=== PATIENT | female | born 1955 | race Caucasian/White ===

== ENCOUNTER 2017-02-27 13:53 | Inpatient (IN) | payer OTHER ==
[~2017-02-27] VITALS: Ht 160 cm; Wt 62.2 kg
[2017-02-27 13:56] VITALS: BP 176/97; PULSE 132; RESP 22; TEMP 98.5; O2SAT 97
[2017-02-27 14:53] VITALS: BP 160/77; PULSE 106; RESP 14; O2SAT 97
[2017-02-27 14:59] LABS: BASOPHIL % 0.2 % (0.0-2.0); EOSINOPHIL % 0.6 % (0.0-4.0); HEMATOCRIT 46.5 % (35.0-46.0); HEMO FLAGS DIFF FINAL; LYMPHOCYTE # 1.5 TH/MM3 (1.0-4.8); MEAN CELL VOLUME 91.2 FL (80.0-100.0); MEAN CORPUSCULAR HEMOGLOBIN 30.4 PG (27.0-34.0); MEAN CORPUSCULAR HGB CONC 33.3 % (32.0-36.0); MONO % 6.3 % (0.0-8.0); NEUT % 71.9 % (16.0-70.0); PLATELET COUNT 213 TH/MM3 (150-450); RED CELL DISTRIBUTION WIDTH 13.8 % (11.6-17.2); WHITE BLOOD COUNT 6.9 TH/MM3 (4.0-11.0)
[2017-02-27 15:07] LABS: APTT (PATIENT) 23.8 SEC (24.3-30.1); INTERNATIONAL NORMALIZED RATIO 0.9 RATIO; PROTHROMBIN TIME - PATIENT 9.5 SEC (9.8-11.6)
--- NOTE | 2017-02-27 15:16 | RADRPT ---
EXAM DATE/TIME: 02/27/2017 14:35 [place] COMPARISON: No previous studies available for comparison. INDICATIONS : Chest pain, short of breath. MEDICAL HISTORY : Chronic obstructive pulmonary disease. bronchitis SURGICAL HISTORY : Coronary artery stent. ENCOUNTER: Initial ACUITY: 1 day PAIN SCORE: 3/10 LOCATION: Bilateral chest FINDINGS: PA and lateral views of the chest demonstrate the lungs to be symmetrically aerated without evidence of mass, infiltrate or effusion. The cardiomediastinal contours are unremarkable. Osseous structure s are intact. CONCLUSION: Normal examination. Marc Davis MD on February 27, 2017 at 15:14 Board Certified Radiologist. This report was verified electronically.
--- NOTE | 2017-02-27 15:19 | PD ---
HPI Chief Complaint: Chest Pain Time Seen by Provider: 14:36 Travel History International Travel<30 days: No Contact w/Intl Traveler<30days: No Traveled to known affect area: No History of Present Illness HPI 61-year-old female complains of chest pain. Patient states that the pain started 3 days ago. Patient states the pain is substernal chest pain pressure pain, with radiation to the jaw. Patient states that she has intermittent sweating, palpitation shortness of breath with the chest pain. Patient states the chest pain is not so she with exertion. Patient states that she has intermittent chest pain for the past 4 weeks. Patient states that the pain is worse for the past 2 days. Patient has history of UT status post stent placement in the past. Last stent placement was in 2008. Patient was on aspirin and Plavix at that time. Patient states that she only take aspirin 81 mg daily now. Patient states that she could not afford Plavix and has not been taking it for long time. Patient has history hypertension, diabetes, dyslipidemia. Patient is a smoker. Patient states that she has not been taking any medication for at least 4 years. Patient has family history heart disease. On a scale of 1-10 the pain is a [address] 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 PFSH Past Medical History Arthritis: Yes (HANDS) Autoimmune Disease: No Blood Disorders: No Cancer: No Cardiac Catheterization: Yes Cardiovascular Problems: Yes Cerebrovascular Accident: Yes (TIA's) Diabetes: Yes Patient Takes Glucophage: No Diminished Hearing: No Endocrine: No Genitourinary: Yes Hypertension: Yes Immune Disorder: No Musculoskeletal: Yes Neurologic: Yes Psychiatric: No Reproductive: No Respiratory: No Myocardial Infarction: Yes Thyroid Disease: No Tetanus Vaccination: Unknown ?: Not : 8 Para: 7 Miscarriage: 1 Past Surgical History Cardiac Surgery: Yes (CARDIAC CATH WITH STENT X ) Coronary Stent: Yes Oral Surgery: Yes (T&A) Tonsillectomy: Yes Other Surgery: No (tonsillectomy 1966) Family History Family Myocardial Infarction: Yes Social History Alcohol Use: Yes (rarely ) Tobacco Use: Yes Substance Use: No Allergies-Medications (Allergen,Severity, Reaction): Coded Allergies: Honey Bee (Verified Allergy, Severe, UNKNOWN, 02/27/17) Adhesives (Verified Allergy, Mild, REDNESS, 02/27/17) Reported Meds & Prescriptions Reported Meds & Active Scripts Active No Active Prescriptions or Reported Medications Review of Systems General / Constitutional: No: Fever Eyes: No: Visual changes HENT: No: Headaches Cardiovascular: Positive: Chest Pain or Discomfort Respiratory: No: Shortness of Breath Gastrointestinal: No: Abdominal Pain Genitourinary: No: Dysuria Musculoskeletal: No: Pain Skin: No Rash Neurologic: No: Weakness Psychiatric: No: Depression Endocrine: No: Polydipsia Hematologic/Lymphatic: No: Easy Bruising Physical Exam Narrative GENERAL: Well-nourished, well-developed patient. SKIN: Focused skin assessment warm/dry. HEAD: Normocephalic. EYES: No scleral icterus. No injection or drainage. NECK: Supple, trachea midline. No JVD or lymphadenopathy. CARDIOVASCULAR: Regular rate and rhythm without murmurs, gallops, or rubs. RESPIRATORY: Breath sounds equal bilaterally. No accessory muscle use. GASTROINTESTINAL: Abdomen soft, non-tender, nondistended. MUSCULOSKELETAL: No cyanosis, or edema. BACK: Nontender without obvious deformity. No CVA tenderness. Neurologic exam normal. Data Data Last Documented VS Vital Signs Date Time Temp Pulse Resp B/P Pulse Ox O2 Delivery O2 Flow Rate FiO2 02/27/17 14:53 97 Nasal Cannula 2 02/27/17 14:53 106 14 160/77 02/27/17 13:56 98.5 Orders Electrocardiogram (02/27/17 14:15) Complete Blood Count With Diff (02/27/17 14:15) Ckmb (Isoenzyme) Profile (02/27/17 14:15) Troponin I (02/27/17 14:15) Iv Access Insert/Monitor (02/27/17 14:15) Ecg Monitoring (02/27/17 14:15) Oxygen Administration (02/27/17 14:15) Oximetry (02/27/17 14:15) Prothrombin Time / Inr (Pt) (02/27/17 14:47) Act Partial Throm Time (Ptt) (02/27/17 14:47) Chest, Pa & Lat (02/27/17 14:15) Comprehensive Metabolic Panel (02/27/17 14:26) CKMB (02/27/17 14:26) CKMB% (02/27/17 14:26) Labs Laboratory Tests Test 02/27/17 02/27/17 14:26 14:28 White Blood Count 6.9 TH/MM3 Red Blood Count 5.10 MIL/MM3 Hemoglobin 15.5 GM/DL Hematocrit 46.5 % Mean Corpuscular Volume 91.2 FL Mean Corpuscular Hemoglobin 30.4 PG Mean Corpuscular Hemoglobin 33.3 % Concent Red Cell Distribution Width 13.8 % Platelet Count 213 TH/MM3 Mean Platelet Volume 9.9 FL Neutrophils (%) (Auto) 71.9 % Lymphocytes (%) (Auto) 21.0 % Monocytes (%) (Auto) 6.3 % Eosinophils (%) (Auto) 0.6 % Basophils (%) (Auto) 0.2 % Neutrophils # (Auto) 5.0 TH/MM3 Lymphocytes # (Auto) 1.5 TH/MM3 Monocytes # (Auto) 0.4 TH/MM3 Eosinophils # (Auto) 0.0 TH/MM3 Basophils # (Auto) 0.0 TH/MM3 CBC Comment DIFF FINAL Differential Comment Sodium Level 131 MEQ/L Potassium Level 4.6 MEQ/L Chloride Level 94 MEQ/L Carbon Dioxide Level 25.6 MEQ/L Anion Gap 11 MEQ/L Blood Urea Nitrogen 15 MG/DL Creatinine 1.04 MG/DL Estimat Glomerular Filtration 54 ML/MIN Rate Random Glucose 740 MG/DL Calcium Level 9.0 MG/DL Total Bilirubin 0.4 MG/DL Aspartate Amino Transf 30 U/L (AST/SGOT) Alanine Aminotransferase 26 U/L (ALT/SGPT) Alkaline Phosphatase 128 U/L Total Creatine Kinase 157 U/L Creatine Kinase MB 5.3 NG/ML Troponin I 3.13 NG/ML Total Protein 7.4 GM/DL Albumin 3.8 GM/DL Prothrombin Time 9.5 SEC Prothromb Time International 0.9 RATIO Ratio Activated Partial 23.8 SEC Thromboplast Time [facility] Medical Decision Making Medical Screen Exam Complete: Yes Emergency Medical Condition: Yes Medical Record Reviewed: Yes Interpretation(s) EKG show sinus tachycardia versus atrial flutter with rate 117. Right bundle change block. Inverted T waves in anterior leads and mild ST depression in the lateral leads. EKG was shown to earth boring machine operator Dr. Pike. Differential Diagnosis Differential diagnosis including angina, UT, PE, pneumothorax. Narrative Course 61-year-old female with chest pain. Patient has abnormal EKG and elevated troponin. I spoke with Dr. 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 Patient actually saw Dr. Pike in the past. Dr. Pike advised heparin bolus and drip, admission to medical service, controlling blood sugar and possible cardiac catheter in the a.m. Diagnosis Primary Impression: NSTEMI (non-ST elevated myocardial infarction) Additional Impression: Hyperglycemia Scripts No Active Prescriptions or Reported Meds Connor Batres MD Feb 27, 2017 15:19
[2017-02-27 15:40] LABS: ALKALINE PHOSPHATASE 128 U/L (45-117); ALT (GPT) 26 U/L (10-53); ANION GAP 11 MEQ/L (5-15); AST (GOT) 30 U/L (15-37); BICARBONATE 25.6 MEQ/L (21.0-32.0); BLOOD UREA NITROGEN 15 MG/DL (7-18); CHLORIDE 94 MEQ/L (98-107); CREATINE KINASE 157 U/L (26-192); GLOMERULAR FILTRATION RATE 54 ML/MIN (>89); POTASSIUM 4.6 MEQ/L (3.5-5.1); SODIUM (NA) 131 MEQ/L (136-145); TOTAL BILIRUBIN ADULT 0.4 MG/DL (0.2-1.0)
[2017-02-27 16:01] LABS: CKMB 5.3 NG/ML (0.5-3.6)
[2017-02-27] MEDS ORDERED: MISC INFORMATION XX ONE (16:15)
[2017-02-27] MEDS ORDERED: SODIUM CHLOR 0.9% 1000 ML INJ 1,000 ML IV ONE (16:15)
[2017-02-27] MEDS ORDERED: DEXTROSE 50% IN WATER 50 ML VIAL(D50) IV PUSH PRN ×2 (16:15→19:45)
[2017-02-27] MEDS ORDERED: SODIUM CHLOR 0.9% 1000 ML INJ 1,000 ML IV SCH (16:15)
[2017-02-27] MEDS: ASPIRIN 81 MG CHEW TAB PO SCH (16:15)
[2017-02-27] MEDS ORDERED: HEPARIN-D5W INJ 250 ML IV SCH (16:15)
[2017-02-27] MEDS ORDERED: ASPIRIN EC 81 MG TABEC PO SCH (16:15)
[2017-02-27] MEDS ORDERED: INSULIN HUMAN REGULAR 1,000 UNITS/10 ML VIAL IV PUSH ONE (16:15)
[2017-02-27] MEDS ORDERED: METOPROLOL TARTRATE 25 MG TAB PO SCH (16:15)
[2017-02-27] MEDS ORDERED: HEPARIN SODIUM - IV 10,000 UNITS/10 ML VIAL IV ONE (16:15)
[2017-02-27] MEDS: ATORVASTATIN 80 MG TAB PO SCH (16:15)
[2017-02-27] MEDS ORDERED: MORPHINE SULFATE 4 MG/ML INJ IV PUSH ONE (16:30)
[2017-02-27] MEDS ORDERED: ONDANSETRON HCL 4 MG/2 ML VIAL IV PUSH ONE (16:30)
--- NOTE | 2017-02-27 16:36 | HHI.HP ---
[facility] Service [facility] Primary Care Physician No Primary Care Physician Admission Diagnosis NSTEMI. Hyperglycemia. Diagnoses: (1) NSTEMI (non-ST elevated myocardial infarction) Diagnosis: Principal (2) Uncontrolled diabetes mellitus Diagnosis: Principal Chief Complaint: chest pain Travel History International Travel<30 Days: No Contact w/Intl Traveler <30 Da: No Traveled to Known Affected Are: No History of Present Illness patient is a 61 y/o female with history of CAD- s/p stent, hypertension, diabetes mellitus, dyslipidemia, chronic smoker, non-compliant with the medical treatment, who presented to ER with chest pain. she says that the pain started last monday. pain is midsternal and intermittent. the pain was moderate in intensity and associated with sob and diaphoresis. the pain has radiation to both jaws. she says that she hasn't taken any of her medications since five years ago since she doesn't have any insurance. she was pain free at the time of my evaluation. Review of Systems Constitutional: COMPLAINS OF: Diaphoretic episodes, DENIES: Fever, Weight loss , Chills, Night Sweats Eyes: DENIES: Blurred vision, Diplopia, Vision loss, Double Vision Ears, nose, mouth, throat: DENIES: Tinnitus, Vertigo, Throat pain, Epistaxis Respiratory: COMPLAINS OF: Shortness of breath, DENIES: Apneas, Cough, Snoring , Wheezing, Hemoptysis, Sputum production Cardiovascular: COMPLAINS OF: Chest pain, DENIES: Palpitations, Syncope, Dyspnea on Exertion, PND, Lower Extremity Edema, Orthopnea, Claudication Gastrointestinal: DENIES: Abdominal pain, Black stools, Bloody stools, Constipation, Diarrhea, Nausea, Vomiting, Difficulty Swallowing, Anorexia Genitourinary: DENIES: Urinary frequency, Urgency, Hematuria, Dysuria Musculoskeletal: DENIES: Joint pain, Muscle aches, Stiffness, Joint Swelling Integumentary: DENIES: Rash Neurologic: DENIES: Abnormal gait, Headache, Localized weakness, Paresthesias, Seizures, Speech Problems, Tremor, Poor Balance Psychiatric: DENIES: Anxiety, Confusion, Mood changes, Depression, Hallucinations, Agitation, Suicidal Ideation, Homicidal Ideation, Delusions Past Family Social History Past Medical History CAD hypertension dyslipidemia TIA diabetes mellitus Past Surgical History stent placement Reported Medications none Allergies: Coded Allergies: Honey Bee (Verified Allergy, Severe, UNKNOWN, 02/27/17) Adhesives (Verified Allergy, Mild, REDNESS, 02/27/17) Active Ordered Medications Current Medications Insulin Human Regular (NovoLIN R INJ) 7 units ONCE ONCE IV PUSH ; Start at 16:15; Stop 02/27/17 at 16:16 Heparin Sodium (Porcine) 4000 units 4,000 units ONCE ONCE IV ; Start 02/27/17 at 16:15; Stop 02/27/17 at 16:16 Heparin Sodium/ Dextrose 250 ml @ 0 mls/hr TITRATE IV ; Start 02/27/17 at 16:15 Sodium Chloride (NS 1000 ml Inj) 1,000 ml @ 999 mls/hr BOLUS ONCE IV ; Start 02/27/17 at 16:15; Stop 02/27/17 at 17:15 Family History diabetes and hypertension. Social History smokes half a pack a day- drinks rarely. Physical Exam Vital Signs Vital Signs Date Time Temp Pulse Resp B/P Pulse Ox O2 Delivery O2 Flow Rate FiO2 02/27/17 14:53 97 Nasal Cannula 2 02/27/17 14:53 106 14 160/77 97 Nasal Cannula 2 02/27/17 14:44 118 14 98 Nasal Cannula 2 02/27/17 13:56 98.5 132 22 176/97 97 Physical Exam GENERAL: This is a well-nourished, well-developed patient, in no apparent distress. HEAD: Atraumatic. Normocephalic. No temporal or scalp tenderness. EYES: Pupils equal round and reactive. Extraocular motions intact. No scleral icterus. No injection or drainage. ENT: Nose without bleeding, purulent drainage or septal hematoma. Throat without erythema, tonsillar hypertrophy or exudate. Uvula midline. Airway patent. NECK: Trachea midline. No JVD or lymphadenopathy. Supple, nontender, no meningeal signs. CARDIOVASCULAR: Regular rate and rhythm without murmurs, gallops, or rubs. RESPIRATORY: Clear to auscultation. Breath sounds equal bilaterally. No wheezes , rales, or rhonchi. GASTROINTESTINAL: Abdomen soft, non-tender, nondistended. No hepato-splenomegaly , or palpable masses. No guarding. MUSCULOSKELETAL: Extremities without clubbing, cyanosis, or edema. No joint tenderness, effusion, or edema noted. No calf tenderness. Negative Homans sign bilaterally. NEUROLOGICAL: Awake and alert. Cranial nerves II through XII intact. Motor and sensory grossly within normal limits. Five out of 5 muscle strength in all muscle groups. Normal speech. Laboratory Laboratory Tests Test 02/27/17 02/27/17 14:26 14:28 White Blood Count 6.9 Red Blood Count 5.10 Hemoglobin 15.5 Hematocrit 46.5 Mean Corpuscular Volume 91.2 Mean Corpuscular Hemoglobin 30.4 Mean Corpuscular Hemoglobin 33.3 Concent Red Cell Distribution Width 13.8 Platelet Count 213 Mean Platelet Volume 9.9 Neutrophils (%) (Auto) 71.9 Lymphocytes (%) (Auto) 21.0 Monocytes (%) (Auto) 6.3 Eosinophils (%) (Auto) 0.6 Basophils (%) (Auto) 0.2 Neutrophils # (Auto) 5.0 Lymphocytes # (Auto) 1.5 Monocytes # (Auto) 0.4 Eosinophils # (Auto) 0.0 Basophils # (Auto) 0.0 CBC Comment DIFF FINAL Differential Comment Sodium Level 131 Potassium Level 4.6 Chloride Level 94 Carbon Dioxide Level 25.6 Anion Gap 11 Blood Urea Nitrogen 15 Creatinine 1.04 Estimat Glomerular Filtration 54 Rate Random Glucose 740 Calcium Level 9.0 Total Bilirubin 0.4 Aspartate Amino Transf 30 (AST/SGOT) Alanine Aminotransferase 26 (ALT/SGPT) Alkaline Phosphatase 128 Total Creatine Kinase 157 Creatine Kinase MB 5.3 Troponin I 3.13 Total Protein 7.4 Albumin 3.8 Prothrombin Time 9.5 Prothromb Time International 0.9 Ratio Activated Partial 23.8 Thromboplast Time Result Diagram: 02/27/17 1426 02/27/17 1426 Imaging Last Impressions Chest X-Ray 02/27/17 1415 Signed Impressions: Service Date/Time: Monday, February 27, 2017 14:35 - CONCLUSION: Normal examination. Marc Davis MD EKG; atrial flutter with RBBB Assessment and Plan Assessment and Plan A/P - NSTEMI with history of CAD- s/p stent placement start on aspirin and BB- continue heparin drip- trend the cardiac enzymes- cardiology consulted and plan for possible cardiac cath in am. lipid profile in am -diabetes mellitus- uncontrolled due to noncompliance start on insulin drip in light of OK-start IV fluid check A1c -hyponatremia due to hyperglycemia- will continue IV fluid- BMP in am. -DVT prophylaxis ; on Heparin drip Discussed Condition With ER physician and the patient. Physician Certification 2 Midnight Certification Type: Admission for Inpatient Services Order for Inpatient Services The services are ordered in accordance with Medicare regulations or non- Medicare payer requirements, as applicable. In the case of services not specified as inpatient-only, they are appropriately provided as inpatient services in accordance with the 2-midnight benchmark. Estimated LOS (days): 2 days is the estimated time the patient will need to remain in the hospital, assuming treatment plan goals are met and no additional complications. Post-Hospital Plan: Home Problem Qualifiers (1) Uncontrolled diabetes mellitus: Rut Javed MD Feb 27, 2017 16:36
--- NOTE | 2017-02-27 17:53 | MB ---
cc: JUAN LUIS PIKE MD DATE OF CONSULTATION 02/27/2017 HISTORY This is a 61-year-old woman who is in the hospital for chest discomfort. She stated the chest discomfort on and off over the last 4-5 days and it has become progressively worse so she has come to the emergency department. In the emergency department she has a new right bundle-branch block with nonspecific ST-segment depression noted fairly diffusely. She feels well now. She notes that she has a history of PTCA and stenting in 2008, as well as significant diabetes, hypertension, hyperlipidemia but stopped taking her medicines four or five years ago due to lack of funds and lost insurance. She has continued to smoke half pack of cigarettes per day. On admission now she is as noted above feels somewhat anxious but otherwise no chest pain. Laboratory examination has demonstrated normal renal function but blood sugar is significantly dangerously elevated at 720. And troponins were also elevated at 3.3. She has subsequently been admitted and we have been asked to see her. ALLERGIES ARE TO BEE STINGS AND ADHESIVES. SOCIAL HISTORY She has a smoking history as above. PHYSICAL EXAMINATION VITAL SIGNS: Blood pressure is 130/70, pulse is 100 and regular. NECK: There is no neck vein distension. LUNGS: Clear. CARDIOVASCULAR: Reveals regular rate and rhythm. There is no murmur or gallop noted. ABDOMEN: Soft. There is no tenderness. EXTREMITIES: Reveal no edema. ASSESSMENT 1. Non-ST elevation myocardial infarction. 2. Severe hyperglycemia. 3. Medical noncompliance. 4. Tobacco abuse. PLAN The plan we will reinstitute metoprolol, atorvastatin, aspirin and heparin protocol as well as rehydration with saline. We will consult the medical service to help us manage her hyperglycemia. We will plan a cardiac catheterization for tomorrow for further evaluation unless she redevelops chest discomfort. Also started on nitro paste at one inch q.6h. Juan Luis Pike MD DLW/KK /4:23 PM /5:34 PM
[2017-02-27 18:10] VITALS: BP 134/78
[2017-02-27 19:00] VITALS: BP 127/83; PULSE 114; PULSE 86; RESP 18; TEMP 98.2; O2SAT 99
[2017-02-27] MEDS ORDERED: SODIUM CHLORIDE FLUSH PRN IV FLUSH (19:45)
[2017-02-27] MEDS ORDERED: GLUCAGON 1 MG/ML VIAL OTHER PRN (19:45)
[2017-02-27] MEDS ORDERED: INSULIN ASPART 1,000 UNITS/10 ML VIAL SQ ONE (21:15)
[2017-02-27] MEDS: METOPROLOL TARTRATE 50 MG TAB PO SCH (21:17)
[2017-02-27] MEDS: NITROGLYCERIN 2% OINT 1 GM PACKET TOPICAL SCH (21:18)
[2017-02-27] MEDS: SODIUM CHLOR 0.9% 1000 ML INJ 1,000 ML IV SCH (21:18)
[2017-02-27 23:00] VITALS: BP 102/52; PULSE 73; RESP 20; TEMP 98.3; O2SAT 96
[2017-02-28] VITALS (10 sets, daily range): BP systolic 89–113; BP diastolic 50–67; PULSE 70–109; RESP 16–20; TEMP 97.9–99.8; O2SAT 94–97
[2017-02-28 00:51] LABS: APTT (PATIENT) 27.8 SEC (24.3-30.1)
[2017-02-28] MEDS: NITROGLYCERIN 2% OINT 1 GM PACKET TOPICAL SCH ×4 (00:58→18:49)
[2017-02-28] MEDS ORDERED: INSULIN ASPART 1,000 UNITS/10 ML VIAL SQ ONE (01:00)
[2017-02-28 04:46] LABS: BICARBONATE 26.5 MEQ/L (21.0-32.0); POTASSIUM 3.6 MEQ/L (3.5-5.1)
[2017-02-28 04:50] LABS: HDL CHOLESTEROL 27.1 MG/DL (40.0-60.0)
[2017-02-28] MEDS: SODIUM CHLOR 0.9% 1000 ML INJ 1,000 ML IV SCH ×3 (06:21→22:24)
[2017-02-28] MEDS ORDERED: MORPHINE SULFATE 4 MG/ML INJ IV PUSH ONE (06:45)
[2017-02-28] MEDS ORDERED: NITROGLYCERIN 0.4 MG SL 25 TABS/BTL SL ONE (06:45)
--- NOTE | 2017-02-28 07:05 | PD.CARD.PN ---
Subjective Subjective Remarks Complains of headache, low grade chest discomfort unchanged. BS 107. Troponin up to 11 Objective Vital Signs / I&O Vital Signs Date Time Temp Pulse Resp B/P Pulse Ox O2 Delivery O2 Flow Rate FiO2 02/28/17 03:00 97.9 78 20 90/50 96 02/28/17 03:00 78 02/27/17 23:00 73 02/27/17 23:00 98.3 73 20 102/52 96 02/27/17 19:00 114 02/27/17 19:00 98.2 86 18 127/83 99 02/27/17 18:10 102 14 134/78 97 02/27/17 14:53 97 Nasal Cannula 2 02/27/17 14:53 106 14 160/77 97 Nasal Cannula 2 02/27/17 14:44 118 14 98 Nasal Cannula 2 02/27/17 13:56 98.5 132 22 176/97 97 I/O 02/27/17 02/27/17 02/27/17 02/28/17 02/28/17 02/28/17 07:00 15:00 23:00 07:00 15:00 23:00 Intake Total 1373 ml Output Total 600 ml Balance 773 ml Intake Oral 410 ml IV Total 963 ml Output Urine Total 600 ml # Bowel Movements 0 Physical Exam Lungs clear RRR Laboratory Laboratory Tests Test 02/27/17 02/27/17 02/27/17 02/28/17 14:26 14:28 20:34 00:32 White Blood Count 6.9 TH/MM3 Red Blood Count 5.10 MIL/MM3 Hemoglobin 15.5 GM/DL Hematocrit 46.5 % Mean Corpuscular Volume 91.2 FL Mean Corpuscular Hemoglobin 30.4 PG Mean Corpuscular Hemoglobin 33.3 % Concent Red Cell Distribution Width 13.8 % Platelet Count 213 TH/MM3 Mean Platelet Volume 9.9 FL Neutrophils (%) (Auto) 71.9 % Lymphocytes (%) (Auto) 21.0 % Monocytes (%) (Auto) 6.3 % Eosinophils (%) (Auto) 0.6 % Basophils (%) (Auto) 0.2 % Neutrophils # (Auto) 5.0 TH/MM3 Lymphocytes # (Auto) 1.5 TH/MM3 Monocytes # (Auto) 0.4 TH/MM3 Eosinophils # (Auto) 0.0 TH/MM3 Basophils # (Auto) 0.0 TH/MM3 CBC Comment DIFF FINAL Differential Comment Sodium Level 131 MEQ/L Potassium Level 4.6 MEQ/L Chloride Level 94 MEQ/L Carbon Dioxide Level 25.6 MEQ/L Anion Gap 11 MEQ/L Blood Urea Nitrogen 15 MG/DL Creatinine 1.04 MG/DL Estimat Glomerular Filtration 54 ML/MIN Rate Random Glucose 740 MG/DL Calcium Level 9.0 MG/DL Total Bilirubin 0.4 MG/DL Aspartate Amino Transf 30 U/L (AST/SGOT) Alanine Aminotransferase 26 U/L (ALT/SGPT) Alkaline Phosphatase 128 U/L Total Creatine Kinase 157 U/L Creatine Kinase MB 5.3 NG/ML Troponin I 3.13 NG/ML 9.10 NG/ML Total Protein 7.4 GM/DL Albumin 3.8 GM/DL Prothrombin Time 9.5 SEC Prothromb Time International 0.9 RATIO Ratio Activated Partial 23.8 SEC 27.8 SEC Thromboplast Time Test 02/28/17 04:05 Sodium Level 142 MEQ/L Potassium Level 3.6 MEQ/L Chloride Level 106 MEQ/L Carbon Dioxide Level 26.5 MEQ/L Anion Gap 10 MEQ/L Blood Urea Nitrogen 16 MG/DL Creatinine 0.64 MG/DL Estimat Glomerular Filtration 95 ML/MIN Rate Random Glucose 106 MG/DL Calcium Level 8.2 MG/DL Troponin I 11.50 NG/ML Triglycerides Level 162 MG/DL Cholesterol Level 198 MG/DL LDL Cholesterol 139 MG/DL HDL Cholesterol 27.1 MG/DL Cholesterol/HDL Ratio 7.30 RATIO Assessment and Plan Assessment and Plan For cath today Juan Luis Pike MD Feb 28, 2017 07:05
[2017-02-28 08:03] LABS: APTT (PATIENT) 28.5 SEC (24.3-30.1)
[2017-02-28] MEDS ORDERED: DEXTROSE 50% IN WATER 50 ML VIAL(D50) IV PUSH PRN (08:15)
[2017-02-28] MEDS ORDERED: GLUCAGON 1 MG/ML VIAL OTHER PRN (08:15)
--- NOTE | 2017-02-28 08:16 | HHI.PR ---
Subjective Remarks resting comfortably with no distress. had mild chest pain earlier which has resolved. blood sugar much improved. d/w the RN and no acute issues over night. Objective Vitals Vital Signs Date Time Temp Pulse Resp B/P Pulse Ox O2 Delivery O2 Flow Rate FiO2 02/28/17 07:00 98.6 81 18 107/66 97 02/28/17 07:00 81 02/28/17 03:00 97.9 78 20 90/50 96 02/28/17 03:00 78 02/27/17 23:00 73 02/27/17 23:00 98.3 73 20 102/52 96 02/27/17 19:00 114 02/27/17 19:00 98.2 86 18 127/83 99 02/27/17 18:10 102 14 134/78 97 02/27/17 14:53 97 Nasal Cannula 2 02/27/17 14:53 106 14 160/77 97 Nasal Cannula 2 02/27/17 14:44 118 14 98 Nasal Cannula 2 02/27/17 13:56 98.5 132 22 176/97 97 I/O 02/27/17 02/27/17 02/27/17 02/28/17 02/28/17 02/28/17 07:00 15:00 23:00 07:00 15:00 23:00 Intake Total 1373 ml Output Total 600 ml Balance 773 ml Intake Oral 410 ml IV Total 963 ml Output Urine Total 600 ml # Bowel Movements 0 Result Diagram: 02/27/17 1426 02/28/17 0405 Imaging Last Impressions Chest X-Ray 02/27/17 1415 Signed Impressions: Service Date/Time: Monday, February 27, 2017 14:35 - CONCLUSION: Normal examination. Marc Davis MD Objective Remarks GENERAL: This is a well-nourished, well-developed patient, in no apparent distress. CARDIOVASCULAR: Regular rate and regular rhythm without murmurs, gallops, or rubs. RESPIRATORY: Clear to auscultation. Breath sounds equal bilaterally. No wheezes , rales, or rhonchi. GASTROINTESTINAL: Abdomen soft, non-tender, nondistended. Normal, active bowel sounds MUSCULOSKELETAL: Extremities without clubbing, cyanosis, or edema. NEURO: Alert & Oriented x4 to person, place, time, situation. Moves all ext x4 Procedures none Medications and IVs Current Medications Insulin Human Regular (NovoLIN R INJ) 7 units ONCE ONCE IV PUSH Last administered on 02/27/17 16:15; Start 02/27/17 at 16:15; Stop 02/27/17 at 16:16 ; Status DC Heparin Sodium (Porcine) 4000 units 4,000 units ONCE ONCE IV Last administered on 02/27/17 16:15; Start 02/27/17 at 16:15; Stop 02/27/17 at 16:16 ; Status DC Heparin Sodium/ Dextrose 250 ml @ 0 mls/hr TITRATE IV Last administered on 02/27 17:16; Start 02/27/17 at 16:15 Sodium Chloride (NS 1000 ml Inj) 1,000 ml @ 999 mls/hr BOLUS ONCE IV Last administered on 02/27/17 16:15; Start 02/27/17 at 16:15; Stop 02/27/17 at 17:15 ; Status DC Morphine Sulfate (Morphine Inj) 2 mg ONCE ONCE IV PUSH Last administered on 16:30; Start 02/27/17 at 16:30; Stop 02/27/17 at 16:31; Status DC Ondansetron HCl (Zofran Inj) 4 mg ONCE ONCE IV PUSH Last administered on 16:30; Start 02/27/17 at 16:30; Stop 02/27/17 at 16:31; Status DC Metoprolol Tartrate (Lopressor) 50 mg Q12HR PO Last administered on 02/27/17 21:17; Start 02/27/17 at 21:00 Nitroglycerin (Nitroglycerin 2% Oint) 1 inch Q6HR TOPICAL Last administered on 02/28/17 06:00; Start 02/27/17 at 18:00 Aspirin 81 mg 81 mg DAILY PO ; Start 02/27/17 at 16:15 Sodium Chloride (NS 1000 ml Inj) 1,000 ml @ 100 mls/hr Q10H IV ; Start at 16:15; Stop 02/27/17 at 19:35; Status DC Atorvastatin Calcium (Lipitor) 80 mg DAILY PO Last administered on 02/27/17 16 :15; Start 02/27/17 at 16:15 Dextrose (D50w (Vial) Inj) 25 ml UNSCH PRN IV PUSH SEE LABEL COMMENTS; Start at 16:15; Stop 02/27/17 at 19:34; Status DC Miscellaneous Information 1 ONCE ONCE XX ; Start 02/27/17 at 16:15; Stop at 16:34; Status DC Aspirin (Ecotrin Ec) 162 mg DAILY PO ; Start 02/27/17 at 16:15; Stop 02/27/17 at 16:32; Status DC Metoprolol Tartrate 25 mg 25 mg Q12HR PO ; Start 02/27/17 at 16:15; Stop at 16:34; Status DC Sodium Chloride (NS 1000 ml Inj) 1,000 ml @ 100 mls/hr Q10H IV Last administered on 02/28/17 06:21; Start 02/27/17 at 17:00 Dextrose (D50w (Vial) Inj) 25 ml UNSCH PRN IV PUSH HYPOGLYCEMIA-SEE COMMENTS; Start 02/27/17 at 19:45 Glucagon (Glucagon Inj) 1 mg UNSCH PRN OTHER HYPOGLYCEMIA-SEE COMMENTS; Start 02/27/17 at 19:45 Sodium Chloride (NS Flush) 2 ml UNSCH PRN IV FLUSH FLUSH AFTER USING IV ACCESS ; Start 02/27/17 at 19:45 Insulin Aspart (NovoLOG INJ) 10 units ONCE ONCE SQ Last administered on 21:19; Start 02/27/17 at 21:15; Stop 02/27/17 at 21:16; Status DC Insulin Aspart (NovoLOG INJ) 7 units ONCE ONCE SQ Last administered on 00:58; Start 02/28/17 at 01:00; Stop 02/28/17 at 01:01; Status DC Nitroglycerin (Nitrostat Sl) 0.4 mg ONCE ONCE SL Last administered on 06:45; Start 02/28/17 at 06:45; Stop 02/28/17 at 06:46; Status DC Morphine Sulfate (Morphine Inj) 2 mg ONCE ONCE IV PUSH ; Start 02/28/17 at 06: 45; Stop 02/28/17 at 06:46; Status DC A/P Assessment and Plan A/P - NSTEMI with history of CAD- s/p stent placement started on aspirin, BB, statin and heparin drip- - cardiology consulted and plan for possible cardiac cath today. -diabetes mellitus- uncontrolled due to noncompliance and stress blood sugar has much improved- will start SSI A1c pending. -hyponatremia due to hyperglycemia- resolved -DVT prophylaxis ; on Heparin drip transfer to [facility]. d/w the RN. Discharge Planning awaiting cardiac cath and cardiology recommendations. Rut Javed MD Feb 28, 2017 08:16
[2017-02-28] MEDS: ASPIRIN 81 MG CHEW TAB PO SCH (08:42)
[2017-02-28] MEDS: ATORVASTATIN 80 MG TAB PO SCH (08:42)
[2017-02-28] MEDS: INSULIN ASPART SUPPLEMENTAL SCALE SQ SCH ×4 (08:42→20:17)
[2017-02-28] MEDS: METOPROLOL TARTRATE 50 MG TAB PO SCH ×2 (08:42→20:17)
[2017-02-28] MEDS ORDERED: MORPHINE SULFATE 4 MG/ML INJ IV ONE (09:30)
--- NOTE | 2017-02-28 11:48 | EKG ---
Date Performed: 02/27/2017 Time Performed: 14:00:44 PTAGE: 61 years EKG: sinus TACHYCARDIa RIGHT BUNDLE BRANCH BLOCK LEFT ANTERIOR FASCICULAR BLOCK ST DEPRESSION, C ONSIDER SUBENDOCARDIAL INJURY ABNORMAL ECG NO PREVIOUS TRACING DOCTOR: Tramaine Clark Interpretating Date/Time 02/28/2017 11:42:23
[2017-02-28] MEDS ORDERED: MIDAZOLAM HCL 2 MG/2 ML VIAL ONE (13:18)
[2017-02-28] MEDS ORDERED: HEPARIN SODIUM - IV 10,000 UNITS/10 ML VIAL ONE (13:18)
[2017-02-28] MEDS ORDERED: HEPARIN-NS/PF INJ 500 ML ONE (13:19)
[2017-02-28] MEDS ORDERED: HEPARIN-D5W INJ 250 ML ONE (14:09)
[2017-02-28] MEDS ORDERED: BACITRACIN OINT 0.9 GM PKT TOP ONE (14:15)
[2017-02-28] MEDS ORDERED: SODIUM CHLORIDE 0.9% FLUSH 10 ML FLUSH IV FLUSH PRN ×2 (14:15)
[2017-02-28] MEDS ORDERED: METOCLOPRAMIDE HCL 10 MG/2 ML VIAL IV PRN (14:15)
[2017-02-28] MEDS ORDERED: SODIUM CHLOR 0.9% 250 ML INJ 250 ML IV PRN (14:15)
[2017-02-28] MEDS ORDERED: ATROPINE SULFATE 1 MG/ML VIAL IV PRN (14:15)
[2017-02-28] MEDS ORDERED: ONDANSETRON HCL 4 MG/2 ML VIAL IV PRN (14:15)
[2017-02-28] MEDS ORDERED: LORazepam 2 MG/ML VIAL IV PRN (14:15)
[2017-02-28] MEDS ORDERED: LIDOCAINE HCL 1% 50 ML VIAL INFIL PRN (14:15)
[2017-02-28] MEDS ORDERED: MISC INFORMATION XX ONE (14:15)
[2017-02-28] MEDS ORDERED: IOHEXOL 350 MG/ML 100 ML BTL (for Cath Lab) OTHER ONE (14:42)
--- NOTE | 2017-02-28 16:24 | MA ---
cc: SHANNON GONZALEZ MD DATE: 02/28/2017 TYPE OF PROCEDURE: Heart catheterization. PROCEDURE: The patient was prepped and draped usual fashion. A six sheath was inserted percutaneously in the right femoral artery. Coronary angiography was done with Ramón preformed catheters. Left ventriculography was done with a pigtail catheter. RESULTS Aortic pressure was 90/70. Left ventricular end-diastolic pressure was 12. There is no gradient across the aortic valve CORONARY ARTERIOGRAPHY: The left main coronary was normal. left anterior descending artery. The straight a high-grade stenosis of approximately 95% proximal portion. The LAD then gave off a first diagonal branch and diffuse and rather disease was present throughout the artery, A second 90% stenosis was present in this portion of the artery distal portion artery was diffusely and severely diseased. The first diagonal branch also demonstrated a high-grade stenosis in its proximal portion and also was rather diffusely severely diseased throughout its course. Left circumflex artery arose from the left main and a high-grade stenosis was present at the takeoff of the first obtuse marginal branch compromising the lumen by approximately 70% with a second stenosis at the second obtuse marginal of approximately 90% artery then proceeded into the distal portion of the heart with a third 90% stenosis noted in the mid to distal portion of the artery. The distal part of the artery loss was rather diffusely and severely diseased. The right coronary was anatomically dominant intracoronary stent was present its proximal portion which was widely patent. The distal portion of the artery demonstrated no discrete high-grade stenoses. The left ventriculography anterior wall left ventricle was severely hypokinetic with good motion of the coronary base, overall ejection fraction is estimated at 25% to 30%. CONCLUSIONS: The patient demonstrates severe coronary artery disease as described above. The patient will be discussed with cardiovascular surgery, regarding possible bypass grafting although tolerance is rather poor throughout. MD JENI Palmer/gama /2:10 PM /4:07 PM
[2017-02-28 16:26] LABS: APTT (PATIENT) 25.6 SEC (24.3-30.1)
[2017-02-28] MEDS: HEPARIN 25,000 UNITS-D5W 250 ML - PREMIX IV SCH (18:34)
[2017-02-28 22:08] LABS: HEMOGLOBIN A1a 1.1 %; HEMOGLOBIN A1b 1.2 %; HEMOGLOBIN Ao 71.2 %; HEMOGLOBIN F 2.3 %; HEMOGLOBIN LA1C 3.5 %; HEMOGLOBIN P3 6.4 %
[2017-03-01] VITALS (18 sets, daily range): BP systolic 93–123; BP diastolic 55–82; PULSE 64–85; RESP 16–18; TEMP 97.1–99.2; O2SAT 95–98
[2017-03-01 01:14] LABS: APTT (PATIENT) 29.4 SEC (24.3-30.1)
[2017-03-01] MEDS: NITROGLYCERIN 2% OINT 1 GM PACKET TOPICAL SCH ×5 (06:23→23:36)
[2017-03-01] MEDS: INSULIN ASPART SUPPLEMENTAL SCALE SQ SCH ×4 (06:23→21:00)
[2017-03-01 06:49] LABS: APTT (PATIENT) 33.1 SEC (24.3-30.1)
[2017-03-01 06:55] LABS: AUTOMATED NEUTROPHIL # 4.4 TH/MM3 (1.8-7.7); BASOPHIL % 0.2 % (0.0-2.0); EOSINOPHIL % 0.6 % (0.0-4.0); HEMATOCRIT 35.8 % (35.0-46.0); HEMO FLAGS DIFF FINAL; LYMPH % 30.2 % (9.0-44.0); LYMPHOCYTE # 2.1 TH/MM3 (1.0-4.8); MEAN CELL VOLUME 88.7 FL (80.0-100.0); MEAN CORPUSCULAR HEMOGLOBIN 29.4 PG (27.0-34.0); MEAN CORPUSCULAR HGB CONC 33.2 % (32.0-36.0); MONO % 6.2 % (0.0-8.0); NEUT % 62.8 % (16.0-70.0); PLATELET COUNT 154 TH/MM3 (150-450); RED BLOOD COUNT 4.04 MIL/MM3 (4.00-5.30); RED CELL DISTRIBUTION WIDTH 13.4 % (11.6-17.2)
[2017-03-01 07:24] LABS: BICARBONATE 22.7 MEQ/L (21.0-32.0); POTASSIUM 3.8 MEQ/L (3.5-5.1)
--- NOTE | 2017-03-01 07:46 | PD.CARD.PN ---
Subjective Subjective Remarks denies chest pain Objective Vital Signs / I&O Vital Signs Date Time Temp Pulse Resp B/P Pulse Ox O2 Delivery O2 Flow Rate FiO2 03/01/17 04:36 98.1 77 114/72 97 03/01/17 03:00 72 03/01/17 00:07 99.2 76 106/60 97 02/28/17 23:00 79 02/28/17 20:00 82 02/28/17 19:00 109 02/28/17 19:00 99.8 86 113/65 94 02/28/17 16:00 74 02/28/17 15:00 98.2 85 17 107/59 97 02/28/17 15:00 75 02/28/17 15:00 98.2 85 16 107/59 97 02/28/17 11:00 70 02/28/17 11:00 98.4 70 16 89/67 97 I/O 02/28/17 02/28/17 02/28/17 03/01/17 03/01/17 03/01/17 07:00 15:00 23:00 07:00 15:00 23:00 Intake Total 1373 ml 240 ml Output Total 600 ml Balance 773 ml 240 ml Intake Oral 410 ml 240 ml IV Total 963 ml Output Urine Total 600 ml # Voids 1 3 # Bowel Movements 0 Physical Exam GENERAL: Well-nourished, well-developed patient in no apparent distress. NECK: No JVD. No carotid bruit. CARDIOVASCULAR: Regular rate and rhythm. S1/S2 no murmur, rub, or gallop. RESPIRATORY: No accessory muscle use. Clear to auscultation. Breath sounds equal bilaterally. GASTROINTESTINAL: Abdomen soft, non-tender, nondistended. MUSCULOSKELETAL: Extremities without clubbing, cyanosis, or edema. Laboratory Laboratory Tests Test 02/28/17 03/01/17 03/01/17 15:06 00:15 06:06 Activated Partial 25.6 SEC 29.4 SEC 33.1 SEC Thromboplast Time White Blood Count 7.0 TH/MM3 Red Blood Count 4.04 MIL/MM3 Hemoglobin 11.9 GM/DL Hematocrit 35.8 % Mean Corpuscular Volume 88.7 FL Mean Corpuscular Hemoglobin 29.4 PG Mean Corpuscular Hemoglobin 33.2 % Concent Red Cell Distribution Width 13.4 % Platelet Count 154 TH/MM3 Mean Platelet Volume 9.8 FL Neutrophils (%) (Auto) 62.8 % Lymphocytes (%) (Auto) 30.2 % Monocytes (%) (Auto) 6.2 % Eosinophils (%) (Auto) 0.6 % Basophils (%) (Auto) 0.2 % Neutrophils # (Auto) 4.4 TH/MM3 Lymphocytes # (Auto) 2.1 TH/MM3 Monocytes # (Auto) 0.4 TH/MM3 Eosinophils # (Auto) 0.0 TH/MM3 Basophils # (Auto) 0.0 TH/MM3 CBC Comment DIFF FINAL Differential Comment Sodium Level 138 MEQ/L Potassium Level 3.8 MEQ/L Chloride Level 105 MEQ/L Carbon Dioxide Level 22.7 MEQ/L Anion Gap 10 MEQ/L Blood Urea Nitrogen 14 MG/DL Creatinine 0.60 MG/DL Estimat Glomerular Filtration 102 ML/MIN Rate Random Glucose 221 MG/DL Calcium Level 8.1 MG/DL Assessment and Plan Problem List: (1) NSTEMI (non-ST elevated myocardial infarction) Assessment and Plan She is not a surgical candidate and we will wait it see if her posterior wall moves if so we will plan mechanical intervention, if not medical management will be entertained Albert Ovlales Mar 01, 2017 07:46
[2017-03-01] MEDS: METOPROLOL TARTRATE 50 MG TAB PO SCH ×2 (08:30→23:36)
[2017-03-01] MEDS: ATORVASTATIN 80 MG TAB PO SCH (08:30)
[2017-03-01] MEDS: ASPIRIN 81 MG CHEW TAB PO SCH (08:30)
[2017-03-01] MEDS: SODIUM CHLOR 0.9% 1000 ML INJ 1,000 ML IV SCH ×2 (08:31→19:00)
--- NOTE | 2017-03-01 09:05 | HHI.PR ---
Subjective Remarks resting comfortably with no chest pain or sob. no new complaints. Objective Vitals Vital Signs Date Time Temp Pulse Resp B/P Pulse Ox O2 Delivery O2 Flow Rate FiO2 03/01/17 06:00 68 03/01/17 05:00 74 03/01/17 04:36 98.1 77 114/72 97 03/01/17 04:00 74 03/01/17 03:00 72 03/01/17 02:00 76 03/01/17 01:00 80 03/01/17 00:07 99.2 76 106/60 97 03/01/17 00:00 76 02/28/17 23:00 79 02/28/17 22:00 86 02/28/17 21:00 84 02/28/17 20:00 82 02/28/17 19:00 109 02/28/17 19:00 99.8 86 113/65 94 02/28/17 16:00 74 02/28/17 15:00 98.2 85 17 107/59 97 02/28/17 15:00 75 02/28/17 15:00 98.2 85 16 107/59 97 02/28/17 11:00 70 02/28/17 11:00 98.4 70 16 89/67 97 I/O 02/28/17 02/28/17 02/28/17 03/01/17 03/01/17 03/01/17 07:00 15:00 23:00 07:00 15:00 23:00 Intake Total 1373 ml 240 ml Output Total 600 ml Balance 773 ml 240 ml Intake Oral 410 ml 240 ml IV Total 963 ml Output Urine Total 600 ml # Voids 1 3 # Bowel Movements 0 Result Diagram: 03/01/17 0606 03/01/17 0606 Imaging Last Impressions Chest X-Ray 02/27/17 1415 Signed Impressions: Service Date/Time: Monday, February 27, 2017 14:35 - CONCLUSION: Normal examination. Marc Davis MD Objective Remarks GENERAL: This is a well-nourished, well-developed patient, in no apparent distress. CARDIOVASCULAR: Regular rate and regular rhythm without murmurs, gallops, or rubs. RESPIRATORY: Clear to auscultation. Breath sounds equal bilaterally. No wheezes , rales, or rhonchi. GASTROINTESTINAL: Abdomen soft, non-tender, nondistended. Normal, active bowel sounds MUSCULOSKELETAL: Extremities without clubbing, cyanosis, or edema. NEURO: Alert & Oriented x4 to person, place, time, situation. Moves all ext x4 Procedures cardiac cath. Medications and IVs Current Medications Insulin Human Regular (NovoLIN R INJ) 7 units ONCE ONCE IV PUSH Last administered on 02/27/17 16:15; Start 02/27/17 at 16:15; Stop 02/27/17 at 16:16 ; Status DC Heparin Sodium (Porcine) 4000 units 4,000 units ONCE ONCE IV Last administered on 02/27/17 16:15; Start 02/27/17 at 16:15; Stop 02/27/17 at 16:16 ; Status DC Heparin Sodium/ Dextrose 250 ml @ 0 mls/hr TITRATE IV Last administered on 02/27 17:16; Start 02/27/17 at 16:15; Stop 02/28/17 at 14:12; Status DC Sodium Chloride (NS 1000 ml Inj) 1,000 ml @ 999 mls/hr BOLUS ONCE IV Last administered on 02/27/17 16:15; Start 02/27/17 at 16:15; Stop 02/27/17 at 17:15 ; Status DC Morphine Sulfate (Morphine Inj) 2 mg ONCE ONCE IV PUSH Last administered on 16:30; Start 02/27/17 at 16:30; Stop 02/27/17 at 16:31; Status DC Ondansetron HCl (Zofran Inj) 4 mg ONCE ONCE IV PUSH Last administered on 16:30; Start 02/27/17 at 16:30; Stop 02/27/17 at 16:31; Status DC Metoprolol Tartrate (Lopressor) 50 mg Q12HR PO Last administered on 03/01/17 08:30; Start 02/27/17 at 21:00 Nitroglycerin (Nitroglycerin 2% Oint) 1 inch Q6HR TOPICAL Last administered on 03/01/17 06:23; Start 02/27/17 at 18:00 Aspirin 81 mg 81 mg DAILY PO Last administered on 03/01/17 08:30; Start at 16:15 Sodium Chloride (NS 1000 ml Inj) 1,000 ml @ 100 mls/hr Q10H IV ; Start at 16:15; Stop 02/27/17 at 19:35; Status DC Atorvastatin Calcium (Lipitor) 80 mg DAILY PO Last administered on 03/01/17 08 :30; Start 02/27/17 at 16:15 Dextrose (D50w (Vial) Inj) 25 ml UNSCH PRN IV PUSH SEE LABEL COMMENTS; Start at 16:15; Stop 02/27/17 at 19:34; Status DC Miscellaneous Information 1 ONCE ONCE XX ; Start 02/27/17 at 16:15; Stop at 16:34; Status DC Aspirin (Ecotrin Ec) 162 mg DAILY PO ; Start 02/27/17 at 16:15; Stop 02/27/17 at 16:32; Status DC Metoprolol Tartrate 25 mg 25 mg Q12HR PO ; Start 02/27/17 at 16:15; Stop at 16:34; Status DC Sodium Chloride (NS 1000 ml Inj) 1,000 ml @ 100 mls/hr Q10H IV Last administered on 03/01/17 08:31; Start 02/27/17 at 17:00 Dextrose (D50w (Vial) Inj) 25 ml UNSCH PRN IV PUSH HYPOGLYCEMIA-SEE COMMENTS; Start 02/27/17 at 19:45; Stop 02/28/17 at 08:21; Status DC Glucagon (Glucagon Inj) 1 mg UNSCH PRN OTHER HYPOGLYCEMIA-SEE COMMENTS; Start 02/27/17 at 19:45; Stop 02/28/17 at 08:21; Status DC Sodium Chloride (NS Flush) 2 ml UNSCH PRN IV FLUSH FLUSH AFTER USING IV ACCESS ; Start 02/27/17 at 19:45; Stop 02/28/17 at 14:09; Status DC Insulin Aspart (NovoLOG INJ) 10 units ONCE ONCE SQ Last administered on 21:19; Start 02/27/17 at 21:15; Stop 02/27/17 at 21:16; Status DC Insulin Aspart (NovoLOG INJ) 7 units ONCE ONCE SQ Last administered on 00:58; Start 02/28/17 at 01:00; Stop 02/28/17 at 01:01; Status DC Nitroglycerin (Nitrostat Sl) 0.4 mg ONCE ONCE SL Last administered on 06:45; Start 02/28/17 at 06:45; Stop 02/28/17 at 06:46; Status DC Morphine Sulfate (Morphine Inj) 2 mg ONCE ONCE IV PUSH ; Start 02/28/17 at 06: 45; Stop 02/28/17 at 06:46; Status DC Dextrose (D50w (Vial) Inj) 25 ml UNSCH PRN IV PUSH HYPOGLYCEMIA-SEE COMMENTS; Start 02/28/17 at 08:15 Glucagon (Glucagon Inj) 1 mg UNSCH PRN OTHER HYPOGLYCEMIA-SEE COMMENTS; Start 02/28/17 at 08:15 Insulin Aspart (NovoLOG SUPPLEMENTAL SCALE) 1 ACHS SLIDING SCALE SQ Last administered on 03/01/17 06:23; Start 02/28/17 at 08:00 Morphine Sulfate (Morphine Inj) 2 mg NOW ONCE IV Last administered on 09:26; Start 02/28/17 at 09:30; Stop 02/28/17 at 09:31; Status DC Midazolam HCl (Versed Inj) 2 mg STK-MED ONCE .ROUTE Last administered on 13:18; Start 02/28/17 at 13:18; Stop 02/28/17 at 13:19; Status DC Fentanyl Citrate (fentaNYL INJ) 100 mcg STK-MED ONCE .ROUTE ; Start 02/28/17 at 13:18; Stop 02/28/17 at 13:19; Status DC Heparin Sodium (Porcine) 76930 units 10,000 units STK-MED ONCE .ROUTE Last administered on 02/28/17 13:18; Start 02/28/17 at 13:18; Stop 02/28/17 at 13:19 ; Status DC Heparin Sodium/ Sodium Chloride (Heparin-NS/Pf Inj) 500 ml @ As Directed STK- MED ONCE .ROUTE Last administered on 02/28/17 13:19; Start 02/28/17 at 13:19; Stop 02/28/17 at 13:20; Status DC Sodium Chloride (NS Flush) 2 ml UNSCH PRN IV FLUSH FLUSH AFTER USING IV ACCESS ; Start 02/28/17 at 14:15 Sodium Chloride (NS Flush) 2 ml UNSCH PRN IV FLUSH FLUSH AFTER USING IV ACCESS ; Start 02/28/17 at 14:15 Miscellaneous Information 1 ONCE ONCE XX ; Start 02/28/17 at 14:15; Stop at 14:16; Status DC Lorazepam (Ativan Inj) 0.5 mg UNSCH PRN IV ANXIETY; Start 02/28/17 at 14:15; Stop 03/01/17 at 14:14 Atropine Sulfate 0.5 mg 0.5 mg UNSCH PRN IV VAGAL REPONSE; Start 02/28/17 at 14 :15 Sodium Chloride (NS 250 ml Inj) 250 ml @ 500 mls/hr ONCE PRN IV VAGAL REPONSE ; Start 02/28/17 at 14:15; Stop 03/01/17 at 14:14 Metoclopramide HCl (Reglan Inj) 10 mg Q4H PRN IV NAUSEA; Start 02/28/17 at 14: 15 Ondansetron HCl (Zofran Inj) 4 mg Q4H PRN IV NAUSEA; Start 02/28/17 at 14:15 Lidocaine HCl (Xylocaine 1% Inj (50 ml)) 10 ml UNSCH PRN INFIL SHEATH REMOVAL; Start 02/28/17 at 14:15; Stop 03/01/17 at 14:14 Bacitracin 0.9 gm 0.9 gm ONCE ONCE TOP ; Start 02/28/17 at 14:15; Stop at 14:16; Status DC Heparin Sodium/ Dextrose (Heparin-D5W Inj) 250 ml @ As Directed STK-MED ONCE .ROUTE ; Start 02/28/17 at 14:09; Stop 02/28/17 at 14:10; Status DC Iohexol 100 ml 100 ml STK-MED ONCE OTHER ; Start 02/28/17 at 14:42; Stop at 14:43; Status DC Heparin Sodium/ Dextrose (Heparin-D5W Inj) 250 ml @ 0 mls/hr TITRATE IV Last administered on 02/28/17t 18:34; Start 02/28/17 at 17:30 A/P Assessment and Plan A/P - NSTEMI with history of CAD- s/p stent placement s/p cardiac cath with severe CAD- not a candidate for CABG- continue aspirin, BB and statin-cardiology following. -diabetes mellitus- uncontrolled due to noncompliance and stress blood sugar has much improved- continue accu-check with SSI- A1c 14.3. -hyponatremia due to hyperglycemia- resolved Discharge Planning when cleared by cardiology. Rut Javed MD Mar 01, 2017 09:05
--- NOTE | 2017-03-01 10:25 | EKG ---
Date Performed: 03/01/2017 Time Performed: 05:34:44 PTAGE: 61 years EKG: Sinus rhythm Left axis deviation Right bundle branch block Inferior/lateral ST-T changes are nonspecific Low QRS voltages in precordial leads Abnormal ECG PREVIOUS TRACING : 02/27/2017 14.00 DOCTOR: Sincere Cahvez Interpretating Date/Time 03/01/2017 10:24:19
--- NOTE | 2017-03-01 11:53 | EC ---
Study Study Date:02/28/2017 STUDY CONCLUSIONS SUMMARY - Left ventricle: The cavity size was normal. Wall thickness was normal. Systolic function was moderately reduced. The estimated ejection fraction was 40%, in the range of 35% to 40%. Akinesis of the entire apical myocardium. - Aortic valve: Valve area: 2.47cm^2 (Vmax). - Mitral valve: Mild regurgitation. - Pulmonary arteries: PA peak pressure: 44mm Hg (S). If LV function is below 40, please consider prescribing an ACEI or ARB or document rationale for non-use. PROCEDURE DATA STUDY STATUS: Elective. Procedure: Transthoracic echocardiography. Image quality was good. Scanning was performed from the parasternal, apical, and subcostal acoustic windows. Study completion: The patient tolerated the procedure well. Transthoracic echocardiography. M-mode, complete 2D, complete spectral Doppler, and color Doppler. Height: Height: 63in. Weight: Weight: 153.7lb. Body mass index: BMI: 27.3kg/m^2. Body surface area: BSA: 1.73m^2. Patient status: Inpatient. CARDIAC ANATOMY LEFT VENTRICLE: The cavity size was normal. Wall thickness was normal. Systolic function was moderately reduced. The estimated ejection fraction was 40%, in the range of 35% to 40%. Regional wall motion abnormalities: Akinesis of the entire apical myocardium. AORTIC VALVE: Trileaflet; mildly thickened leaflets. Doppler: Transvalvular velocity was within the normal range. There was no stenosis. No regurgitation. Valve area: 2.47cm^2 (Vmax). Indexed valve area: 1.43cm^2/m^2 (Vmax). AORTA: Aortic root: The aortic root was normal in size. MITRAL VALVE: Structurally normal valve. Doppler: Transvalvular velocity was within the normal range. There was no evidence for stenosis. Mild regurgitation. Valve area by pressure half-time: 3.49cm^2. Indexed valve area by pressure half-time: 2.02cm^2/m^2. Peak gradient: 4mm Hg (D). LEFT ATRIUM: The atrium was normal in size. RIGHT VENTRICLE: The cavity size was normal. Wall thickness was normal. PULMONIC VALVE: Doppler: Transvalvular velocity was within the normal range. There was no evidence for stenosis. No regurgitation. TRICUSPID VALVE: Structurally normal valve. Doppler: Transvalvular velocity was within the normal range. Trace to mild regurgitation. Peak gradient: 25mm Hg (D). PULMONARY ARTERY: The main pulmonary artery was normal-sized. Systolic pressure was within the normal range. RIGHT ATRIUM: The atrium was normal in size. PERICARDIUM: There was no pericardial effusion. SYSTEMIC VEINS: Inferior vena cava: The vessel was normal in size. Patient weight: 153.7lb _Ejection fraction:_ 65-75% _Fractional shortening:_ 32% up to 5Kg 5-11.5Kg 11.6-22.9Kg 23-45Kg 45-57Kg Aortic Root 7-13 <17 13-22 17-27 17-27 LA diam 6-13 <23 24-38 33-47 37-40 RVID 10-17 7-15 7-15 7-18 8-17 LVIDd 12-22 <32 24-38 33-47 37-40 LVPW 2-4 3-6 5-7 6-8 7-8 IVS 2-4 3-6 5-7 6-8 7-8 BASIC MEASUREMENTS ADULT NORMAL Left ventricle LV internal dimension, ED, chordal *40.8 mm 43-52 level, PLAX LV internal dimension, ES, chordal 29.2 mm 23-38 level, PLAX Fractional shortening, chordal level, *28 % >29 PLAX LV posterior wall thickness, ED 10.2 mm IVS/LVPW ratio, ED 0.97 <1.3 Volume, ED, MOD, 1-plane 99 ml Volume, ES, MOD, 1-plane 47 ml Ejection fraction, MOD, 1-plane 53 % Stroke volume, MOD, 1-plane 52 ml Volume index, ED, MOD, 1-plane 57 ml/m^2 Volume index, ES, MOD, 1-plane 27 ml/m^2 Stroke index, MOD, 1-plane 30.1 ml/m^2 Ventricular septum Septal thickness, ED 9.9 mm Aortic valve Leaflet separation 16 mm 15-26 Left atrium Anterior-posterior dimension 38 mm Anterior-posterior dimension index *2.2 cm/m^2 <2.2 Right ventricle RV internal dimension, ED, PLAX 25.9 mm 19-38 BASIC MEASUREMENTS ADULT NORMAL Aortic valve Leaflet separation 16 mm 15-26 Aorta Root diameter, ED 33 mm 20-37 DOPPLER MEASUREMENTS ADULT NORMAL Main pulmonary artery Pressure, S *44 mm Hg =30 Aortic valve Peak velocity, S 121 cm/s Valve area, Vmax 2.47 cm^2 Valve area index, Vmax 1.43 cm^2/m^2 Mitral valve Peak E-wave velocity 98.7 cm/s Peak A-wave velocity 81.9 cm/s Pressure half-time 63 ms Peak gradient, D 4 mm Hg Peak E/A ratio 1.2 Valve area, pressure half-time 3.49 cm^2 Valve area index, pressure half-time 2.02 cm^2/m^2 Tricuspid valve Peak gradient, D 25 mm Hg Maximal inflow velocity 250 cm/s Regurgitant peak velocity 309 cm/s Peak RV-RA gradient, S 38 mm Hg Maximal regurgitant velocity 309 cm/s Systemic veins Estimated CVP 10 mm Hg Right ventricle RV pressure, S *48 mm Hg <30 Pulmonic valve Peak velocity, S 102 cm/s LEGEND: Mean values are shown as u=mean value. Asterisk (*) escalante values outside specified normal range. Prepared and signed by Shahid Marin [id number]
[2017-03-01] MEDS: HEPARIN 25,000 UNITS-D5W 250 ML - PREMIX IV SCH (13:01)
[2017-03-01] MEDS: ACETAMINOPHEN 325 MG TAB PO PRN (14:34)
[2017-03-01 16:10] LABS: APTT (PATIENT) 33.3 SEC (24.3-30.1)
[2017-03-01 20:51] LABS: APTT (PATIENT) 35.3 SEC (24.3-30.1)
[2017-03-01 23:43] LABS: APTT (PATIENT) 36.6 SEC (24.3-30.1)
[2017-03-02] VITALS (21 sets, daily range): BP systolic 114–140; BP diastolic 67–96; PULSE 55–89; RESP 16–20; TEMP 96–98.3; O2SAT 96–99
[2017-03-02] MEDS: SODIUM CHLOR 0.9% 1000 ML INJ 1,000 ML IV SCH ×2 (05:00→15:00)
[2017-03-02 05:34] LABS: APTT (PATIENT) 43.9 SEC (24.3-30.1)
[2017-03-02] MEDS: NITROGLYCERIN 2% OINT 1 GM PACKET TOPICAL SCH (05:52)
[2017-03-02] MEDS: INSULIN ASPART SUPPLEMENTAL SCALE SQ SCH ×4 (06:52→21:00)
[2017-03-02] MEDS ORDERED: CLOPIDOGREL 300 MG TAB PO ONE (07:15)
--- NOTE | 2017-03-02 07:17 | PD.CARD.PN ---
Subjective Subjective Remarks Mild tightness on occasion. No dyspnea Objective Vital Signs / I&O Vital Signs Date Time Temp Pulse Resp B/P Pulse Ox O2 Delivery O2 Flow Rate FiO2 03/02/17 04:45 98.3 73 16 114/96 96 03/02/17 01:06 98.3 89 16 140/95 97 03/02/17 01:00 62 03/02/17 00:00 80 03/01/17 23:00 64 03/01/17 22:00 72 03/01/17 21:17 97.1 85 16 123/79 98 03/01/17 21:00 72 03/01/17 20:00 74 03/01/17 19:00 72 03/01/17 15:54 16 03/01/17 15:51 98.6 79 18 123/82 96 03/01/17 15:51 80 03/01/17 11:18 84 03/01/17 11:18 98.2 72 18 93/55 95 03/01/17 07:58 98.1 83 108/64 95 03/01/17 07:58 82 I/O 03/01/17 03/01/17 03/01/17 03/02/17 03/02/17 03/02/17 07:00 15:00 23:00 07:00 15:00 23:00 Intake Total 240 ml 600 ml 680 ml Balance 240 ml 600 ml 680 ml Intake Oral 240 ml 600 ml 680 ml # Voids 3 3 3 # Bowel Movements 1 0 Physical Exam Lungs clear RRR Laboratory Laboratory Tests Test 03/01/17 03/01/17 03/01/17 03/02/17 15:38 20:04 22:19 05:11 Activated Partial 33.3 SEC 35.3 SEC 36.6 SEC 43.9 SEC Thromboplast Time Assessment and Plan Problem List: (1) NSTEMI (non-ST elevated myocardial infarction) Assessment and Plan Widespread and diffuse CAD present. Discussed with CV surgery and not a candidate for surgery or percutaneous intervention due to diffuse nature of disease. Will stop heparin and begin plavix. Switch nitro paste to isosorbide. Increase activity. Will start p.o. metformin. Possibly home tomorrow Juan Luis Pike MD Mar 02, 2017 07:17
[2017-03-02] MEDS: ATORVASTATIN 80 MG TAB PO SCH (10:14)
[2017-03-02] MEDS: metFORMIN HCL 500 MG TAB PO SCH ×2 (10:14→18:08)
[2017-03-02] MEDS: METOPROLOL TARTRATE 50 MG TAB PO SCH ×2 (10:14→21:00)
[2017-03-02] MEDS: ASPIRIN 81 MG CHEW TAB PO SCH (10:15)
[2017-03-02] MEDS: ACETAMINOPHEN 325 MG TAB PO PRN (10:22)
--- NOTE | 2017-03-02 10:52 | HHI.PR ---
Subjective Remarks in no acute distress. says that had a panic attach earlier this morning. now with no chest pain or sob. Objective Vitals Vital Signs Date Time Temp Pulse Resp B/P Pulse Ox O2 Delivery O2 Flow Rate FiO2 03/02/17 08:22 98.2 73 16 116/68 96 03/02/17 08:22 73 03/02/17 04:45 98.3 73 16 114/96 96 03/02/17 01:06 98.3 89 16 140/95 97 03/02/17 01:00 62 03/02/17 00:00 80 03/01/17 23:00 64 03/01/17 22:00 72 03/01/17 21:17 97.1 85 16 123/79 98 03/01/17 21:00 72 03/01/17 20:00 74 03/01/17 19:00 72 03/01/17 15:54 16 03/01/17 15:51 98.6 79 18 123/82 96 03/01/17 15:51 80 03/01/17 11:18 84 03/01/17 11:18 98.2 72 18 93/55 95 I/O 03/01/17 03/01/17 03/01/17 03/02/17 03/02/17 03/02/17 07:00 15:00 23:00 07:00 15:00 23:00 Intake Total 240 ml 600 ml 680 ml Balance 240 ml 600 ml 680 ml Intake Oral 240 ml 600 ml 680 ml # Voids 3 3 3 # Bowel Movements 1 0 Result Diagram: 03/01/17 0606 03/01/17 0606 Imaging Last Impressions Chest X-Ray 02/27/17 1415 Signed Impressions: Service Date/Time: Monday, February 27, 2017 14:35 - CONCLUSION: Normal examination. Marc Davis MD Objective Remarks GENERAL: This is a well-nourished, well-developed patient, in no apparent distress. CARDIOVASCULAR: Regular rate and regular rhythm without murmurs, gallops, or rubs. RESPIRATORY: Clear to auscultation. Breath sounds equal bilaterally. No wheezes , rales, or rhonchi. GASTROINTESTINAL: Abdomen soft, non-tender, nondistended. Normal, active bowel sounds MUSCULOSKELETAL: Extremities without clubbing, cyanosis, or edema. NEURO: Alert & Oriented x4 to person, place, time, situation. Moves all ext x4 Procedures cardiac cath. Medications and IVs Current Medications Insulin Human Regular (NovoLIN R INJ) 7 units ONCE ONCE IV PUSH Last administered on 02/27/17 16:15; Start 02/27/17 at 16:15; Stop 02/27/17 at 16:16 ; Status DC Heparin Sodium (Porcine) 4000 units 4,000 units ONCE ONCE IV Last administered on 02/27/17 16:15; Start 02/27/17 at 16:15; Stop 02/27/17 at 16:16 ; Status DC Heparin Sodium/ Dextrose 250 ml @ 0 mls/hr TITRATE IV Last administered on 02/27 17:16; Start 02/27/17 at 16:15; Stop 02/28/17 at 14:12; Status DC Sodium Chloride (NS 1000 ml Inj) 1,000 ml @ 999 mls/hr BOLUS ONCE IV Last administered on 02/27/17 16:15; Start 02/27/17 at 16:15; Stop 02/27/17 at 17:15 ; Status DC Morphine Sulfate (Morphine Inj) 2 mg ONCE ONCE IV PUSH Last administered on 16:30; Start 02/27/17 at 16:30; Stop 02/27/17 at 16:31; Status DC Ondansetron HCl (Zofran Inj) 4 mg ONCE ONCE IV PUSH Last administered on 16:30; Start 02/27/17 at 16:30; Stop 02/27/17 at 16:31; Status DC Metoprolol Tartrate (Lopressor) 50 mg Q12HR PO Last administered on 03/02/17 10:14; Start 02/27/17 at 21:00 Nitroglycerin (Nitroglycerin 2% Oint) 1 inch Q6HR TOPICAL Last administered on 03/02/17 05:52; Start 02/27/17 at 18:00; Stop 03/02/17 at 07:09; Status DC Aspirin 81 mg 81 mg DAILY PO Last administered on 03/02/17 10:15; Start at 16:15 Sodium Chloride (NS 1000 ml Inj) 1,000 ml @ 100 mls/hr Q10H IV ; Start at 16:15; Stop 02/27/17 at 19:35; Status DC Atorvastatin Calcium (Lipitor) 80 mg DAILY PO Last administered on 03/02/17 10 :14; Start 02/27/17 at 16:15 Dextrose (D50w (Vial) Inj) 25 ml UNSCH PRN IV PUSH SEE LABEL COMMENTS; Start at 16:15; Stop 02/27/17 at 19:34; Status DC Miscellaneous Information 1 ONCE ONCE XX ; Start 02/27/17 at 16:15; Stop at 16:34; Status DC Aspirin (Ecotrin Ec) 162 mg DAILY PO ; Start 02/27/17 at 16:15; Stop 02/27/17 at 16:32; Status DC Metoprolol Tartrate 25 mg 25 mg Q12HR PO ; Start 02/27/17 at 16:15; Stop at 16:34; Status DC Sodium Chloride (NS 1000 ml Inj) 1,000 ml @ 100 mls/hr Q10H IV Last administered on 03/01/17 08:31; Start 02/27/17 at 17:00 Dextrose (D50w (Vial) Inj) 25 ml UNSCH PRN IV PUSH HYPOGLYCEMIA-SEE COMMENTS; Start 02/27/17 at 19:45; Stop 02/28/17 at 08:21; Status DC Glucagon (Glucagon Inj) 1 mg UNSCH PRN OTHER HYPOGLYCEMIA-SEE COMMENTS; Start 02/27/17 at 19:45; Stop 02/28/17 at 08:21; Status DC Sodium Chloride (NS Flush) 2 ml UNSCH PRN IV FLUSH FLUSH AFTER USING IV ACCESS ; Start 02/27/17 at 19:45; Stop 02/28/17 at 14:09; Status DC Insulin Aspart (NovoLOG INJ) 10 units ONCE ONCE SQ Last administered on 21:19; Start 02/27/17 at 21:15; Stop 02/27/17 at 21:16; Status DC Insulin Aspart (NovoLOG INJ) 7 units ONCE ONCE SQ Last administered on 00:58; Start 02/28/17 at 01:00; Stop 02/28/17 at 01:01; Status DC Nitroglycerin (Nitrostat Sl) 0.4 mg ONCE ONCE SL Last administered on 06:45; Start 02/28/17 at 06:45; Stop 02/28/17 at 06:46; Status DC Morphine Sulfate (Morphine Inj) 2 mg ONCE ONCE IV PUSH ; Start 02/28/17 at 06: 45; Stop 02/28/17 at 06:46; Status DC Dextrose (D50w (Vial) Inj) 25 ml UNSCH PRN IV PUSH HYPOGLYCEMIA-SEE COMMENTS; Start 02/28/17 at 08:15 Glucagon (Glucagon Inj) 1 mg UNSCH PRN OTHER HYPOGLYCEMIA-SEE COMMENTS; Start 02/28/17 at 08:15 Insulin Aspart (NovoLOG SUPPLEMENTAL SCALE) 1 ACHS SLIDING SCALE SQ Last administered on 03/02/17 06:52; Start 02/28/17 at 08:00 Morphine Sulfate (Morphine Inj) 2 mg NOW ONCE IV Last administered on 09:26; Start 02/28/17 at 09:30; Stop 02/28/17 at 09:31; Status DC Midazolam HCl (Versed Inj) 2 mg STK-MED ONCE .ROUTE Last administered on 13:18; Start 02/28/17 at 13:18; Stop 02/28/17 at 13:19; Status DC Fentanyl Citrate (fentaNYL INJ) 100 mcg STK-MED ONCE .ROUTE ; Start 02/28/17 at 13:18; Stop 02/28/17 at 13:19; Status DC Heparin Sodium (Porcine) 72658 units 10,000 units STK-MED ONCE .ROUTE Last administered on 02/28/17 13:18; Start 02/28/17 at 13:18; Stop 02/28/17 at 13:19 ; Status DC Heparin Sodium/ Sodium Chloride (Heparin-NS/Pf Inj) 500 ml @ As Directed STK- MED ONCE .ROUTE Last administered on 02/28/17 13:19; Start 02/28/17 at 13:19; Stop 02/28/17 at 13:20; Status DC Sodium Chloride (NS Flush) 2 ml UNSCH PRN IV FLUSH FLUSH AFTER USING IV ACCESS ; Start 02/28/17 at 14:15 Sodium Chloride (NS Flush) 2 ml UNSCH PRN IV FLUSH FLUSH AFTER USING IV ACCESS ; Start 02/28/17 at 14:15 Miscellaneous Information 1 ONCE ONCE XX ; Start 02/28/17 at 14:15; Stop at 14:16; Status DC Lorazepam (Ativan Inj) 0.5 mg UNSCH PRN IV ANXIETY; Start 02/28/17 at 14:15; Stop 03/01/17 at 14:14; Status DC Atropine Sulfate 0.5 mg 0.5 mg UNSCH PRN IV VAGAL REPONSE; Start 02/28/17 at 14 :15 Sodium Chloride (NS 250 ml Inj) 250 ml @ 500 mls/hr ONCE PRN IV VAGAL REPONSE ; Start 02/28/17 at 14:15; Stop 03/01/17 at 14:14; Status DC Metoclopramide HCl (Reglan Inj) 10 mg Q4H PRN IV NAUSEA; Start 02/28/17 at 14: 15 Ondansetron HCl (Zofran Inj) 4 mg Q4H PRN IV NAUSEA; Start 02/28/17 at 14:15 Lidocaine HCl (Xylocaine 1% Inj (50 ml)) 10 ml UNSCH PRN INFIL SHEATH REMOVAL; Start 02/28/17 at 14:15; Stop 03/01/17 at 14:14; Status DC Bacitracin 0.9 gm 0.9 gm ONCE ONCE TOP ; Start 02/28/17 at 14:15; Stop at 14:16; Status DC Heparin Sodium/ Dextrose (Heparin-D5W Inj) 250 ml @ As Directed STK-MED ONCE .ROUTE ; Start 02/28/17 at 14:09; Stop 02/28/17 at 14:10; Status DC Iohexol 100 ml 100 ml STK-MED ONCE OTHER ; Start 02/28/17 at 14:42; Stop at 14:43; Status DC Heparin Sodium/ Dextrose (Heparin-D5W Inj) 250 ml @ 0 mls/hr TITRATE IV Last administered on 03/01/17 13:01; Start 02/28/17 at 17:30; Stop 03/02/17 at 07:09 ; Status DC Acetaminophen (Tylenol) 650 mg Q6H PRN PO PAIN SCALE 1 TO 10 Last administered on 03/02/17t 10:22; Start 03/01/17 at 13:45 Isosorbide Mononitrate (Imdur) 30 mg DAILY@07 PO ; Start 03/03/17 at 07:00 Metformin HCl (Glucophage) 500 mg BIDPC PO Last administered on 03/02/17 10:14 ; Start 03/02/17 at 09:00 Clopidogrel Bisulfate (Plavix) 600 mg ONCE ONCE PO Last administered on 10:14; Start 03/02/17 at 07:15; Stop 03/02/17 at 08:53; Status DC Clopidogrel Bisulfate (Plavix) 75 mg DAILY PO ; Start 03/03/17 at 09:00 A/P Assessment and Plan A/P - NSTEMI with history of CAD- s/p stent placement s/p cardiac cath with severe CAD- not a candidate for CABG- continue aspirin, plavix, BB, imdur and statin-cardiology following. -diabetes mellitus- uncontrolled due to noncompliance and stress blood sugar has much improved- continue accu-check with SSI- A1c 14.3. started back on metformin. -hyponatremia due to hyperglycemia- resolved Discharge Planning possibly tomorrow when cleared by cardiology. Rut Javed MD Mar 02, 2017 10:52
[2017-03-03] VITALS (15 sets, daily range): BP systolic 118–129; BP diastolic 68–74; PULSE 63–78; RESP 16–20; TEMP 96.2–98.8; O2SAT 95–99
[2017-03-03] MEDS: SODIUM CHLOR 0.9% 1000 ML INJ 1,000 ML IV SCH ×2 (01:00→11:00)
[2017-03-03] MEDS ORDERED: ISOSORBIDE MONONITRATE 30 MG TAB PO SCH (07:00)
[2017-03-03] MEDS: INSULIN ASPART SUPPLEMENTAL SCALE SQ SCH ×2 (07:14→11:00)
--- NOTE | 2017-03-03 07:56 | PD.CARD.PN ---
Subjective Subjective Remarks Walking without angina. No dyspnea. BP stable Objective Vital Signs / I&O Vital Signs Date Time Temp Pulse Resp B/P Pulse Ox O2 Delivery O2 Flow Rate FiO2 03/03/17 06:00 67 03/03/17 05:00 67 03/03/17 04:30 96.2 65 16 118/68 95 03/03/17 04:00 68 03/03/17 03:00 73 03/03/17 02:00 66 03/03/17 01:00 64 03/03/17 00:17 96.2 63 16 128/74 96 03/03/17 00:00 64 03/02/17 23:00 67 03/02/17 22:00 70 03/02/17 21:00 72 03/02/17 20:00 82 03/02/17 19:49 96.0 71 16 127/80 96 03/02/17 19:00 66 03/02/17 18:00 66 03/02/17 17:00 64 03/02/17 16:00 68 03/02/17 16:00 98.2 74 20 115/76 99 03/02/17 15:00 58 03/02/17 14:00 78 03/02/17 13:00 74 03/02/17 12:04 18 03/02/17 12:00 64 03/02/17 12:00 98.3 65 20 116/67 98 03/02/17 11:00 55 03/02/17 10:00 88 03/02/17 09:00 78 03/02/17 08:22 98.2 73 16 116/68 96 03/02/17 08:22 73 I/O 03/02/17 03/02/17 03/02/17 03/03/17 03/03/17 03/03/17 07:00 15:00 23:00 07:00 15:00 23:00 Intake Total 680 ml 1020 ml 620 ml Output Total 0 ml Balance 680 ml 1020 ml 620 ml Intake Oral 680 ml 1020 ml 620 ml Stool Total 0 ml # Voids 3 5 5 # Bowel Movements 0 0 Physical Exam Lungs clear RRR Assessment and Plan Problem List: (1) NSTEMI (non-ST elevated myocardial infarction) Assessment and Plan Widespread and diffuse CAD present. Discussed with CV surgery and not a candidate for surgery or percutaneous intervention due to diffuse nature of disease. Will add lisinopril for renal protection and improve LV function. OK to D/c today. Will F/U as out-patient. Juan Luis Pike MD Mar 03, 2017 07:56
[2017-03-03] MEDS: metFORMIN HCL 500 MG TAB PO SCH (08:41)
[2017-03-03] MEDS: ATORVASTATIN 80 MG TAB PO SCH (08:41)
[2017-03-03] MEDS: ASPIRIN 81 MG CHEW TAB PO SCH (08:41)
[2017-03-03] MEDS: METOPROLOL TARTRATE 50 MG TAB PO SCH (08:41)
[2017-03-03] MEDS ORDERED: CLOPIDOGREL 75 MG TAB PO SCH (09:00)
[2017-03-03] MEDS ORDERED: LISINOPRIL 5 MG TAB PO SCH (09:00)
--- NOTE | 2017-03-03 09:03 | HHI.PR ---
Subjective Remarks resting comfortably with no distress. denies chest pain or sob. no new complaints. Objective Vitals Vital Signs Date Time Temp Pulse Resp B/P Pulse Ox O2 Delivery O2 Flow Rate FiO2 03/03/17 08:00 98.3 75 20 119/69 97 03/03/17 07:00 71 03/03/17 06:00 67 03/03/17 05:00 67 03/03/17 04:30 96.2 65 16 118/68 95 03/03/17 04:00 68 03/03/17 03:00 73 03/03/17 02:00 66 03/03/17 01:00 64 03/03/17 00:17 96.2 63 16 128/74 96 03/03/17 00:00 64 03/02/17 23:00 67 03/02/17 22:00 70 03/02/17 21:00 72 03/02/17 20:00 82 03/02/17 19:49 96.0 71 16 127/80 96 03/02/17 19:00 66 03/02/17 18:00 66 03/02/17 17:00 64 03/02/17 16:00 68 03/02/17 16:00 98.2 74 20 115/76 99 03/02/17 15:00 58 03/02/17 14:00 78 03/02/17 13:00 74 03/02/17 12:04 18 03/02/17 12:00 64 03/02/17 12:00 98.3 65 20 116/67 98 03/02/17 11:00 55 03/02/17 10:00 88 I/O 03/02/17 03/02/17 03/02/17 03/03/17 03/03/17 03/03/17 07:00 15:00 23:00 07:00 15:00 23:00 Intake Total 680 ml 1020 ml 620 ml Output Total 0 ml Balance 680 ml 1020 ml 620 ml Intake Oral 680 ml 1020 ml 620 ml Stool Total 0 ml # Voids 3 5 5 # Bowel Movements 0 0 Result Diagram: 03/01/1760503/01/17 0606 Imaging Last Impressions Chest X-Ray 02/27/17 4470 Signed Impressions: Service Date/Time: Monday, February 27, 2017 14:35 - CONCLUSION: Normal examination. Marc Davis MD Objective Remarks GENERAL: This is a well-nourished, well-developed patient, in no apparent distress. CARDIOVASCULAR: Regular rate and regular rhythm without murmurs, gallops, or rubs. RESPIRATORY: Clear to auscultation. Breath sounds equal bilaterally. No wheezes , rales, or rhonchi. GASTROINTESTINAL: Abdomen soft, non-tender, nondistended. Normal, active bowel sounds MUSCULOSKELETAL: Extremities without clubbing, cyanosis, or edema. NEURO: Alert & Oriented x4 to person, place, time, situation. Moves all ext x4 Procedures cardiac cath. Medications and IVs Current Medications Insulin Human Regular (NovoLIN R INJ) 7 units ONCE ONCE IV PUSH Last administered on 02/27/17 16:15; Start 02/27/17 at 16:15; Stop 02/27/17 at 16:16 ; Status DC Heparin Sodium (Porcine) 4000 units 4,000 units ONCE ONCE IV Last administered on 02/27/17 16:15; Start 02/27/17 at 16:15; Stop 02/27/17 at 16:16 ; Status DC Heparin Sodium/ Dextrose 250 ml @ 0 mls/hr TITRATE IV Last administered on 02/27 17:16; Start 02/27/17 at 16:15; Stop 02/28/17 at 14:12; Status DC Sodium Chloride (NS 1000 ml Inj) 1,000 ml @ 999 mls/hr BOLUS ONCE IV Last administered on 02/27/17 16:15; Start 02/27/17 at 16:15; Stop 02/27/17 at 17:15 ; Status DC Morphine Sulfate (Morphine Inj) 2 mg ONCE ONCE IV PUSH Last administered on 16:30; Start 02/27/17 at 16:30; Stop 02/27/17 at 16:31; Status DC Ondansetron HCl (Zofran Inj) 4 mg ONCE ONCE IV PUSH Last administered on 16:30; Start 02/27/17 at 16:30; Stop 02/27/17 at 16:31; Status DC Metoprolol Tartrate (Lopressor) 50 mg Q12HR PO Last administered on 03/03/17 08:41; Start 02/27/17 at 21:00 Nitroglycerin (Nitroglycerin 2% Oint) 1 inch Q6HR TOPICAL Last administered on 03/02/17 05:52; Start 02/27/17 at 18:00; Stop 03/02/17 at 07:09; Status DC Aspirin 81 mg 81 mg DAILY PO Last administered on 03/03/17 08:41; Start at 16:15 Sodium Chloride (NS 1000 ml Inj) 1,000 ml @ 100 mls/hr Q10H IV ; Start at 16:15; Stop 02/27/17 at 19:35; Status DC Atorvastatin Calcium (Lipitor) 80 mg DAILY PO Last administered on 03/03/17 08 :41; Start 02/27/17 at 16:15 Dextrose (D50w (Vial) Inj) 25 ml UNSCH PRN IV PUSH SEE LABEL COMMENTS; Start at 16:15; Stop 02/27/17 at 19:34; Status DC Miscellaneous Information 1 ONCE ONCE XX ; Start 02/27/17 at 16:15; Stop at 16:34; Status DC Aspirin (Ecotrin Ec) 162 mg DAILY PO ; Start 02/27/17 at 16:15; Stop 02/27/17 at 16:32; Status DC Metoprolol Tartrate 25 mg 25 mg Q12HR PO ; Start 02/27/17 at 16:15; Stop at 16:34; Status DC Sodium Chloride (NS 1000 ml Inj) 1,000 ml @ 100 mls/hr Q10H IV Last administered on 03/01/17 08:31; Start 02/27/17 at 17:00 Dextrose (D50w (Vial) Inj) 25 ml UNSCH PRN IV PUSH HYPOGLYCEMIA-SEE COMMENTS; Start 02/27/17 at 19:45; Stop 02/28/17 at 08:21; Status DC Glucagon (Glucagon Inj) 1 mg UNSCH PRN OTHER HYPOGLYCEMIA-SEE COMMENTS; Start 02/27/17 at 19:45; Stop 02/28/17 at 08:21; Status DC Sodium Chloride (NS Flush) 2 ml UNSCH PRN IV FLUSH FLUSH AFTER USING IV ACCESS ; Start 02/27/17 at 19:45; Stop 02/28/17 at 14:09; Status DC Insulin Aspart (NovoLOG INJ) 10 units ONCE ONCE SQ Last administered on 21:19; Start 02/27/17 at 21:15; Stop 02/27/17 at 21:16; Status DC Insulin Aspart (NovoLOG INJ) 7 units ONCE ONCE SQ Last administered on 00:58; Start 02/28/17 at 01:00; Stop 02/28/17 at 01:01; Status DC Nitroglycerin (Nitrostat Sl) 0.4 mg ONCE ONCE SL Last administered on 06:45; Start 02/28/17 at 06:45; Stop 02/28/17 at 06:46; Status DC Morphine Sulfate (Morphine Inj) 2 mg ONCE ONCE IV PUSH ; Start 02/28/17 at 06: 45; Stop 02/28/17 at 06:46; Status DC Dextrose (D50w (Vial) Inj) 25 ml UNSCH PRN IV PUSH HYPOGLYCEMIA-SEE COMMENTS; Start 02/28/17 at 08:15 Glucagon (Glucagon Inj) 1 mg UNSCH PRN OTHER HYPOGLYCEMIA-SEE COMMENTS; Start 02/28/17 at 08:15 Insulin Aspart (NovoLOG SUPPLEMENTAL SCALE) 1 ACHS SLIDING SCALE SQ Last administered on 03/03/17 07:14; Start 02/28/17 at 08:00 Morphine Sulfate (Morphine Inj) 2 mg NOW ONCE IV Last administered on 09:26; Start 02/28/17 at 09:30; Stop 02/28/17 at 09:31; Status DC Midazolam HCl (Versed Inj) 2 mg STK-MED ONCE .ROUTE Last administered on 13:18; Start 02/28/17 at 13:18; Stop 02/28/17 at 13:19; Status DC Fentanyl Citrate (fentaNYL INJ) 100 mcg STK-MED ONCE .ROUTE ; Start 02/28/17 at 13:18; Stop 02/28/17 at 13:19; Status DC Heparin Sodium (Porcine) 89015 units 10,000 units STK-MED ONCE .ROUTE Last administered on 02/28/17 13:18; Start 02/28/17 at 13:18; Stop 02/28/17 at 13:19 ; Status DC Heparin Sodium/ Sodium Chloride (Heparin-NS/Pf Inj) 500 ml @ As Directed STK- MED ONCE .ROUTE Last administered on 02/28/17t 13:19; Start 02/28/17 at 13:19; Stop 02/28/17 at 13:20; Status DC Sodium Chloride (NS Flush) 2 ml UNSCH PRN IV FLUSH FLUSH AFTER USING IV ACCESS Last administered on 03/03/17t 08:41; Start 02/28/17 at 14:15 Sodium Chloride (NS Flush) 2 ml UNSCH PRN IV FLUSH FLUSH AFTER USING IV ACCESS ; Start 02/28/17 at 14:15 Miscellaneous Information 1 ONCE ONCE XX ; Start 02/28/17 at 14:15; Stop at 14:16; Status DC Lorazepam (Ativan Inj) 0.5 mg UNSCH PRN IV ANXIETY; Start 02/28/17 at 14:15; Stop 03/01/17 at 14:14; Status DC Atropine Sulfate 0.5 mg 0.5 mg UNSCH PRN IV VAGAL REPONSE; Start 02/28/17 at 14 :15 Sodium Chloride (NS 250 ml Inj) 250 ml @ 500 mls/hr ONCE PRN IV VAGAL REPONSE ; Start 02/28/17 at 14:15; Stop 03/01/17 at 14:14; Status DC Metoclopramide HCl (Reglan Inj) 10 mg Q4H PRN IV NAUSEA; Start 02/28/17 at 14: 15 Ondansetron HCl (Zofran Inj) 4 mg Q4H PRN IV NAUSEA; Start 02/28/17 at 14:15 Lidocaine HCl (Xylocaine 1% Inj (50 ml)) 10 ml UNSCH PRN INFIL SHEATH REMOVAL; Start 02/28/17 at 14:15; Stop 03/01/17 at 14:14; Status DC Bacitracin 0.9 gm 0.9 gm ONCE ONCE TOP ; Start 02/28/17 at 14:15; Stop at 14:16; Status DC Heparin Sodium/ Dextrose (Heparin-D5W Inj) 250 ml @ As Directed STK-MED ONCE .ROUTE ; Start 02/28/17 at 14:09; Stop 02/28/17 at 14:10; Status DC Iohexol 100 ml 100 ml STK-MED ONCE OTHER ; Start 02/28/17 at 14:42; Stop at 14:43; Status DC Heparin Sodium/ Dextrose (Heparin-D5W Inj) 250 ml @ 0 mls/hr TITRATE IV Last administered on 03/01/17 13:01; Start 02/28/17 at 17:30; Stop 03/02/17 at 07:09 ; Status DC Acetaminophen (Tylenol) 650 mg Q6H PRN PO PAIN SCALE 1 TO 10 Last administered on 03/02/17 10:22; Start 03/01/17 at 13:45 Isosorbide Mononitrate (Imdur) 30 mg DAILY@07 PO Last administered on 07:00; Start 03/03/17 at 07:00 Metformin HCl (Glucophage) 500 mg BIDPC PO Last administered on 03/03/17 08:41 ; Start 03/02/17 at 09:00 Clopidogrel Bisulfate (Plavix) 600 mg ONCE ONCE PO Last administered on 10:14; Start 03/02/17 at 07:15; Stop 03/02/17 at 08:53; Status DC Clopidogrel Bisulfate (Plavix) 75 mg DAILY PO Last administered on 03/03/17 08 :41; Start 03/03/17 at 09:00 Lisinopril (Prinivil) 5 mg DAILY PO Last administered on 03/03/17 08:41; Start 03/03/17 at 09:00 A/P Assessment and Plan A/P - NSTEMI with history of CAD- s/p stent placement s/p cardiac cath with severe CAD- not a candidate for CABG- continue aspirin, plavix, BB,lisinopril, imdur and statin-cardiology follow-up appreciated and cleared for discharge. echo with EF 35-40%. -diabetes mellitus- uncontrolled due to noncompliance and stress blood sugar has much improved- continue accu-check with SSI- A1c 14.3. started back on metformin. -hyponatremia due to hyperglycemia- resolved Discharge Planning dc home today with f/u with pcp and cardiology. see med list. d/w the patient. time spent 35 min. Rut Javed MD Mar 03, 2017 09:03
[2017-03-03] MEDS ORDERED: ISOS30TA3 PO (09:08)
[2017-03-03] MEDS ORDERED: Aspirin Chew PO (09:08)
[2017-03-03] MEDS ORDERED: ATOR1TAB18 PO (09:08)
[2017-03-03] MEDS ORDERED: METO-309 PO (09:08)
[2017-03-03] MEDS ORDERED: PLAV75TA29 PO (09:08)
[2017-03-03] MEDS ORDERED: LISI-519 PO (09:08)
[2017-03-03] MEDS ORDERED: METF500 PO (09:08)
--- NOTE | 2017-03-03 09:09 | HHI.DCPOC ---
Discharge Care Plan Diagnosis: (1) NSTEMI (non-ST elevated myocardial infarction) Goals to Promote Your Health * To prevent worsening of your condition and complications * To maintain your health at the optimal level Directions to Meet Your Goals Take your medications as prescribed Follow your dietary instruction Follow activity as directed Keep your appointments as scheduled Take your immunizations and boosters as scheduled If your symptoms worsen call your PCP, if no PCP go to Urgent Care Center or Emergency Room Smoking is Dangerous to Your Health. Avoid second hand smoke Call the 24-hour hour crisis hotline for domestic abuse at Rut Javed MD Mar 03, 2017 09:09
--- NOTE | 2017-03-03 09:10 | HHI.DS ---
Discharge Summary Admission Date Feb 27, 2017 at 16:19 Discharge Date: Mar 03, 2017 Admitting Diagnosis NSTEMI. Hyperglycemia. (1) NSTEMI (non-ST elevated myocardial infarction) ICD Code: I21.4 Diagnosis: Principal (2) Uncontrolled diabetes mellitus ICD Code: E11.65 Diagnosis: Principal Procedures cardiac cath. Brief History - From Admission patient is a 61 y/o female with history of CAD- s/p stent, hypertension, diabetes mellitus, dyslipidemia, chronic smoker, non-compliant with the medical treatment, who presented to ER with chest pain. she says that the pain started last monday. pain is midsternal and intermittent. the pain was moderate in intensity and associated with sob and diaphoresis. the pain has radiation to both jaws. she says that she hasn't taken any of her medications since five years ago since she doesn't have any insurance. she was pain free at the time of my evaluation. CBC/BMP: 03/01/17 0606 03/01/17 0606 Significant Findings Laboratory Tests Test 03/01/17 03/01/17 03/01/17 03/01/17 06:06 15:38 20:04 22:19 Activated Partial 33.1 SEC 33.3 SEC 35.3 SEC 36.6 SEC Thromboplast Time (24.3-30.1) (24.3-30.1) (24.3-30.1) (24.3-30.1) Random Glucose 221 MG/DL (74-106) Calcium Level 8.1 MG/DL (8.5-10.1) Test 03/02/17 05:11 Activated Partial 43.9 SEC Thromboplast Time (24.3-30.1) Imaging Last Impressions Chest X-Ray 02/27/17 1415 Signed Impressions: Service Date/Time: Monday, February 27, 2017 14:35 - CONCLUSION: Normal examination. Marc Davis MD PE at Discharge GENERAL: This is a well-nourished, well-developed patient, in no apparent distress. CARDIOVASCULAR: Regular rate and regular rhythm without murmurs, gallops, or rubs. RESPIRATORY: Clear to auscultation. Breath sounds equal bilaterally. No wheezes , rales, or rhonchi. GASTROINTESTINAL: Abdomen soft, non-tender, nondistended. Normal, active bowel sounds MUSCULOSKELETAL: Extremities without clubbing, cyanosis, or edema. NEURO: Alert & Oriented x4 to person, place, time, situation. Moves all ext x4 Hospital Course - NSTEMI with history of CAD- s/p stent placement s/p cardiac cath with severe CAD- not a candidate for CABG- continue aspirin, plavix, BB,lisinopril, imdur and statin-cardiology follow-up appreciated and cleared for discharge. echo with EF 35-40%. -diabetes mellitus- uncontrolled due to noncompliance and stress blood sugar has much improved- continue accu-check with SSI- A1c 14.3. started back on metformin. -hyponatremia due to hyperglycemia- resolved Pt Condition on Discharge: Good Discharge Disposition: Discharge Home Discharge Time: > 30 minutes Discharge Instructions DIET: Follow Instructions for: Heart Healthy Diet, Diabetic Diet Activities you can perform: Regular-No Restrictions Follow up Referrals: Cardiology PCP Follow-up New Medications: Atorvastatin (Atorvastatin) 80 Mg Tab 80 MG PO DAILY cad Days 30 Ref 0 TAB Clopidogrel (Plavix) 75 Mg Tab 75 MG PO DAILY cad Days 30 Ref 0 TAB Isosorbide Mononitrate ER (Isosorbide Mononitrate ER) 30 Mg Damion 30 MG PO DAILY@07 cad Days 30 Ref 0 TAB Lisinopril (Lisinopril) 5 Mg Tab 5 MG PO DAILY cad Days 30 Ref 0 TAB Metformin (Glucophage) 500 Mg Tab 500 MG PO BIDPC diabetes Days 30 Ref 0 TAB Metoprolol Tartrate (Lopressor) 50 Mg Tab 50 MG PO Q12HR cad Days 30 Ref 0 TAB ([Aspirin Chew]) 81 MG CHEW 81 MG PO DAILY cad #30 Ref 0 TAB.CHEW Rut Javed MD Mar 03, 2017 09:10
[2017-03-10] MEDS ORDERED: ISOS30TA3 PO (15:09)
[2017-03-10] MEDS ORDERED: GLIP5TAB8 PO (15:09)
[2017-03-10] MEDS ORDERED: ATOR1TAB18 PO (15:09)
[2017-03-10] MEDS ORDERED: METO-309 PO (15:09)
[2017-03-10] MEDS ORDERED: LISI-519 PO (15:09)
[2017-03-10] MEDS ORDERED: PLAV75TA29 PO (15:09)
[2017-03-10] MEDS ORDERED: METF500 PO (15:09)
[2017-03-10] MEDS ORDERED: NOVORP2 SQ (15:39)
== END 2017-03-03 13:17 | disposition home or self-care (01) | DRG 281 ==
LOC: NEPC 13:53 → NEDA 16:19 → HCVR 18:30 → HCIS 02-28 14:24 → HCIN 02-28 14:28
PROVIDERS: ADMIT Internal Medicine; ATTEND Internal Medicine
PROC: B2151ZZ Fluoroscopy of Left Heart using Low Osmolar Contrast (ICD-10-PCS; 2017-02-28)
PROC: 4A023N7 Measurement of Cardiac Sampling and Pressure, Left Heart, Percutaneous Approach (ICD-10-PCS; 2017-02-28)
PROC: B2111ZZ Fluoroscopy of Multiple Coronary Arteries using Low Osmolar Contrast (ICD-10-PCS; principal; 2017-02-28 13:45)
DX: I21.4 Non-ST elevation (NSTEMI) myocardial infarction (principal); E87.1 Hypo-osmolality and hyponatremia; E11.65 Type 2 diabetes mellitus with hyperglycemia; I25.10 Atherosclerotic heart disease of native coronary artery without angina pectoris; E78.5 Hyperlipidemia, unspecified; F17.210 Nicotine dependence, cigarettes, uncomplicated; I10 Essential (primary) hypertension; I25.2 Old myocardial infarction; I45.10 Unspecified right bundle-branch block; Z79.84 Long term (current) use of oral hypoglycemic drugs; Z79.82 Long term (current) use of aspirin; Z95.5 Presence of coronary angioplasty implant and graft; Z91.19 Patient's noncompliance with other medical treatment and regimen; Z86.73 Personal history of transient ischemic attack (TIA), and cerebral infarction without residual deficits; M19.90 Unspecified osteoarthritis, unspecified site
CPT/HCPCS: 71020; 80048; 80053; 80061; 82550; 82552; 82948; 83036; 84484; 85025; 85610; 85730; 93005; 93306; 93458; 96374; 96375; C1769; C1893; J1644; J1815; J2250; J2270; J2405; J3010; J7030; Q9967

== ENCOUNTER 2017-04-15 09:14 | Inpatient (IN) | payer OTHER ==
[2017-04-15] VITALS (15 sets, daily range): BP systolic 104–165; BP diastolic 61–99; PULSE 70–118; RESP 13–22; TEMP 97.8–98.6; O2SAT 91–99
[~2017-04-15] VITALS: Ht 162.6 cm; Wt 68.0 kg
[~2017-04-15 09:14] MED LIST: ATOR1TAB18 PO; Aspirin Chew PO; GLIP5TAB8 PO; ISOS30TA3 PO; LISI-519 PO; METF500 PO; METO-309 PO; PLAV75TA29 PO
--- NOTE | 2017-04-15 09:41 | PD ---
HPI Chief Complaint: Chest Pain Time Seen by Provider: 09:22 Travel History International Travel<30 days: No Contact w/Intl Traveler<30days: No Traveled to known affect area: No History of Present Illness HPI The patient was seen and examined in the presence of the nurse. This patient complains of chest pain. Started at 3 AM this morning. Duration is 6.5 hours. Severity is moderate. Location is left low chest. Feels like an aching pressure. Patient had catheterization 6 weeks ago revealing diffuse severe disease and she was not a candidate for percutaneous intervention or bypass grafting. Has not seen any physicians since he left the hospital citing lack of insurance. No alleviating factors. PFSH Past Medical History Arthritis: Yes (HANDS) Autoimmune Disease: No Blood Disorders: No Cancer: No Cardiac Catheterization: Yes Cardiovascular Problems: Yes High Cholesterol: Yes Chest Pain: Yes Cerebrovascular Accident: Yes (TIA's) Diabetes: Yes Patient Takes Glucophage: No Diminished Hearing: No Endocrine: Yes Gastrointestinal Disorders: Yes Genitourinary: Yes Hypertension: Yes Immune Disorder: No Implanted Vascular Access Dvce: No Musculoskeletal: Yes Neurologic: Yes Psychiatric: No Reproductive: No Respiratory: Yes Myocardial Infarction: Yes Thyroid Disease: No : 8 Para: 7 Miscarriage: 1 Past Surgical History Cardiac Surgery: Yes (CARDIAC CATH WITH STENT X 03/06, STENT TEN YRS AGO) Coronary Stent: Yes Oral Surgery: Yes (T&A) Tonsillectomy: Yes Other Surgery: Yes (tonsillectomy 1966) Social History Alcohol Use: Yes (rarely ) Tobacco Use: Yes Substance Use: No Allergies-Medications (Allergen,Severity, Reaction): Coded Allergies: Honey Bee (Verified Allergy, Severe, UNKNOWN, 04/15/17) Adhesives (Verified Allergy, Mild, REDNESS, 04/15/17) Reported Meds & Prescriptions Reported Meds & Active Scripts Active Glipizide 5 Mg Tab 5 Mg PO BIDAC Take 30 minutes before a meal Lopressor (Metoprolol Tartrate) 50 Mg Tab 50 Mg PO Q12HR Glucophage (Metformin HCl) 500 Mg Tab 500 Mg PO BIDPC Lisinopril 5 Mg Tab 5 Mg PO DAILY Isosorbide Mononitrate ER (Isosorbide Mononitrate) 30 Mg Damion 30 Mg PO DAILY@07 Plavix (Clopidogrel Bisulfate) 75 Mg Tab 75 Mg PO DAILY Atorvastatin (Atorvastatin Calcium) 80 Mg Tab 80 Mg PO DAILY [Aspirin Chew] 81 MG Chew 81 Mg PO DAILY Review of Systems General / Constitutional: No: Fever Eyes: No: Visual changes HENT: No: Headaches Cardiovascular: Positive: Chest Pain or Discomfort Respiratory: No: Shortness of Breath Gastrointestinal: No: Abdominal Pain Genitourinary: No: Dysuria Musculoskeletal: No: Pain Skin: No Rash Neurologic: No: Weakness Psychiatric: Positive: Anxiety, No: Depression Endocrine: No: Polydipsia Hematologic/Lymphatic: No: Easy Bruising Physical Exam Narrative GENERAL: Well-nourished, well-developed patient with chest pain . SKIN: Focused skin assessment reveals no rash and nodules. Skin is Warm and dry. HEAD: Atraumatic. Normocephalic. EYES: Pupils equal and round. No scleral icterus. No injection or drainage. ENT: No nasal bleeding or discharge. Mucous membranes pink and moist. NECK: Trachea midline. No JVD. CARDIOVASCULAR: Regular rate and rhythm. No murmur appreciated. RESPIRATORY: No accessory muscle use. Sparse basilar crackles . Breath sounds equal bilaterally. GASTROINTESTINAL: Abdomen soft, epigastrium is tender without rebound or guarding, nondistended. Hepatic and splenic margins not palpable. MUSCULOSKELETAL: No obvious deformities. No clubbing. No cyanosis. No edema. Has chest wall tenderness but different than her complaint according to the patient NEUROLOGICAL: Awake and alert. No obvious cranial nerve deficits. Motor grossly within normal limits. Normal speech. PSYCHIATRIC: Anxious mood and affect; insight and judgment poor. Data Data Last Documented VS Vital Signs Date Time Temp Pulse Resp B/P Pulse Ox O2 Delivery O2 Flow Rate FiO2 04/15/17 10:40 92 19 146/79 98 Nasal Cannula 4 04/15/17 09:22 97.8 Orders Electrocardiogram (04/15/17 09:32) Ckmb (Isoenzyme) Profile (04/15/17 09:32) Complete Blood Count With Diff (04/15/17 09:32) Prothrombin Time / Inr (Pt) (04/15/17 09:32) Act Partial Throm Time (Ptt) (04/15/17 09:32) Troponin I (04/15/17 09:32) Chest, Single Ap (04/15/17 09:32) Ecg Monitoring (04/15/17 09:32) Iv Access Insert/Monitor (04/15/17 09:32) Oximetry (04/15/17 09:32) Oxygen Administration (04/15/17 09:32) Aspirin (Aspirin) (04/15/17 09:45) Sodium Chloride 0.9% Flush (Ns Flush) (04/15/17 09:45) Nitroglycerin Sl (Nitrostat Sl) (04/15/17 09:45) Comprehensive Metabolic Panel (04/15/17 09:41) Lipase (04/15/17 09:41) CKMB (04/15/17 09:30) CKMB% (04/15/17 09:30) Furosemide Inj (Lasix Inj) (04/15/17 10:30) Ceftriaxone Inj (Rocephin Inj) (04/15/17 10:30) Nitroglycerin Sl (Nitrostat Sl) (04/15/17 10:30) Nitroglycerin 2% Oint (Nitroglycerin 2% (04/15/17 11:00) Admit To Inpatient (04/15/17 ) Code Status (04/15/17 12:00) Vital Signs (Adult) Q4H (04/15/17 12:00) Activity Bed Rest With Brp (04/15/17 ) Bioinformaticist / Telemetry CARLITOS.Q8H (04/15/17 12:00) Sodium Chloride 0.9% Flush (Ns Flush) (04/15/17 21:00) Sodium Chloride 0.9% Flush (Ns Flush) (04/15/17 12:00) Nitroglycerin 2% Oint (Nitroglycerin 2% (04/15/17 12:00) Acetaminophen (Tylenol) (04/15/17 12:00) Acetamin-Hydrocod 325-7.5 Mg ([place] 7.5 (04/15/17 12:00) Morphine Inj (Morphine Inj) (04/15/17 12:00) Pantoprazole (Protonix) (04/16/17 09:00) Temazepam (Restoril) (04/15/17 21:00) Creatine Kinase (Cpk) (04/15/17 16:00) Creatine Kinase (Cpk) (04/15/17 22:00) Troponin I (04/15/17 16:00) Troponin I (04/15/17 22:00) Magnesium (Mg) (04/15/17 12:00) B-Type Natriuretic Peptide (04/15/17 12:00) Basic Metabolic Panel (Bmp) (04/16/17 06:00) Complete Blood Count With Diff (04/16/17 06:00) Lipid Profile (04/16/17 06:00) Electrocardiogram (04/15/17 16:00) Electrocardiogram (04/15/17 22:00) Inpatient Certification (04/15/17 ) Atorvastatin (Lipitor) (04/16/17 09:00) Clopidogrel (Plavix) (04/16/17 09:00) Isosorbide Mononitrate (Imdur) (04/16/17 07:00) Lisinopril (Prinivil) (04/16/17 09:00) Metoprolol Tartrate (Lopressor) (04/15/17 21:00) (Nf) [Aspirin] (Aspirin Chew) (04/16/17 09:00) Bedside Glucose CARLITOS.AC&HS (04/15/17 12:05) Blood Glucose Goal (Criteria) (04/15/17 12:05) Hypoglycemia 70 Mg/Dl Or < (04/15/17 12:05) Notify Dr: Other (04/15/17 12:05) Dextrose 50% In Marielle (Vial) Inj (D50w (Vi (04/15/17 12:15) Glucagon Inj (Glucagon Inj) (04/15/17 12:15) Medium Novolog Scale (04/15/17 16:00) Admit Order (Ed Use Only) (04/15/17 12:06) Labs Laboratory Tests Test 04/15/17 09:30 White Blood Count 15.9 TH/MM3 Red Blood Count 5.02 MIL/MM3 Hemoglobin 15.4 GM/DL Hematocrit 45.0 % Mean Corpuscular Volume 89.8 FL Mean Corpuscular Hemoglobin 30.7 PG Mean Corpuscular Hemoglobin 34.2 % Concent Red Cell Distribution Width 14.7 % Platelet Count 322 TH/MM3 Mean Platelet Volume 9.6 FL Neutrophils (%) (Auto) 81.2 % Lymphocytes (%) (Auto) 15.5 % Monocytes (%) (Auto) 2.2 % Eosinophils (%) (Auto) 0.5 % Basophils (%) (Auto) 0.6 % Neutrophils # (Auto) 12.9 TH/MM3 Lymphocytes # (Auto) 2.5 TH/MM3 Monocytes # (Auto) 0.4 TH/MM3 Eosinophils # (Auto) 0.1 TH/MM3 Basophils # (Auto) 0.1 TH/MM3 CBC Comment DIFF FINAL Differential Comment Prothrombin Time 9.9 SEC Prothromb Time International 0.9 RATIO Ratio Activated Partial 27.3 SEC Thromboplast Time Sodium Level 135 MEQ/L Potassium Level 4.6 MEQ/L Chloride Level 100 MEQ/L Carbon Dioxide Level 22.9 MEQ/L Anion Gap 12 MEQ/L Blood Urea Nitrogen 18 MG/DL Creatinine 1.26 MG/DL Estimat Glomerular Filtration 43 ML/MIN Rate Random Glucose 347 MG/DL Calcium Level 9.3 MG/DL Total Bilirubin 0.5 MG/DL Aspartate Amino Transf 28 U/L (AST/SGOT) Alanine Aminotransferase 38 U/L (ALT/SGPT) Alkaline Phosphatase 118 U/L Total Creatine Kinase 110 U/L Creatine Kinase MB 3.3 NG/ML Troponin I 0.20 NG/ML Total Protein 7.8 GM/DL Albumin 4.1 GM/DL Lipase 200 U/L MDM Medical Decision Making Medical Screen Exam Complete: Yes Emergency Medical Condition: Yes Medical Record Reviewed: Yes Differential Diagnosis Differential diagnosis includes DC, angina, pericarditis, pleurisy, GERD, anxiety. Narrative Course I have reviewed the patient's electronic medical record. Reviewed her heart Physician from 6 weeks ago. She has severe diffuse disease not a candidate for bypass grafting IV placed I reviewed the EKG shows sinus rhythm but no ST elevation I reviewed the chest x-ray suggest pulmonary edema but could possibly be infectious looking as well Extended cardiac monitoring shows sinus rhythm without ST elevation or ectopy CBC is normal Metabolic profile shows minor renal insufficiency and hyperglycemia CK shows normal MB percent Troponin 0.2 Coagulation studies are normal I gave her an aspirin and 3 sublingual nitroglycerin After sublingual nitroglycerin the patient is pain-free. I gave her dose of IV Rocephin and IV Lasix after review of her chest x-ray. Difficult to sort out whether this represents affective process or pulmonary edema, although I think it looks more like the latter Case reviewed with hospitalist will admit Patient's presentation consistent with unstable angina, she developed pain at rest Critical Care Narrative Aggregate critical care time was 34 minutes. Time to perform other separately billable procedures was not included in the critical care time. My time did not include minutes spent treating any other patients simultaneously or on activities that did not directly contribute to the patient's treatment. The services I provided to this patient were to treat and/or prevent clinically significant deterioration that could result in: Cardiopulmonary arrest, cardiac arrhythmia, myocardial damage I provided critical care services requiring my management, as noted below: Chart data review, documentation time, medication orders and management, vital sign assessments/reviewing monitor data, ordering and reviewing lab tests, ordering and interpreting/reviewing x-rays and diagnostic studies, care of the patient and discussion of the patient with the admitting physicians. Diagnosis Primary Impression: Unstable angina Additional Impressions: Hyperglycemia Pulmonary edema Qualified Code: J81.0 - Acute pulmonary edema Admitting Information Admitting Physician Requests: Admit Eric Biggs MD April 15, 2017 09:41
[2017-04-15] MEDS: NITROGLYCERIN 0.4 MG SL 25 TABS/BTL SL SCH ×2 (09:42→09:50)
[2017-04-15] MEDS ORDERED: SODIUM CHLORIDE 0.9% FLUSH 10 ML FLUSH IVF PRN (09:45)
[2017-04-15] MEDS ORDERED: ASPIRIN 325 MG TAB PO ONE (09:45)
[2017-04-15 09:47] LABS: AUTOMATED NEUTROPHIL # 12.9 TH/MM3 (1.8-7.7); BASOPHIL # 0.1 TH/MM3 (0-0.2); BASOPHIL % 0.6 % (0.0-2.0); EOSINOPHIL # 0.1 TH/MM3 (0-0.4); EOSINOPHIL % 0.5 % (0.0-4.0); HEMO FLAGS DIFF FINAL; LYMPH % 15.5 % (9.0-44.0); LYMPHOCYTE # 2.5 TH/MM3 (1.0-4.8); MEAN CELL VOLUME 89.8 FL (80.0-100.0); MEAN CORPUSCULAR HEMOGLOBIN 30.7 PG (27.0-34.0); MEAN CORPUSCULAR HGB CONC 34.2 % (32.0-36.0); MONO % 2.2 % (0.0-8.0); NEUT % 81.2 % (16.0-70.0); PLATELET COUNT 322 TH/MM3 (150-450); RED BLOOD COUNT 5.02 MIL/MM3 (4.00-5.30); RED CELL DISTRIBUTION WIDTH 14.7 % (11.6-17.2); WHITE BLOOD COUNT 15.9 TH/MM3 (4.0-11.0)
[2017-04-15 09:56] LABS: APTT (PATIENT) 27.3 SEC (24.3-30.1); INTERNATIONAL NORMALIZED RATIO 0.9 RATIO; PROTHROMBIN TIME - PATIENT 9.9 SEC (9.8-11.6)
[2017-04-15 10:12] LABS: ANION GAP 12 MEQ/L (5-15); AST (GOT) 28 U/L (15-37); BICARBONATE 22.9 MEQ/L (21.0-32.0); BLOOD UREA NITROGEN 18 MG/DL (7-18); CHLORIDE 100 MEQ/L (98-107); CREATINE KINASE 110 U/L (26-192); GLOMERULAR FILTRATION RATE 43 ML/MIN (>89); SODIUM (NA) 135 MEQ/L (136-145)
--- NOTE | 2017-04-15 10:15 | RADRPT ---
EXAM DATE/TIME: 04/15/2017 10:09 [facility] COMPARISON: CHEST PA & LAT, February 27, 2017, 14:35. INDICATIONS : Chest pain and shortness of breath. MEDICAL HISTORY : Hypertension. Diabetes mellitus type II. Stroke. Chronic obstructive pulmonary disease. Heart att ack. SURGICAL HISTORY : Coronary artery stent. ENCOUNTER: Initial ACUITY: 1 day PAIN SCORE: 8/10 LOCATION: Bilateral chest FINDINGS: Portable AP view of the chest demonstrates a normal-sized cardiac silhouette. There is patchy airspac e consolidation in the lower lung zones bilaterally. No pleural effusion or pneumothorax is visualize d. Multiple EKG lines overlie the patient. CONCLUSION: Mild bibasilar airspace consolidation. Pulmonary edema could have this appearance in the appropriate clinical setting. Alternatively, aspiration or infection are other considerations. Dawood Nolen MD on April 15, 2017 at 10:12 Board Certified Radiologist. This report was verified electronically.
[2017-04-15 10:25] LABS: CKMB 3.3 NG/ML (0.5-3.6); POTASSIUM 4.6 MEQ/L (3.5-5.1)
[2017-04-15 10:29] LABS: ALKALINE PHOSPHATASE 118 U/L (45-117); ALT (GPT) 38 U/L (10-53); TOTAL BILIRUBIN ADULT 0.5 MG/DL (0.2-1.0)
[2017-04-15] MEDS ORDERED: FUROSEMIDE 40 MG/4 ML VIAL IV PUSH ONE (10:30)
[2017-04-15] MEDS ORDERED: NITROGLYCERIN 0.4 MG SL 25 TABS/BTL SL ONE (10:30)
[2017-04-15] MEDS ORDERED: cefTRIAXone INJ 1,000 MG in SODIUM CHLORIDE 0.9% INJ 100 ML IV ONE (10:30)
[2017-04-15] MEDS ORDERED: NITROGLYCERIN 2% OINT 1 GM PACKET TOPICAL ONE (11:00)
[2017-04-15] MEDS: NITROGLYCERIN 2% OINT 1 GM PACKET TOP SCH ×3 (12:00→23:06)
[2017-04-15] MEDS ORDERED: MORPHINE SULFATE 4 MG/ML INJ IV PRN (12:00)
[2017-04-15] MEDS ORDERED: SODIUM CHLORIDE 0.9% FLUSH 10 ML FLUSH IV FLUSH PRN (12:00)
[2017-04-15] MEDS ORDERED: ACETAMINOPHEN 500 MG CPLT PO PRN (12:00)
--- NOTE | 2017-04-15 12:06 | HHI.HP ---
[facility] Primary Care Physician Admission Diagnosis Diagnoses: (1) NSTEMI (non-ST elevated myocardial infarction) (2) Unstable angina pectoris due to coronary arteriosclerosis (3) Uncontrolled diabetes mellitus Chief Complaint: Chest pain Travel History International Travel<30 Days: No Contact w/Intl Traveler <30 Da: No Traveled to Known Affected Are: No History of Present Illness 61 year-old female with a history of CAD, diabetes type 2 with status post [facility] 02/27 17 with severe disease CAD (widespread and diffuse) however found not to be a candidate for CABG but managed medically and status post stent placement 10 years ago resent to the ED for evaluation of chest pain mainly under her left breast area rated 7/10 in intensity radiation to her jaws area associated with shortness of breath, diaphoresis on and off as well as nausea and dry heaves since 3 AM this morning. Secondary to extreme cough, patient did not take her medication this morning. Patient states she's been compliant with medical care since discharge. she denies any GI bleed, febrile episode. Review of Systems Except as stated in HPI: all other systems reviewed are Neg Past Family Social History Past Medical History CAD hypertension dyslipidemia TIA diabetes mellitus Past Surgical History CARDIAC CATH WITH STENT X 03/06, STENT TEN YRS AGO) tonsillectomy 1967 Reported Medications Glipizide 5 Mg Tab 5 Mg PO BIDAC Take 30 minutes before a meal Lopressor (Metoprolol Tartrate) 50 Mg Tab 50 Mg PO Q12HR Glucophage (Metformin HCl) 500 Mg Tab 500 Mg PO BIDPC Lisinopril 5 Mg Tab 5 Mg PO DAILY Isosorbide Mononitrate ER (Isosorbide Mononitrate) 30 Mg Damion 30 Mg PO DAILY@07 Plavix (Clopidogrel Bisulfate) 75 Mg Tab 75 Mg PO DAILY Atorvastatin (Atorvastatin Calcium) 80 Mg Tab 80 Mg PO DAILY [Aspirin Chew] 81 MG Chew 81 Mg PO DAILY Allergies: Coded Allergies: Honey Bee (Verified Allergy, Severe, UNKNOWN, 04/15/17) Adhesives (Verified Allergy, Mild, REDNESS, 04/15/17) Family History Diabetes Hypertension Heart disease Social History Alcohol Use: Yes (rarely ) Tobacco Use: Yes Substance Use: No Physical Exam Vital Signs Vital Signs Date Time Temp Pulse Resp B/P Pulse Ox O2 Delivery O2 Flow Rate FiO2 04/15/17 10:40 92 19 146/79 98 Nasal Cannula 4 04/15/17 10:39 98 Nasal Cannula 4 04/15/17 09:50 97 22 145/75 91 Nasal Cannula 2 04/15/17 09:38 99 Nasal Cannula 2 04/15/17 09:38 99 04/15/17 09:22 97.8 108 22 139/84 96 Room Air 04/15/17 09:22 96 Room Air 04/15/17 09:16 97.8 118 21 165/99 94 Physical Exam GENERAL: This is a well-nourished, well-developed patient, in no apparent distress. SKIN: No rashes, ecchymoses or lesions. Cool and dry. HEAD: Atraumatic. Normocephalic. No temporal or scalp tenderness. EYES: Pupils equal round and reactive. Extraocular motions intact. No scleral icterus. No injection or drainage. ENT: Nose without bleeding, purulent drainage or septal hematoma. Throat without erythema, tonsillar hypertrophy or exudate. Uvula midline. Airway patent. NECK: Trachea midline. No JVD or lymphadenopathy. Supple, nontender, no meningeal signs. CARDIOVASCULAR: Regular rate and rhythm without murmurs, gallops, or rubs. RESPIRATORY: Clear to auscultation. Breath sounds equal bilaterally. No wheezes , rales, or rhonchi. GASTROINTESTINAL: Abdomen soft, non-tender, nondistended. No hepato-splenomegaly , or palpable masses. No guarding. MUSCULOSKELETAL: Extremities without clubbing, cyanosis, or edema. No joint tenderness, effusion, or edema noted. No calf tenderness. Negative Homans sign bilaterally. NEUROLOGICAL: Awake and alert. Cranial nerves II through XII intact. Motor and sensory grossly within normal limits. Five out of 5 muscle strength in all muscle groups. Normal speech. Laboratory Laboratory Tests Test 04/15/17 09:30 White Blood Count 15.9 Red Blood Count 5.02 Hemoglobin 15.4 Hematocrit 45.0 Mean Corpuscular Volume 89.8 Mean Corpuscular Hemoglobin 30.7 Mean Corpuscular Hemoglobin 34.2 Concent Red Cell Distribution Width 14.7 Platelet Count 322 Mean Platelet Volume 9.6 Neutrophils (%) (Auto) 81.2 Lymphocytes (%) (Auto) 15.5 Monocytes (%) (Auto) 2.2 Eosinophils (%) (Auto) 0.5 Basophils (%) (Auto) 0.6 Neutrophils # (Auto) 12.9 Lymphocytes # (Auto) 2.5 Monocytes # (Auto) 0.4 Eosinophils # (Auto) 0.1 Basophils # (Auto) 0.1 CBC Comment DIFF FINAL Differential Comment Prothrombin Time 9.9 Prothromb Time International 0.9 Ratio Activated Partial 27.3 Thromboplast Time Sodium Level 135 Potassium Level 4.6 Chloride Level 100 Carbon Dioxide Level 22.9 Anion Gap 12 Blood Urea Nitrogen 18 Creatinine 1.26 Estimat Glomerular Filtration 43 Rate Random Glucose 347 Calcium Level 9.3 Total Bilirubin 0.5 Aspartate Amino Transf 28 (AST/SGOT) Alanine Aminotransferase 38 (ALT/SGPT) Alkaline Phosphatase 118 Total Creatine Kinase 110 Creatine Kinase MB 3.3 Troponin I 0.20 Total Protein 7.8 Albumin 4.1 Lipase 200 Result Diagram: 04/15/1792904/15/17929 Imaging Last Impressions Chest X-Ray 04/15/1732 Signed Impressions: Service Date/Time: Saturday, April 15, 2017 10:09 - CONCLUSION: Mild bibasilar airspace consolidation. Pulmonary edema could have this appearance in the appropriate clinical setting. Alternatively, aspiration or infection are other considerations. Dawood Nolen MD Assessment and Plan Problem List: (1) NSTEMI (non-ST elevated myocardial infarction) ICD Code: I21.4 Status: Acute (2) Unstable angina pectoris due to coronary arteriosclerosis ICD Code: I25.110 Status: Acute (3) Uncontrolled diabetes mellitus ICD Code: E11.65 Status: Acute (4) Hyperglycemia ICD Code: R73.9 Status: Acute (5) Pulmonary edema ICD Code: J81.1 Status: Acute Assessment and Plan 61 year-old female with Non-ST elevation CA Unstable angina Atypical chest pain Chest x-ray noted and review by me with finding of Mild bibasilar airspace consolidation. Pulmonary edema could have this appearance in the appropriate clinical setting. Continue ACS ruled out per protocol with serial cardiac enzyme and EKGs Resume beta chauncey, statin, Imdur, lisinopril, aspirin and start Nitropaste 2-D echo February 2017 with EF 35-40% and consult cardiology Status post left heart catheterization 02/27/17 with severe CAD (widespread and diffuse) however patient was found not to be a candidate for CABG Leukocytosis CXR noted with finding of bibasilar air space consolidation versus pulmonary edema Status post Rocephin IV 1-hold on continue antibiotics pending BNP Check UA Chest x-ray finding of pulmonary consolidation versus pulmonary edema Status post Rocephin IV 1 over patient has no febrile episode Status post Lasix IV 1 and check BNP Diabetes type 2-uncontrolled blood glucose Hold oral hypoglycemic agents and start insulin sliding scale Hypertension Resume Lopressor Hyperlipidemia Resume statin and monitor lipid profile Code Status Full code Discussed Condition With Patient, ED physician Physician Certification 2 Midnight Certification Type: Admission for Inpatient Services Order for Inpatient Services The services are ordered in accordance with Medicare regulations or non- Medicare payer requirements, as applicable. In the case of services not specified as inpatient-only, they are appropriately provided as inpatient services in accordance with the 2-midnight benchmark. Estimated LOS (days): 2 days is the estimated time the patient will need to remain in the hospital, assuming treatment plan goals are met and no additional complications. Post-Hospital Plan: Not yet determined Problem Qualifiers (1) Pulmonary edema: Qualified Code: J81.0 - Acute pulmonary edema Pilo Nieto MD April 15, 2017 12:06
[2017-04-15] MEDS ORDERED: GLUCAGON 1 MG/ML VIAL OTHER PRN (12:15)
[2017-04-15] MEDS ORDERED: DEXTROSE 50% IN WATER 50 ML VIAL(D50) IV PRN (12:15)
[2017-04-15] MEDS ORDERED: ISOSORBIDE MONONITRATE 60 MG TAB PO ONE (13:30)
[2017-04-15] MEDS ORDERED: METOPROLOL TARTRATE 50 MG TAB PO ONE (13:30)
--- NOTE | 2017-04-15 14:07 | MB ---
cc: GIOVANNI QUIÑONEZ M.D., ERIC DATE OF CONSULTATION: 04/15/2017. Prior hospital records have been reviewed and the patient and boyfriend spoken with. The patient underwent coronary stenting of the right coronary artery in 2008. She came in with a NSTEMI in February of this year. Echocardiogram showed a 35% to 40% ejection fraction with mild mitral regurgitation. Catheterization revealed a patent right coronary artery with irregularities but with diffuse, severe disease of all the left-sided vessels. This was done by Dr. Juan Luis Pike. The films apparently were reviewed with cardiothoracic surgery and she was deemed only candidate for medical management as she was not a candidate for intervention or bypass surgery. The patient has been taking her medication but has not seen a doctor since discharge because of insurance reasons. She has mild stable dyspnea on exertion and gets a little short of breath when she gets very upset but has had no real angina. She woke up this morning about 03:00 a.m. with some clear sputum and coughing with mild shortness of breath. She had intermittent left inframammary artery pressure which would come and go but then was constant starting about eight this morning lasting a few hours. She has minimal residual now. It is unclear if this was pleuritic. She notes no other cardiac symptomatology, fevers or chills. PAST MEDICAL HISTORY: 1. Hypertension. 2. Diabetes. 3. Hyperlipidemia. 4. Tonsillectomy. 5. Bilateral cataracts. 6. Noncompliance. ALLERGIES: 1. SOME ADHESIVES. 2. BEE STINGS. SOCIAL HISTORY: She has a boyfriend and rarely drinks and smokes a quarter pack per day. REVIEW OF SYSTEMS: Only remarkable for the above. FAMILY HISTORY: Noncontributory. MEDICATIONS: Medication list reviewed. She did not take her medicines this morning. PHYSICAL EXAMINATION: GENERAL: On exam, she is alert and oriented times three. VITAL SIGNS: She is mildly tachycardic. Afebrile. The vital signs are stable. SKIN: There are no xanthelasma and oropharyngeal mucosa normal. CHEST: With decreased breath sounds but clear. CARDIOVASCULAR: JVD normal. S1, S2. No murmurs or gallops. ABDOMEN: Benign. EXTREMITIES: No cyanosis, clubbing or edema. PULSES: Carotids without bruits. Radials 1+. Femorals 1 to 2+ without bruits. Pedals 1+. NEUROLOGIC: She was not ambulated. IMAGING STUDIES: Chest x-ray showed mild basilar air space consolidation. LABORATORY FINDINGS: Potassium 4.6, creatinine 1.26, glucose 347. Troponin 0.20 with normal CPK. Lipase normal. PT/PTT normal. CBC remarkable for an elevated white count of 15.9. EKGS: EKG was sinus tachycardia, right bundle-branch block and anterior wall CA. There are no acute changes. PROBLEMS: 1. Shortness of breath / sputum production / elevated white count - the patient could have a pneumonitis. BNP level is pending. 2. Elevated troponin / chest pain - the patient has chest discomfort which may well represent a non-ST elevation myocardial infarction, although there are some atypical features. CPK is normal. Mildly elevated troponin. She is a candidate only for medical intervention. She has not taken her medication today. 3. Hypertension. 4. Diabetes - out of control. 5. Hyperlipidemia 6. Noncompliance. RECOMMENDATIONS: 1. I will increase her isosorbide to 60 milligrams daily giving her dose now along with her metoprolol which she missed this morning. 2. Aspirin and clopidogrel. 3. Statins. 4. Serial cardiac enzymes and EKGs. 5. She received single dose of diuretic, although I am not convinced this is definitely congestive heart failure. The primary service really needs to get social service involved as the patient certainly is disabled with her heart disease and needs to be gotten on social security / disability and probable Medicaid. She also needs adequate primary care followup. If these are not followed through with, I suspect she will have recurrent admissions. All questions were answered. MD LENORA GordilloG/JONATAN /1:33 PM /1:58 PM
[2017-04-15] MEDS: INSULIN ASPART SUPPLEMENTAL SCALE SQ SCH ×2 (15:46→21:45)
[2017-04-15] MEDS: ACETAMINOPHEN/HYDROcodone 325 MG/7.5 MG TAB PO PRN ×2 (16:32→20:31)
[2017-04-15] MEDS: METOPROLOL TARTRATE 50 MG TAB PO SCH (20:44)
[2017-04-15] MEDS: CALCIUM CARBONATE 500 MG CHEWABLE TAB CHEW PRN (20:56)
[2017-04-15] MEDS: SODIUM CHLORIDE 0.9% FLUSH 10 ML FLUSH IV FLUSH SCH (21:00)
[2017-04-15] MEDS ORDERED: TEMAZEPAM 15 MG CAP PO PRN (21:00)
[2017-04-15] MEDS ORDERED: ONDANSETRON HCL 4 MG/2 ML VIAL IV PUSH PRN (21:00)
[2017-04-15 22:20] LABS: MAGNESIUM 1.7 MG/DL (1.5-2.5)
[2017-04-15 22:47] LABS: CKMB 52.9 NG/ML (0.5-3.6)
[2017-04-16] VITALS (30 sets, daily range): BP systolic 88–123; BP diastolic 51–72; PULSE 59–83; RESP 18; TEMP 98.3–98.9; O2SAT 97–99
[2017-04-16] MEDS: ACETAMINOPHEN/HYDROcodone 325 MG/7.5 MG TAB PO PRN ×5 (01:02→20:46)
[2017-04-16] MEDS: CALCIUM CARBONATE 500 MG CHEWABLE TAB CHEW PRN ×2 (02:56→14:52)
[2017-04-16 04:29] LABS: AUTOMATED NEUTROPHIL # 5.7 TH/MM3 (1.8-7.7); BASOPHIL % 0.2 % (0.0-2.0); EOSINOPHIL # 0.1 TH/MM3 (0-0.4); HEMATOCRIT 38.2 % (35.0-46.0); HEMO FLAGS DIFF FINAL; LYMPH % 32.1 % (9.0-44.0); MEAN CELL VOLUME 88.7 FL (80.0-100.0); MEAN CORPUSCULAR HEMOGLOBIN 30.7 PG (27.0-34.0); MEAN CORPUSCULAR HGB CONC 34.6 % (32.0-36.0); MONO % 6.6 % (0.0-8.0); NEUT % 60.1 % (16.0-70.0); PLATELET COUNT 247 TH/MM3 (150-450); RED BLOOD COUNT 4.31 MIL/MM3 (4.00-5.30); RED CELL DISTRIBUTION WIDTH 14.1 % (11.6-17.2); WHITE BLOOD COUNT 9.4 TH/MM3 (4.0-11.0)
[2017-04-16 04:51] LABS: BICARBONATE 30.2 MEQ/L (21.0-32.0); HDL CHOLESTEROL 43.3 MG/DL (40.0-60.0); POTASSIUM 4.1 MEQ/L (3.5-5.1)
[2017-04-16] MEDS: NITROGLYCERIN 2% OINT 1 GM PACKET TOP SCH ×3 (05:58→17:01)
[2017-04-16] MEDS: INSULIN ASPART SUPPLEMENTAL SCALE SQ SCH ×4 (06:17→22:41)
[2017-04-16] MEDS: ISOSORBIDE MONONITRATE 60 MG TAB PO SCH (07:00)
[2017-04-16] MEDS ORDERED: ISOSORBIDE MONONITRATE 30 MG TAB PO SCH (07:00)
[2017-04-16] MEDS: METOPROLOL TARTRATE 50 MG TAB PO SCH ×2 (08:57→21:00)
[2017-04-16] MEDS: ATORVASTATIN 80 MG TAB PO SCH (08:57)
[2017-04-16] MEDS: PANTOPRAZOLE SOD 40 MG DELAYED RELEASE TAB PO SCH (08:57)
[2017-04-16] MEDS: ASPIRIN 81 MG CHEW TAB PO SCH (08:57)
[2017-04-16] MEDS: LISINOPRIL 5 MG TAB PO SCH (08:58)
[2017-04-16] MEDS: CLOPIDOGREL 75 MG TAB PO SCH (08:58)
[2017-04-16] MEDS: SODIUM CHLORIDE 0.9% FLUSH 10 ML FLUSH IV FLUSH SCH ×2 (08:58→21:00)
--- NOTE | 2017-04-16 09:37 | PD.CARD.PN ---
Subjective Subjective Remarks The patient has mild chest pressure which has improved. She denies shortness of breath, palpitations, GI symptoms or bleeding. Telemetry reveals sinus rhythm. Objective Medications Reviewed Vital Signs / I&O Vital Signs Date Time Temp Pulse Resp B/P Pulse Ox O2 Delivery O2 Flow Rate FiO2 04/16/17 07:24 98.3 75 18 118/72 98 04/16/17 07:00 60 04/16/17 06:03 64 04/16/17 05:00 71 04/16/17 04:30 98.7 66 18 101/56 99 04/16/17 04:06 60 04/16/17 03:00 60 04/16/17 02:00 62 04/16/17 01:00 72 04/16/17 00:00 98.5 78 18 104/60 99 04/16/17 00:00 68 04/15/17 23:00 78 04/15/17 22:00 70 04/15/17 21:00 76 04/15/17 20:00 76 04/15/17 20:00 98.5 73 18 125/77 99 04/15/17 19:00 72 04/15/17 18:48 16 04/15/17 18:00 71 04/15/17 17:00 77 04/15/17 16:26 98.6 76 17 104/69 98 04/15/17 16:25 79 04/15/17 13:56 95 13 132/61 98 Room Air 04/15/17 10:40 92 19 146/79 98 Nasal Cannula 4 04/15/17 10:39 98 Nasal Cannula 4 04/15/17 09:50 97 22 145/75 91 Nasal Cannula 2 04/15/17 09:38 99 Nasal Cannula 2 04/15/17 09:38 99 I/O 04/15/17 04/15/17 04/15/17 04/16/17 04/16/17 04/16/17 07:00 15:00 23:00 07:00 15:00 23:00 Intake Total 240 ml 420 ml Output Total 500 ml 600 ml Balance -260 ml -180 ml Intake Oral 240 ml 420 ml Output Urine Total 500 ml 600 ml Physical Exam GENERAL: Well-nourished, well-developed patient in no apparent distress. SKIN: Warm and dry. NECK: JVD normal - less than or equal to 5 cm H20. CARDIOVASCULAR: Regular rate and rhythm without murmurs, gallops, or rubs. RESPIRATORY: Normal breath sounds - equal bilaterally. No accessory muscle use. No wheezes, rales or rubs. PERIPHERY: No cyanosis, or edema. Laboratory Laboratory Tests Test 04/15/17 04/15/17 04/16/17 15:05 21:18 04:03 Total Creatine Kinase 489 U/L 587 U/L Creatine Kinase MB 51.0 NG/ML 52.9 NG/ML Creatine Kinase MB % 10.4 % 9.0 % Troponin I 14.00 NG/ML 22.30 NG/ML Magnesium Level 1.7 MG/DL White Blood Count 9.4 TH/MM3 Red Blood Count 4.31 MIL/MM3 Hemoglobin 13.2 GM/DL Hematocrit 38.2 % Mean Corpuscular Volume 88.7 FL Mean Corpuscular Hemoglobin 30.7 PG Mean Corpuscular Hemoglobin 34.6 % Concent Red Cell Distribution Width 14.1 % Platelet Count 247 TH/MM3 Mean Platelet Volume 8.9 FL Neutrophils (%) (Auto) 60.1 % Lymphocytes (%) (Auto) 32.1 % Monocytes (%) (Auto) 6.6 % Eosinophils (%) (Auto) 1.0 % Basophils (%) (Auto) 0.2 % Neutrophils # (Auto) 5.7 TH/MM3 Lymphocytes # (Auto) 3.0 TH/MM3 Monocytes # (Auto) 0.6 TH/MM3 Eosinophils # (Auto) 0.1 TH/MM3 Basophils # (Auto) 0.0 TH/MM3 CBC Comment DIFF FINAL Differential Comment Sodium Level 136 MEQ/L Potassium Level 4.1 MEQ/L Chloride Level 98 MEQ/L Carbon Dioxide Level 30.2 MEQ/L Anion Gap 8 MEQ/L Blood Urea Nitrogen 16 MG/DL Creatinine 1.02 MG/DL Estimat Glomerular Filtration 55 ML/MIN Rate Random Glucose 171 MG/DL Calcium Level 8.9 MG/DL Triglycerides Level 122 MG/DL Cholesterol Level 153 MG/DL LDL Cholesterol 85 MG/DL HDL Cholesterol 43.3 MG/DL Cholesterol/HDL Ratio 3.53 RATIO Imaging Last 48 hours Impressions Chest X-Ray 04/15/17 0932 Signed Impressions: Service Date/Time: Saturday, April 15, 2017 10:09 - CONCLUSION: Mild bibasilar airspace consolidation. Pulmonary edema could have this appearance in the appropriate clinical setting. Alternatively, aspiration or infection are other considerations. Dawood Nolen MD Assessment and Plan Assessment and Plan Problems: Non-ST elevation PA with inoperable multivessel coronary disease Hypertension Diabetes Hyperlipidemia Tobacco abuse Recommendations: Medical management as the patient is not a candidate for PCI or bypass. This includes aspirin, clopidogrel, beta blockers, losartan and isosorbide. Risk factor modification per primary service No heavy exertion I would estimate the patient can be discharged in one to 2 days. She will need primary care follow-up and social service follow-up. I will be available this hospital stay only on an as-needed basis. Shekhar Guadalupe MD April 16, 2017 09:37
[2017-04-16] MEDS ORDERED: PNEUMOCOCCAL POLYVALENT INJ 25 MCG/0.5 ML SYR IM ONE (10:00)
--- NOTE | 2017-04-16 12:51 | HHI.PR ---
Subjective Remarks Follow-up non-ST elevation [place]/unstable angina 04/16/17-patient seen and examined, reports some improvement of chest pain. BP currently low. Appreciate input from cardiology. Objective Vitals Vital Signs Date Time Temp Pulse Resp B/P Pulse Ox O2 Delivery O2 Flow Rate FiO2 04/16/17 12:08 62 04/16/17 11:30 98.3 69 18 88/51 97 04/16/17 11:00 66 04/16/17 10:00 64 04/16/17 09:00 72 04/16/17 08:00 80 04/16/17 07:24 98.3 75 18 118/72 98 04/16/17 07:00 60 04/16/17 06:03 64 04/16/17 05:00 71 04/16/17 04:30 98.7 66 18 101/56 99 04/16/17 04:06 60 04/16/17 03:00 60 04/16/17 02:00 62 04/16/17 01:00 72 04/16/17 00:00 98.5 78 18 104/60 99 04/16/17 00:00 68 04/15/17 23:00 78 04/15/17 22:00 70 04/15/17 21:00 76 04/15/17 20:00 76 04/15/17 20:00 98.5 73 18 125/77 99 04/15/17 19:00 72 04/15/17 18:48 16 04/15/17 18:00 71 04/15/17 17:00 77 04/15/17 16:26 98.6 76 17 104/69 98 04/15/17 16:25 79 04/15/17 13:56 95 13 132/61 98 Room Air I/O 04/15/17 04/15/17 04/15/17 04/16/17 04/16/17 04/16/17 07:00 15:00 23:00 07:00 15:00 23:00 Intake Total 240 ml 420 ml Output Total 500 ml 600 ml Balance -260 ml -180 ml Intake Oral 240 ml 420 ml Output Urine Total 500 ml 600 ml Result Diagram: 04/16/17 0403 04/16/17 0403 Imaging Last Impressions Chest X-Ray 04/15/17 0932 Signed Impressions: Service Date/Time: Saturday, April 15, 2017 10:09 - CONCLUSION: Mild bibasilar airspace consolidation. Pulmonary edema could have this appearance in the appropriate clinical setting. Alternatively, aspiration or infection are other considerations. Dawood Nolen MD Objective Remarks GENERAL: NAD SKIN: Warm and dry. HEAD: Normocephalic. EYES: No scleral icterus. No injection or drainage. NECK: Supple, trachea midline. No JVD or lymphadenopathy. CARDIOVASCULAR: Regular rate and rhythm without murmurs, gallops, or rubs. RESPIRATORY: Breath sounds equal bilaterally. No accessory muscle use. GASTROINTESTINAL: Abdomen soft, non-tender, nondistended. MUSCULOSKELETAL: No cyanosis, or edema. BACK: Nontender without obvious deformity. No CVA tenderness. A/P Problem List: (1) NSTEMI (non-ST elevated myocardial infarction) ICD Code: I21.4 Status: Acute (2) Unstable angina pectoris due to coronary arteriosclerosis ICD Code: I25.110 Status: Acute (3) Uncontrolled diabetes mellitus ICD Code: E11.65 Status: Acute (4) Hyperglycemia ICD Code: R73.9 Status: Acute (5) Pulmonary edema ICD Code: J81.1 Status: Acute Assessment and Plan Non-ST elevation [place] Unstable angina Atypical chest pain Chest x-ray with finding of Mild bibasilar airspace consolidation. Pulmonary edema could have this appearance in the appropriate clinical setting. Serial cardiac enzyme and EKGs noted Continue medical management per cardiology with beta chauncey, statin, Imdur, lisinopril, aspirin and Nitropaste 2-D echo February 2017 with EF 35-40% Status post left heart catheterization 02/27/17 with severe CAD (widespread and diffuse) however patient was found not to be a candidate for CABG Leukocytosis-resolved CXR noted with finding of bibasilar air space consolidation versus pulmonary edema Status post Rocephin IV Chest x-ray finding of pulmonary consolidation versus pulmonary edema Status post Rocephin IV 1 over patient has no febrile episode Status post Lasix IV 1 and mildly elevated BNP Diabetes type 2-uncontrolled blood glucose Hold oral hypoglycemic agents and continue insulin sliding scale Hypertension Continue Lopressor with holding parameters Hyperlipidemia Continue statin Discharge Planning Likely discharge in 1-2 days Problem Qualifiers (1) Pulmonary edema: Qualified Code: J81.0 - Acute pulmonary edema Pilo Nieto MD April 16, 2017 12:51
--- NOTE | 2017-04-16 16:23 | EKG ---
Date Performed: 04/15/2017 Time Performed: 09:23:54 PTAGE: 61 years EKG: Sinus Tachycardia. RIGHT BUNDLE BRANCH BLOCK Venus leftward. Nonspecific ST-T change. Atrial abnormality. When compared to previous tracing, heart rate is faster. ABNORMAL ECG PREVIOUS TRACING : 03/01/2017 05.34 DOCTOR: Basilio Rothman Interpretating Date/Time 04/16/2017 16:21:35
--- NOTE | 2017-04-16 16:27 | EKG ---
Date Performed: 04/15/2017 Time Performed: 17:00:10 PTAGE: 61 years EKG: Sinus rhythm . Left axis deviation Right bundle branch block Septal Q waves of undetermined significance. Minor no nspecific ST-T change. When compared to previous tracing, overall improvement in the ST changes. Abno rmal ECG PREVIOUS TRACING : 04/15/2017 15.06 DOCTOR: Basiilo Rothman Interpretating Date/Time 04/16/2017 16:26:57
--- NOTE | 2017-04-16 16:27 | EKG ---
Date Performed: 04/15/2017 Time Performed: 15:06:44 PTAGE: 61 years EKG: Sinus rhythm Atrial abnormality RIGHT BUNDLE BRANCH BLOCK Left axis deviation. Nonspecific ST-T change. When comp ared to previous tracing, there continues to be a small Septal Q waves of undetermined significance. No significant change since previous tracing, except heart rate is Slower. ABNORMAL ECG PREVIOUS TRACING : 04/15/2017 09.23 DOCTOR: Basilio Rothman Interpretating Date/Time 04/16/2017 16:25:10
--- NOTE | 2017-04-16 16:31 | EKG ---
Date Performed: 04/16/2017 Time Performed: 03:18:36 PTAGE: 61 years EKG: Sinus rhythm . Borderline short CA interval Left axis deviation Right bundle branch block Small septal Q waves of undetermined significance. Low precordial lead voltage. When copmpared to previous tracing, QRS volta ge is some what Lower in the precordial leads, otherwise no significant change. Abnormal ECG PREVIOUS TRACING : 04/15/2017 17.00 DOCTOR: Basilio Rothman Interpretating Date/Time 04/16/2017 16:30:12
[2017-04-17] VITALS (15 sets, daily range): BP systolic 84–107; BP diastolic 52–69; PULSE 58–104; RESP 18; TEMP 98.8–98.9; O2SAT 95–99
[2017-04-17] MEDS: CALCIUM CARBONATE 500 MG CHEWABLE TAB CHEW PRN (01:57)
[2017-04-17] MEDS: ACETAMINOPHEN/HYDROcodone 325 MG/7.5 MG TAB PO PRN (01:57)
[2017-04-17] MEDS: NITROGLYCERIN 2% OINT 1 GM PACKET TOP SCH ×3 (06:00→12:00)
[2017-04-17] MEDS: INSULIN ASPART SUPPLEMENTAL SCALE SQ SCH ×2 (06:16→12:04)
[2017-04-17] MEDS: ISOSORBIDE MONONITRATE 60 MG TAB PO SCH (08:57)
[2017-04-17] MEDS: ATORVASTATIN 80 MG TAB PO SCH (08:58)
[2017-04-17] MEDS: METOPROLOL TARTRATE 50 MG TAB PO SCH ×2 (08:58→09:00)
[2017-04-17] MEDS: LISINOPRIL 5 MG TAB PO SCH (08:58)
[2017-04-17] MEDS: PANTOPRAZOLE SOD 40 MG DELAYED RELEASE TAB PO SCH (08:58)
[2017-04-17] MEDS: CLOPIDOGREL 75 MG TAB PO SCH (08:59)
[2017-04-17] MEDS: SODIUM CHLORIDE 0.9% FLUSH 10 ML FLUSH IV FLUSH SCH (08:59)
[2017-04-17] MEDS: ASPIRIN 81 MG CHEW TAB PO SCH (08:59)
[2017-04-17] MEDS ORDERED: ISOS60TA PO (12:16)
--- NOTE | 2017-04-17 12:19 | HHI.PR ---
Subjective Remarks Follow-up non-ST elevation ID/unstable angina 04/16/17-patient seen and examined, reports some improvement of chest pain. BP currently low. Appreciate input from cardiology. 04/17/17-patient seen and examined, denies any chest pain or shortness of breath. Discussed with patient regarding low BP Objective Vitals Vital Signs Date Time Temp Pulse Resp B/P Pulse Ox O2 Delivery O2 Flow Rate FiO2 04/17/17 12:04 103 04/17/17 11:49 84 04/17/17 11:49 98.9 104 18 84/52 97 04/17/17 10:30 99 04/17/17 09:07 69 04/17/17 08:27 81 04/17/17 07:36 90 04/17/17 07:36 98.8 90 18 96/69 97 04/17/17 06:00 71 04/17/17 05:30 71 04/17/17 04:00 75 04/17/17 04:00 98.9 71 18 98/53 99 04/17/17 03:00 58 04/17/17 02:00 66 04/17/17 00:00 59 04/16/17 23:02 69 04/16/17 23:01 98.9 83 18 110/56 99 04/16/17 22:00 62 04/16/17 21:00 64 04/16/17 20:00 64 04/16/17 20:00 98.9 62 18 109/63 99 04/16/17 19:00 64 04/16/17 18:32 64 04/16/17 17:47 16 04/16/17 17:47 16 04/16/17 17:04 68 04/16/17 16:01 66 04/16/17 15:55 98.4 72 18 123/68 97 04/16/17 15:00 66 04/16/17 14:00 68 04/16/17 13:01 59 04/16/17 12:50 112/66 I/O 04/16/17 04/16/17 04/16/17 04/17/17 04/17/17 04/17/17 07:00 15:00 23:00 07:00 15:00 23:00 Intake Total 420 ml 720 ml 420 ml Output Total 600 ml 500 ml Balance -180 ml 720 ml -80 ml Intake Oral 420 ml 720 ml 420 ml Output Urine Total 600 ml 500 ml # Voids 4 # Bowel Movements 0 Result Diagram: 04/16/17 0403 04/16/17 0403 Imaging Last Impressions Chest X-Ray 04/15/17 0932 Signed Impressions: Service Date/Time: Monday, April 15, 2017 10:09 - CONCLUSION: Mild bibasilar airspace consolidation. Pulmonary edema could have this appearance in the appropriate clinical setting. Alternatively, aspiration or infection are other considerations. Dawood Nolen MD Objective Remarks GENERAL: NAD SKIN: Warm and dry. HEAD: Normocephalic. EYES: No scleral icterus. No injection or drainage. NECK: Supple, trachea midline. No JVD or lymphadenopathy. CARDIOVASCULAR: Regular rate and rhythm without murmurs, gallops, or rubs. RESPIRATORY: Breath sounds equal bilaterally. No accessory muscle use. GASTROINTESTINAL: Abdomen soft, non-tender, nondistended. MUSCULOSKELETAL: No cyanosis, or edema. BACK: Nontender without obvious deformity. No CVA tenderness. Procedures None A/P Problem List: (1) NSTEMI (non-ST elevated myocardial infarction) ICD Code: I21.4 Status: Acute (2) Unstable angina pectoris due to coronary arteriosclerosis ICD Code: I25.110 Status: Acute (3) Uncontrolled diabetes mellitus ICD Code: E11.65 Status: Acute (4) Hyperglycemia ICD Code: R73.9 Status: Acute (5) Pulmonary edema ICD Code: J81.1 Status: Acute Assessment and Plan Non-ST elevation [place] Unstable angina Atypical chest pain Continue medical management per cardiology with beta chauncey, statin, Imdur, lisinopril, aspirin and Nitropaste 2-D echo February 2017 with EF 35-40% Status post left heart catheterization 02/27/17 with severe CAD (widespread and diffuse) however patient was found not to be a candidate for CABG Leukocytosis-resolved CXR noted with finding of bibasilar air space consolidation versus pulmonary edema Status post Rocephin IV Chest x-ray finding of pulmonary consolidation versus pulmonary edema Status post Rocephin IV 1 over patient has no febrile episode Status post Lasix IV 1 and mildly elevated BNP Diabetes type 2-uncontrolled blood glucose-now control Hold oral hypoglycemic agents and continue insulin sliding scale Hypertension Continue Lopressor with holding parameters Hyperlipidemia Continue statin Discharge Planning Likely discharge in 1-2 days Problem Qualifiers (1) Pulmonary edema: Qualified Code: J81.0 - Acute pulmonary edema Pilo Nieto MD April 17, 2017 12:19
--- NOTE | 2017-04-17 12:20 | HHI.DS ---
Discharge Summary Admission Date April 15, 2017 at 12:08 Discharge Date: April 17, 2017 Admitting Diagnosis (1) NSTEMI (non-ST elevated myocardial infarction) ICD Code: I21.4 (2) Unstable angina pectoris due to coronary arteriosclerosis ICD Code: I25.110 (3) Uncontrolled diabetes mellitus ICD Code: E11.65 (4) Hyperglycemia ICD Code: R73.9 (5) Pulmonary edema ICD Code: J81.1 Procedures None Brief History - From Admission 61 year-old female with a history of CAD, diabetes type 2 with status post [facility] 02/27 17 with severe disease CAD (widespread and diffuse) however found not to be a candidate for CABG but managed medically and status post stent placement 10 years ago resent to the ED for evaluation of chest pain mainly under her left breast area rated 7/10 in intensity radiation to her jaws area associated with shortness of breath, diaphoresis on and off as well as nausea and dry heaves since 3 AM this morning. Secondary to extreme cough, patient did not take her medication this morning. Patient states she's been compliant with medical care since discharge. she denies any GI bleed, febrile episode. CBC/BMP: 04/16/17 0403 04/16/17 0403 Significant Findings Laboratory Tests Test 04/15/17 04/15/17 04/15/17 04/16/17 09:30 15:05 21:18 04:03 White Blood Count 15.9 TH/MM3 (4.0-11.0) Hemoglobin 15.4 GM/DL (11.6-15.3) Neutrophils (%) (Auto) 81.2 % (16.0-70.0) Neutrophils # (Auto) 12.9 TH/MM3 (1.8-7.7) Sodium Level 135 MEQ/L (136-145) Creatinine 1.26 MG/DL 1.02 MG/DL (0.50-1.00) (0.50-1.00) Estimat Glomerular Filtration 43 ML/MIN (>89) 55 ML/MIN (>89) Rate Random Glucose 347 MG/DL 171 MG/DL (74-106) (74-106) Alkaline Phosphatase 118 U/L (45-117) Troponin I 0.20 NG/ML 14.00 NG/ML 22.30 NG/ML (0.02-0.05) (0.02-0.05) (0.02-0.05) B-Type Natriuretic Peptide 208 PG/ML (0-100) Total Creatine Kinase 489 U/L 587 U/L (26-192) (26-192) Creatine Kinase MB 51.0 NG/ML 52.9 NG/ML (0.5-3.6) (0.5-3.6) Creatine Kinase MB % 10.4 % 9.0 % (0.0-4.0) (0.0-4.0) Imaging Last Impressions Chest X-Ray 04/15/17 0932 Signed Impressions: Service Date/Time: Monday, April 15, 2017 10:09 - CONCLUSION: Mild bibasilar airspace consolidation. Pulmonary edema could have this appearance in the appropriate clinical setting. Alternatively, aspiration or infection are other considerations. Dawood Nolen MD PE at Discharge GENERAL: NAD SKIN: Warm and dry. HEAD: Normocephalic. EYES: No scleral icterus. No injection or drainage. NECK: Supple, trachea midline. No JVD or lymphadenopathy. CARDIOVASCULAR: Regular rate and rhythm without murmurs, gallops, or rubs. RESPIRATORY: Breath sounds equal bilaterally. No accessory muscle use. GASTROINTESTINAL: Abdomen soft, non-tender, nondistended. MUSCULOSKELETAL: No cyanosis, or edema. BACK: Nontender without obvious deformity. No CVA tenderness. Hospital Course Non-ST elevation [place] Unstable angina Atypical chest pain Continue medical management per cardiology with beta chauncey, statin, Imdur, lisinopril, aspirin and Nitropaste 2-D echo February 2017 with EF 35-40% Status post left heart catheterization 02/27/17 with severe CAD (widespread and diffuse) however patient was found not to be a candidate for CABG Leukocytosis-resolved CXR noted with finding of bibasilar air space consolidation versus pulmonary edema Status post Rocephin IV Chest x-ray finding of pulmonary consolidation versus pulmonary edema Status post Rocephin IV 1 over patient has no febrile episode Status post Lasix IV 1 and mildly elevated BNP Diabetes type 2-uncontrolled blood glucose-now control Hold oral hypoglycemic agents and continue insulin sliding scale Hypertension Continue Lopressor with holding parameters She was advised to keep a blood pressure log and treat accordingly Hyperlipidemia Continue statin Pt Condition on Discharge: Stable Discharge Disposition: Discharge Home Discharge Time: > 30 minutes Discharge Instructions DIET: Follow Instructions for: Heart Healthy Diet Activities you can perform: Regular-No Restrictions Follow up Referrals: Cardiology PCP Follow-up - 1 Week New Medications: Isosorbide Mononitrate ER (Isosorbide Mononitrate ER) 60 Mg Tab 60 MG PO DAILY@07 Blood Pressure Management #30 TAB Continued Medications: Atorvastatin (Atorvastatin) 80 Mg Tab 80 MG PO DAILY cad #30 Ref 3 TAB Clopidogrel (Plavix) 75 Mg Tab 75 MG PO DAILY cad #30 Ref 3 TAB Glipizide (Glipizide) 5 Mg Tab 5 MG PO BIDAC Take 30 minutes before a meal Blood Sugar Management #60 Ref 3 TAB Lisinopril (Lisinopril) 5 Mg Tab 5 MG PO DAILY cad #30 Ref 3 TAB Metformin (Glucophage) 500 Mg Tab 500 MG PO BIDPC diabetes #60 Ref 3 TAB Metoprolol Tartrate (Lopressor) 50 Mg Tab 50 MG PO Q12HR cad #60 Ref 3 TAB ([Aspirin Chew]) 81 MG CHEW 81 MG PO DAILY cad #30 Ref 0 TAB.CHEW Discontinued Medications: Isosorbide Mononitrate ER (Isosorbide Mononitrate ER) 30 Mg Damion 30 MG PO DAILY@07 cad #30 Ref 3 TAB Pilo Nieto MD April 17, 2017 12:20
== END 2017-04-17 16:08 | disposition home or self-care (01) | DRG 280 ==
LOC: NEPC 09:14 → NEDA 12:08 → HCIN 16:07
PROVIDERS: ADMIT Hospitalist; ATTEND Hospitalist
DX: I21.4 Non-ST elevation (NSTEMI) myocardial infarction (principal); J81.0 Acute pulmonary edema; E11.65 Type 2 diabetes mellitus with hyperglycemia; I25.110 Atherosclerotic heart disease of native coronary artery with unstable angina pectoris; E78.5 Hyperlipidemia, unspecified; I10 Essential (primary) hypertension; I25.2 Old myocardial infarction; F17.200 Nicotine dependence, unspecified, uncomplicated; Z79.4 Long term (current) use of insulin; Z86.73 Personal history of transient ischemic attack (TIA), and cerebral infarction without residual deficits; Z91.19 Patient's noncompliance with other medical treatment and regimen; Z95.5 Presence of coronary angioplasty implant and graft
CPT/HCPCS: 71010; 80048; 80053; 80061; 82550; 82552; 82948; 83690; 83735; 83880; 84484; 85025; 85610; 85730; 90732; 93005; 96374; 96375; J0696; J1815; J1940; J2270; J2405

== ENCOUNTER 2017-04-22 04:32 | Inpatient (IN) | payer OTHER ==
[~2017-04-22] VITALS: Ht 162.6 cm; Wt 68.5 kg
[2017-04-22] VITALS (14 sets, daily range): BP systolic 91–155; BP diastolic 53–86; PULSE 68–104; RESP 16–30; TEMP 97.7–98.5; O2SAT 93–100
[~2017-04-22 04:32] MED LIST changes: -ISOS30TA3 PO; +ISOS60TA PO
[2017-04-22] MEDS ORDERED: LORazepam 2 MG/ML VIAL ONE (04:38)
[2017-04-22] MEDS ORDERED: MORPHINE SULFATE 8 MG/ML INJ ONE (04:38)
[2017-04-22] MEDS ORDERED: ONDANSETRON HCL 4 MG/2 ML VIAL ONE (04:38)
[2017-04-22] MEDS ORDERED: FUROSEMIDE 40 MG/4 ML VIAL IVP ONE (04:45)
[2017-04-22] MEDS ORDERED: SODIUM CHLORIDE 0.9% FLUSH 10 ML FLUSH IVF PRN (04:45)
[2017-04-22] MEDS ORDERED: NITROGLYCERIN 2% OINT 1 GM PACKET TOPICAL ONE (04:45)
[2017-04-22 05:12] LABS: AUTOMATED NEUTROPHIL # 5.9 TH/MM3 (1.8-7.7); BASOPHIL % 0.4 % (0.0-2.0); EOSINOPHIL # 0.2 TH/MM3 (0-0.4); EOSINOPHIL % 1.6 % (0.0-4.0); HEMATOCRIT 41.5 % (35.0-46.0); HEMO FLAGS DIFF FINAL; LYMPHOCYTE # 2.9 TH/MM3 (1.0-4.8); MEAN CELL VOLUME 92.2 FL (80.0-100.0); MEAN CORPUSCULAR HEMOGLOBIN 30.2 PG (27.0-34.0); MEAN CORPUSCULAR HGB CONC 32.7 % (32.0-36.0); MONO % 6.6 % (0.0-8.0); NEUT % 61.4 % (16.0-70.0); PLATELET COUNT 229 TH/MM3 (150-450); RED CELL DISTRIBUTION WIDTH 14.1 % (11.6-17.2); WHITE BLOOD COUNT 9.7 TH/MM3 (4.0-11.0)
--- NOTE | 2017-04-22 05:16 | PD ---
HPI . Chest pain and shortness of breath Chief Complaint: Cardiac Complaint Time Seen by Provider: 04:40 Travel History International Travel<30 days: No Contact w/Intl Traveler<30days: No Traveled to known affect area: No History of Present Illness HPI Patient presents to us via [facility] with the chief complaint of chest pain shortness of breath. Onset of symptoms was about 30-45 minutes prior to arrival. She states that she was trying to sleep when it started. She states that it started suddenly. Symptoms have been somewhat relieved by oxygen and nitroglycerin. EMS gave her 3 sublingual nitroglycerin en route. Patient is unaware of what might have caused this sudden symptoms. PFSH Past Medical History Arthritis: Yes (HANDS) Autoimmune Disease: No Blood Disorders: No Cancer: No Cardiac Catheterization: Yes Cardiovascular Problems: Yes High Cholesterol: Yes Chest Pain: Yes Cerebrovascular Accident: Yes (TIA x 1) Diabetes: Yes Patient Takes Glucophage: No (UNKNOWN) Diminished Hearing: No Endocrine: Yes Gastrointestinal Disorders: Yes Genitourinary: Yes Hypertension: Yes Immune Disorder: No Implanted Vascular Access Dvce: No Musculoskeletal: Yes Neurologic: Yes Psychiatric: No Reproductive: No Respiratory: Yes Myocardial Infarction: Yes Seizures: No Thyroid Disease: No Tetanus Vaccination: Unknown Influenza Vaccination: No ?: Not : 8 Para: 7 Miscarriage: 1 Past Surgical History Cardiac Surgery: Yes (CARDIAC CATH 03/06, STENT TEN YRS AGO) Coronary Stent: Yes Oral Surgery: Yes (T&A) Tonsillectomy: Yes Other Surgery: Yes (tonsillectomy 1966) Social History Alcohol Use: Yes (rarely ) Tobacco Use: Yes (QUIT X 1 WEEK) Substance Use: No Allergies-Medications (Allergen,Severity, Reaction): Coded Allergies: Honey Bee (Verified Allergy, Severe, UNKNOWN, 04/15/17) Adhesives (Verified Allergy, Mild, REDNESS, 04/15/17) Reported Meds & Prescriptions Reported Meds & Active Scripts Active Isosorbide Mononitrate ER (Isosorbide Mononitrate) 60 Mg Tab 60 Mg PO DAILY@07 Glipizide 5 Mg Tab 5 Mg PO BIDAC Take 30 minutes before a meal Lopressor (Metoprolol Tartrate) 50 Mg Tab 50 Mg PO Q12HR Glucophage (Metformin HCl) 500 Mg Tab 500 Mg PO BIDPC Lisinopril 5 Mg Tab 5 Mg PO DAILY Plavix (Clopidogrel Bisulfate) 75 Mg Tab 75 Mg PO DAILY Atorvastatin (Atorvastatin Calcium) 80 Mg Tab 80 Mg PO DAILY [Aspirin Chew] 81 MG Chew 81 Mg PO DAILY Review of Systems Except as stated in HPI: all other systems reviewed are Neg General / Constitutional: Positive: Other (diaphoresis) Cardiovascular: Positive: Chest Pain or Discomfort Respiratory: Positive: Shortness of Breath Gastrointestinal: Positive: Nausea Physical Exam Narrative GENERAL: Patient is anxious appearing. She is a little bit cool and clammy. SKIN: She is a little bit cool and clammy. HEAD: Atraumatic. Normocephalic. EYES: Pupils equal and round. Extraocular movements are intact. ENT: No nasal bleeding or discharge. Mucous membranes pink and moist. NECK: Trachea midline. Positive JVD. CARDIOVASCULAR: Regular rhythm. Sinus tachycardia at about 110. RESPIRATORY: No accessory muscle use. She has diffuse rhonchi. GASTROINTESTINAL: Abdomen soft, non-tender, nondistended. MUSCULOSKELETAL: No obvious deformities. No edema. NEUROLOGICAL: Awake and alert. No obvious cranial nerve deficits. Motor grossly within normal limits. Normal speech. PSYCHIATRIC: Appropriate mood and affect; insight and judgment normal. Data Data Last Documented VS Vital Signs Date Time Temp Pulse Resp B/P Pulse Ox O2 Delivery O2 Flow Rate FiO2 04/22/17 05:51 75 18 98/56 93 Nasal Cannula 2 04/22/17 04:43 98.2 Orders Ondansetron Inj (Zofran Inj) (04/22/17 04:38) Morphine Inj (Morphine Inj) (04/22/17 04:38) Lorazepam Inj (Ativan Inj) (04/22/17 04:38) Complete Blood Count With Diff (04/22/17 04:44) Basic Metabolic Panel (Bmp) (04/22/17 04:44) B-Type Natriuretic Peptide (04/22/17 04:44) Ckmb (Isoenzyme) Profile (04/22/17 04:44) Troponin I (04/22/17 04:44) Iv Access Insert/Monitor (04/22/17 04:44) Electrocardiogram (04/22/17 04:44) Ecg Monitoring (04/22/17 04:44) Oximetry (04/22/17 04:44) Oxygen Administration (04/22/17 04:44) Chest, Single Ap (04/22/17 04:44) Sodium Chloride 0.9% Flush (Ns Flush) (04/22/17 04:45) Furosemide Inj (Lasix Inj) (04/22/17 04:45) Nitroglycerin 2% Oint (Nitroglycerin 2% (04/22/17 04:45) Labs Laboratory Tests Test 04/22/17 04:50 White Blood Count 9.7 TH/MM3 Red Blood Count 4.50 MIL/MM3 Hemoglobin 13.6 GM/DL Hematocrit 41.5 % Mean Corpuscular Volume 92.2 FL Mean Corpuscular Hemoglobin 30.2 PG Mean Corpuscular Hemoglobin 32.7 % Concent Red Cell Distribution Width 14.1 % Platelet Count 229 TH/MM3 Mean Platelet Volume 9.3 FL Neutrophils (%) (Auto) 61.4 % Lymphocytes (%) (Auto) 30.0 % Monocytes (%) (Auto) 6.6 % Eosinophils (%) (Auto) 1.6 % Basophils (%) (Auto) 0.4 % Neutrophils # (Auto) 5.9 TH/MM3 Lymphocytes # (Auto) 2.9 TH/MM3 Monocytes # (Auto) 0.6 TH/MM3 Eosinophils # (Auto) 0.2 TH/MM3 Basophils # (Auto) 0.0 TH/MM3 CBC Comment DIFF FINAL Differential Comment Sodium Level 138 MEQ/L Potassium Level 3.6 MEQ/L Chloride Level 104 MEQ/L Carbon Dioxide Level 26.0 MEQ/L Anion Gap 8 MEQ/L Blood Urea Nitrogen 17 MG/DL Creatinine 0.98 MG/DL Estimat Glomerular Filtration 58 ML/MIN Rate Random Glucose 197 MG/DL Calcium Level 7.8 MG/DL Total Creatine Kinase 56 U/L Troponin I 0.37 NG/ML B-Type Natriuretic Peptide 624 PG/ML [facility] Medical Decision Making Medical Screen Exam Complete: Yes Emergency Medical Condition: Yes Medical Record Reviewed: Yes (patient was just here with similar complaints. A note from her commercial estimator on 04/16 states that she has inoperable multivessel disease. She is not a candidate for PCI or CABG.) Interpretation(s) EKG shows a sinus rhythm. She has an incomplete right bundle branch block. She has diffuse T-wave abnormalities but they are unchanged from previous. Differential Diagnosis Differential diagnosis of dyspnea includes but is not limited to congestive heart failure, pneumonia, wheezing, pneumothorax, pulmonary embolism Narrative Course Patient presents with the acute onset of chest pain and shortness of breath. Her records reveal that she has inoperable coronary disease. Her exam is compatible with acute pulmonary edema. She was given morphine, Ativan and Zofran shortly after her arrival because she was very anxious. She had aspirin and Plavix at home. Lasix and Nitropaste were also ordered. Last Impressions Chest X-Ray 04/22/17 0444 Signed Impressions: Service Date/Time: Saturday, April 22, 2017 05:11 - CONCLUSION: Right lung base atelectasis and/or infiltrate and mild prominence of the interstitial markings. Kalpesh Cowan MD The chest x-ray was independently viewed by me. CBC & BMP Diagram 04/22/17 04:50 Her troponin is 0.37. This is elevated but is markedly improved from just a couple of days ago. Her BNP is 624. The patient states that she is much improved following oxygen, nitroglycerin, morphine and Ativan. Critical Care Narrative Aggregate critical care time was minutes. Time to perform other separately billable procedures was not included in the critical care time. My time did not include minutes spent treating any other patients simultaneously or on activities that did not directly contribute to the patient's treatment. The services I provided to this patient were to treat and/or prevent clinically significant deterioration due to chest pain and dyspnea I provided critical care services requiring my management, as noted below: Chart data review, documentation time, medication orders and management, vital sign assessments/reviewing monitor data, ordering and reviewing lab tests, ordering and interpreting/reviewing x-rays and diagnostic studies, care of the patient and discussion of the patient with the admitting physicians Physician Communication Physician Communication Dr. Torrez will admit to [facility]. Diagnosis Primary Impression: Pulmonary edema Qualified Code: J81.0 - Acute pulmonary edema Additional Impression: Chest pain Qualified Code: R07.9 - Chest pain, unspecified type Admitting Information Admitting Physician Requests: Admit Condition: Stable Janet Gonzales MD Apr 22, 2017 05:16
[2017-04-22 05:22] LABS: POTASSIUM 3.6 MEQ/L (3.5-5.1)
--- NOTE | 2017-04-22 05:25 | RADRPT ---
EXAM DATE/TIME: 04/22/2017 05:11 [place] COMPARISON: CHEST SINGLE AP, April 15, 2017, 10:09. INDICATIONS : Shortness of breath. MEDICAL HISTORY : Hypertension. Diabetes mellitus type II. Stroke. COPD SURGICAL HISTORY : Coronary artery stent. ENCOUNTER: Initial ACUITY: 1 day PAIN SCORE: 0/10 LOCATION: Bilateral chest FINDINGS: There is mild prominence of the interstitial markings with slight right lung base atelectasis and/or infiltrate. Heart and mediastinum are unremarkable for technique. CONCLUSION: Right lung base atelectasis and/or infiltrate and mild prominence of the interstitial markings. Kalpesh Cowan MD on April 22, 2017 at 5:22 Board Certified Radiologist. This report was verified electronically.
[2017-04-22] MEDS ORDERED: SODIUM CHLORIDE 0.9% FLUSH 10 ML FLUSH IV FLUSH PRN (06:15)
[2017-04-22] MEDS ORDERED: DEXTROSE 50% IN WATER 50 ML VIAL(D50) IV PRN (06:15)
[2017-04-22] MEDS ORDERED: LACTULOSE SYRUP 20 GM/30 ML CUP PO PRN (06:15)
[2017-04-22] MEDS ORDERED: ACETAMINOPHEN 325 MG TAB PO PRN (06:15)
[2017-04-22] MEDS ORDERED: GLUCAGON 1 MG/ML VIAL OTHER PRN (06:15)
[2017-04-22] MEDS ORDERED: MAGNESIUM HYDROXIDE SUSP 30 ML CUP PO PRN (06:15)
[2017-04-22] MEDS ORDERED: ONDANSETRON HCL 4 MG/2 ML VIAL IVP PRN (06:15)
[2017-04-22] MEDS ORDERED: SENNOSIDES 8.6 MG TAB PO PRN (06:15)
[2017-04-22] MEDS ORDERED: BISACODYL 10 MG SUPP RECTAL PRN (06:15)
--- NOTE | 2017-04-22 06:29 | HHI.HP ---
[facility] No Primary Care Physician Admission Diagnosis CHF Diagnoses: (1) CHF (congestive heart failure) Diagnosis: Principal (2) Elevated troponin Diagnosis: Principal (3) HTN (hypertension) Diagnosis: Principal (4) DM (diabetes mellitus) Diagnosis: Principal Travel History International Travel<30 Days: No Contact w/Intl Traveler <30 Da: No Traveled to Known Affected Are: No History of Present Illness This is a 61-year-old female with a PMH of HTN, Hyperlipidemia, CHF (Echo w/ EF 35-40%), DM, TIA and recent NSTEMI who was brought to the ER by EMS secondary to complaints of chest pain and SOB starting prior to arrival. S/p NTG x3 via EMS w/ some improvement in pain complaints. Denies cough, fever or chills. Recent admit 04/15-04/17/17 w/ NSTEMI, s/p eval by Dr. Mendoza, pt w/ inoperable multivessel CAD, not candidate for PCI or bypass w/ recommendation for medical management only. Trop at time of d/c 22.30, currently Trop 0.37. EKG w/ no acute changes. On arrival, BP 141/82, HR 96, O2 sat 94% on 5L NC, Afebrile. Chemistry essentially unremarkable. BNP 624. CBC negative. CXR with right lung base atelectasis or infiltrate and mild prominence of interstitial markings. S/p Lasix in ER. Currently chest pain free. Review of Systems Except as stated in HPI: all other systems reviewed are Neg ROS: 14 point review of systems otherwise negative. Past Family Social History Past Medical History PMH: HTN, Hyperlipidemia, CHF (Echo 02/28/17 w/ EF 35-40%), DM, TIA and recent NSTEMI Past Surgical History PAST SURGICAL HISTORY: Cardiac Catheterization, Cardiac Stent, Tonsillectomy Allergies: Coded Allergies: Honey Bee (Verified Allergy, Severe, UNKNOWN, 04/15/17) Adhesives (Verified Allergy, Mild, REDNESS, 04/15/17) Family History PAST FAMILY HISTORY: Reviewed. No h/o DM or CAD Social History PAST SOCIAL HISTORY: Occasional alcohol. Quit tobacco. Negative for drugs. Physical Exam Vital Signs Vital Signs Date Time Temp Pulse Resp B/P Pulse Ox O2 Delivery O2 Flow Rate FiO2 04/22/17 05:51 75 18 98/56 93 Nasal Cannula 2 04/22/17 05:00 96 30 141/82 94 Nasal Cannula 5 04/22/17 04:49 101 24 04/22/17 04:47 100 Non-Rebreather 04/22/17 04:47 96 Non-Rebreather 15 04/22/17 04:43 98.2 104 22 155/85 100 Physical Exam PE: GENERAL: Middle-aged female in no acute distress. HEENT: PERRLA, EOMI. No scleral icterus or conjunctival pallor. No lid lag or facial droop. CARDIOVASCULAR: Regular rate and rhythm. No obvious murmurs to auscultation. No chest tenderness to palpation. RESPIRATORY: No obvious rhonchi or wheezing. Clear to auscultation. Breath sounds equal bilaterally. GASTROINTESTINAL: Abdomen soft, non-tender, nondistended. BS normal. MUSCULOSKELETAL: Extremities without clubbing, cyanosis, or edema. No obvious deformities. NEUROLOGICAL: Awake, alert and oriented x4. No focal neurologic deficits. Moving both upper and lower extremities spontaneously. Laboratory Laboratory Tests Test 04/22/17 04:50 White Blood Count 9.7 Red Blood Count 4.50 Hemoglobin 13.6 Hematocrit 41.5 Mean Corpuscular Volume 92.2 Mean Corpuscular Hemoglobin 30.2 Mean Corpuscular Hemoglobin 32.7 Concent Red Cell Distribution Width 14.1 Platelet Count 229 Mean Platelet Volume 9.3 Neutrophils (%) (Auto) 61.4 Lymphocytes (%) (Auto) 30.0 Monocytes (%) (Auto) 6.6 Eosinophils (%) (Auto) 1.6 Basophils (%) (Auto) 0.4 Neutrophils # (Auto) 5.9 Lymphocytes # (Auto) 2.9 Monocytes # (Auto) 0.6 Eosinophils # (Auto) 0.2 Basophils # (Auto) 0.0 CBC Comment DIFF FINAL Differential Comment Sodium Level 138 Potassium Level 3.6 Chloride Level 104 Carbon Dioxide Level 26.0 Anion Gap 8 Blood Urea Nitrogen 17 Creatinine 0.98 Estimat Glomerular Filtration 58 Rate Random Glucose 197 Calcium Level 7.8 Total Creatine Kinase 56 Troponin I 0.37 B-Type Natriuretic Peptide 624 Result Diagram: 04/22/1744904/22/17449 Assessment and Plan Problem List: (1) Elevated troponin ICD Code: R74.8 Status: Acute (2) CHF (congestive heart failure) ICD Code: I50.9 Status: Acute (3) HTN (hypertension) ICD Code: I10 Status: Acute (4) DM (diabetes mellitus) ICD Code: E11.9 Status: Acute Assessment and Plan A/P: 1. Elevated Troponin: suspect trop trending down, recent admit 04/15-04/17/17 w / NSTEMI, s/p Cath w/ trop 22.30 on 04/15/17. Found to have inoperable multivessel CAD, not amenable to PCI or bypass, recommendation for medical management, now w/ recurrent chest pain. Admit to [facility] for Observation, trend cardiac enzymes. NTG/Morphine prn. Resume home ASA, Plavix, Metoprolol and Statin. Consult Cardiology as needed. 2. CHF: Acute on Chronic. Systolic. Echo 02/28/17 w/ EF 35-40%, BNP 624, CXR w/ pulmonary edema, images reviewed by me. S/p Lasix IV in ER, monitor I/O. Monitor renal function w/ decreased GFR. 3. HTN: BP 140's on arrival, monitor BP. Resume home medications. 4. DM: Sliding scale w/ Accu-Cheks. Hold Metformin for now. Resume Glipizide. 5. DVT Prophylaxis: SCD/Teds. 6. Social work for d/c planning as needed. 7. Case discussed w/ ER physician at length Emmie Torrez MD Apr 22, 2017 06:29
[2017-04-22] MEDS ORDERED: NITROGLYCERIN 2% OINT 1 GM PACKET TOPICAL PRN (06:30)
[2017-04-22] MEDS: ISOSORBIDE MONONITRATE 60 MG TAB PO SCH (06:40)
[2017-04-22] MEDS: glipiZIDE 5 MG TAB PO SCH ×2 (06:40→17:21)
[2017-04-22] MEDS: INSULIN ASPART SUPPLEMENTAL SCALE SQ SCH ×4 (08:04→21:59)
[2017-04-22] MEDS: LISINOPRIL 5 MG TAB PO SCH (09:00)
[2017-04-22] MEDS: DOCUSATE SODIUM 50 MG/SENNA 8.6 MG TAB PO SCH ×2 (09:00→21:53)
[2017-04-22] MEDS: METOPROLOL TARTRATE 50 MG TAB PO SCH ×2 (09:00→21:53)
[2017-04-22] MEDS: ASPIRIN 81 MG CHEW TAB PO SCH (09:08)
[2017-04-22] MEDS: ATORVASTATIN 80 MG TAB PO SCH (09:08)
[2017-04-22] MEDS: CLOPIDOGREL 75 MG TAB PO SCH (09:08)
[2017-04-22] MEDS: SODIUM CHLORIDE 0.9% FLUSH 10 ML FLUSH IV FLUSH SCH ×2 (09:09→22:06)
--- NOTE | 2017-04-22 15:05 | MB ---
cc: NAHOMI JOHNSON MD DATE OF CONSULTATION 04/22/17 REASON FOR CONSULTATION Chest pain. HISTORY OF PRESENT ILLNESS The patient is a pleasant 61-year-old woman with known severe coronary artery disease with multiple hospital admissions and a recent non-ST elevation OR. She presents again with chest discomfort, shortness of breath though her symptoms have improved. She says that she has been compliant with medications and smoking cessation. Again, currently she is asymptomatic. PAST MEDICAL HISTORY Severe multivessel coronary artery disease by cardiac catheterization by Dr. Pike 02/28/2017. 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 Hyperlipidemia, hypertension. MEDICATIONS Current medications: 1. Lasix 40 milligrams IV daily. 2. Lipitor 80 milligrams daily. 3. Plavix 75 milligrams daily. 4. Lisinopril 5 milligrams daily. 5. Lopressor 50 milligrams b.i.d. 6. Aspirin 81 milligram daily. 7. Imdur 60 milligrams daily. ALLERGIES ADHESIVES, HONEYBEES. PHYSICAL EXAMINATION VITAL SIGNS: Afebrile, respiratory rate 16, BP 91/53, satting 95 on room air. GENERAL: Pleasant woman who appears older than her stated age, in no distress. NECK: No JVD. LUNGS: Clear to auscultation bilaterally. CARDIOVASCULAR: Regular rate and rhythm. No murmurs appreciated. ABDOMEN: Benign. EXTREMITIES: No edema. LABORATORY DATA Sodium 135, potassium 4.6, chloride 100, bicarb 22.9, BUN 18, creatinine 1.26. Troponin is 0.37 down from 22.3 on 04/15/2017. CARDIOLOGY STUDIES EKG shows sinus rhythm with right bundle-branch block and left anterior fascicular block with fairly diffuse ST changes. Echocardiogram from February 2017 showed an ejection fraction of approximately 40%. IMPRESSION 1. Chest pain: The patient has severe coronary artery disease with refractory chest pain despite a fairly aggressive medical regimen. I see several places in the chart where she would seem to be non-optimal, however, I do not at this time see an official cardiothoracic surgery consult. I have asked Dr. Singleton to make this consult and to potentially reevaluate her candidacy for surgery given her multiple admissions for chest pain. Will add Ranexa 500 milligrams b.i.d. for additional antianginal medication. Otherwise, she is on a reasonable medical regimen for coronary artery disease. 2. Short of breath: The patient may have had mild CHF. She was given IV Lasix, potentially this can be changed to oral Lasix tomorrow. Further recommendations will be based on her clinical course. Thank you again for the opportunity to participate in this patient's care. MD LEESA Preston/MAGDI /10:39 AM /2:49 PM
--- NOTE | 2017-04-22 15:41 | EKG ---
Date Performed: 04/22/2017 Time Performed: 04:49:36 PTAGE: 61 years EKG: Sinus tachycardia Right bundle branch block Left axis deviation Anterior myocardial infarct ion of undetermined age Nonspecific T-wave change Since PREVIOUS TRACING 04/16/2017, heart rate is faster, otherwise no significant change. PREV IOUS TRACIN04/16/2017 03.18 DOCTOR: Basilio Rothman Interpretating Date/Time 04/22/2017 15:40:13
[2017-04-22] MEDS: MORPHINE SULFATE 4 MG/ML INJ IV PRN ×2 (17:21→21:55)
--- NOTE | 2017-04-22 18:32 | HHI.PR ---
Addendum to Inpatient Note Addendum Reason: Additional Documentation Additional Information Patient seen and examined Follow-up unstable angina/CHF exacerbation Appreciate input from cardiology and evaluation from cardiothoracic surgery Continue current care Pilo Nieto MD Apr 22, 2017 18:32
[2017-04-23] VITALS (18 sets, daily range): BP systolic 98–139; BP diastolic 60–79; PULSE 59–87; RESP 16–18; TEMP 98.1–98.6; O2SAT 95–98
[2017-04-23] MEDS: MORPHINE SULFATE 4 MG/ML INJ IV PRN ×2 (02:07→06:15)
[2017-04-23 05:47] LABS: AUTOMATED NEUTROPHIL # 3.8 TH/MM3 (1.8-7.7); BASOPHIL % 0.3 % (0.0-2.0); EOSINOPHIL # 0.1 TH/MM3 (0-0.4); EOSINOPHIL % 1.7 % (0.0-4.0); HEMATOCRIT 35.7 % (35.0-46.0); HEMO FLAGS DIFF FINAL; LYMPH % 32.7 % (9.0-44.0); LYMPHOCYTE # 2.1 TH/MM3 (1.0-4.8); MEAN CELL VOLUME 88.7 FL (80.0-100.0); MEAN CORPUSCULAR HEMOGLOBIN 30.9 PG (27.0-34.0); MEAN CORPUSCULAR HGB CONC 34.8 % (32.0-36.0); MONO % 7.2 % (0.0-8.0); NEUT % 58.1 % (16.0-70.0); PLATELET COUNT 215 TH/MM3 (150-450); RED BLOOD COUNT 4.03 MIL/MM3 (4.00-5.30); RED CELL DISTRIBUTION WIDTH 13.8 % (11.6-17.2); WHITE BLOOD COUNT 6.5 TH/MM3 (4.0-11.0)
[2017-04-23 06:09] LABS: ALKALINE PHOSPHATASE 100 U/L (45-117); ALT (GPT) 42 U/L (10-53); ANION GAP 9 MEQ/L (5-15); AST (GOT) 20 U/L (15-37); BICARBONATE 25.6 MEQ/L (21.0-32.0); BLOOD UREA NITROGEN 17 MG/DL (7-18); CHLORIDE 103 MEQ/L (98-107); GLOMERULAR FILTRATION RATE 76 ML/MIN (>89); POTASSIUM 4.1 MEQ/L (3.5-5.1); SODIUM (NA) 138 MEQ/L (136-145); TOTAL BILIRUBIN ADULT 0.3 MG/DL (0.2-1.0)
[2017-04-23] MEDS: ISOSORBIDE MONONITRATE 60 MG TAB PO SCH (06:14)
[2017-04-23] MEDS: glipiZIDE 5 MG TAB PO SCH ×2 (06:21→16:16)
[2017-04-23] MEDS: INSULIN ASPART SUPPLEMENTAL SCALE SQ SCH ×4 (06:30→21:19)
[2017-04-23] MEDS: SODIUM CHLORIDE 0.9% FLUSH 10 ML FLUSH IV FLUSH SCH ×2 (08:30→21:00)
[2017-04-23] MEDS: ASPIRIN 81 MG CHEW TAB PO SCH (08:30)
[2017-04-23] MEDS: LISINOPRIL 5 MG TAB PO SCH (08:30)
[2017-04-23] MEDS: ATORVASTATIN 80 MG TAB PO SCH (08:30)
[2017-04-23] MEDS: CLOPIDOGREL 75 MG TAB PO SCH (08:30)
[2017-04-23] MEDS: METOPROLOL TARTRATE 50 MG TAB PO SCH ×2 (08:30→21:15)
[2017-04-23] MEDS: DOCUSATE SODIUM 50 MG/SENNA 8.6 MG TAB PO SCH ×2 (08:31→21:00)
--- NOTE | 2017-04-23 08:47 | PD.CAR.PN ---
CVT Progress Note Subjective/Hospital Course: Pt examined and chart/caths reviewed. Full consult dictated. Thanks. Objective: Vital Signs Date Time Temp Pulse Resp B/P Pulse Ox O2 Delivery O2 Flow Rate FiO2 04/23/17 05:51 98.6 73 16 107/60 97 04/23/17 01:00 60 04/23/17 00:44 98.6 87 16 139/79 98 04/23/17 00:00 66 04/22/17 23:00 68 04/22/17 22:00 78 04/22/17 21:00 86 04/22/17 20:53 98.5 94 16 141/86 98 04/22/17 20:00 80 04/22/17 19:00 72 04/22/17 17:35 18 04/22/17 15:38 98.2 74 18 110/63 95 04/22/17 11:48 97.7 83 20 110/65 95 04/22/17 09:10 75 16 91/53 95 Room Air Labs: Laboratory Tests Test 04/23/17 05:05 White Blood Count 6.5 TH/MM3 (4.0-11.0) Red Blood Count 4.03 MIL/MM3 (4.00-5.30) Hemoglobin 12.4 GM/DL (11.6-15.3) Hematocrit 35.7 % (35.0-46.0) Mean Corpuscular Volume 88.7 FL (80.0-100.0) Mean Corpuscular Hemoglobin 30.9 PG (27.0-34.0) Mean Corpuscular Hemoglobin 34.8 % Concent (32.0-36.0) Red Cell Distribution Width 13.8 % (11.6-17.2) Platelet Count 215 TH/MM3 (150-450) Mean Platelet Volume 9.1 FL (7.0-11.0) Neutrophils (%) (Auto) 58.1 % (16.0-70.0) Lymphocytes (%) (Auto) 32.7 % (9.0-44.0) Monocytes (%) (Auto) 7.2 % (0.0-8.0) Eosinophils (%) (Auto) 1.7 % (0.0-4.0) Basophils (%) (Auto) 0.3 % (0.0-2.0) Neutrophils # (Auto) 3.8 TH/MM3 (1.8-7.7) Lymphocytes # (Auto) 2.1 TH/MM3 (1.0-4.8) Monocytes # (Auto) 0.5 TH/MM3 (0-0.9) Eosinophils # (Auto) 0.1 TH/MM3 (0-0.4) Basophils # (Auto) 0.0 TH/MM3 (0-0.2) CBC Comment DIFF FINAL Differential Comment Sodium Level 138 MEQ/L (136-145) Potassium Level 4.1 MEQ/L (3.5-5.1) Chloride Level 103 MEQ/L (98-107) Carbon Dioxide Level 25.6 MEQ/L (21.0-32.0) Anion Gap 9 MEQ/L (5-15) Blood Urea Nitrogen 17 MG/DL (7-18) Creatinine 0.78 MG/DL (0.50-1.00) Estimat Glomerular Filtration 76 ML/MIN (>89) Rate Random Glucose 155 MG/DL (74-106) Calcium Level 9.0 MG/DL (8.5-10.1) Total Bilirubin 0.3 MG/DL (0.2-1.0) Aspartate Amino Transf 20 U/L (15-37) (AST/SGOT) Alanine Aminotransferase 42 U/L (10-53) (ALT/SGPT) Alkaline Phosphatase 100 U/L (45-117) Total Protein 6.5 GM/DL (6.4-8.2) Albumin 3.3 GM/DL (3.4-5.0) Result Diagram: 04/23/17 0505 04/23/17 0505 Clifford Singleton MD Apr 23, 2017 08:47
[2017-04-23] MEDS ORDERED: FUROSEMIDE 40 MG/4 ML VIAL IV PUSH SCH (09:00)
--- NOTE | 2017-04-23 09:11 | PD.CARD.PN ---
Subjective Subjective Remarks PT feels well, no further chest pain. Objective Medications Administered Medications Medications (Trade) Dose Ordered Sig/Rishabh Route PRN Reason Start Time Stop Time Status Last Admin Dose Admin Sodium Chloride (NS Flush) 2 ml BID IV FLUSH 04/22/17 09:00 04/23/17 08:30 Morphine Sulfate (Morphine Inj) 2 mg Q3H PRN IV Pain 6-10 04/22/17 06:15 04/23/17 06:15 Senna/Docusate Sodium (Zehra-Colace) 1 tab BID PO 04/22/17 09:00 04/22/17 21:53 Atorvastatin Calcium (Lipitor) 80 mg DAILY PO 04/22/17 09:00 04/23/17 08:30 Clopidogrel Bisulfate (Plavix) 75 mg DAILY PO 04/22/17 09:00 04/23/17 08:30 Glipizide (Glucotrol) 5 mg BIDAC PO 04/22/17 07:00 04/23/17 06:21 Isosorbide Mononitrate (Imdur) 60 mg DAILY@07 PO 04/22/17 07:00 04/23/17 06:14 Lisinopril (Prinivil) 5 mg DAILY PO 04/22/17 09:00 04/23/17 08:30 Metoprolol Tartrate (Lopressor) 50 mg Q12HR PO 04/22/17 09:00 04/23/17 08:30 Aspirin (Aspirin Chew) 81 mg DAILY PO 04/22/17 09:00 04/23/17 08:30 Furosemide (Lasix Inj) 40 mg DAILY IV PUSH 04/23/17 09:00 04/23/17 08:30 Vital Signs / I&O Vital Signs Date Time Temp Pulse Resp B/P Pulse Ox O2 Delivery O2 Flow Rate FiO2 04/23/17 05:51 98.6 73 16 107/60 97 04/23/17 01:00 60 04/23/17 00:44 98.6 87 16 139/79 98 04/23/17 00:00 66 04/22/17 23:00 68 04/22/17 22:00 78 04/22/17 21:00 86 04/22/17 20:53 98.5 94 16 141/86 98 04/22/17 20:00 80 04/22/17 19:00 72 04/22/17 17:35 18 04/22/17 15:38 98.2 74 18 110/63 95 04/22/17 11:48 97.7 83 20 110/65 95 04/22/17 09:10 75 16 91/53 95 Room Air I/O 04/22/17 04/22/17 04/22/17 04/23/17 04/23/17 04/23/17 07:00 15:00 23:00 07:00 15:00 23:00 Intake Total 1440 ml 480 ml Output Total 250 ml 1800 ml 5 ml Balance -250 ml -360 ml 475 ml Intake Oral 1440 ml 480 ml Output Urine Total 250 ml 1800 ml 5 ml # Voids 1 # Bowel Movements 0 Physical Exam GENERAL: This is a well-nourished, well-developed patient, in no apparent distress. CARDIOVASCULAR: Regular rate and rhythm without murmurs, gallops, or rubs. RESPIRATORY: Clear to auscultation. Breath sounds equal bilaterally. No wheezes , rales, or rhonchi. GASTROINTESTINAL: Abdomen soft, non-tender, nondistended. Normal active bowel sounds MUSCULOSKELETAL: Extremities without clubbing, cyanosis, or edema. NEURO: Alert & Oriented x4 to person, place, time, situation. Moves all ext x4 Laboratory Laboratory Tests Test 04/22/17 04/22/17 04/23/17 11:23 18:01 05:05 Troponin I 0.75 NG/ML 0.84 NG/ML White Blood Count 6.5 TH/MM3 Red Blood Count 4.03 MIL/MM3 Hemoglobin 12.4 GM/DL Hematocrit 35.7 % Mean Corpuscular Volume 88.7 FL Mean Corpuscular Hemoglobin 30.9 PG Mean Corpuscular Hemoglobin 34.8 % Concent Red Cell Distribution Width 13.8 % Platelet Count 215 TH/MM3 Mean Platelet Volume 9.1 FL Neutrophils (%) (Auto) 58.1 % Lymphocytes (%) (Auto) 32.7 % Monocytes (%) (Auto) 7.2 % Eosinophils (%) (Auto) 1.7 % Basophils (%) (Auto) 0.3 % Neutrophils # (Auto) 3.8 TH/MM3 Lymphocytes # (Auto) 2.1 TH/MM3 Monocytes # (Auto) 0.5 TH/MM3 Eosinophils # (Auto) 0.1 TH/MM3 Basophils # (Auto) 0.0 TH/MM3 CBC Comment DIFF FINAL Differential Comment Sodium Level 138 MEQ/L Potassium Level 4.1 MEQ/L Chloride Level 103 MEQ/L Carbon Dioxide Level 25.6 MEQ/L Anion Gap 9 MEQ/L Blood Urea Nitrogen 17 MG/DL Creatinine 0.78 MG/DL Estimat Glomerular Filtration 76 ML/MIN Rate Random Glucose 155 MG/DL Calcium Level 9.0 MG/DL Total Bilirubin 0.3 MG/DL Aspartate Amino Transf 20 U/L (AST/SGOT) Alanine Aminotransferase 42 U/L (ALT/SGPT) Alkaline Phosphatase 100 U/L Total Protein 6.5 GM/DL Albumin 3.3 GM/DL Imaging Last Impressions Chest X-Ray 04/22/17 0444 Signed Impressions: Service Date/Time: Saturday, April 22, 2017 05:11 - CONCLUSION: Right lung base atelectasis and/or infiltrate and mild prominence of the interstitial markings. Kalpesh Cowan MD Assessment and Plan Problem List: (1) Angina pectoris Assessment and Plan: Improved; Discussed with Dr. Shetty; he will consider Transmyocardial laser Revascularization (TMR) if amenable ischemia found on nuc stress; on Imdur/BB; added Ranexa (2) CAD (coronary artery disease) Assessment and Plan: Dr. Jorge reviewed most recent cath and agrees she isn't a candidate for CABG; see above for TMR, his full consult will be dictated. (3) NSTEMI (non-ST elevated myocardial infarction) Assessment and Plan: continue medical mgt. (4) Elevated troponin Memo Ruiz MD Apr 23, 2017 09:11
[2017-04-23] MEDS: RANOLAZINE 500 MG EXTENDED RELEASE TAB PO SCH ×2 (09:15→21:16)
--- NOTE | 2017-04-23 09:25 | HHI.PR ---
Subjective Remarks F-U angina/CAD 04/23/17-patient seen and examined; denies any current chest pain or shortness of breath. She was seen by CTS this AM Objective Vitals Vital Signs Date Time Temp Pulse Resp B/P Pulse Ox O2 Delivery O2 Flow Rate FiO2 04/23/17 05:51 98.6 73 16 107/60 97 04/23/17 01:00 60 04/23/17 00:44 98.6 87 16 139/79 98 04/23/17 00:00 66 04/22/17 23:00 68 04/22/17 22:00 78 04/22/17 21:00 86 04/22/17 20:53 98.5 94 16 141/86 98 04/22/17 20:00 80 04/22/17 19:00 72 04/22/17 17:35 18 04/22/17 15:38 98.2 74 18 110/63 95 04/22/17 11:48 97.7 83 20 110/65 95 I/O 04/22/17 04/22/17 04/22/17 04/23/17 04/23/17 04/23/17 07:00 15:00 23:00 07:00 15:00 23:00 Intake Total 1440 ml 480 ml Output Total 250 ml 1800 ml 5 ml Balance -250 ml -360 ml 475 ml Intake Oral 1440 ml 480 ml Output Urine Total 250 ml 1800 ml 5 ml # Voids 1 # Bowel Movements 0 Result Diagram: 04/23/17 0505 04/23/17 0505 Imaging Last Impressions Chest X-Ray 04/22/17 0444 Signed Impressions: Service Date/Time: Saturday, April 22, 2017 05:11 - CONCLUSION: Right lung base atelectasis and/or infiltrate and mild prominence of the interstitial markings. Kalpesh Cowan MD Objective Remarks GENERAL: NAD SKIN: Warm and dry. HEAD: Normocephalic. EYES: No scleral icterus. No injection or drainage. NECK: Supple, trachea midline. No JVD or lymphadenopathy. CARDIOVASCULAR: Regular rate and rhythm without murmurs, gallops, or rubs. RESPIRATORY: Breath sounds equal bilaterally. No accessory muscle use. GASTROINTESTINAL: Abdomen soft, non-tender, nondistended. MUSCULOSKELETAL: No cyanosis, or edema. BACK: Nontender without obvious deformity. No CVA tenderness. A/P Problem List: (1) Angina pectoris ICD Code: I20.9 Status: Acute (2) Elevated troponin ICD Code: R74.8 Status: Acute (3) CHF (congestive heart failure) ICD Code: I50.9 Status: Acute (4) HTN (hypertension) ICD Code: I10 Status: Acute (5) DM (diabetes mellitus) ICD Code: E11.9 Status: Acute (6) NSTEMI (non-ST elevated myocardial infarction) ICD Code: I21.4 Status: Acute Assessment and Plan 61yrs old female with NSTEMI Angina Pectoris Currently on Imdur/BB/Ranexa Plan for Lexiscan stress Appreciate input from CTS and plan possible Transmyocardial laser Revascularization (TMR) if amenable ischemia found on nuclear stress test Appreciate input from Cardiology CAD s/p Cath w/ trop 22.30 on 04/15/17. Found to have inoperable multivessel CAD, not amenable to PCI or bypass, NTG/Morphine prn. Continue home ASA, Plavix, Metoprolol and Statin. Acute on Chronic Systolic CHF. Echo 02/28/17 w/ EF 35-40%, BNP 624, CXR w/ pulmonary edema, images reviewed by me. Continue Lasix 40mg daily and monitor Renal function Hypertension: Continue home medications. DM: Sliding scale w/ Accu-Cheks and Glipizide. Hold Metformin for now. Pilo Nieto MD Apr 23, 2017 09:25
--- NOTE | 2017-04-23 10:15 | MB ---
cc: TOMMY SMITH,SHANNON RUIZ,NAHOMI Crowder MD DATE OF CONSULTATION: 04/23/[address] Ruiz. REASON FOR CONSULTATION: Recurrent symptomatic coronary artery disease. HISTORY OF PRESENT ILLNESS: Ms. Haynes is a very pleasant 61 year-old young lady with a known history of coronary artery disease, admitted with recurrent chest pain, shortness of breath and non-ST elevation myocardial infarction. She describes a complex component of symptomatology including what sounds like anxiety and panic attacks with associated shortness of breath, hyperventilation, eventual substernal chest discomfort. Occasionally this wakes her up in the middle of the night from her sleep. At other times it is induced by minimal to moderate exertion. With resting the symptoms get better. She has been evaluated in the past for her symptoms and has undergone coronary angiography by Dr. Pike which demonstrates severe three vessel coronary artery disease with diffuse disease involving all territories and non-bypassable targets with severe left ventricular dysfunction. I am now being consulted to offer surgical option in terms of any available therapeutic strategies for her. At the present time, she is pain free, hemodynamically stable with no evidence of ongoing ischemia. PAST MEDICAL HISTORY Significant for: 1. Hypertension 2. Chronic nicotine use. 3. Coronary artery disease. 4. Acute myocardial infarction. 5. Hyperlipidemia. 6. COPD. 7. Congestive heart failure. 8. Diabetes mellitus. 9. TIA. 10. Cardiomyopathy PAST SURGICAL HISTORY: Cardiac catheterization Cardiac stenting. Tonsillectomy. ALLERGIES: ADHESIVES HONEY BEE MEDICATIONS ON ADMISSION Include: 1. Lasix. 2. Lipitor. 3. Plavix. 4. Lisinopril. 5. Lopressor. 6. Aspirin. 7. Imdur. SOCIAL HISTORY: Significant tobacco abuse which she quit recently, denies any excessive alcohol use or illicit drug use. FAMILY HISTORY: Family history is noncontributory. REVIEW OF SYSTEMS As above. All other parameters are negative. PHYSICAL EXAMINATION: On physical examination today she is 152 cm tall, weigh is 71 kg, blood pressure 107/60 with a heart rate of 73 which is regular, respiratory is 16. She is afebrile. HEENT: Normocephalic, atraumatic. Pupils are round and reactive. Extraocular muscles intact. No cervical lymphadenopathy, carotid bruits or JVD. Cardiovascular: Regular rate and rhythm. Normal S1-S2 without gallops, rubs or murmurs. Lungs: Relatively clear to auscultation with bilateral breath sounds. Abdomen: Soft, nontender, nondistended, normoactive bowel sounds. No hepatosplenomegaly. Extremities: Bilateral femoral pulses are intact without cyanosis or edema. No venous varicosities. Neurological: Intact with no focal deficits. IMPRESSION 1. Severe diffuse multivessel coronary artery disease. 2. Cardiomyopathy. 3. Hypertension. 4. Hyperlipidemia. 5. Congestive heart failure. 6. Acute myocardial infarction. PLAN The angiographic and clinical findings were discussed in detail with the patient today. At this point she is not a surgical candidate in terms of coronary bypass surgery. However, given her recurrent admissions for angina equivalent symptoms, if it can be demonstrated that she has reversible ischemia in a particular territory of the myocardium as well as an EF greater than or equal to 35%, then she may be a candidate for TMR (transmyocardial laser revascularization) therapy. This information has been discussed with Dr. Ruiz. At this point the plan would be to continue outpatient workup in terms of a nuclear viability study and if that demonstrates an area of reversible ischemia, then certainly TMR therapy may be indicated in efforts to avoid recurrent admissions for her anginal symptoms. Thank you for allowing me to participate in the care of this patient. Clifford REECE /8:44 AM /9:34 AM BIANCA
[2017-04-23] MEDS: ACETAMINOPHEN/HYDROcodone 325 MG/5 MG TAB PO PRN (21:36)
[2017-04-24] VITALS (23 sets, daily range): BP systolic 89–128; BP diastolic 58–78; PULSE 51–76; RESP 12–18; TEMP 97.8–98.4; O2SAT 96–100
[2017-04-24] MEDS: glipiZIDE 5 MG TAB PO SCH ×2 (05:29→15:49)
[2017-04-24] MEDS: ISOSORBIDE MONONITRATE 60 MG TAB PO SCH (05:55)
[2017-04-24] MEDS: INSULIN ASPART SUPPLEMENTAL SCALE SQ SCH ×4 (05:58→22:06)
--- NOTE | 2017-04-24 08:34 | PD.CARD.PN ---
Subjective Subjective Remarks No complaints. Objective Medications Administered Medications Medications (Trade) Dose Ordered Sig/Rishabh Route PRN Reason Start Time Stop Time Status Last Admin Dose Admin Sodium Chloride (NS Flush) 2 ml BID IV FLUSH 04/22/17 09:00 04/23/17 21:00 Acetaminophen/ Hydrocodone Bitart ([place] 5-325 Mg) 1 tab Q4H PRN PO PAIN SCALE 3 TO 5 04/22/17 06:15 04/23/17 21:36 Morphine Sulfate (Morphine Inj) 2 mg Q3H PRN IV Pain 6-10 04/22/17 06:15 04/23/17 06:15 Senna/Docusate Sodium (Zehra-Colace) 1 tab BID PO 04/22/17 09:00 04/22/17 21:53 Atorvastatin Calcium (Lipitor) 80 mg DAILY PO 04/22/17 09:00 04/23/17 08:30 Clopidogrel Bisulfate (Plavix) 75 mg DAILY PO 04/22/17 09:00 04/23/17 08:30 Glipizide (Glucotrol) 5 mg BIDAC PO 04/22/17 07:00 04/23/17 16:16 Isosorbide Mononitrate (Imdur) 60 mg DAILY@07 PO 04/22/17 07:00 04/23/17 06:14 Lisinopril (Prinivil) 5 mg DAILY PO 04/22/17 09:00 04/23/17 08:30 Metoprolol Tartrate (Lopressor) 50 mg Q12HR PO 04/22/17 09:00 04/23/17 21:15 Aspirin (Aspirin Chew) 81 mg DAILY PO 04/22/17 09:00 04/23/17 08:30 Ranolazine (Ranexa) 500 mg Q12HR PO 04/23/17 09:15 04/23/17 21:16 Vital Signs / I&O Vital Signs Date Time Temp Pulse Resp B/P Pulse Ox O2 Delivery O2 Flow Rate FiO2 04/24/17 06:00 70 04/24/17 05:00 60 04/24/17 04:00 98.3 73 14 108/60 97 04/24/17 04:00 69 04/24/17 03:00 54 04/24/17 02:00 54 04/24/17 01:00 62 04/24/17 00:00 73 04/24/17 00:00 98.1 64 12 89/58 98 04/23/17 23:00 62 04/23/17 22:00 60 04/23/17 21:00 68 04/23/17 20:00 64 04/23/17 20:00 98.3 73 16 114/72 98 04/23/17 19:00 66 04/23/17 16:00 98.6 68 18 98/60 98 04/23/17 15:00 59 04/23/17 13:00 68 04/23/17 12:00 98.6 80 18 104/68 97 04/23/17 12:00 62 04/23/17 11:00 66 04/23/17 10:00 64 04/23/17 09:00 70 I/O 04/23/17 04/23/17 04/23/17 04/24/17 04/24/17 04/24/17 07:00 15:00 23:00 07:00 15:00 23:00 Intake Total 480 ml 960 ml 480 ml Output Total 5 ml Balance 475 ml 960 ml 480 ml Intake Oral 480 ml 960 ml 480 ml IV Total 0 ml Output Urine Total 5 ml # Voids 4 4 # Bowel Movements 0 0 Physical Exam GENERAL: This is a well-nourished, well-developed patient, in no apparent distress. CARDIOVASCULAR: Regular rate and rhythm without murmurs, gallops, or rubs. RESPIRATORY: Clear to auscultation. Breath sounds equal bilaterally. No wheezes , rales, or rhonchi. GASTROINTESTINAL: Abdomen soft, non-tender, nondistended. Normal active bowel sounds MUSCULOSKELETAL: Extremities without clubbing, cyanosis, or edema. NEURO: Alert & Oriented x4 to person, place, time, situation. Moves all ext x4 Imaging Last Impressions Chest X-Ray 04/22/17 4271 Signed Impressions: Service Date/Time: Saturday, April 22, 2017 05:11 - CONCLUSION: Right lung base atelectasis and/or infiltrate and mild prominence of the interstitial markings. Kalpesh Cowan MD Assessment and Plan Problem List: (1) Angina pectoris Assessment and Plan: Improved; Discussed with Dr. Shetty; he will consider Transmyocardial laser Revascularization (TMR) if amenable ischemia found on nuc stress/viability study; on Imdur/BB; added Ranexa (2) CAD (coronary artery disease) Assessment and Plan: Dr. Jorge reviewed most recent cath and agrees she isn't a candidate for CABG; see above for TMR (3) NSTEMI (non-ST elevated myocardial infarction) Assessment and Plan: continue medical mgt. (4) Elevated troponin Memo Ruiz MD Apr 24, 2017 08:33
[2017-04-24] MEDS: SODIUM CHLORIDE 0.9% FLUSH 10 ML FLUSH IV FLUSH SCH ×2 (09:00→21:23)
[2017-04-24] MEDS: DOCUSATE SODIUM 50 MG/SENNA 8.6 MG TAB PO SCH ×2 (09:00→21:23)
[2017-04-24] MEDS: FUROSEMIDE 40 MG TAB PO SCH (09:00)
[2017-04-24] MEDS: METOPROLOL TARTRATE 50 MG TAB PO SCH ×2 (09:04→21:23)
[2017-04-24] MEDS: CLOPIDOGREL 75 MG TAB PO SCH (09:04)
[2017-04-24] MEDS: ATORVASTATIN 80 MG TAB PO SCH (09:04)
[2017-04-24] MEDS: ASPIRIN 81 MG CHEW TAB PO SCH (09:04)
[2017-04-24] MEDS: LISINOPRIL 5 MG TAB PO SCH (09:04)
[2017-04-24] MEDS: RANOLAZINE 500 MG EXTENDED RELEASE TAB PO SCH ×2 (09:05→21:23)
--- NOTE | 2017-04-24 09:59 | HHI.PR ---
Subjective Remarks F-U angina/CAD 04/23/17-patient seen and examined; denies any current chest pain or shortness of breath. She was seen by CTS this AM 04/24/17-patient seen and examined, has no complaint of chest pain or shortness of breath or heart palpitation. Currently nothing by mouth pending nuclear stress test Objective Vitals Vital Signs Date Time Temp Pulse Resp B/P Pulse Ox O2 Delivery O2 Flow Rate FiO2 04/24/17 06:00 70 04/24/17 05:00 60 04/24/17 04:00 98.3 73 14 108/60 97 04/24/17 04:00 69 04/24/17 03:00 54 04/24/17 02:00 54 04/24/17 01:00 62 04/24/17 00:00 73 04/24/17 00:00 98.1 64 12 89/58 98 04/23/17 23:00 62 04/23/17 22:00 60 04/23/17 21:00 68 04/23/17 20:00 64 04/23/17 20:00 98.3 73 16 114/72 98 04/23/17 19:00 66 04/23/17 16:00 98.6 68 18 98/60 98 04/23/17 15:00 59 04/23/17 13:00 68 04/23/17 12:00 98.6 80 18 104/68 97 04/23/17 12:00 62 04/23/17 11:00 66 04/23/17 10:00 64 I/O 04/23/17 04/23/17 04/23/17 04/24/17 04/24/17 04/24/17 07:00 15:00 23:00 07:00 15:00 23:00 Intake Total 480 ml 960 ml 480 ml Output Total 5 ml Balance 475 ml 960 ml 480 ml Intake Oral 480 ml 960 ml 480 ml IV Total 0 ml Output Urine Total 5 ml # Voids 4 4 # Bowel Movements 0 0 Result Diagram: 04/23/17 0505 04/23/17 0505 Objective Remarks GENERAL: NAD SKIN: Warm and dry. HEAD: Normocephalic. EYES: No scleral icterus. No injection or drainage. NECK: Supple, trachea midline. No JVD or lymphadenopathy. CARDIOVASCULAR: Regular rate and rhythm without murmurs, gallops, or rubs. RESPIRATORY: Breath sounds equal bilaterally. No accessory muscle use. GASTROINTESTINAL: Abdomen soft, non-tender, nondistended. MUSCULOSKELETAL: No cyanosis, or edema. BACK: Nontender without obvious deformity. No CVA tenderness. A/P Problem List: (1) Angina pectoris ICD Code: I20.9 Status: Acute (2) Elevated troponin ICD Code: R74.8 Status: Acute (3) CHF (congestive heart failure) ICD Code: I50.9 Status: Acute (4) HTN (hypertension) ICD Code: I10 Status: Acute (5) DM (diabetes mellitus) ICD Code: E11.9 Status: Acute (6) NSTEMI (non-ST elevated myocardial infarction) ICD Code: I21.4 Status: Acute Assessment and Plan 61yrs old female with NSTEMI Angina Pectoris Currently on Imdur/BB/Ranexa Plan for Lexiscan stress today 04/24/17 Appreciate input from CTS and plan possible Transmyocardial laser Revascularization (TMR) if amenable ischemia found on nuclear stress test Appreciate input from Cardiology CAD s/p Cath w/ trop 22.30 on 04/15/17. Found to have inoperable multivessel CAD, not amenable to PCI or bypass, NTG/Morphine prn. Continue home ASA, Plavix, Metoprolol and Statin. Acute on Chronic Systolic CHF. Echo 02/28/17 w/ EF 35-40%, BNP 624, CXR w/ pulmonary edema. Continue Lasix 40mg daily and monitor Renal function Hypertension: Continue home medications. DM: Sliding scale w/ Accu-Cheks and Glipizide. Hold Metformin for now. Pilo Nieto MD Apr 24, 2017 09:58
[2017-04-24] MEDS ORDERED: REGADENOSON INJ 0.4 MG/5 ML SYR ONE (10:27)
[2017-04-24] MEDS: ACETAMINOPHEN/HYDROcodone 325 MG/5 MG TAB PO PRN (12:23)
--- NOTE | 2017-04-24 12:50 | RADRPT ---
EXAM DATE/TIME: 04/24/2017 09:39 [facility] COMPARISON: No previous studies available for comparison. INDICATIONS : Mid chest pain with shortness of breath for one day. Coronary artery disease. Myocardial infarction. DOSE: 25.7 mCi Tc99m Myoview at stress. 8.5 mCi Tc99m Myoview at rest. 0.4 mg Lexiscan STRESS SYMPTOMS: Wholebody tingle and jaw pressure. EJECTION FRACTION: 37% MEDICAL HISTORY : Diabetes mellitus type 2. Hypertension. Congestive heart failure. SURGICAL HISTORY : Coronary artery stent. Tonsillectomy. ENCOUNTER: Initial ACUITY: 1 day PAIN SCALE: 5/10 LOCATION: Midsternal chest TECHNIQUE: The patient underwent pharmacologic stress with infusion of prescribed dose. Continuous ECG tracing was monitored during stress. Gated SPECT imaging was performed after stress and conventional SPECT i maging was performed at rest. The examination was performed on a SPECT/CT scanner, both attenuation and non-corrected datasets were reviewed. FINDINGS: Moderate gut activity does obscure the inferior wall. There is enlarged fixed defect in the anterior septal region. There is minimal redistribution in the anterior inferior wall of the small segment of myocardium. There is global hypokinesis the ejection fraction 37%. The septum is akinetic. The inferobasal wall is hypokinetic. CONCLUSION: Stress-induced ischemia as described above. Viability scan may be of benefit. RISK CATEGORY: Intermediate (1-3% Annual Mortality Rate) Dylan Sharma MD FACR on April 24, 2017 at 12:45 Board Certified Radiologist. This report was verified electronically.
[2017-04-25] VITALS (24 sets, daily range): BP systolic 92–104; BP diastolic 51–66; PULSE 51–76; RESP 16–18; TEMP 98–98.6; O2SAT 96–100
[2017-04-25] MEDS: MORPHINE SULFATE 4 MG/ML INJ IV PRN (01:07)
[2017-04-25] MEDS: glipiZIDE 5 MG TAB PO SCH ×2 (06:09→17:24)
[2017-04-25] MEDS: ISOSORBIDE MONONITRATE 60 MG TAB PO SCH (06:09)
[2017-04-25] MEDS: INSULIN ASPART SUPPLEMENTAL SCALE SQ SCH ×4 (06:12→21:36)
[2017-04-25] MEDS: LISINOPRIL 5 MG TAB PO SCH (08:30)
[2017-04-25] MEDS: RANOLAZINE 500 MG EXTENDED RELEASE TAB PO SCH ×2 (08:31→20:59)
[2017-04-25] MEDS: METOPROLOL TARTRATE 50 MG TAB PO SCH ×2 (08:31→20:58)
[2017-04-25] MEDS: FUROSEMIDE 40 MG TAB PO SCH (08:31)
[2017-04-25] MEDS: SODIUM CHLORIDE 0.9% FLUSH 10 ML FLUSH IV FLUSH SCH ×2 (08:31→20:58)
[2017-04-25] MEDS: DOCUSATE SODIUM 50 MG/SENNA 8.6 MG TAB PO SCH ×2 (08:31→20:58)
[2017-04-25] MEDS: ATORVASTATIN 80 MG TAB PO SCH (08:31)
[2017-04-25] MEDS: ASPIRIN 81 MG CHEW TAB PO SCH (08:31)
--- NOTE | 2017-04-25 10:17 | HHI.PR ---
Subjective Remarks F-U angina/CAD 04/23/17-patient seen and examined; denies any current chest pain or shortness of breath. She was seen by CTS this AM 04/24/17-patient seen and examined, has no complaint of chest pain or shortness of breath or heart palpitation. Currently nothing by mouth pending nuclear stress test 04/25/17-patient seen and examined; abnormal nuclear stress on 04/24 and patient states she had some episode of chest pain after the stress however stable now Objective Vitals Vital Signs Date Time Temp Pulse Resp B/P Pulse Ox O2 Delivery O2 Flow Rate FiO2 04/25/17 06:00 58 04/25/17 05:00 66 04/25/17 04:00 56 04/25/17 03:08 98.2 72 18 104/66 100 04/25/17 03:00 51 04/25/17 02:00 55 04/25/17 01:00 63 04/25/17 00:00 65 04/24/17 23:00 51 04/24/17 23:00 97.9 61 18 95/59 99 04/24/17 22:00 64 04/24/17 21:00 68 04/24/17 20:00 66 04/24/17 19:35 98.4 70 18 128/78 99 04/24/17 19:00 71 04/24/17 18:00 72 04/24/17 17:00 70 04/24/17 16:00 61 04/24/17 16:00 98.2 58 18 95/62 96 04/24/17 15:00 58 04/24/17 14:00 62 04/24/17 13:02 16 04/24/17 13:00 76 04/24/17 12:00 72 04/24/17 12:00 97.9 71 18 111/62 100 I/O 04/24/17 04/24/17 04/24/17 04/25/17 04/25/17 04/25/17 07:00 15:00 23:00 07:00 15:00 23:00 Intake Total 480 ml 675 ml 480 ml Balance 480 ml 675 ml 480 ml Intake Oral 480 ml 675 ml 480 ml IV Total 0 ml # Voids 4 3 2 # Bowel Movements 0 0 1 Result Diagram: 04/23/17 0505 04/23/17 0505 Imaging Last Impressions Myocardial Perfusion Scan Nuc Med 04/24/17 0000 Signed Impressions: Service Date/Time: Monday, April 24, 2017 09:39 - CONCLUSION: Stress-induced ischemia as described above. Viability scan may be of benefit. RISK CATEGORY : Intermediate (1-3%% Annual Mortality Rate) Dylan Sharma MD FACR Chest X-Ray 04/22/17 0444 Signed Impressions: Service Date/Time: Saturday, April 22, 2017 05:11 - CONCLUSION: Right lung base atelectasis and/or infiltrate and mild prominence of the interstitial markings. Kalpesh Cowan MD Objective Remarks GENERAL: NAD SKIN: Warm and dry. HEAD: Normocephalic. EYES: No scleral icterus. No injection or drainage. NECK: Supple, trachea midline. No JVD or lymphadenopathy. CARDIOVASCULAR: Regular rate and rhythm without murmurs, gallops, or rubs. RESPIRATORY: Breath sounds equal bilaterally. No accessory muscle use. GASTROINTESTINAL: Abdomen soft, non-tender, nondistended. MUSCULOSKELETAL: No cyanosis, or edema. BACK: Nontender without obvious deformity. No CVA tenderness. A/P Problem List: (1) Angina pectoris ICD Code: I20.9 Status: Acute (2) Elevated troponin ICD Code: R74.8 Status: Acute (3) CHF (congestive heart failure) ICD Code: I50.9 Status: Acute (4) HTN (hypertension) ICD Code: I10 Status: Acute (5) DM (diabetes mellitus) ICD Code: E11.9 Status: Acute (6) NSTEMI (non-ST elevated myocardial infarction) ICD Code: I21.4 Status: Acute Assessment and Plan 61yrs old female with NSTEMI Angina Pectoris Currently on Imdur/BB/Ranexa Abnormal Lexiscan stress 04/24/17 with Intermediate (1-3%% Annual Mortality Rate) Appreciate input from CTS and plan for Transmyocardial laser Revascularization (TMR) tomorrow 04/26/17 Appreciate input from Cardiology CAD s/p Cath w/ trop 22.30 on 04/15/17. Found to have inoperable multivessel CAD, not amenable to PCI or bypass, NTG/Morphine prn. Continue home ASA, Plavix, Metoprolol and Statin. Acute on Chronic Systolic CHF. Echo 02/28/17 w/ EF 35-40%, BNP 624, CXR w/ pulmonary edema. Continue Lasix 40mg daily and monitor Renal function Hypertension: Continue home medications. DM: Sliding scale w/ Accu-Cheks and Glipizide. Resume Metformin . Change admission to inpatient Pilo Nieto MD Apr 25, 2017 10:17
--- NOTE | 2017-04-25 10:51 | PD.CAR.PN ---
CVT Progress Note Subjective/Hospital Course: 61 female / hx of severe CAD, last cath by Dr ynag in 03/06 EF 40% / prior stenting admitted with NSTEMI, eval by Dr Singleton not a surgical candidate for cornonary artery bypass grafting, however she continue to have recurrent admissions for angina eval then for possible candidate for transmyocardial laser revascularization she underwent myocardial perfusion scan EF 37% enlarged fixed defect in anterior septal region, minimal redistribution in anterior inferior wall of the small segment of myocardium global hypokinesis prasanna will need to be eval by Dr Singleton Objective: GENERAL: SKIN: Warm and dry. HEAD: Normocephalic. EYES: No scleral icterus. No injection or drainage. NECK: Supple, trachea midline. No JVD or lymphadenopathy. CARDIOVASCULAR: Regular rate and rhythm without murmurs, gallops, or rubs. RESPIRATORY: Breath sounds equal bilaterally. No accessory muscle use. GASTROINTESTINAL: Abdomen soft, non-tender, nondistended. MUSCULOSKELETAL: No cyanosis, or edema. BACK: Nontender without obvious deformity. No CVA tenderness. Vital Signs Date Time Temp Pulse Resp B/P Pulse Ox O2 Delivery O2 Flow Rate FiO2 04/25/17 08:45 98.0 73 18 102/59 100 04/25/17 08:45 67 04/25/17 06:00 58 04/25/17 05:00 66 04/25/17 04:00 56 04/25/17 03:08 98.2 72 18 104/66 100 04/25/17 03:00 51 04/25/17 02:00 55 04/25/17 01:00 63 04/25/17 00:00 65 04/24/17 23:00 51 04/24/17 23:00 97.9 61 18 95/59 99 04/24/17 22:00 64 04/24/17 21:00 68 04/24/17 20:00 66 04/24/17 19:35 98.4 70 18 128/78 99 04/24/17 19:00 71 04/24/17 18:00 72 04/24/17 17:00 70 04/24/17 16:00 61 04/24/17 16:00 98.2 58 18 95/62 96 04/24/17 15:00 58 04/24/17 14:00 62 04/24/17 13:02 16 04/24/17 13:00 76 04/24/17 12:00 72 04/24/17 12:00 97.9 71 18 111/62 100 Result Diagram: 04/23/17 0505 04/23/17 0505 (1) Angina pectoris Plan: Improved; Discussed with Dr. Shetty; he will consider Transmyocardial laser Revascularization (TMR) if amenable ischemia found on nuc stress/ viability study; on Imdur/BB; added Ranexa (2) CAD (coronary artery disease) Plan: Dr. Singleton reviewed most recent cath and agrees she isn't a candidate for CABG; see above for TMR Dr Singleton to review myocardial perfusion scan (3) NSTEMI (non-ST elevated myocardial infarction) Plan: continue medical mgt. (4) Elevated troponin Johana Brown Apr 25, 2017 10:50
--- NOTE | 2017-04-25 12:05 | PD.CARD.PN ---
Subjective Subjective Remarks Pt had some chest pain overnight, now resolved Objective Medications Administered Medications Medications (Trade) Dose Ordered Sig/Rishabh Route PRN Reason Start Time Stop Time Status Last Admin Dose Admin Sodium Chloride (NS Flush) 2 ml BID IV FLUSH 04/22/17 09:00 04/25/17 08:31 Ondansetron HCl (Zofran Inj) 4 mg Q6H PRN IVP NAUSEA OR VOMITING 04/22/17 06:15 04/25/17 01:08 Acetaminophen/ Hydrocodone Bitart ([place] 5-325 Mg) 1 tab Q4H PRN PO PAIN SCALE 3 TO 5 04/22/17 06:15 04/24/17 12:23 Morphine Sulfate (Morphine Inj) 2 mg Q3H PRN IV Pain 6-10 04/22/17 06:15 04/25/17 01:07 Senna/Docusate Sodium (Zehra-Colace) 1 tab BID PO 04/22/17 09:00 04/24/17 21:23 Atorvastatin Calcium (Lipitor) 80 mg DAILY PO 04/22/17 09:00 04/25/17 08:31 Clopidogrel Bisulfate (Plavix) 75 mg DAILY PO 04/22/17 09:00 Hold 04/24/17 09:04 Glipizide (Glucotrol) 5 mg BIDAC PO 04/22/17 07:00 04/25/17 06:09 Isosorbide Mononitrate (Imdur) 60 mg DAILY@07 PO 04/22/17 07:00 04/25/17 06:09 Lisinopril (Prinivil) 5 mg DAILY PO 04/22/17 09:00 04/25/17 08:30 Metoprolol Tartrate (Lopressor) 50 mg Q12HR PO 04/22/17 09:00 04/25/17 08:31 Aspirin (Aspirin Chew) 81 mg DAILY PO 04/22/17 09:00 04/25/17 08:31 Ranolazine (Ranexa) 500 mg Q12HR PO 04/23/17 09:15 04/25/17 08:31 Furosemide (Lasix) 40 mg DAILY PO 04/24/17 09:00 04/25/17 08:31 Vital Signs / I&O Vital Signs Date Time Temp Pulse Resp B/P Pulse Ox O2 Delivery O2 Flow Rate FiO2 04/25/17 12:02 73 6/6/17 11:27 98.5 63 16 92/62 96 04/25/17 11:27 64 04/25/17 10:40 62 04/25/17 09:00 65 04/25/17 08:45 98.0 73 18 102/59 100 04/25/17 08:45 67 04/25/17 06:00 58 04/25/17 05:00 66 04/25/17 04:00 56 04/25/17 03:08 98.2 72 18 104/66 100 04/25/17 03:00 51 04/25/17 02:00 55 04/25/17 01:00 63 04/25/17 00:00 65 04/24/17 23:00 51 04/24/17 23:00 97.9 61 18 95/59 99 04/24/17 22:00 64 04/24/17 21:00 68 04/24/17 20:00 66 04/24/17 19:35 98.4 70 18 128/78 99 04/24/17 19:00 71 04/24/17 18:00 72 04/24/17 17:00 70 04/24/17 16:00 61 04/24/17 16:00 98.2 58 18 95/62 96 04/24/17 15:00 58 04/24/17 14:00 62 04/24/17 13:02 16 04/24/17 13:00 76 I/O 04/24/17 04/24/17 04/24/17 04/25/17 04/25/17 04/25/17 07:00 15:00 23:00 07:00 15:00 23:00 Intake Total 480 ml 675 ml 480 ml Balance 480 ml 675 ml 480 ml Intake Oral 480 ml 675 ml 480 ml IV Total 0 ml # Voids 4 3 2 # Bowel Movements 0 0 1 Physical Exam GENERAL: This is a well-nourished, well-developed patient, in no apparent distress. CARDIOVASCULAR: Regular rate and rhythm without murmurs, gallops, or rubs. RESPIRATORY: Clear to auscultation. Breath sounds equal bilaterally. No wheezes , rales, or rhonchi. GASTROINTESTINAL: Abdomen soft, non-tender, nondistended. Normal active bowel sounds MUSCULOSKELETAL: Extremities without clubbing, cyanosis, or edema. NEURO: Alert & Oriented x4 to person, place, time, situation. Moves all ext x4 Imaging Last Impressions Myocardial Perfusion Scan Nuc Med 04/24/17 0000 Signed Impressions: Service Date/Time: Monday, April 24, 2017 09:39 - CONCLUSION: Stress-induced ischemia as described above. Viability scan may be of benefit. RISK CATEGORY : Intermediate (1-3%% Annual Mortality Rate) Dylan Sharma MD FACR Chest X-Ray 04/22/17 0444 Signed Impressions: Service Date/Time: Saturday, April 22, 2017 05:11 - CONCLUSION: Right lung base atelectasis and/or infiltrate and mild prominence of the interstitial markings. Kalpesh Cowan MD Assessment and Plan Problem List: (1) Angina pectoris Assessment and Plan: Improved; Discussed with Dr. Shetty; he will consider Transmyocardial laser Revascularization (TMR) if amenable ischemia found on nuc stress/viability study; on Imdur/BB; added Ranexa; minimal ant reversibility seen; viability portion tomorrow (2) CAD (coronary artery disease) Assessment and Plan: Dr. Singleton reviewed most recent cath and agrees she isn't a candidate for CABG; see above for TMR Dr Singleton to review myocardial perfusion scan (3) NSTEMI (non-ST elevated myocardial infarction) Assessment and Plan: continue medical mgt. (4) Elevated troponin Memo Ruiz MD Apr 25, 2017 12:05
[2017-04-25] MEDS: metFORMIN HCL 500 MG TAB PO SCH (17:24)
[2017-04-26] VITALS (22 sets, daily range): BP systolic 95–114; BP diastolic 48–71; PULSE 54–74; RESP 16–18; TEMP 97.8–98.7; O2SAT 95–100
[2017-04-26] MEDS: glipiZIDE 5 MG TAB PO SCH ×2 (05:32→15:54)
[2017-04-26] MEDS: INSULIN ASPART SUPPLEMENTAL SCALE SQ SCH ×4 (06:05→21:00)
[2017-04-26] MEDS: ISOSORBIDE MONONITRATE 60 MG TAB PO SCH (06:05)
[2017-04-26] MEDS: ATORVASTATIN 80 MG TAB PO SCH (08:26)
[2017-04-26] MEDS: SODIUM CHLORIDE 0.9% FLUSH 10 ML FLUSH IV FLUSH SCH ×2 (08:26→21:24)
[2017-04-26] MEDS: ASPIRIN 81 MG CHEW TAB PO SCH (08:26)
[2017-04-26] MEDS: RANOLAZINE 500 MG EXTENDED RELEASE TAB PO SCH ×2 (08:26→21:24)
[2017-04-26] MEDS: FUROSEMIDE 40 MG TAB PO SCH (08:27)
[2017-04-26] MEDS: DOCUSATE SODIUM 50 MG/SENNA 8.6 MG TAB PO SCH ×2 (08:27→21:24)
[2017-04-26] MEDS: metFORMIN HCL 500 MG TAB PO SCH ×2 (08:27→17:31)
[2017-04-26] MEDS: METOPROLOL TARTRATE 50 MG TAB PO SCH ×2 (08:27→21:24)
[2017-04-26] MEDS: LISINOPRIL 5 MG TAB PO SCH (08:27)
--- NOTE | 2017-04-26 08:51 | HHI.PR ---
Subjective Remarks F-U angina/CAD 04/23/17-patient seen and examined; denies any current chest pain or shortness of breath. She was seen by CTS this AM 04/24/17-patient seen and examined, has no complaint of chest pain or shortness of breath or heart palpitation. Currently nothing by mouth pending nuclear stress test 04/25/17-patient seen and examined; abnormal nuclear stress on 04/24 and patient states she had some episode of chest pain after the stress however stable now 04/26/17-patient seen and examined, currently nothing by mouth and denies any chest pain. Plan for viability test today Objective Vitals Vital Signs Date Time Temp Pulse Resp B/P Pulse Ox O2 Delivery O2 Flow Rate FiO2 04/26/17 06:30 70 04/26/17 05:00 58 04/26/17 04:00 61 04/26/17 03:06 97.9 68 18 95/48 98 04/26/17 03:00 59 04/26/17 02:00 54 04/26/17 01:00 54 04/26/17 00:00 57 04/25/17 23:00 98.6 64 18 94/60 97 04/25/17 23:00 60 04/25/17 22:00 51 04/25/17 21:00 64 04/25/17 20:00 68 04/25/17 19:00 73 04/25/17 19:00 98.6 60 18 100/57 98 04/25/17 18:18 65 04/25/17 17:05 67 04/25/17 16:38 62 04/25/17 15:10 98.5 76 16 94/51 99 04/25/17 15:10 71 04/25/17 14:32 73 04/25/17 13:02 70 04/25/17 12:02 73 04/25/17 11:27 98.5 63 16 92/62 96 04/25/17 11:27 64 04/25/17 10:40 62 04/25/17 09:00 65 I/O 04/25/17 04/25/17 04/25/17 04/26/17 04/26/17 04/26/17 07:00 15:00 23:00 07:00 15:00 23:00 Intake Total 480 ml 600 ml 240 ml Balance 480 ml 600 ml 240 ml Intake Oral 480 ml 600 ml 240 ml # Voids 2 5 2 # Bowel Movements 1 0 Result Diagram: 04/23/17 0505 04/23/17 0505 Objective Remarks GENERAL: NAD SKIN: Warm and dry. HEAD: Normocephalic. EYES: No scleral icterus. No injection or drainage. NECK: Supple, trachea midline. No JVD or lymphadenopathy. CARDIOVASCULAR: Regular rate and rhythm without murmurs, gallops, or rubs. RESPIRATORY: Breath sounds equal bilaterally. No accessory muscle use. GASTROINTESTINAL: Abdomen soft, non-tender, nondistended. MUSCULOSKELETAL: No cyanosis, or edema. BACK: Nontender without obvious deformity. No CVA tenderness. A/P Problem List: (1) Angina pectoris ICD Code: I20.9 Status: Acute (2) Elevated troponin ICD Code: R74.8 Status: Acute (3) CHF (congestive heart failure) ICD Code: I50.9 Status: Acute (4) HTN (hypertension) ICD Code: I10 Status: Acute (5) DM (diabetes mellitus) ICD Code: E11.9 Status: Acute (6) NSTEMI (non-ST elevated myocardial infarction) ICD Code: I21.4 Status: Acute Assessment and Plan 61yrs old female with NSTEMI Angina Pectoris Currently on Imdur/BB/Ranexa Abnormal Lexiscan stress 04/24/17 with Intermediate (1-3%% Annual Mortality Rate) Appreciate input from CTS and plan for Transmyocardial laser Revascularization (TMR) this week. However plan for viability test today Appreciate input from Cardiology CAD s/p Cath w/ trop 22.30 on 04/15/17. Found to have inoperable multivessel CAD, not amenable to PCI or bypass, NTG/Morphine prn. Continue home ASA, Plavix, Metoprolol and Statin. Acute on Chronic Systolic CHF. Echo 02/28/17 w/ EF 35-40%, BNP 624, CXR w/ pulmonary edema. Continue Lasix 40mg daily and monitor Renal function Hypertension: Continue home medications. DM: Sliding scale w/ Accu-Cheks and Glipizide as well as Metformin . Pilo Nieto MD Apr 26, 2017 08:51
--- NOTE | 2017-04-26 12:05 | PD.CAR.PN ---
CVT Progress Note Subjective/Hospital Course: 61 female / hx of severe CAD, last cath by Dr yang in 03/06 EF 40% / prior stenting admitted with NSTEMI, eval by Dr Singleton not a surgical candidate for cornonary artery bypass grafting, however she continue to have recurrent admissions for angina eval then for possible candidate for transmyocardial laser revascularization she underwent myocardial perfusion scan EF 37% enlarged fixed defect in anterior septal region, minimal redistribution in anterior inferior wall of the small segment of myocardium global hypokinesis prasanna will need to be eval by Dr Singleton 04/26/17 myocardial perfusion scan reviewed by Dr Singleton not a candidate for TMR 2/2 large fixed defect in anterior septal region/ only minimal redistribution recommend maximizing oral medication at this point / medical management Objective: GENERAL: SKIN: Warm and dry. HEAD: Normocephalic. EYES: No scleral icterus. No injection or drainage. NECK: Supple, trachea midline. No JVD or lymphadenopathy. CARDIOVASCULAR: Regular rate and rhythm without murmurs, gallops, or rubs. RESPIRATORY: Breath sounds equal bilaterally. No accessory muscle use. GASTROINTESTINAL: Abdomen soft, non-tender, nondistended. MUSCULOSKELETAL: No cyanosis, or edema. BACK: Nontender without obvious deformity. No CVA tenderness. Vital Signs Date Time Temp Pulse Resp B/P Pulse Ox O2 Delivery O2 Flow Rate FiO2 04/26/17 10:00 60 04/26/17 09:00 64 04/26/17 08:00 64 04/26/17 08:00 98.7 67 16 103/60 95 04/26/17 07:00 64 04/26/17 06:30 70 04/26/17 05:00 58 04/26/17 04:00 61 04/26/17 03:06 97.9 68 18 95/48 98 04/26/17 03:00 59 04/26/17 02:00 54 04/26/17 01:00 54 04/26/17 00:00 57 04/25/17 23:00 98.6 64 18 94/60 97 04/25/17 23:00 60 04/25/17 22:00 51 04/25/17 21:00 64 04/25/17 20:00 68 04/25/17 19:00 73 04/25/17 19:00 98.6 60 18 100/57 98 04/25/17 18:18 65 04/25/17 17:05 67 04/25/17 16:38 62 04/25/17 15:10 98.5 76 16 94/51 99 04/25/17 15:10 71 04/25/17 14:32 73 04/25/17 13:02 70 04/25/17 12:02 73 Result Diagram: 04/23/17 0505 04/23/17 0505 (1) Angina pectoris Plan: Improved; Discussed with Dr. Shetty; he will consider Transmyocardial laser Revascularization (TMR) if amenable ischemia found on nuc stress/ viability study; on Imdur/BB; added Ranexa; minimal ant reversibility seen; viability portion tomorrow (2) CAD (coronary artery disease) Plan: Dr. Singleton reviewed most recent cath and agrees she isn't a candidate for CABG; she is also not a candidate for TMR will sign off, for any questions please recontact us thank you (3) NSTEMI (non-ST elevated myocardial infarction) Plan: continue medical mgt. (4) Elevated troponin Johana Brown Apr 26, 2017 12:05
[2017-04-27] VITALS (14 sets, daily range): BP systolic 103–121; BP diastolic 66–79; PULSE 55–75; RESP 16–18; TEMP 97.9–98.2; O2SAT 97–100
[2017-04-27] MEDS: glipiZIDE 5 MG TAB PO SCH (04:48)
[2017-04-27] MEDS: ISOSORBIDE MONONITRATE 60 MG TAB PO SCH (05:52)
[2017-04-27] MEDS: INSULIN ASPART SUPPLEMENTAL SCALE SQ SCH ×2 (05:54→11:38)
[2017-04-27] MEDS: SODIUM CHLORIDE 0.9% FLUSH 10 ML FLUSH IV FLUSH SCH (08:46)
[2017-04-27] MEDS: FUROSEMIDE 40 MG TAB PO SCH (08:46)
[2017-04-27] MEDS: RANOLAZINE 500 MG EXTENDED RELEASE TAB PO SCH (08:46)
[2017-04-27] MEDS: metFORMIN HCL 500 MG TAB PO SCH (08:46)
[2017-04-27] MEDS: ATORVASTATIN 80 MG TAB PO SCH (08:46)
[2017-04-27] MEDS: METOPROLOL TARTRATE 50 MG TAB PO SCH (08:46)
[2017-04-27] MEDS: ASPIRIN 81 MG CHEW TAB PO SCH (08:46)
[2017-04-27] MEDS: LISINOPRIL 5 MG TAB PO SCH (08:46)
[2017-04-27] MEDS: DOCUSATE SODIUM 50 MG/SENNA 8.6 MG TAB PO SCH (08:47)
--- NOTE | 2017-04-27 13:22 | RADRPT ---
EXAM DATE/TIME: 04/26/2017 09:46 [facility] COMPARISON: MYOCARDIAL PERF PHARM SPECT, GATED W/EF, April 24, 2017, 9:39. INDICATIONS : Coronary atheroscelrosis. DOSE: 4.3 mCi Thallium 201 1.1 mCi Thallium 201 at 24 hours MEDICAL HISTORY : Myocardial infarction. Congestive heart failure. Diabetes mellitus type 2. Smoker. Stroke. SURGICAL HISTORY : Coronary artery stent. Tonsillectomy. ENCOUNTER: Initial ACUITY: 3 days PAIN SCALE: 0/10 LOCATION: chest TECHNIQUE: Resting injection SPECT was performed using resting thallium/reinjection protocol. FINDINGS: Examination was performed to characterize a fixed defect seen on the prior perfusion suspect imaging involving the anteroseptal segments from the apex to base and the base of the left ventricle apex. Viability scan demonstrates absent thallium uptake correlating to the same segments as the fixed defe ct on the current perfusion scan. CONCLUSION: Viability scan demonstrates absent uptake involving the apex and anteroseptal segments. There was al so absent uptake marker perfusion scan and depressed ejection fraction. RISK CATEGORY: High (> 3% Annual Mortality Rate) Red Crocker MD on April 27, 2017 at 12:04 Board Certified Radiologist. This report was verified electronically.
--- NOTE | 2017-04-27 14:09 | HHI.PR ---
Subjective Remarks F-U angina/CAD 04/23/17-patient seen and examined; denies any current chest pain or shortness of breath. She was seen by CTS this AM 04/24/17-patient seen and examined, has no complaint of chest pain or shortness of breath or heart palpitation. Currently nothing by mouth pending nuclear stress test 04/25/17-patient seen and examined; abnormal nuclear stress on 04/24 and patient states she had some episode of chest pain after the stress however stable now 04/26/17-patient seen and examined, currently nothing by mouth and denies any chest pain. Plan for viability test today 04/27/17-patient seen and examined, she completed the second part of the viability test. Currently denies any chest pain Objective Vitals Vital Signs Date Time Temp Pulse Resp B/P Pulse Ox O2 Delivery O2 Flow Rate FiO2 04/27/17 12:00 98.2 73 16 109/66 100 04/27/17 12:00 70 04/27/17 09:00 72 04/27/17 08:00 75 04/27/17 08:00 98.1 74 16 103/66 97 04/27/17 07:00 70 04/27/17 06:08 61 04/27/17 05:00 55 04/27/17 04:00 56 04/27/17 03:00 61 04/27/17 03:00 97.9 62 18 121/79 97 04/27/17 02:00 56 04/27/17 01:00 59 04/27/17 00:00 57 04/26/17 23:00 63 04/26/17 23:00 98.1 60 18 108/60 97 04/26/17 22:00 62 04/26/17 21:00 74 04/26/17 20:00 54 04/26/17 19:00 97.8 61 18 103/64 100 04/26/17 19:00 60 04/26/17 16:00 61 04/26/17 16:00 98.7 62 16 104/60 97 04/26/17 15:00 62 I/O 04/26/17 04/26/17 04/26/17 04/27/17 04/27/17 04/27/17 07:00 15:00 23:00 07:00 15:00 23:00 Intake Total 240 ml 1020 ml 480 ml Balance 240 ml 1020 ml 480 ml Intake Oral 240 ml 1020 ml 480 ml # Voids 2 6 1 # Bowel Movements 0 Result Diagram: 04/23/17 0505 04/23/17 0505 Imaging Last Impressions Myocardial Perfusion Scan Nuc Med 04/26/17 0000 Signed Impressions: Service Date/Time: Wednesday, April 26, 2017 09:46 - CONCLUSION: Viability scan demonstrates absent uptake involving the apex and anteroseptal segments. There was also absent uptake marker perfusion scan and depressed ejection fraction. RISK CATEGORY: High (> 3%% Annual Mortality Rate) Red Crocker MD Chest X-Ray 04/22/17 0444 Signed Impressions: Service Date/Time: Saturday, April 22, 2017 05:11 - CONCLUSION: Right lung base atelectasis and/or infiltrate and mild prominence of the interstitial markings. Kalpesh Cowan MD Objective Remarks GENERAL: NAD SKIN: Warm and dry. HEAD: Normocephalic. EYES: No scleral icterus. No injection or drainage. NECK: Supple, trachea midline. No JVD or lymphadenopathy. CARDIOVASCULAR: Regular rate and rhythm without murmurs, gallops, or rubs. RESPIRATORY: Breath sounds equal bilaterally. No accessory muscle use. GASTROINTESTINAL: Abdomen soft, non-tender, nondistended. MUSCULOSKELETAL: No cyanosis, or edema. BACK: Nontender without obvious deformity. No CVA tenderness. Procedures none A/P Problem List: (1) NSTEMI (non-ST elevated myocardial infarction) ICD Code: I21.4 Status: Acute (2) Angina pectoris ICD Code: I20.9 Status: Acute (3) Elevated troponin ICD Code: R74.8 Status: Acute (4) CHF (congestive heart failure) ICD Code: I50.9 Status: Chronic (5) HTN (hypertension) ICD Code: I10 Status: Chronic (6) DM (diabetes mellitus) ICD Code: E11.9 Status: Chronic Assessment and Plan 61yrs old female with NSTEMI Angina Pectoris Currently on Imdur/BB/Ranexa Abnormal Lexiscan stress 04/24/17 with Intermediate (1-3%% Annual Mortality Rate) Completed viability test with finding of absent uptake involving the apex and anteroseptal segments. There was also absent uptake marker perfusion scan and depressed ejection fraction. Appreciate input from CTS however patient is not a candidate for Transmyocardial laser Revascularization (TMR) Appreciate input from Cardiology CAD s/p Cath w/ trop 22.30 on 04/15/17. Found to have inoperable multivessel CAD, not amenable to PCI or bypass, NTG/Morphine prn. Continue home ASA, Plavix, Metoprolol and Statin. Acute on Chronic Systolic CHF. Echo 02/28/17 w/ EF 35-40%, BNP 624, CXR w/ pulmonary edema. Continue Lasix 40mg daily and monitor Renal function Hypertension: Continue home medications. DM: Sliding scale w/ Accu-Cheks and Glipizide as well as Metformin . Pilo Nieto MD Apr 27, 2017 14:08
[2017-04-27] MEDS ORDERED: RANO500 PO (14:10)
--- NOTE | 2017-04-27 14:14 | HHI.DS ---
Discharge Summary Admission Date Apr 22, 2017 at 06:14 Discharge Date: Apr 27, 2017 Admitting Diagnosis CHF (1) NSTEMI (non-ST elevated myocardial infarction) ICD Code: I21.4 (2) Angina pectoris ICD Code: I20.9 (3) Elevated troponin ICD Code: R74.8 (4) CHF (congestive heart failure) ICD Code: I50.9 (5) HTN (hypertension) ICD Code: I10 (6) DM (diabetes mellitus) ICD Code: E11.9 Procedures none Brief History - From Admission This is a 61-year-old female with a PMH of HTN, Hyperlipidemia, CHF (Echo w/ EF 35-40%), DM, TIA and recent NSTEMI who was brought to the ER by EMS secondary to complaints of chest pain and SOB starting prior to arrival. S/p NTG x3 via EMS w/ some improvement in pain complaints. Denies cough, fever or chills. Recent admit 04/15-04/17/17 w/ NSTEMI, s/p eval by Dr. Mendoza, pt w/ inoperable multivessel CAD, not candidate for PCI or bypass w/ recommendation for medical management only. Trop at time of d/c 22.30, currently Trop 0.37. EKG w/ no acute changes. On arrival, BP 141/82, HR 96, O2 sat 94% on 5L NC, Afebrile. Chemistry essentially unremarkable. BNP 624. CBC negative. CXR with right lung base atelectasis or infiltrate and mild prominence of interstitial markings. S/p Lasix in ER. Currently chest pain free. CBC/BMP: 04/23/17 0505 04/23/17 0505 Imaging Last Impressions Myocardial Perfusion Scan Nuc Med 04/26/17 0000 Signed Impressions: Service Date/Time: Wednesday, April 26, 2017 09:46 - CONCLUSION: Viability scan demonstrates absent uptake involving the apex and anteroseptal segments. There was also absent uptake marker perfusion scan and depressed ejection fraction. RISK CATEGORY: High (> 3%% Annual Mortality Rate) Red Crocker MD Chest X-Ray 04/22/17 0444 Signed Impressions: Service Date/Time: Saturday, April 22, 2017 05:11 - CONCLUSION: Right lung base atelectasis and/or infiltrate and mild prominence of the interstitial markings. Kalpesh Cowan MD PE at Discharge GENERAL: NAD SKIN: Warm and dry. HEAD: Normocephalic. EYES: No scleral icterus. No injection or drainage. NECK: Supple, trachea midline. No JVD or lymphadenopathy. CARDIOVASCULAR: Regular rate and rhythm without murmurs, gallops, or rubs. RESPIRATORY: Breath sounds equal bilaterally. No accessory muscle use. GASTROINTESTINAL: Abdomen soft, non-tender, nondistended. MUSCULOSKELETAL: No cyanosis, or edema. BACK: Nontender without obvious deformity. No CVA tenderness. Hospital Course Patient admitted secondary to non-ST elevation RI as well as Angina Pectoris for which she was continued on home medication including Imdur, beta chauncey and was started on Ranexa. I did thoracic surgery was consulted for evaluation for possible transmyocardial laser revascularization. Patient underwent viability testing however she was deemed not a candidate for TMR. She was continued on treatment for CAD including aspirin, Plavix and statin. She was also treated for acute on chronic CHF in the setting with IV Lasix which was subsequently switched to by mouth diuretic. Her treatment for diabetes was resumed. DVT and GI prophylaxis was provided Pt Condition on Discharge: Fair Discharge Disposition: Discharge Home Discharge Time: > 30 minutes Discharge Instructions DIET: Follow Instructions for: Diabetic Diet Activities you can perform: Regular-No Restrictions Follow up Referrals: Cardiology PCP Follow-up - 1 Week New Medications: Potassium Chloride ER (Potassium Chloride ER) 20 Meq Tab 20 MEQ PO DAILY Electrolyte Replacement #30 Ref 0 TAB Furosemide (Furosemide) 40 Mg Tab 40 MG PO DAILY Prevent Heart Failure #30 Ref 3 TAB Ranolazine ER 12 HR (Ranexa ER 12 HR) 500 Mg Tab 500 MG PO Q12HR Regulate Heart Beat #60 Ref 3 TAB Continued Medications: Atorvastatin (Atorvastatin) 80 Mg Tab 80 MG PO DAILY cad #30 Ref 3 TAB Clopidogrel (Plavix) 75 Mg Tab 75 MG PO DAILY cad #30 Ref 3 TAB Glipizide (Glipizide) 5 Mg Tab 5 MG PO BIDAC Take 30 minutes before a meal Blood Sugar Management #60 Ref 3 TAB Isosorbide Mononitrate ER (Isosorbide Mononitrate ER) 60 Mg Tab 60 MG PO DAILY@07 Blood Pressure Management #30 TAB Lisinopril (Lisinopril) 5 Mg Tab 5 MG PO DAILY cad #30 Ref 3 TAB Metformin (Glucophage) 500 Mg Tab 500 MG PO BIDPC diabetes #60 Ref 3 TAB Metoprolol Tartrate (Lopressor) 50 Mg Tab 50 MG PO Q12HR cad #60 Ref 3 TAB ([Aspirin Chew]) 81 MG CHEW 81 MG PO DAILY cad #30 Ref 0 TAB.Pilo Lazo MD Apr 27, 2017 14:14
[2017-04-27] MEDS ORDERED: FURO40TA PO (14:15)
[2017-04-27] MEDS ORDERED: POTA-163 PO (14:15)
[2017-04-27] MEDS ORDERED: GLIP5 PO (15:14)
[2017-04-27] MEDS ORDERED: PLAV75TA29 PO (15:14)
[2017-04-27] MEDS ORDERED: ISOS60TA PO (15:14)
[2017-04-27] MEDS ORDERED: LISI-519 PO (15:14)
[2017-04-27] MEDS ORDERED: METO-309 PO (15:14)
[2017-04-27] MEDS ORDERED: ATOR1TAB18 PO (15:14)
[2017-04-27] MEDS ORDERED: METF500 PO (15:14)
== END 2017-04-27 16:15 | disposition home or self-care (01) | DRG 280 ==
LOC: NEPC 04:32 → OBSVTOIN 06:14 → NEDA 06:14 → HCIS 09:46
PROVIDERS: ADMIT Hospitalist; ATTEND Hospitalist
DX: I22.2 Subsequent non-ST elevation (NSTEMI) myocardial infarction (principal); I50.23 Acute on chronic systolic (congestive) heart failure; I42.9 Cardiomyopathy, unspecified; E11.9 Type 2 diabetes mellitus without complications; I21.4 Non-ST elevation (NSTEMI) myocardial infarction; I11.0 Hypertensive heart disease with heart failure; Z86.73 Personal history of transient ischemic attack (TIA), and cerebral infarction without residual deficits; I25.2 Old myocardial infarction; Z95.5 Presence of coronary angioplasty implant and graft; Z79.84 Long term (current) use of oral hypoglycemic drugs; Z79.02 Long term (current) use of antithrombotics/antiplatelets; Z79.82 Long term (current) use of aspirin; E78.5 Hyperlipidemia, unspecified; Z87.891 Personal history of nicotine dependence; I25.110 Atherosclerotic heart disease of native coronary artery with unstable angina pectoris; J44.9 Chronic obstructive pulmonary disease, unspecified
CPT/HCPCS: 71010; 78452; 80048; 80053; 82550; 82948; 83880; 84484; 85025; 93005; 93017; 96372; 96374; 96375; A9502; A9505; G0378; J1815; J1940; J2060; J2270; J2405; J2785

== ENCOUNTER 2017-05-10 03:42 | Inpatient (IN) | payer OTHER ==
[~2017-05-10] VITALS: Ht 162.6 cm; Wt 72.1 kg
[2017-05-10] VITALS (27 sets, daily range): BP systolic 122–166; BP diastolic 69–107; PULSE 60–88; RESP 11–30; TEMP 97.8–98.6; O2SAT 90–97
[~2017-05-10 03:42] MED LIST changes: +FURO40TA PO; +GLIP5 PO; +POTA-163 PO; +RANO500 PO
--- NOTE | 2017-05-10 04:08 | PD ---
HPI Chief Complaint: Chest Pain Time Seen by Provider: 04:01 Travel History International Travel<30 days: No Contact w/Intl Traveler<30days: No Traveled to known affect area: No History of Present Illness HPI 61-year-old female with history of previous ME 3 in the past few months, follows up with Dr. Pike, TIAs, hypertension, diabetes, presents to the ER today because of 2 days history of substernal chest pains which she currently measures at a 7 out of 10. She has been nauseous and states is going into her epigastric area as well. She has been short of breath. She denies any coughing , fevers, or any other symptoms. She does not know any exacerbating alleviating factors. She had taken her own nitroglycerin with some relief with the last nitroglycerin. She states her chest pain is about a 5 out of 10 Modifying Factors: None Associated Signs & Symptoms: Chest pains Risk Factors: Cardiac history PFSH Past Medical History Arthritis: Yes (HANDS) Asthma: No Autoimmune Disease: No Blood Disorders: No Heart Rhythm Problems: No Cancer: No Cardiac Catheterization: Yes Cardiovascular Problems: Yes High Cholesterol: Yes Chest Pain: Yes Congestive Heart Failure: Yes COPD: No Cerebrovascular Accident: Yes (TIA x 1) Diabetes: Yes Patient Takes Glucophage: Yes Diminished Hearing: No Endocrine: Yes Gastrointestinal Disorders: Yes GERD: Yes Genitourinary: Yes Headaches: Yes Hiatal Hernia: No Hypertension: Yes Immune Disorder: No Implanted Vascular Access Dvce: No Kidney Stones: No Musculoskeletal: Yes Neurologic: Yes Psychiatric: No Reproductive: No Respiratory: Yes Migraines: No Myocardial Infarction: Yes Renal Failure: No Seizures: No Sleep Apnea: No Thyroid Disease: No Ulcer: No Tetanus Vaccination: Unknown ?: Not : 8 Para: 7 Miscarriage: 1 Past Surgical History Abdominal Surgery: No Cardiac Surgery: Yes (CARDIAC CATH 03/06, STENT TEN YRS AGO) Coronary Stent: Yes Ear Surgery: No Endocrine Surgery: No Eye Surgery: No Genitourinary Surgery: No Gynecologic Surgery: No Oral Surgery: Yes (T&A) Thoracic Surgery: No Tonsillectomy: Yes Other Surgery: Yes (tonsillectomy 1966) Social History Alcohol Use: Yes (rarely ) Tobacco Use: Yes (QUIT X 1 WEEK) Substance Use: No Allergies-Medications (Allergen,Severity, Reaction): Coded Allergies: Honey Bee (Verified Allergy, Severe, UNKNOWN, 6/21/17) Adhesives (Verified Allergy, Mild, REDNESS, 05/10/17) Reported Meds & Prescriptions Reported Meds & Active Scripts Active Potassium Chloride ER (Potassium Chloride) 20 Meq Tab 20 Meq PO DAILY Furosemide 40 Mg Tab 40 Mg PO DAILY Ranexa ER 12 HR (Ranolazine) 500 Mg Tab 500 Mg PO Q12HR Isosorbide Mononitrate ER (Isosorbide Mononitrate) 60 Mg Tab 60 Mg PO DAILY@07 Glipizide 5 Mg Tab 5 Mg PO BIDAC Take 30 minutes before a meal Lopressor (Metoprolol Tartrate) 50 Mg Tab 50 Mg PO Q12HR Glucophage (Metformin HCl) 500 Mg Tab 500 Mg PO BIDPC Lisinopril 5 Mg Tab 5 Mg PO DAILY Plavix (Clopidogrel Bisulfate) 75 Mg Tab 75 Mg PO DAILY Atorvastatin (Atorvastatin Calcium) 80 Mg Tab 80 Mg PO DAILY [Aspirin Chew] 81 MG Chew 81 Mg PO DAILY Review of Systems Except as stated in HPI: all other systems reviewed are Neg Physical Exam Narrative GENERAL: Well-developed elderly white female patient currently in mild distress. SKIN: Focused skin assessment warm/dry. HEAD: Atraumatic. Normocephalic. EYES: Pupils equal and round. No scleral icterus. No injection or drainage. ENT: No nasal bleeding or discharge. Mucous membranes pink and moist. NECK: Trachea midline. No JVD. CARDIOVASCULAR: Regular rate and rhythm. No murmur appreciated. RESPIRATORY: No accessory muscle use. Clear to auscultation. Breath sounds equal bilaterally. GASTROINTESTINAL: Abdomen soft, epigastric tenderness without guarding or rebound, nondistended. Hepatic and splenic margins not palpable. MUSCULOSKELETAL: No obvious deformities. No clubbing. No cyanosis. No edema. NEUROLOGICAL: Awake and alert. No obvious cranial nerve deficits. Motor grossly within normal limits. Normal speech. PSYCHIATRIC: Appropriate mood and affect; insight and judgment normal. Data Data Last Documented VS Vital Signs Date Time Temp Pulse Resp B/P Pulse Ox O2 Delivery O2 Flow Rate FiO2 05/10/17 05:15 94 40 05/10/17 05:13 Nasal Cannula 3.00 05/10/17 03:54 88 05/10/17 03:51 97.8 20 146/82 Orders Electrocardiogram (05/10/17 04:02) Ckmb (Isoenzyme) Profile (05/10/17 04:02) Complete Blood Count With Diff (05/10/17 04:02) Comprehensive Metabolic Panel (05/10/17 04:02) Magnesium (Mg) (05/10/17 04:02) Prothrombin Time / Inr (Pt) (05/10/17 04:02) Act Partial Throm Time (Ptt) (05/10/17 04:02) Troponin I (05/10/17 04:02) Chest, Single Ap (05/10/17 04:02) Ecg Monitoring (05/10/17 04:02) Bilateral Bp Monitoring (05/10/17 04:02) Iv Access Insert/Monitor (05/10/17 04:02) Oximetry (05/10/17 04:02) Oxygen Administration (05/10/17 04:02) Aspirin (Aspirin) (05/10/17 04:15) Nitroglycerin 2% Oint (Nitroglycerin 2% (05/10/17 04:15) Sodium Chloride 0.9% Flush (Ns Flush) (05/10/17 04:15) Furosemide Inj (Lasix Inj) (05/10/17 05:15) Resp Bipap / Cpap Non Invas Vt (05/10/17 ) B-Type Natriuretic Peptide (05/10/17 05:06) Labs Laboratory Tests Test 05/10/17 04:00 White Blood Count 10.9 TH/MM3 Red Blood Count 4.16 MIL/MM3 Hemoglobin 12.7 GM/DL Hematocrit 37.1 % Mean Corpuscular Volume 89.1 FL Mean Corpuscular Hemoglobin 30.6 PG Mean Corpuscular Hemoglobin 34.3 % Concent Red Cell Distribution Width 13.8 % Platelet Count 239 TH/MM3 Mean Platelet Volume 9.0 FL Neutrophils (%) (Auto) 70.0 % Lymphocytes (%) (Auto) 23.8 % Monocytes (%) (Auto) 4.8 % Eosinophils (%) (Auto) 1.1 % Basophils (%) (Auto) 0.3 % Neutrophils # (Auto) 7.6 TH/MM3 Lymphocytes # (Auto) 2.6 TH/MM3 Monocytes # (Auto) 0.5 TH/MM3 Eosinophils # (Auto) 0.1 TH/MM3 Basophils # (Auto) 0.0 TH/MM3 CBC Comment DIFF FINAL Differential Comment Prothrombin Time 10.7 SEC Prothromb Time International 1.0 RATIO Ratio Activated Partial 27.2 SEC Thromboplast Time Sodium Level 140 MEQ/L Potassium Level 4.1 MEQ/L Chloride Level 106 MEQ/L Carbon Dioxide Level 24.8 MEQ/L Anion Gap 9 MEQ/L Blood Urea Nitrogen 18 MG/DL Creatinine 1.11 MG/DL Estimat Glomerular Filtration 50 ML/MIN Rate Random Glucose 182 MG/DL Calcium Level 8.8 MG/DL Magnesium Level 1.6 MG/DL Total Bilirubin 0.6 MG/DL Aspartate Amino Transf 34 U/L (AST/SGOT) Alanine Aminotransferase 51 U/L (ALT/SGPT) Alkaline Phosphatase 99 U/L Total Creatine Kinase 55 U/L Troponin I 0.03 NG/ML Total Protein 7.1 GM/DL Albumin 3.7 GM/DL [facility] Medical Decision Making Medical Screen Exam Complete: Yes Emergency Medical Condition: Yes Medical Record Reviewed: Yes Interpretation(s) EKG shows NSR with a right bundle branch block pattern, no medial ST elevation or depression, and no arrhythmias. No significant T-wave inversions. Laboratory Tests Test 05/10/17 04:00 Creatinine 1.11 MG/DL (0.50-1.00) Estimat Glomerular Filtration 50 ML/MIN (>89) Rate Random Glucose 182 MG/DL (74-106) Last 24 hours Impressions Chest X-Ray 05/10/17 0402 Signed Impressions: Service Date/Time: Monday, May 10, 2017 04:23 - CONCLUSION: Mild infiltrate of both lung bases. Dawood Beaulieu MD Differential Diagnosis Chest painsgastritis versus pancreatitis versus cholecystitis versus ACS Narrative Course Chest x-ray concerning for underlying pulmonary edema. She was recently here for CHF. Patient was given nitroglycerin, Lasix, and was put temporal he on BiPAP for low oxygenation. Her lab work did not indicate significant metabolic issues and cardiac enzymes are negative. At this point, my plan would be to admit her for further treatment. Case is discussed with Dr. Castro for admission. Diagnosis Primary Impression: CHF (congestive heart failure) Additional Impression: Chest pain Admitting Information Admitting Physician Requests: Admit Kathryn Smallwood MD May 10, 2017 04:08
[2017-05-10] MEDS ORDERED: NITROGLYCERIN 2% OINT 1 GM PACKET TOP ONE (04:15)
[2017-05-10] MEDS ORDERED: SODIUM CHLORIDE 0.9% FLUSH 10 ML FLUSH IVF PRN (04:15)
[2017-05-10] MEDS ORDERED: ASPIRIN 325 MG TAB PO ONE (04:15)
[2017-05-10 04:17] LABS: AUTOMATED NEUTROPHIL # 7.6 TH/MM3 (1.8-7.7); BASOPHIL % 0.3 % (0.0-2.0); EOSINOPHIL # 0.1 TH/MM3 (0-0.4); EOSINOPHIL % 1.1 % (0.0-4.0); HEMATOCRIT 37.1 % (35.0-46.0); HEMO FLAGS DIFF FINAL; LYMPH % 23.8 % (9.0-44.0); LYMPHOCYTE # 2.6 TH/MM3 (1.0-4.8); MEAN CELL VOLUME 89.1 FL (80.0-100.0); MEAN CORPUSCULAR HEMOGLOBIN 30.6 PG (27.0-34.0); MEAN CORPUSCULAR HGB CONC 34.3 % (32.0-36.0); MONO % 4.8 % (0.0-8.0); PLATELET COUNT 239 TH/MM3 (150-450); RED BLOOD COUNT 4.16 MIL/MM3 (4.00-5.30); RED CELL DISTRIBUTION WIDTH 13.8 % (11.6-17.2); WHITE BLOOD COUNT 10.9 TH/MM3 (4.0-11.0)
[2017-05-10 04:31] LABS: APTT (PATIENT) 27.2 SEC (24.3-30.1); PROTHROMBIN TIME - PATIENT 10.7 SEC (9.8-11.6)
[2017-05-10 04:45] LABS: ALT (GPT) 51 U/L (10-53); ANION GAP 9 MEQ/L (5-15); AST (GOT) 34 U/L (15-37); BICARBONATE 24.8 MEQ/L (21.0-32.0); BLOOD UREA NITROGEN 18 MG/DL (7-18); CHLORIDE 106 MEQ/L (98-107); GLOMERULAR FILTRATION RATE 50 ML/MIN (>89); MAGNESIUM 1.6 MG/DL (1.5-2.5); POTASSIUM 4.1 MEQ/L (3.5-5.1); SODIUM (NA) 140 MEQ/L (136-145)
[2017-05-10 04:49] LABS: ALKALINE PHOSPHATASE 99 U/L (45-117); TOTAL BILIRUBIN ADULT 0.6 MG/DL (0.2-1.0)
[2017-05-10 04:52] LABS: CREATINE KINASE 55 U/L (26-192)
--- NOTE | 2017-05-10 04:52 | RADRPT ---
EXAM DATE/TIME: 05/10/2017 04:23 [facility] COMPARISON: CHEST SINGLE AP, April 22, 2017, 5:11. INDICATIONS : Chest pain. MEDICAL HISTORY : Hypertension. Diabetes mellitus type II. Stroke. COPD. SURGICAL HISTORY : None. ENCOUNTER: Initial ACUITY: 1 day PAIN SCORE: 0/10 LOCATION: Bilateral chest FINDINGS: There is mild bibasilar infiltrate. No pleural effusion seen. No pneumothorax. Heart size stable, wit hin normal limits. CONCLUSION: Mild infiltrate of both lung bases. Dawood Beaulieu MD on May 10, 2017 at 4:49 Board Certified Radiologist. This report was verified electronically.
[2017-05-10] MEDS ORDERED: FUROSEMIDE 40 MG/4 ML VIAL IV PUSH ONE (05:15)
[2017-05-10] MEDS ORDERED: SODIUM CHLORIDE 0.9% FLUSH 10 ML FLUSH IV FLUSH PRN (05:30)
[2017-05-10] MEDS ORDERED: NALOXONE HCL 0.4 MG/ML AMP IV PRN ×2 (05:30→09:00)
--- NOTE | 2017-05-10 06:51 | HHI.HP ---
[facility] Juan Luis Pike MD Admission Diagnosis chest pain/shortness of breath/CHF Diagnoses: Travel History International Travel<30 Days: No Contact w/Intl Traveler <30 Da: No Traveled to Known Affected Are: No History of Present Illness sob 2 days chest pain with neck radiation no fever or cough was nauseaous no vomiting no blood in stool or urine on blood thinners not on oxygen at home no nebs at home not sure of her meds thinks she takes lasix, but not sure dr pike called in some meds, but has not picked up yet no falls no syncope no urine symptonms Review of Systems Except as stated in HPI: all other systems reviewed are Neg Past Family Social History Past Medical History htn dm cad- s/p nstemi recently, s/p stent placed one in 2009 or so chf tia Past Surgical History coronary angiogram with stenting tonsillectomy Allergies: Coded Allergies: Honey Bee (Verified Allergy, Severe, UNKNOWN, 05/10/17) Adhesives (Verified Allergy, Mild, REDNESS, 05/10/17) Family History states everyone in family has heart disease Social History quit smoking few months ago denies drinking or drugs problems Physical Exam Vital Signs Vital Signs Date Time Temp Pulse Resp B/P Pulse Ox O2 Delivery O2 Flow Rate FiO2 05/10/17 05:46 88 24 148/98 96 BiPAP 4 05/10/17 05:16 84 24 166/107 94 Nasal Cannula 4 05/10/17 05:15 94 40 05/10/17 05:13 95 Nasal Cannula 3.00 05/10/17 04:46 84 26 155/89 94 Nasal Cannula 4 05/10/17 04:29 95 Nasal Cannula 2 05/10/17 04:04 82 24 153/87 95 Nasal Cannula 2 05/10/17 03:54 88 95 Nasal Cannula 2 05/10/17 03:51 97.8 88 20 146/82 95 Physical Exam GENERAL: This is a well-nourished, well-developed patient, in no apparent distress. Comfortable on BiPAP. SKIN: No rashes, ecchymoses or lesions. Cool and dry. HEAD: Atraumatic. Normocephalic. No temporal or scalp tenderness. EYES: No scleral icterus. No injection or drainage. ENT: Nose without bleeding, purulent drainage or septal hematoma. Airway patent. NECK: Trachea midline. No JVD or lymphadenopathy. Supple, nontender, no meningeal signs. CARDIOVASCULAR: Regular rate and rhythm without murmurs, gallops, or rubs. RESPIRATORY: Clear to auscultation. Breath sounds equal bilaterally. No wheezes , rales, or rhonchi. GASTROINTESTINAL: Abdomen soft, non-tender, nondistended. No hepato-splenomegaly , o here r palpable masses. No guarding. MUSCULOSKELETAL: Extremities without clubbing, cyanosis, or edema. No joint tenderness, effusion, or edema noted. No calf tenderness. Negative Homans sign bilaterally. NEUROLOGICAL: Awake and alert. Cranial nerves II through XII intact. Motor and sensory grossly within normal limits. Five out of 5 muscle strength in all muscle groups. Normal speech. Laboratory Laboratory Tests Test 05/10/17 05/10/17 04:00 04:30 White Blood Count 10.9 Red Blood Count 4.16 Hemoglobin 12.7 Hematocrit 37.1 Mean Corpuscular Volume 89.1 Mean Corpuscular Hemoglobin 30.6 Mean Corpuscular Hemoglobin 34.3 Concent Red Cell Distribution Width 13.8 Platelet Count 239 Mean Platelet Volume 9.0 Neutrophils (%) (Auto) 70.0 Lymphocytes (%) (Auto) 23.8 Monocytes (%) (Auto) 4.8 Eosinophils (%) (Auto) 1.1 Basophils (%) (Auto) 0.3 Neutrophils # (Auto) 7.6 Lymphocytes # (Auto) 2.6 Monocytes # (Auto) 0.5 Eosinophils # (Auto) 0.1 Basophils # (Auto) 0.0 CBC Comment DIFF FINAL Differential Comment Prothrombin Time 10.7 Prothromb Time International 1.0 Ratio Activated Partial 27.2 Thromboplast Time Sodium Level 140 Potassium Level 4.1 Chloride Level 106 Carbon Dioxide Level 24.8 Anion Gap 9 Blood Urea Nitrogen 18 Creatinine 1.11 Estimat Glomerular Filtration 50 Rate Random Glucose 182 Calcium Level 8.8 Magnesium Level 1.6 Total Bilirubin 0.6 Aspartate Amino Transf 34 (AST/SGOT) Alanine Aminotransferase 51 (ALT/SGPT) Alkaline Phosphatase 99 Total Creatine Kinase 55 Troponin I 0.03 Total Protein 7.1 Albumin 3.7 B-Type Natriuretic Peptide 1222 Result Diagram: 05/10/1739905/10/17399 Imaging Last 48 hours Impressions Chest X-Ray 05/10/17401 Signed Impressions: Service Date/Time: Wednesday, May 10, 2017 04:23 - CONCLUSION: Mild infiltrate of both lung bases. Dawood Beaulieu MD Septic Shock Reassessment Peripheral Pulses: Bounding Right Posterior Tibial (nursing) Assessment and Plan Assessment and Plan Impression: acute on chronic chf medications non compliance? -Cannot patient cannot recall the names and doses of her medications. However she does state that she takes all the medications as prescribed below. Chronic tobacco abuse and possible underlying COPD Plan: Patient was placed on BiPAP in emergency room. she was given Lasix 40 mg IV after which she diuresed about 800 cc. By the time of my arrival, patient reports improvement in her symptoms. Will discontinue BiPAP and monitor her and CIC. Next and telemetry monitoring. Serial cardiac enzymes and EKGs. Resume home meds. DVT prophylaxiswith Lovenox. Discussed Condition With Patient, ER physician, patient's at the bedside, patient's nurse Physician Certification 2 Midnight Certification Type: Admission for Inpatient Services Order for Inpatient Services The services are ordered in accordance with Medicare regulations or non- Medicare payer requirements, as applicable. In the case of services not specified as inpatient-only, they are appropriately provided as inpatient services in accordance with the 2-midnight benchmark. Estimated LOS (days): 2 days is the estimated time the patient will need to remain in the hospital, assuming treatment plan goals are met and no additional complications. Post-Hospital Plan: Home Kendra Castro MD May 10, 2017 06:51
[2017-05-10] MEDS: ENOXAPARIN SODIUM 40 MG/0.4 ML SYRINGE SQ SCH (08:20)
[2017-05-10] MEDS: METOPROLOL TARTRATE 50 MG TAB PO SCH ×2 (08:20→21:13)
[2017-05-10] MEDS: SODIUM CHLORIDE 0.9% FLUSH 10 ML FLUSH IV FLUSH SCH ×2 (08:21→21:14)
[2017-05-10] MEDS: CLOPIDOGREL 75 MG TAB PO SCH (08:21)
[2017-05-10] MEDS: POTASSIUM CHLORIDE 20 MEQ CONTROLLED RELEASE TAB PO SCH (08:21)
[2017-05-10] MEDS: LISINOPRIL 5 MG TAB PO SCH (08:21)
[2017-05-10] MEDS: ATORVASTATIN 80 MG TAB PO SCH (08:21)
[2017-05-10] MEDS ORDERED: CHLORHEXIDINE GLUCONATE 2 % 1 PACK (2 CLOTHS)(extra cloths) TOPICAL PRN (09:00)
[2017-05-10] MEDS ORDERED: ACETAMINOPHEN/HYDROcodone 325 MG/5 MG TAB PO PRN (09:00)
[2017-05-10] MEDS ORDERED: ACETAMINOPHEN 325 MG TAB PO PRN (09:00)
[2017-05-10] MEDS: ACETAMINOPHEN/HYDROcodone 325 MG/7.5 MG TAB PO PRN ×2 (09:15→14:54)
[2017-05-10] MEDS: RANOLAZINE 500 MG EXTENDED RELEASE TAB PO SCH ×2 (09:35→21:13)
--- NOTE | 2017-05-10 10:00 | EKG ---
Date Performed: 05/10/2017 Time Performed: 03:52:36 PTAGE: 61 years EKG: Sinus rhythm POSSIBLE LEFT ATRIAL ENLARGEMENT LEFT AXIS DEVIATION RIGHT BUNDLE BRANCH BLOCK ANTERIOR MYOCARDIAL I NFARCTION LATERAL ST/T ABNORMALITY, CONSIDER ISCHEMIA ABNORMAL ECG PREVIOUS TRACING : 04/22/2017 04.49 No significant change from previous tracing noted. DOCTOR: Ted Good Interpretating Date/Time 05/10/2017 09:59:10
[2017-05-10] MEDS: INSULIN ASPART SUPPLEMENTAL SCALE SQ SCH ×3 (11:00→21:00)
--- NOTE | 2017-05-10 11:16 | MB ---
cc: SHANNON GONZALEZ MD DATE OF CONSULTATION 05/10/2017 REASON FOR CONSULTATION This is a 61-year-old woman who was admitted to the hospital with shortness of breath and chest pressure. She has a history of ischemic cardiomyopathy with catheterization done in February of this year showing severe and diffuse coronary disease. Because of the diffuse nature of her disease, she was really not a candidate for mechanical intervention either percutaneously or surgically, although a suggestion of possible surgical intervention with TMR could be considered if she continues to have ischemia. In any event, she was episodes of angina several times a day, but last night became acutely short of breath. This is associated with chest tightness which has persisted since last night, although somewhat better after having received sublingual nitroglycerin. Chest x-ray does show evidence for increased fluid retention and Lasix has been given to her. I am not sure of her medications at home, but according to our office records , Lasix has not been a part of her regimen previously. Her medications at home have included: 1. Metoprolol 50 mg twice a day 2. Isosorbide 60 mg daily 3. Lisinopril 5 mg daily 4. Metformin 500 mg daily 5. Potassium 20 mEq daily 6. Supposedly Lasix 40 daily 7. She also been on Plavix 75 daily. 8. Atorvastatin 80 mg daily 9. Aspirin 81 daily SOCIAL HISTORY Significant for tobacco use. She notes that she quit last week, but was former heavy smoker and has been for many years. She does not use recreational drugs. ALLERGIES BEES AND ADHESIVES PHYSICAL EXAM On subsequent exam, she is awake and alert. VITAL SIGNS: Her blood pressure is 148/98. NECK: There is no neck vein distension. LUNGS: Reveal crackles in both bases. There are no wheezes or rhonchi. CARDIOVASCULAR: Exam reveals a regular rate and rhythm with no murmur or gallop. ABDOMEN: Soft. There is no tenderness or organomegaly. EXTREMITIES: Reveal no edema. ASSESSMENT The patient has evidence for congestive failure. Certainly agree with beginning her Lasix therapy. I do note that her ejection fraction was approximately 40% by echo in February. If her blood pressure continues to be elevated, she may benefit from increasing her lisinopril. I certainly agree with adding Ranexa to her regimen to help control her chest discomfort. MD JENI Palmer/KENNY /11:05 AM /11:15 AM
--- NOTE | 2017-05-10 11:56 | EKG ---
Date Performed: 05/10/2017 Time Performed: 09:42:39 PTAGE: 61 years EKG: Sinus rhythm LEFT ATRIAL ENLARGEMENT LEFT AXIS DEVIATION RIGHT BUNDLE BRANCH BLOCK ANTERIOR MYOCARDIAL INFARCTION , PROBABLY OLD ABNORMAL ECG PREVIOUS TRACING : 05/10/2017 03.52 Compared to previous tracing, lateral ST/T changes have imp roved. DOCTOR: Ted Good Interpretating Date/Time 05/10/2017 11:55:21
[2017-05-10] MEDS ORDERED: FUROSEMIDE 40 MG/4 ML VIAL IV PUSH SCH (18:00)
[2017-05-11] VITALS (18 sets, daily range): BP systolic 92–151; BP diastolic 51–91; PULSE 56–101; RESP 15–23; TEMP 98.4–98.6; O2SAT 93–100
[2017-05-11] MEDS ORDERED: CHLORHEXIDINE GLUCONATE 2 % 1 PACK (2 CLOTHS)(taper/protocol) TOPICAL SCH (04:00)
[2017-05-11 06:03] LABS: AUTOMATED NEUTROPHIL # 3.4 TH/MM3 (1.8-7.7); BASOPHIL % 0.2 % (0.0-2.0); EOSINOPHIL # 0.1 TH/MM3 (0-0.4); EOSINOPHIL % 1.5 % (0.0-4.0); HEMATOCRIT 38.2 % (35.0-46.0); HEMO FLAGS DIFF FINAL; LYMPH % 33.3 % (9.0-44.0); LYMPHOCYTE # 1.9 TH/MM3 (1.0-4.8); MEAN CELL VOLUME 89.5 FL (80.0-100.0); MEAN CORPUSCULAR HEMOGLOBIN 29.9 PG (27.0-34.0); MEAN CORPUSCULAR HGB CONC 33.4 % (32.0-36.0); MONO % 6.9 % (0.0-8.0); NEUT % 58.1 % (16.0-70.0); PLATELET COUNT 212 TH/MM3 (150-450); RED BLOOD COUNT 4.27 MIL/MM3 (4.00-5.30); RED CELL DISTRIBUTION WIDTH 13.9 % (11.6-17.2); WHITE BLOOD COUNT 5.8 TH/MM3 (4.0-11.0)
[2017-05-11 06:22] LABS: BICARBONATE 26.6 MEQ/L (21.0-32.0); POTASSIUM 3.6 MEQ/L (3.5-5.1)
[2017-05-11] MEDS: INSULIN ASPART SUPPLEMENTAL SCALE SQ SCH ×4 (07:00→20:21)
--- NOTE | 2017-05-11 07:56 | PD.CARD.PN ---
Subjective Subjective Remarks Feels much better. Chest pressure resolved. Excellent diuresis. Renal function improved Objective Vital Signs / I&O Vital Signs Date Time Temp Pulse Resp B/P Pulse Ox O2 Delivery O2 Flow Rate FiO2 05/11/17 07:43 100 21 05/11/17 05:00 67 19 95 05/11/17 05:00 67 05/11/17 04:02 71 22 112/66 95 05/11/17 04:02 71 05/11/17 04:00 65 05/11/17 04:00 98.5 65 19 93 05/11/17 03:00 69 19 93 05/11/17 03:00 69 05/11/17 02:01 66 05/11/17 02:01 66 15 103/55 97 05/11/17 02:00 63 05/11/17 02:00 63 20 95 05/11/17 01:00 56 15 96 05/11/17 01:00 56 05/11/17 00:00 60 05/11/17 00:00 98.5 60 23 96 05/10/17 23:00 60 05/10/17 23:00 60 11 93 05/10/17 22:00 66 15 91 05/10/17 22:00 66 05/10/17 21:00 60 22 92 05/10/17 21:00 60 05/10/17 20:06 78 21 133/74 97 05/10/17 20:06 78 05/10/17 20:00 98.6 69 23 96 05/10/17 20:00 69 05/10/17 20:00 96 21 05/10/17 19:00 79 05/10/17 19:00 79 22 97 05/10/17 18:00 73 05/10/17 18:00 73 19 96 05/10/17 17:00 77 30 95 05/10/17 17:00 77 05/10/17 16:09 74 05/10/17 16:00 98.4 64 13 125/78 90 05/10/17 16:00 64 05/10/17 15:00 68 05/10/17 14:00 79 05/10/17 13:00 76 05/10/17 12:00 98.6 72 20 122/69 96 05/10/17 12:00 70 05/10/17 11:18 73 05/10/17 11:00 77 05/10/17 10:00 68 05/10/17 09:00 81 05/10/17 08:00 78 05/10/17 08:00 98.6 78 21 137/86 95 I/O 05/10/17 05/10/17 05/10/17 05/11/17 05/11/17 05/11/17 07:00 15:00 23:00 07:00 15:00 23:00 Intake Total 720 ml 240 ml 240 ml Output Total 600 ml 1625 ml 2050 ml 625 ml Balance -600 ml -905 ml -1810 ml -385 ml Intake Oral 720 ml 240 ml 240 ml IV Total 0 ml 0 ml 0 ml Output Urine Total 600 ml 1625 ml 2050 ml 625 ml Stool Total 0 ml # Voids 4 2 # Bowel Movements 0 0 Physical Exam Lungs clear RRR Laboratory Laboratory Tests Test 05/10/17 05/10/17 05/10/17 05/11/17 08:30 10:18 15:15 05:24 Nasal Screen MRSA (PCR) MRSA NOT DETECTED Total Creatine Kinase 47 U/L 100 U/L Troponin I 0.07 NG/ML 0.07 NG/ML White Blood Count 5.8 TH/MM3 Red Blood Count 4.27 MIL/MM3 Hemoglobin 12.8 GM/DL Hematocrit 38.2 % Mean Corpuscular Volume 89.5 FL Mean Corpuscular Hemoglobin 29.9 PG Mean Corpuscular Hemoglobin 33.4 % Concent Red Cell Distribution Width 13.9 % Platelet Count 212 TH/MM3 Mean Platelet Volume 8.8 FL Neutrophils (%) (Auto) 58.1 % Lymphocytes (%) (Auto) 33.3 % Monocytes (%) (Auto) 6.9 % Eosinophils (%) (Auto) 1.5 % Basophils (%) (Auto) 0.2 % Neutrophils # (Auto) 3.4 TH/MM3 Lymphocytes # (Auto) 1.9 TH/MM3 Monocytes # (Auto) 0.4 TH/MM3 Eosinophils # (Auto) 0.1 TH/MM3 Basophils # (Auto) 0.0 TH/MM3 CBC Comment DIFF FINAL Differential Comment Sodium Level 139 MEQ/L Potassium Level 3.6 MEQ/L Chloride Level 102 MEQ/L Carbon Dioxide Level 26.6 MEQ/L Anion Gap 10 MEQ/L Blood Urea Nitrogen 20 MG/DL Creatinine 0.91 MG/DL Estimat Glomerular Filtration 63 ML/MIN Rate Random Glucose 132 MG/DL Calcium Level 8.8 MG/DL Assessment and Plan Assessment and Plan CHF resolved. Suspect her chest pain was secondary to fluid overload.Will hold ranexa. Convert to p.o. lasix. Probably home tomorrow Juan Luis Pike MD May 11, 2017 07:56
[2017-05-11] MEDS: ISOSORBIDE MONONITRATE 60 MG TAB PO SCH (08:11)
[2017-05-11] MEDS: ATORVASTATIN 80 MG TAB PO SCH (08:11)
[2017-05-11] MEDS: CLOPIDOGREL 75 MG TAB PO SCH (08:11)
[2017-05-11] MEDS: ENOXAPARIN SODIUM 40 MG/0.4 ML SYRINGE SQ SCH (08:11)
[2017-05-11] MEDS: POTASSIUM CHLORIDE 20 MEQ CONTROLLED RELEASE TAB PO SCH (08:12)
[2017-05-11] MEDS: LISINOPRIL 5 MG TAB PO SCH (08:12)
[2017-05-11] MEDS: METOPROLOL TARTRATE 50 MG TAB PO SCH ×2 (08:12→20:21)
[2017-05-11] MEDS: ASPIRIN 81 MG CHEW TAB PO SCH (08:26)
[2017-05-11] MEDS: FUROSEMIDE 40 MG TAB PO SCH ×2 (09:00→17:36)
[2017-05-11] MEDS ORDERED: PNEUMOCOCCAL POLYVALENT INJ 25 MCG/0.5 ML SYR IM ONE (09:00)
[2017-05-11] MEDS ORDERED: ATORVASTATIN 80 MG TAB PO SCH (09:00)
[2017-05-11] MEDS: SODIUM CHLORIDE 0.9% FLUSH 10 ML FLUSH IV FLUSH SCH ×2 (09:00→20:21)
[2017-05-11] MEDS ORDERED: INFLUENZA VIRUS VACCINE (QUADRIVALENT) 0.5 ML SYR IM ONE (10:00)
--- NOTE | 2017-05-11 13:50 | EKG ---
Date Performed: 05/10/2017 Time Performed: 17:56:52 PTAGE: 61 years EKG: Sinus rhythm POSSIBLE LEFT ATRIAL ENLARGEMENT MARKED LEFT AXIS DEVIATION INCOMPLETE RIGHT BUNDLE BRANCH BLOCK ANT EROSEPTAL MYOCARDIAL INFARCTION , OF INDETERMINATE AGE ABNORMAL ECG Compared to prior tracing no sign ificant change PREVIOUS TRACING : 05/10/2017 09.42 DOCTOR: Giuliana Ledesma Interpretating Date/Time 05/11/2017 13:44:24
--- NOTE | 2017-05-11 23:58 | HHI.PR ---
Subjective Remarks patient seen today around 2:30 PM. Says she is feeling all right. Denies any chest pain or shortness of breath currently. We discussed daily weights, moderate fluid restriction of 2 L going home. Objective Vital Signs Date Time Temp Pulse Resp B/P Pulse Ox O2 Delivery O2 Flow Rate FiO2 05/11/17 20:00 76 05/11/17 20:00 98.4 76 18 130/75 96 05/11/17 16:00 69 05/11/17 16:00 98.6 69 19 138/78 93 05/11/17 12:00 98.5 68 19 138/78 93 05/11/17 12:00 69 05/11/17 08:00 69 05/11/17 08:00 98.6 69 19 151/83 93 05/11/17 07:43 100 21 05/11/17 05:00 67 19 95 05/11/17 05:00 67 05/11/17 04:02 71 22 112/66 95 05/11/17 04:02 71 05/11/17 04:00 65 05/11/17 04:00 98.5 65 19 93 05/11/17 03:00 69 19 93 05/11/17 03:00 69 05/11/17 02:01 66 05/11/17 02:01 66 15 103/55 97 05/11/17 02:00 63 05/11/17 02:00 63 20 95 05/11/17 01:00 56 15 96 05/11/17 01:00 56 05/11/17 00:00 60 05/11/17 00:00 98.5 60 23 96 I/O 05/10/17 05/10/17 05/10/17 05/11/17 05/11/17 05/11/17 07:00 15:00 23:00 07:00 15:00 23:00 Intake Total 720 ml 240 ml 240 ml 380 ml 240 ml Output Total 600 ml 1625 ml 2050 ml 625 ml 650 ml 1000 ml Balance -600 ml -905 ml -1810 ml -385 ml -270 ml -760 ml Intake Oral 720 ml 240 ml 240 ml 380 ml 240 ml IV Total 0 ml 0 ml 0 ml Output Urine Total 600 ml 1625 ml 2050 ml 625 ml 650 ml 1000 ml Stool Total 0 ml # Voids 4 2 # Bowel Movements 0 0 0 Result Diagram: 05/11/1724 05/11/1724 Objective Remarks GENERAL: patient sitting up in bed. Appears comfortable. Alert and oriented 3. SKIN: Warm and dry. HEAD: Normocephalic. EYES: No scleral icterus. No injection or drainage. NECK: Supple, trachea midline. No JVD. CARDIOVASCULAR: Regular rate and rhythm without murmurs, gallops, or rubs. RESPIRATORY: Breath sounds equal bilaterally. No accessory muscle use. GASTROINTESTINAL: Abdomen soft, non-tender, nondistended. MUSCULOSKELETAL: No cyanosis, or edema. BACK: Nontender without obvious deformity. No CVA tenderness. A/P Assessment and Plan ===05/11/17 -Fluid overload improved after diuresis. Appreciate cardiology assistance. Medications adjusted by cardiology. Discussed fluid restrictions of 2 L, daily weights at home. Continue medications as per cardiology. Likely discharge tomorrow if stable. //acute on chronic chf -Fluid overload improved after diuresis. Appreciate cardiology assistance. Medications adjusted by cardiology. Discussed fluid restrictions of 2 L, daily weights at home. Continue medications as per cardiology. Likely discharge tomorrow if stable. //medication non compliance? -patient cannot recall the names and doses of her medications. --Patient would benefit from close monitoring of medications, as well as a daily CHF regimen of daily weights and moderate fluid restrictions prevent recurrence. -Continue medications as per cardiology. Follow-up electrolytes. //Chronic tobacco abuse and possible underlying COPD. Cessation strongly advised DVT prophylaxis. Lovenox. Discharge Planning likely discharge home tomorrow if stable. Jose F Thomas MD May 11, 2017 23:58
[2017-05-12] VITALS (18 sets, daily range): BP systolic 103–114; BP diastolic 63–70; PULSE 62–90; RESP 18; TEMP 97.7–99; O2SAT 96–100
[2017-05-12 04:46] LABS: AUTOMATED NEUTROPHIL # 3.2 TH/MM3 (1.8-7.7); BASOPHIL % 0.3 % (0.0-2.0); EOSINOPHIL # 0.1 TH/MM3 (0-0.4); EOSINOPHIL % 1.3 % (0.0-4.0); HEMO FLAGS DIFF FINAL; LYMPH % 37.5 % (9.0-44.0); LYMPHOCYTE # 2.2 TH/MM3 (1.0-4.8); MEAN CELL VOLUME 88.1 FL (80.0-100.0); MEAN CORPUSCULAR HEMOGLOBIN 30.8 PG (27.0-34.0); MEAN CORPUSCULAR HGB CONC 34.9 % (32.0-36.0); MONO % 6.9 % (0.0-8.0); PLATELET COUNT 220 TH/MM3 (150-450); RED CELL DISTRIBUTION WIDTH 14.1 % (11.6-17.2)
[2017-05-12 05:08] LABS: BICARBONATE 28.1 MEQ/L (21.0-32.0); POTASSIUM 3.7 MEQ/L (3.5-5.1)
[2017-05-12] MEDS: ISOSORBIDE MONONITRATE 60 MG TAB PO SCH (06:46)
[2017-05-12] MEDS: INSULIN ASPART SUPPLEMENTAL SCALE SQ SCH ×2 (06:49→11:00)
[2017-05-12] MEDS: ENOXAPARIN SODIUM 40 MG/0.4 ML SYRINGE SQ SCH (08:50)
[2017-05-12] MEDS: POTASSIUM CHLORIDE 20 MEQ CONTROLLED RELEASE TAB PO SCH (08:50)
[2017-05-12] MEDS: ATORVASTATIN 80 MG TAB PO SCH (08:51)
[2017-05-12] MEDS: CLOPIDOGREL 75 MG TAB PO SCH (08:51)
[2017-05-12] MEDS: SODIUM CHLORIDE 0.9% FLUSH 10 ML FLUSH IV FLUSH SCH (08:51)
[2017-05-12] MEDS: METOPROLOL TARTRATE 50 MG TAB PO SCH (08:51)
[2017-05-12] MEDS: FUROSEMIDE 40 MG TAB PO SCH (08:51)
[2017-05-12] MEDS: ASPIRIN 81 MG CHEW TAB PO SCH (08:51)
[2017-05-12] MEDS: LISINOPRIL 5 MG TAB PO SCH (08:51)
[2017-05-12] MEDS ORDERED: LISI-519 PO (12:40)
[2017-05-12] MEDS ORDERED: FURO40TA PO (12:40)
[2017-05-12] MEDS ORDERED: ISOS60TA PO (12:40)
[2017-05-12] MEDS ORDERED: POTA-163 PO (12:40)
--- NOTE | 2017-05-15 08:51 | HHI.DS ---
Discharge Summary Admission Date May 10, 2017 at 05:25 Discharge Date: May 12, 2017 Admitting Diagnosis chest pain/shortness of breath/CHF Brief History - From Admission sob 2 days chest pain with neck radiation no fever or cough was nauseaous no vomiting no blood in stool or urine on blood thinners not on oxygen at home no nebs at home not sure of her meds thinks she takes lasix, but not sure dr yang called in some meds, but has not picked up yet no falls no syncope no urine symptonms CBC/BMP: 05/12/17 0409 05/12/17408 Imaging Last Impressions Chest X-Ray 05/10/17401 Signed Impressions: Service Date/Time: Monday, May 10, 2017 04:23 - CONCLUSION: Mild infiltrate of both lung bases. Dawood Beaulieu MD Hospital Course ===05/11/17 -Fluid overload improved after diuresis. Appreciate cardiology assistance. Medications adjusted by cardiology. Discussed fluid restrictions of 2 L, daily weights at home. Continue medications as per cardiology. Likely discharge tomorrow if stable. //acute on chronic chf -Fluid overload improved after diuresis. Appreciate cardiology assistance. Medications adjusted by cardiology. Discussed fluid restrictions of 2 L, daily weights at home. Continue medications as per cardiology. Likely discharge tomorrow if stable. //medication non compliance? -patient cannot recall the names and doses of her medications. --Patient would benefit from close monitoring of medications, as well as a daily CHF regimen of daily weights and moderate fluid restrictions prevent recurrence. -Continue medications as per cardiology. Follow-up electrolytes. //Chronic tobacco abuse and possible underlying COPD. Cessation strongly advised DVT prophylaxis. Lovenox. Pt Condition on Discharge: Good Discharge Disposition: Discharge Home Discharge Time: > 30 minutes Discharge Instructions DIET: Follow Instructions for: Diabetic Diet, Low Sodium Diet Fluid Restrictions: 2 Liters Activities you can perform: Regular-No Restrictions Other Activity Instructions: perform daily weights as directed. If weight goes up by more than 3 pounds in 2 days or 5 pounds in a week, please call primary care or cardiology. Follow up Referrals: Cardiology - 1 Week PCP Follow-up - 1 Week with Juan Luis Yang MD Continued Medications: Atorvastatin (Atorvastatin) 80 Mg Tab 80 MG PO DAILY cad #30 Ref 3 TAB Clopidogrel (Plavix) 75 Mg Tab 75 MG PO DAILY cad #30 Ref 3 TAB Furosemide (Furosemide) 40 Mg Tab 40 MG PO DAILY Prevent Heart Failure #30 Ref 3 TAB (This prescription has been renewed) Glipizide (Glipizide) 5 Mg Tab 5 MG PO BIDAC Take 30 minutes before a meal Blood Sugar Management #60 Ref 3 TAB Isosorbide Mononitrate ER (Isosorbide Mononitrate ER) 60 Mg Tab 60 MG PO DAILY@07 Blood Pressure Management #30 TAB (This prescription has been renewed) Lisinopril (Lisinopril) 5 Mg Tab 5 MG PO DAILY cad #30 Ref 3 TAB (This prescription has been renewed) Metformin (Glucophage) 500 Mg Tab 500 MG PO BIDPC diabetes #60 Ref 3 TAB Metoprolol Tartrate (Lopressor) 50 Mg Tab 50 MG PO Q12HR cad #60 Ref 3 TAB Potassium Chloride ER (Potassium Chloride ER) 20 Meq Tab 20 MEQ PO DAILY Electrolyte Replacement #30 Ref 0 TAB (This prescription has been renewed) ([Aspirin Chew]) 81 MG CHEW 81 MG PO DAILY cad #30 Ref 0 TAB.CHEW Discontinued Medications: Ranolazine ER 12 HR (Ranexa ER 12 HR) 500 Mg Tab 500 MG PO Q12HR Regulate Heart Beat #60 Ref 3 TAB Jose F Thomas MD May 15, 2017 08:51
== END 2017-05-12 17:00 | disposition home or self-care (01) | DRG 293 ==
LOC: NEPC 03:42 → NEDA 05:25 → HIMW 08:00 → HIME 13:45 → HCIS 05-11 20:50
PROVIDERS: ADMIT Internal Medicine; ATTEND Internal Medicine
PROC: 5A09357 Assistance with Respiratory Ventilation, Less than 24 Consecutive Hours, Continuous Positive Airway Pressure (ICD-10-PCS; principal; 2017-05-10)
DX: I11.0 Hypertensive heart disease with heart failure (principal); E11.9 Type 2 diabetes mellitus without complications; I50.9 Heart failure, unspecified; I25.2 Old myocardial infarction; I45.10 Unspecified right bundle-branch block; Z87.891 Personal history of nicotine dependence; Z86.73 Personal history of transient ischemic attack (TIA), and cerebral infarction without residual deficits; I25.119 Atherosclerotic heart disease of native coronary artery with unspecified angina pectoris; Z95.5 Presence of coronary angioplasty implant and graft; I25.5 Ischemic cardiomyopathy; Z79.02 Long term (current) use of antithrombotics/antiplatelets; Z79.82 Long term (current) use of aspirin; Z79.84 Long term (current) use of oral hypoglycemic drugs; Z79.899 Other long term (current) drug therapy
CPT/HCPCS: 71010; 80048; 80053; 82550; 83690; 83735; 83880; 84484; 85025; 85610; 85730; 87641; 93005; 94002; J1650; J1815; J1940

== ENCOUNTER 2017-09-26 22:13 | Observation (INO) | payer SELFPAY ==
[~2017-09-26] VITALS: Ht 160 cm; Wt 68.0 kg
[~2017-09-26 22:13] MED LIST changes: +ASPI81CH25 PO; -ATOR1TAB18 PO; +ATOR80TA45 PO; -Aspirin Chew PO; -FURO40TA PO; -GLIP5 PO; +HYDR-3516 PO; -METF500 PO; -POTA-163 PO; -RANO500 PO; +ZANT150T2 PO
[2017-09-26 22:16] VITALS: BP 140/77; PULSE 70; RESP 18; TEMP 97.6; O2SAT 100
[2017-09-26] MEDS ORDERED: MORPHINE SULFATE 4 MG/ML INJ IV PUSH ONE (22:45)
[2017-09-26] MEDS ORDERED: ONDANSETRON HCL 4 MG/2 ML VIAL IVP ONE (22:45)
[2017-09-26 23:00] VITALS: PULSE 67; RESP 16; O2SAT 98
--- NOTE | 2017-09-26 23:07 | PD ---
HPI Chief Complaint: Abdominal Pain Time Seen by Provider: 22:44 Travel History International Travel<30 days: No Contact w/Intl Traveler<30days: No Traveled to known affect area: No History of Present Illness HPI PATIENT DOES NOT HAVE A PCP. PATIENT C/O ABD PAIN, ONSET 6PM, EPIG/LUQ, NONRAD , 06/29, ASSOC N/V, 2 STENTS AND DM HX PFSH Past Medical History Arthritis: Yes (HANDS) Asthma: No Autoimmune Disease: No Blood Disorders: No Anxiety: No Depression: No Heart Rhythm Problems: No Cancer: No Cardiac Catheterization: Yes Cardiovascular Problems: Yes High Cholesterol: Yes Chest Pain: Yes Congestive Heart Failure: Yes COPD: No Cerebrovascular Accident: Yes (TIA x 1) Diabetes: Yes Patient Takes Glucophage: Yes Diminished Hearing: No Endocrine: Yes Gastrointestinal Disorders: Yes GERD: Yes Genitourinary: Yes Headaches: Yes Hiatal Hernia: No Hypertension: Yes Immune Disorder: No Implanted Vascular Access Dvce: No Kidney Stones: No Musculoskeletal: Yes Neurologic: Yes Psychiatric: No Reproductive: No Respiratory: Yes Migraines: No Myocardial Infarction: Yes Renal Failure: No Seizures: No Sickle Cell Disease: No Sleep Apnea: No Thyroid Disease: No Ulcer: No Tetanus Vaccination: Unknown Influenza Vaccination: Yes : 8 Para: 7 Miscarriage: 1 Past Surgical History Abdominal Surgery: No Cardiac Surgery: Yes (CARDIAC CATH 03/06, STENT TEN YRS AGO) Coronary Stent: Yes Ear Surgery: No Endocrine Surgery: No Eye Surgery: Yes (cataracts surgery bilat eyes) Genitourinary Surgery: No Gynecologic Surgery: No Oral Surgery: Yes (T&A) Thoracic Surgery: No Tonsillectomy: Yes Other Surgery: Yes (tonsillectomy 1966) Social History Alcohol Use: Yes (rarely ) Tobacco Use: Yes (1-2 cigarettes per day) Substance Use: No Allergies-Medications (Allergen,Severity, Reaction): Coded Allergies: bee venom protein (honey bee) (Unverified Allergy, Severe, UNKNOWN, ) adhesive (Unverified Allergy, Mild, REDNESS, 09/26/17) Reported Meds & Prescriptions Reported Meds & Active Scripts Active Hydrocodone-Acetaminophen 5-325 mg Tab 1 Tab PO Q6H PRN Aspirin Low Strength (Aspirin) 81 Mg Chew 162 Mg PO DAILY Zantac (Ranitidine HCl) 150 Mg Tab 150 Mg PO BID Isosorbide Mononitrate ER (Isosorbide Mononitrate) 60 Mg Tab 60 Mg PO DAILY@07 Lisinopril 5 Mg Tab 5 Mg PO DAILY Glipizide 5 Mg Tab 5 Mg PO BIDAC Take 30 minutes before a meal Lopressor (Metoprolol Tartrate) 50 Mg Tab 50 Mg PO Q12HR Plavix (Clopidogrel Bisulfate) 75 Mg Tab 75 Mg PO DAILY Atorvastatin (Atorvastatin Calcium) 80 Mg Tab 80 Mg PO DAILY Review of Systems Except as stated in HPI: all other systems reviewed are Neg General / Constitutional: No: Fever Eyes: No: Visual changes HENT: No: Headaches Cardiovascular: No: Chest Pain or Discomfort Respiratory: No: Shortness of Breath Gastrointestinal: Positive: Nausea, Abdominal Pain Genitourinary: No: Dysuria Musculoskeletal: No: Pain Skin: No Rash Neurologic: No: Weakness Psychiatric: No: Depression Endocrine: No: Polydipsia Hematologic/Lymphatic: No: Easy Bruising Physical Exam Narrative GENERAL: SKIN: Warm and dry. HEAD: Atraumatic. Normocephalic. EYES: Pupils equal and round. No scleral icterus. No injection or drainage. ENT: No nasal bleeding or discharge. Mucous membranes pink and moist. NECK: Trachea midline. No JVD. CARDIOVASCULAR: Regular rate and rhythm. RESPIRATORY: No accessory muscle use. Clear to auscultation. Breath sounds equal bilaterally. GASTROINTESTINAL: Abdomen soft, EPIG/LUQ MILD TTP, nondistended. MUSCULOSKELETAL: Extremities without clubbing, cyanosis, or edema. No obvious deformities. NEUROLOGICAL: Awake and alert. No obvious cranial nerve deficits. Motor grossly within normal limits. Five out of 5 muscle strength in the arms and legs. Normal speech. PSYCHIATRIC: Appropriate mood and affect; insight and judgment normal. Data Data Last Documented VS Vital Signs Date Time Temp Pulse Resp B/P (MAP) Pulse Ox O2 Delivery O2 Flow Rate FiO2 09/26/17 23:00 67 16 98 09/26/17 22:16 97.6 Orders Orders Electrocardiogram (09/26/17 22:45) Complete Blood Count With Diff (09/26/17 22:45) Comprehensive Metabolic Panel (09/26/17 22:45) Ckmb (Isoenzyme) Profile (09/26/17 22:45) Troponin I (09/26/17 22:45) B-Type Natriuretic Peptide (09/26/17 22:45) Prothrombin Time / Inr (Pt) (09/26/17 22:45) Act Partial Throm Time (Ptt) (09/26/17 22:45) Lipase (09/26/17 22:45) Chest, Single Ap (09/26/17 22:45) Ct Abd/Pel W/O Iv Contrast (09/26/17 22:45) Iv Access Insert/Monitor (09/26/17 22:45) Ecg Monitoring (09/26/17 22:45) Oximetry (09/26/17 22:45) Morphine Inj (Morphine Inj) (09/26/17 22:45) Ondansetron Inj (Zofran Inj) (09/26/17 22:45) CKMB (09/26/17 23:05) CKMB% (09/26/17 23:05) Labs Laboratory Tests Test 09/26/17 23:05 White Blood Count 9.2 TH/MM3 Red Blood Count 4.03 MIL/MM3 Hemoglobin 12.7 GM/DL Hematocrit 37.3 % Mean Corpuscular Volume 92.4 FL Mean Corpuscular Hemoglobin 31.4 PG Mean Corpuscular Hemoglobin Concent 34.0 % Red Cell Distribution Width 13.9 % Platelet Count 272 TH/MM3 Mean Platelet Volume 8.3 FL Neutrophils (%) (Auto) 68.7 % Lymphocytes (%) (Auto) 23.6 % Monocytes (%) (Auto) 5.9 % Eosinophils (%) (Auto) 1.0 % Basophils (%) (Auto) 0.8 % Neutrophils # (Auto) 6.3 TH/MM3 Lymphocytes # (Auto) 2.2 TH/MM3 Monocytes # (Auto) 0.5 TH/MM3 Eosinophils # (Auto) 0.1 TH/MM3 Basophils # (Auto) 0.1 TH/MM3 CBC Comment DIFF FINAL Differential Comment Prothrombin Time 10.0 SEC Prothromb Time International Ratio 0.9 RATIO Activated Partial Thromboplast Time 24.7 SEC Blood Urea Nitrogen 12 MG/DL Creatinine 1.28 MG/DL Random Glucose 172 MG/DL Total Protein 7.4 GM/DL Albumin 3.9 GM/DL Calcium Level 9.1 MG/DL Alkaline Phosphatase 88 U/L Aspartate Amino Transf (AST/SGOT) 25 U/L Alanine Aminotransferase (ALT/SGPT) 22 U/L Total Bilirubin 0.6 MG/DL Sodium Level 134 MEQ/L Potassium Level MEQ/L Chloride Level 97 MEQ/L Carbon Dioxide Level 27.6 MEQ/L Anion Gap 9 MEQ/L Estimat Glomerular Filtration Rate 43 ML/MIN Total Creatine Kinase 103 U/L Creatine Kinase MB 2.3 NG/ML Troponin I 0.04 NG/ML B-Type Natriuretic Peptide 240 PG/ML Lipase 153 U/L MDM Medical Decision Making Medical Screen Exam Complete: Yes Emergency Medical Condition: Yes Medical Record Reviewed: Yes Interpretation(s) NSR 64, LAE, IRBBB, INVERTED T WAVE ON V1-V3...NO STEMI PATTERN Differential Diagnosis PANCREATITIS V STEMI V NONSTEMI V BILIARY COLIC Narrative Course no e/o pancreatitis, no stemi on ekg however with dm/htn/ and inverted t waves will admit to [facility] r/o atypical nonstemi presentation specially after patient was stented in august of this year Diagnosis Primary Impression: atypical chest pain Admitting Information Admitting Physician Requests: Observation Femi Auguste MD Sep 26, 2017 23:06
--- NOTE | 2017-09-26 23:12 | RADRPT ---
EXAM DATE/TIME: 09/26/2017 23:00 [facility] COMPARISON: CHEST SINGLE AP, September 12, 2017, 4:43. INDICATIONS : Lower chest and upper abdomen pain. MEDICAL HISTORY : Hypertension. Diabetes mellitus type II. Stroke. COPD. SURGICAL HISTORY : None. ENCOUNTER: Initial ACUITY: 3 days PAIN SCORE: 10/10 LOCATION: Bilateral chest FINDINGS: The cardiac silhouette is enlarged in transverse diameter. The lungs are free of acute parenchymal op acity. No effusions are identified. CONCLUSION: 1. Cardiomegaly. No acute pulmonary disease. Juan Luis Delacruz MD on September 26, 2017 at 23:10 Board Certified Radiologist. This report was verified electronically.
[2017-09-26 23:23] LABS: AUTOMATED NEUTROPHIL # 6.3 TH/MM3 (1.8-7.7); BASOPHIL # 0.1 TH/MM3 (0-0.2); BASOPHIL % 0.8 % (0.0-2.0); EOSINOPHIL # 0.1 TH/MM3 (0-0.4); HEMATOCRIT 37.3 % (35.0-46.0); HEMO FLAGS DIFF FINAL; LYMPH % 23.6 % (9.0-44.0); LYMPHOCYTE # 2.2 TH/MM3 (1.0-4.8); MEAN CELL VOLUME 92.4 FL (80.0-100.0); MEAN CORPUSCULAR HEMOGLOBIN 31.4 PG (27.0-34.0); MONO % 5.9 % (0.0-8.0); NEUT % 68.7 % (16.0-70.0); PLATELET COUNT 272 TH/MM3 (150-450); RED BLOOD COUNT 4.03 MIL/MM3 (4.00-5.30); RED CELL DISTRIBUTION WIDTH 13.9 % (11.6-17.2); WHITE BLOOD COUNT 9.2 TH/MM3 (4.0-11.0)
[2017-09-26 23:33] LABS: APTT (PATIENT) 24.7 SEC (24.3-30.1); INTERNATIONAL NORMALIZED RATIO 0.9 RATIO
[2017-09-27] VITALS (10 sets, daily range): BP systolic 93–125; BP diastolic 50–84; PULSE 59–74; RESP 16–18; TEMP 97.5–98.3; O2SAT 97–99
[2017-09-27 00:10] LABS: ALKALINE PHOSPHATASE 88 U/L (45-117); ALT (GPT) 22 U/L (10-53); ANION GAP 9 MEQ/L (5-15); AST (GOT) 25 U/L (15-37); BICARBONATE 27.6 MEQ/L (21.0-32.0); BLOOD UREA NITROGEN 12 MG/DL (7-18); CHLORIDE 97 MEQ/L (98-107); CREATINE KINASE 103 U/L (26-192); GLOMERULAR FILTRATION RATE 43 ML/MIN (>89); SODIUM (NA) 134 MEQ/L (136-145); TOTAL BILIRUBIN ADULT 0.6 MG/DL (0.2-1.0)
--- NOTE | 2017-09-27 00:10 | RADRPT ---
EXAM DATE/TIME: 09/26/2017 23:40 [facility] COMPARISON: CT ABDOMEN & PELVIS W/O CONTRAST, September 12, 2017, 4:37. INDICATIONS : Left upper quadrant pain. ORAL CONTRAST: No oral contrast ingested. RADIATION DOSE: 9.03 CTDIvol (mGy) MEDICAL HISTORY : Hypertension. Pancreatitis. Gastroesophageal reflux disease.CVA. [place]. CHF. Diabetes. SURGICAL HISTORY : None. ENCOUNTER: Initial ACUITY: 1 day PAIN SCALE: 10/10 LOCATION: Left upper quadrant TECHNIQUE: Volumetric scanning of the abdomen and pelvis was performed. Using automated exposure control and ad justment of the mA and/or kV according to patient size, radiation dose was kept as low as reasonably achievable to obtain optimal diagnostic quality images. DICOM format image data is available electro nically for review and comparison. FINDINGS: Examination of the lung bases demonstrates no abnormality. No pleural fluid is identified. No pulmona ry nodules are present. The liver and spleen are free of focal defects. The gallbladder and pancreas demonstrate no abnormality. The adrenal glands are normal. The kidneys demonstrate no evidence of donell id renal mass or hydronephrosis. No free fluid or abdominal masses are identified. No para-aortic tayler nopathy is seen. Examination of the pelvis demonstrates no evidence of free fluid or pelvic mass. No abnormally enlarg ed inguinal or retroperitoneal lymph nodes are present. The bladder is unremarkable. There is diverti culosis without evidence of diverticulitis. CONCLUSION: 1. No evidence of acute abdominal or pelvic process. No masses are identified. 2. Diverticulosis without evidence of diverticulitis. Juan Luis Delacruz MD on September 27, 2017 at 0:04 Board Certified Radiologist. This report was verified electronically.
[2017-09-27 00:24] LABS: CKMB 2.3 NG/ML (0.5-3.6)
[2017-09-27] MEDS ORDERED: NITROGLYCERIN 0.4 MG SL 25 TABS/BTL SL PRN (02:15)
[2017-09-27] MEDS ORDERED: SODIUM CHLORIDE 0.9% FLUSH 10 ML FLUSH IV FLUSH PRN (02:15)
[2017-09-27] MEDS ORDERED: MORPHINE SULFATE 2 MG/ML INJ IV PUSH ONE (03:00)
[2017-09-27] MEDS: SODIUM CHLORIDE 0.9% FLUSH 10 ML FLUSH IV FLUSH SCH ×2 (08:16→21:00)
[2017-09-27] MEDS ORDERED: MORPHINE SULFATE 8 MG/ML INJ IV PUSH ONE (08:30)
[2017-09-27] MEDS ORDERED: ATROPINE/SCOPOLAM/HYOSCYAM/PB ELIXIR 10 ML CUP PO ONE (09:00)
[2017-09-27] MEDS ORDERED: ALUMINUM/MAGNESIUM/SIMETH 30 ML CUP PO ONE (09:00)
[2017-09-27] MEDS ORDERED: LIDOCAINE VISCOUS 2% SOLN 15 ML UDC PO ONE (09:00)
[2017-09-27] MEDS: ASPIRIN 325 MG TAB PO SCH (09:06)
[2017-09-27] MEDS ORDERED: SODIUM CHLOR 0.9% 1000 ML INJ 1,000 ML IV SCH (10:03)
[2017-09-27] MEDS ORDERED: ACETAMINOPHEN/HYDROcodone 325 MG/5 MG TAB PO PRN (10:15)
[2017-09-27] MEDS: LISINOPRIL 5 MG TAB PO SCH (10:15)
[2017-09-27] MEDS: METOPROLOL TARTRATE 50 MG TAB PO SCH ×2 (10:15→23:31)
[2017-09-27] MEDS ORDERED: RESP: ALBUTEROL 2.5 MG/IPRATROPIUM 0.5 MG NEB (PRN) INH (10:15)
--- NOTE | 2017-09-27 11:16 | HHI.HP ---
HPI Primary Care Physician No Primary Care Physician Chief Complaint Abdominal pain History of Present Illness This is a 62-year-old female with known history of CAD that presents to ED with a complaint of abdominal pain and points to the epigastric and left upper quadrant region to indicate where the discomfort is present. She states she's had this discomfort for easily a couple weeks. Has occasional nausea with it. She states she came to the hospital and it last month for the same and was told that she had some pancreatitis and at the same time had another cardiac catheterization with stents placed. She states the stents have not changed her discomfort. Voices compliance with her cardiac medications. She at times was nauseous. Sometimes the discomfort is brought on with food and sometimes she has no problems eating food. Denies blood in stool. Denies diarrhea or constipation. She's had no change in her stools. Denies chest discomfort. Denies diaphoresis. Denies shortness of breath. Review of Systems General: Patient denies fevers, chills recent, and recent travel HEENT: Patient denies headache, sore throat, difficulty swallowing. Cardiovascular: Has the chest discomfort as mentioned above. Denies sensation of heart beating rapidly or irregularly. No syncope. Denies diaphoresis. Respiratory: Denies shortness of breath or inspirational chest discomfort. Denies coughing wheezing or hemoptysis. GI: Occasional nausea. Complains of abdominal pain and points to the epigastric and left upper quadrant indicate where the discomfort is located. Patient denies vomiting, diarrhea, constipation, bloody stools. Musculoskeletal: Patient denies joint pain or edema. Denies calf pain or edema. Neurovascular: Patient denies numbness, tingling, weakness in extremities. Denies headache. Endocrine: Denies polyuria and polydipsia. Hematologic: Denies easy bruising. Skin: Denies rash or itching. Past Family Social History Allergies: Coded Allergies: bee venom protein (honey bee) (Unverified Allergy, Severe, UNKNOWN, ) adhesive (Unverified Allergy, Mild, REDNESS, 09/26/17) Past Medical History CAD with stenting 09/15/17. Hypertension, diabetes, hyperlipidemia. Pancreatitis couple weeks ago. Past Surgical History Cardiac catheterizations with stenting recently on 09/15/17. Cataracts, tonsillectomy. Reported Medications Reported Meds & Active Scripts Active Hydrocodone-Acetaminophen 5-325 mg Tab 1 Tab PO Q6H PRN Aspirin Low Strength (Aspirin) 81 Mg Chew 162 Mg PO DAILY Zantac (Ranitidine HCl) 150 Mg Tab 150 Mg PO BID Isosorbide Mononitrate ER (Isosorbide Mononitrate) 60 Mg Tab 60 Mg PO DAILY@07 Lisinopril 5 Mg Tab 5 Mg PO DAILY Glipizide 5 Mg Tab 5 Mg PO BIDAC Take 30 minutes before a meal Lopressor (Metoprolol Tartrate) 50 Mg Tab 50 Mg PO Q12HR Plavix (Clopidogrel Bisulfate) 75 Mg Tab 75 Mg PO DAILY Atorvastatin (Atorvastatin Calcium) 80 Mg Tab 80 Mg PO DAILY Active Ordered Medications Current Medications Medications (Trade) Dose Ordered Sig/Rishabh Route Start Time Stop Time Status Last Admin (NS Flush) 2 ml UNSCH PRN IV FLUSH 09/27/17 02:15 (NS Flush) 2 ml BID IV FLUSH 09/27/17 09:00 09/27/17 08:16 (Nitrostat Sl) 0.4 mg Q5M PRN SL 09/27/17 02:15 (Aspirin) 325 mg DAILY PO 09/27/17 09:00 09/27/17 09:06 (Duoneb Neb) 1 ampule Q4HR NEB PRN INH 09/27/17 10:15 UNV Sodium Chloride 1,000 ml @ 100 mls/hr Q10H IV 09/27/17 10:03 09/27/17 20:02 UNV (Aspirin Chew) 162 mg DAILY PO 09/28/17 09:00 UNV (Lipitor) 80 mg DAILY PO 09/27/17 10:15 UNV (Plavix) 75 mg DAILY PO 09/27/17 10:15 UNV ([place] 5-325 Mg) 1 tab Q6H PRN PO 09/27/17 10:15 UNV (Imdur) 60 mg DAILY@07 PO 09/28/17 07:00 UNV (Prinivil) 5 mg DAILY PO 09/27/17 10:15 UNV (Lopressor) 50 mg Q12HR PO 09/27/17 10:15 UNV Non-Formulary Medication 150 mg BID PO 09/27/17 10:15 UNV (NovoLOG SUPPLEMENTAL SCALE) 1 ACHS SLIDING SCALE SQ 09/27/17 12:00 UNV Family History There is family history of CAD. Social History Patient no longer smokes. Has occasional alcohol. Denies illicit drugs. Physical Exam Vital Signs Vital Signs Date Time Temp Pulse Resp B/P (MAP) Pulse Ox O2 Delivery O2 Flow Rate FiO2 09/27/17 10:47 59 09/27/17 10:01 97.9 67 16 93/51 (65) 98 09/27/17 09:00 98.2 72 18 125/65 (85) 99 Room Air 09/27/17 07:50 98 21 09/27/17 07:28 62 18 123/57 (79) 98 Room Air 09/27/17 02:47 67 16 117/84 (95) 97 Room Air 09/26/17 23:00 67 16 98 09/26/17 22:29 16 09/26/17 22:16 97.6 70 18 140/77 (98) 100 Physical Exam GENERAL: This is a well-nourished, well-developed patient, in no apparent distress. Patient speaks in clear complete sentences. Patient is pleasant. HEENT: Head is atraumatic and normocephalic. Neck is supple without lymphadenopathy and trachea is midline. No JVD or carotid bruits. CARDIOVASCULAR: Regular rate and rhythm without murmurs, gallops, or rubs. RESPIRATORY: Clear to auscultation. Breath sounds equal bilaterally. No wheezes , rales, or rhonchi. Chest wall is nontender. No use of accessory muscles. GASTROINTESTINAL: There is left upper quadrant and epigastric discomfort when palpating the abdomen. Abdomen is nondistended. Abdomen soft. No guarding or rebound. No obvious pulsatile mass or bruit. No CVA tenderness. Strong femoral pulses bilaterally. Normal bowel sounds in all quadrants. MUSCULOSKELETAL: Patient is moving upper and lower extremities freely. No calf tenderness or edema, no Homans sign. Strong pulses in upper and lower extremities. NEUROLOGICAL: Patient is alert and oriented. Cranial nerves 2-12 are grossly intact. No focal deficits and speech is clear. SKIN: No rash and turgor is normal. Laboratory Laboratory Tests Test 09/26/17 23:05 09/27/17 08:15 White Blood Count 9.2 Red Blood Count 4.03 Hemoglobin 12.7 Hematocrit 37.3 Mean Corpuscular Volume 92.4 Mean Corpuscular Hemoglobin 31.4 Mean Corpuscular Hemoglobin Concent 34.0 Red Cell Distribution Width 13.9 Platelet Count 272 Mean Platelet Volume 8.3 Neutrophils (%) (Auto) 68.7 Lymphocytes (%) (Auto) 23.6 Monocytes (%) (Auto) 5.9 Eosinophils (%) (Auto) 1.0 Basophils (%) (Auto) 0.8 Neutrophils # (Auto) 6.3 Lymphocytes # (Auto) 2.2 Monocytes # (Auto) 0.5 Eosinophils # (Auto) 0.1 Basophils # (Auto) 0.1 CBC Comment DIFF FINAL Differential Comment Prothrombin Time 10.0 Prothromb Time International Ratio 0.9 Activated Partial Thromboplast Time 24.7 Blood Urea Nitrogen 12 Creatinine 1.28 Random Glucose 172 Total Protein 7.4 Albumin 3.9 Calcium Level 9.1 Alkaline Phosphatase 88 Aspartate Amino Transf (AST/SGOT) 25 Alanine Aminotransferase (ALT/SGPT) 22 Total Bilirubin 0.6 Sodium Level 134 Potassium Level Chloride Level 97 Carbon Dioxide Level 27.6 Anion Gap 9 Estimat Glomerular Filtration Rate 43 Total Creatine Kinase 103 Creatine Kinase MB 2.3 Troponin I 0.04 B-Type Natriuretic Peptide 240 Lipase 153 Result Diagram: 09/26/17230409/26/172304 Imaging Last 48 hours Impressions Chest X-Ray 09/26/172244 Signed Impressions: Service Date/Time: Tuesday, September 26, 2017 23:00 - CONCLUSION: 1. Cardiomegaly. No acute pulmonary disease. Juan Luis Delacruz MD Abdomen/Pelvis CT 09/26/172244 Signed Impressions: Service Date/Time: Tuesday, September 26, 2017 23:40 - CONCLUSION: 1. No evidence of acute abdominal or pelvic process. No masses are identified. 2. Diverticulosis without evidence of diverticulitis. Juan Luis Delacruz MD Course EKG is sinus rhythm with incomplete right bundle branch block. No significant ST segment depressions or elevations. Caprini VTE Risk Assessment Caprini VTE Risk Assessment: Mod/High Risk (score >= 2) Caprini Risk Assessment Model Point Value = 1 Point Value = 2 Point Value = 3 Point Value = 5 Age 41-60 Minor surgery BMI > 25 kg/m2 Swollen legs Varicose veins or History of unexplained or recurrent spontaneous Oral contraceptives or hormone replacement Sepsis (< 1 month) Serious lung disease, including pneumonia (< 1 month) Abnormal pulmonary function Acute myocardial infarction Congestive heart failure (< 1 month) History of inflammatory bowel disease Medical patient at bed rest Age 61-74 Arthroscopic surgery Major open surgery (> 45 min) Laparoscopic surgery (> 45 min) Malignancy Confined to bed (> 72 hours) Immobilizing plaster cast Central venous access Age >= 75 History of VTE Family history of VTE Factor V Leiden Prothrombin [id number] Lupus anticoagulant Anticardiolipin antibodies Elevated serum homocysteine Heparin-induced thrombocytopenia Other congenital or acquired thrombophilia Stroke (< 1 month) Elective arthroplasty Hip, pelvis, or leg fracture Acute spinal cord injury (< 1 month) Prophylaxis Regimen Total Risk Factor Score Risk Level Prophylaxis Regimen 0-1 Low Early ambulation 2 Moderate Order ONE of the following: *Sequential Compression Device (SCD) *Heparin 5000 units SQ BID 3-4 Higher Order ONE of the following medications: *Heparin 5000 units SQ TID *Enoxaparin/Lovenox 40 mg SQ daily (WT < 150 kg, CrCl > 30 mL/min) *Enoxaparin/Lovenox 30 mg SQ daily (WT < 150 kg, CrCl > 10-29 mL/min) *Enoxaparin/Lovenox 30 mg SQ BID (WT < 150 kg, CrCl > 30 mL/min) AND/OR *Sequential Compression Device (SCD) 5 or more Highest Order ONE of the following medications: *Heparin 5000 units SQ TID (Preferred with Epidurals) *Enoxaparin/Lovenox 40 mg SQ daily (WT < 150 kg, CrCl > 30 mL/min) *Enoxaparin/Lovenox 30 mg SQ daily (WT < 150 kg, CrCl > 10-29 mL/min) *Enoxaparin/Lovenox 30 mg SQ BID (WT < 150 kg, CrCl > 30 mL/min) AND *Sequential Compression Device (SCD) Assessment and Plan Assessment and Plan * Abdominal pain: Patient complains of abdominal discomfort as mentioned prior. CT of the abdomen and pelvis read by radiologist essentially nothing acute. Patient was seen by Dr. Juan Luis Pike of cardiology in the chest pain center and her symptoms do not sound cardiac. A repeat troponin is pending and if negative will 90 further evaluation at this time. However patient is still having abdominal discomfort. Dr. Pike is concerned that there may be some component of a abdominal angina and has requested GI involvement. I discussed this patient with Dr. Nieto who has agreed to set patient. I have requested a GI consult for the abdominal discomfort. * Hypertension: Continue current medication. * Hyperlipidemia: Continue current medication. * Diabetes: We'll have sliding scale insulin coverage. She will need to resume a diabetic diet when she has diet instruction. * History of CAD: Patient's symptoms appear GI at this time. She will need follow-up with cardiology and continue her medications. Patient is stable at this time. She is agreeable to this plan. Matthew Hussein Sep 27, 2017 11:16
[2017-09-27] MEDS ORDERED: GLUCAGON 1 MG/ML VIAL OTHER PRN (11:30)
[2017-09-27] MEDS ORDERED: DEXTROSE 50% IN WATER 50 ML VIAL(D50) IV PUSH PRN (11:30)
[2017-09-27] MEDS: INSULIN ASPART SUPPLEMENTAL SCALE SQ SCH ×3 (12:00→23:36)
[2017-09-27] MEDS: CLOPIDOGREL 75 MG TAB PO SCH (12:15)
[2017-09-27] MEDS: ATORVASTATIN 80 MG TAB PO SCH (12:16)
[2017-09-27] MEDS: FAMOTIDINE 20 MG TAB PO SCH ×2 (12:16→23:32)
--- NOTE | 2017-09-27 12:36 | EKG ---
Date Performed: 09/27/2017 Time Performed: 02:39:45 PTAGE: 62 years EKG: Sinus rhythm POSSIBLE LEFT ATRIAL ENLARGEMENT RIGHT BUNDLE BRANCH BLOCK ABNORMAL ECG PREVIOUS TRACING : 09/15/2017 05.20 Since previous tracing, no significant change noted DOCTOR: Juan Luis Pike Interpretating Date/Time 09/27/2017 12:34:36
--- NOTE | 2017-09-27 12:38 | EKG ---
Date Performed: 09/26/2017 Time Performed: 23:02:04 PTAGE: 62 years EKG: Sinus rhythm POSSIBLE LEFT ATRIAL ENLARGEMENT ABNORMAL ECG NO PREVIOUS TRACING DOCTOR: Juan Luis Pike Interpretating Date/Time 09/27/2017 12:37:13
--- NOTE | 2017-09-27 12:42 | EKG ---
Date Performed: 09/27/2017 Time Performed: 08:53:09 PTAGE: 62 years EKG: Sinus rhythm POSSIBLE LEFT ATRIAL ENLARGEMENT RIGHT BUNDLE BRANCH BLOCK ABNORMAL ECG PREVIOUS TRACING : 09/27/2017 02.39 Since previous tracing, no significant change noted DOCTOR: Juan Luis Pike Interpretating Date/Time 09/27/2017 12:40:49
[2017-09-27 14:53] LABS: CREATINE KINASE 116 U/L (26-192)
[2017-09-27 15:09] LABS: CKMB 1.3 NG/ML (0.5-3.6)
--- NOTE | 2017-09-27 15:36 | PD.CONS ---
HPI History of Present Illness This is a 62 year old female with hx CAD, DM, who presented with abd pain. She indicates her epigastric area and LUQ under chest. She was here and d/c for the same pain and sent home with oxycodone. She has been having this pain intermittently for months. She did vomit a few times yesterday. No associating, relieving, or exacerbating factors. No diarrhea, no blood in stool or emesis, black tarry stool, weight loss. Never had EGD or colonoscopy. She is on plavix and aspirin for stents. One stent was placed 10y ago and one was placed [address] showed no acute findings. She has some left chest pain occasionally that she differentiates from this pain; relieved by nitroglycerine. (Peggy Stewart) PFSH Past Medical History HLD CAD DM Past Surgical History T& A (Peggy Stewart) Coded Allergies: bee venom protein (honey bee) (Unverified Allergy, Severe, UNKNOWN, ) adhesive (Unverified Allergy, Mild, REDNESS, 09/26/17) Family History CVD Social History rare ETOH use quit smoking 2 weeks ago no illicit drugs (Peggy Stewart) Review of Systems Constitutional: DENIES: Fever, Weight loss Eyes: DENIES: Blurred vision Ears, nose, mouth, throat: DENIES: Hearing loss Respiratory: DENIES: Hemoptysis Cardiovascular: COMPLAINS OF: Chest pain, DENIES: Palpitations Gastrointestinal: COMPLAINS OF: Abdominal pain, Nausea, DENIES: Black stools, Bloody stools, Constipation, Diarrhea, Vomiting Genitourinary: DENIES: Hematuria Musculoskeletal: DENIES: Joint Swelling Integumentary: DENIES: Jaundice Neurologic: DENIES: Abnormal gait Psychiatric: DENIES: Confusion (Peggy Stewart) GI Exam Vitals I&O Vital Signs Date Time Temp Pulse Resp B/P (MAP) Pulse Ox O2 Delivery O2 Flow Rate FiO2 09/27/17 15:21 97.5 74 16 101/53 (69) 97 09/27/17 11:53 98.1 68 16 95/54 (68) 98 09/27/17 10:47 59 09/27/17 10:01 97.9 67 16 93/51 (65) 98 09/27/17 09:00 98.2 72 18 125/65 (85) 99 Room Air 09/27/17 07:50 98 21 09/27/17 07:28 62 18 123/57 (79) 98 Room Air 09/27/17 02:47 67 16 117/84 (95) 97 Room Air 09/26/17 23:00 67 16 98 09/26/17 22:29 16 09/26/17 22:16 97.6 70 18 140/77 (98) 100 Imaging Last Impressions Chest X-Ray 09/26/172244 Signed Impressions: Service Date/Time: Tuesday, September 26, 2017 23:00 - CONCLUSION: 1. Cardiomegaly. No acute pulmonary disease. Juan Luis Delacruz MD Abdomen/Pelvis CT 09/26/172244 Signed Impressions: Service Date/Time: Tuesday, September 26, 2017 23:40 - CONCLUSION: 1. No evidence of acute abdominal or pelvic process. No masses are identified. 2. Diverticulosis without evidence of diverticulitis. Juan Luis Delacruz MD Laboratory Test 09/26/17 23:05 09/27/17 12:00 White Blood Count 9.2 TH/MM3 Red Blood Count 4.03 MIL/MM3 Hemoglobin 12.7 GM/DL Hematocrit 37.3 % Mean Corpuscular Volume 92.4 FL Mean Corpuscular Hemoglobin 31.4 PG Mean Corpuscular Hemoglobin Concent 34.0 % Red Cell Distribution Width 13.9 % Platelet Count 272 TH/MM3 Mean Platelet Volume 8.3 FL Neutrophils (%) (Auto) 68.7 % Lymphocytes (%) (Auto) 23.6 % Monocytes (%) (Auto) 5.9 % Eosinophils (%) (Auto) 1.0 % Basophils (%) (Auto) 0.8 % Neutrophils # (Auto) 6.3 TH/MM3 Lymphocytes # (Auto) 2.2 TH/MM3 Monocytes # (Auto) 0.5 TH/MM3 Eosinophils # (Auto) 0.1 TH/MM3 Basophils # (Auto) 0.1 TH/MM3 CBC Comment DIFF FINAL Differential Comment Prothrombin Time 10.0 SEC Prothromb Time International Ratio 0.9 RATIO Activated Partial Thromboplast Time 24.7 SEC Blood Urea Nitrogen 12 MG/DL Creatinine 1.28 MG/DL Random Glucose 172 MG/DL Total Protein 7.4 GM/DL Albumin 3.9 GM/DL Calcium Level 9.1 MG/DL Alkaline Phosphatase 88 U/L Aspartate Amino Transf (AST/SGOT) 25 U/L Alanine Aminotransferase (ALT/SGPT) 22 U/L Total Bilirubin 0.6 MG/DL Sodium Level 134 MEQ/L Potassium Level MEQ/L Chloride Level 97 MEQ/L Carbon Dioxide Level 27.6 MEQ/L Anion Gap 9 MEQ/L Estimat Glomerular Filtration Rate 43 ML/MIN Total Creatine Kinase 103 U/L 116 U/L Creatine Kinase MB 2.3 NG/ML 1.3 NG/ML Troponin I 0.04 NG/ML LESS THAN 0.02 NG/ML B-Type Natriuretic Peptide 240 PG/ML Lipase 153 U/L Physical Examination HEENT: PERRL; normocephalic; atraumatic; no jaundice. CHEST: CTA CARDIAC: RRR ABDOMEN: Soft, nondistended, nontender; no hepatosplenomegaly; bowel sounds are present in all four quadrants. EXTREMITIES: No clubbing, cyanosis, or edema. SKIN: Normal; no rash; no jaundice. PUNCHBOARD STUFFER: No focal deficits; alert and oriented times three. (Peggy Stewart) Assessment and Plan Plan ASSESSMENT - atypical chest pain, nausea- pt with intermittent chronic LUQ/epigastric/left chest pain. cardiac cause being ruled out. CT showed no acute findings. never had EGD or colonoscopy but is on plavix for recent stent, cannot scope at this time. will try BID PPI and GES to r/o gastroparesis PLAN - GES - BID PPI - could consider CT angiography - supportive care This pt seen by myself and Dr Anthony and this note is written on his behalf (Peggy Stewart) Physician Comments Agree with the plan as above. High dose of PPI for now. High risk for EGD now with APA use and recent stenting. Will follow up with you. (Anna Marie Anthony MD) Peggy Stewart Sep 27, 2017 15:36 Anna Marie Anthony MD Sep 27, 2017 17:31
[2017-09-27] MEDS ORDERED: PILL SPLITTER OTHER PRN (16:30)
[2017-09-27] MEDS: PANTOPRAZOLE SOD 40 MG DELAYED RELEASE TAB PO SCH (23:31)
[2017-09-28] VITALS (11 sets, daily range): BP systolic 84–148; BP diastolic 50–66; PULSE 48–86; RESP 16–19; TEMP 97.5–98.4; O2SAT 96–99
[2017-09-28] MEDS ORDERED: ACETAMINOPHEN 325 MG TAB PO PRN (06:30)
[2017-09-28] MEDS ORDERED: SENNOSIDES 8.6 MG TAB PO PRN (06:30)
[2017-09-28] MEDS ORDERED: ONDANSETRON HCL 4 MG/2 ML VIAL IVP PRN (06:30)
[2017-09-28] MEDS ORDERED: LACTULOSE SYRUP 20 GM/30 ML CUP PO PRN (06:30)
[2017-09-28] MEDS ORDERED: NALOXONE HCL 0.4 MG/ML AMP IV PUSH PRN (06:30)
[2017-09-28] MEDS ORDERED: BISACODYL 10 MG SUPP RECTAL PRN (06:30)
[2017-09-28] MEDS: INSULIN ASPART SUPPLEMENTAL SCALE SQ SCH ×3 (08:00→18:31)
[2017-09-28] MEDS: ISOSORBIDE MONONITRATE 60 MG TAB PO SCH (08:17)
[2017-09-28] MEDS: ATORVASTATIN 80 MG TAB PO SCH (08:55)
[2017-09-28] MEDS: ASPIRIN 325 MG TAB PO SCH (08:55)
[2017-09-28] MEDS: PANTOPRAZOLE SOD 40 MG DELAYED RELEASE TAB PO SCH ×2 (08:55→23:09)
[2017-09-28] MEDS: METOPROLOL TARTRATE 50 MG TAB PO SCH ×2 (08:55→23:09)
[2017-09-28] MEDS: LISINOPRIL 5 MG TAB PO SCH (08:55)
[2017-09-28] MEDS: CLOPIDOGREL 75 MG TAB PO SCH (08:55)
[2017-09-28] MEDS: DOCUSATE SODIUM 50 MG/SENNA 8.6 MG TAB PO SCH ×2 (08:56→23:09)
[2017-09-28] MEDS: SODIUM CHLORIDE 0.9% FLUSH 10 ML FLUSH IV FLUSH SCH ×2 (08:56→21:00)
[2017-09-28] MEDS ORDERED: ASPIRIN 81 MG CHEW TAB PO SCH (09:00)
[2017-09-28 10:23] LABS: ANION GAP 11 MEQ/L (5-15); BICARBONATE 23.7 MEQ/L (21.0-32.0); BLOOD UREA NITROGEN 11 MG/DL (7-18); CHLORIDE 104 MEQ/L (98-107); GLOMERULAR FILTRATION RATE 78 ML/MIN (>89); MAGNESIUM 2.4 MG/DL (1.5-2.5); POTASSIUM 4.3 MEQ/L (3.5-5.1); SODIUM (NA) 139 MEQ/L (136-145)
[2017-09-28 10:24] LABS: AST (GOT) 22 U/L (15-37)
[2017-09-28 10:29] LABS: ALKALINE PHOSPHATASE 43 U/L (45-117); ALT (GPT) 18 U/L (10-53); TOTAL BILIRUBIN ADULT 0.5 MG/DL (0.2-1.0)
--- NOTE | 2017-09-28 11:10 | HHI.GIFU ---
Subjective Remarks Pt back from [facility]. No abd pain today. She had a big lunch. (Peggy Stewart) Objective Vitals I&O Vital Signs Date Time Temp Pulse Resp B/P (MAP) Pulse Ox O2 Delivery O2 Flow Rate FiO2 09/28/17 08:15 98.2 60 16 113/60 (77) 98 09/27/17 09:00 Room Air 09/27/17 07:50 21 Imaging Last Impressions Gastric Emptying Nuclear Medicine 09/28/17 0000 Signed Impressions: Service Date/Time: September 09:57 - CONCLUSION: Normal study Dawood Moyer MD Chest X-Ray 09/26/172244 Signed Impressions: Service Date/Time: Tuesday, September 26, 2017 23:00 - CONCLUSION: 1. Cardiomegaly. No acute pulmonary disease. Juan Luis Delacruz MD Abdomen/Pelvis CT 09/26/172244 Signed Impressions: Service Date/Time: Tuesday, September 26, 2017 23:40 - CONCLUSION: 1. No evidence of acute abdominal or pelvic process. No masses are identified. 2. Diverticulosis without evidence of diverticulitis. Juan Luis Delacruz MD Physical Exam HEENT: PERRL, normocephalic, atraumatic no icterus CHEST : CTA CARDIAC: RRR GI: abd soft, nontender, BS+ EXTREMITIES: no cyanosis, edema SKIN: no rash no jaundice no bruising SEED ANALYSIS LABORATORY ASSISTANT: AOX3 (Peggy Stewart) Assessment and Plan Plan ASSESSMENT - atypical chest pain, nausea- pt with intermittent chronic LUQ/epigastric/left chest pain. cardiac cause being ruled out. CT showed no acute findings. never had EGD or colonoscopy but is on plavix for recent stent. on BID PPI, GES normal study will do diagnostic EGD no biopsies PLAN - diagnostic EGD in am - obtain consent - NPO after midnight - continue PPI - could consider CT angiography - supportive care This pt seen by myself and Dr Llamas and this note is written on his behalf (Peggy Stewart) Plan Patient was seen and examined, agree with above-noted, gastric emptying study was normal, patient just had a stent 3 weeks ago for coronary artery disease and currently on Plavix, we will do diagnostic EGD without biopsy, further plan depends on the findings (Viktor Llamas MD) Peggy Stewart Sep 28, 2017 11:10 Viktor Llamas MD Sep 28, 2017 19:32
[2017-09-28] MEDS ORDERED: METOCLOPRAMIDE HCL 10 MG/2 ML VIAL ONE (11:29)
--- NOTE | 2017-09-28 13:42 | HHI.PR ---
Subjective Remarks Follow-up abdominal pain. Currently denies abdominal pain. Discussed with RN Objective Vitals Vital Signs Date Time Temp Pulse Resp B/P (MAP) Pulse Ox O2 Delivery O2 Flow Rate FiO2 09/28/17 08:15 98.2 60 16 113/60 (77) 98 09/28/17 05:03 96 09/28/17 03:58 98.4 71 18 108/59 (75) 96 09/28/17 03:45 97.5 80 18 148/66 (93) 99 09/27/17 23:43 98.3 59 18 99/54 (69) 97 09/27/17 21:07 98.1 74 18 95/50 (65) 98 09/27/17 15:21 97.5 74 16 101/53 (69) 97 I/O 09/27/17 09/27/17 09/27/17 09/28/17 09/28/17 09/28/17 07:00 15:00 23:00 07:00 15:00 23:00 Intake Total 1000 ml Balance 1000 ml Intake IV Total 1000 ml Result Diagram: 09/26/17 2305 09/27/17 1200 Imaging Last Impressions Chest X-Ray 09/26/172244 Signed Impressions: Service Date/Time: Tuesday, September 26, 2017 23:00 - CONCLUSION: 1. Cardiomegaly. No acute pulmonary disease. Juan Luis Delacruz MD Abdomen/Pelvis CT 09/26/172244 Signed Impressions: Service Date/Time: Tuesday, September 26, 2017 23:40 - CONCLUSION: 1. No evidence of acute abdominal or pelvic process. No masses are identified. 2. Diverticulosis without evidence of diverticulitis. Juan Luis Delacruz MD Objective Remarks GENERAL: This is a well-nourished, well-developed patient, in no apparent distress. Patient speaks in clear complete sentences. Patient is pleasant. HEENT: Head is atraumatic and normocephalic. Neck is supple without lymphadenopathy and trachea is midline. No JVD or carotid bruits. CARDIOVASCULAR: Regular rate and rhythm without murmurs, gallops, or rubs. RESPIRATORY: Clear to auscultation. Breath sounds equal bilaterally. No wheezes , rales, or rhonchi. Chest wall is nontender. No use of accessory muscles. GASTROINTESTINAL: Abdomen is nondistended and nontender. Abdomen soft. No guarding or rebound. No obvious pulsatile mass or bruit. No CVA tenderness. Strong femoral pulses bilaterally. Normal bowel sounds in all quadrants. MUSCULOSKELETAL: Patient is moving upper and lower extremities freely. No calf tenderness or edema, no Homans sign. Strong pulses in upper and lower extremities. NEUROLOGICAL: Patient is alert and oriented. Cranial nerves 2-12 are grossly intact. No focal deficits and speech is clear. A/P Problem List: (1) Abdominal pain ICD Code: R10.9 - Unspecified abdominal pain Assessment and Plan Abdominal pain: Improving continue PPI. Follow-up GES consider CT angiography. High risk for EGD with recent cardiac event Hypertension: Continue current medication isosorbide, lisinopril and metoprolol Hyperlipidemia: Continue current medication Lipitor Diabetes: We'll have sliding scale insulin coverage. History of CAD: Patient's symptoms appear GI at this time. She will need follow -up with cardiology and continue her medications as above and aspirin. Chronic kidney disease stage III. Improving. Continue IV hydration. Avoid nephrotoxins DVT prophylaxis with SCD Discharge Planning DC when cleared by Liam Lebron MD Sep 28, 2017 13:42
--- NOTE | 2017-09-28 13:49 | RADRPT ---
EXAM DATE/TIME: 09/28/2017 09:57 [facility] COMPARISON: No previous studies available for comparison. INDICATIONS : Abdominal pain with vomiting. DOSE: 1 mCi Tc99m Sulfur Colloid Labeled Whole egg PO MEDICATONS: 1.) 5 mg Reglan IV at minutes IMAGIN hrs MEDICAL HISTORY : Gastroesophageal reflux disease. Congestive heart failure. Hypercholesterolemia. Stroke. Hypertension . SURGICAL HISTORY : Tonsillectomy. Coronary artery stent. ENCOUNTER: Initial ACUITY: 2 days PAIN SCALE: 5/10 LOCATION: Left upper quadrant TECHNIQUE: Following the oral ingestion of radiotracer-labeled meal, dynamic sequential images in the [place] projec tion were acquired with simultaneous computer acquisition. The data set was decay-corrected. FINDINGS: LAG PHASE: There is 10-15 minutes before onset of gastric emptying. EMPTYING: Gastric emptying kinetics are linear. The decay-corrected, back-extrapolated half-time of emptying i s 55 minutes. (Normal for this lab is 45- 90 minutes.) INTERVENTION: Reglan was administered intravenously at 90 minutes with no significant change in gastric emptying ra te CONCLUSION: Normal study Dawood Moyer MD on September 28, 2017 at 13:46 Board Certified Radiologist. This report was verified electronically.
[2017-09-29] MEDS: INSULIN ASPART SUPPLEMENTAL SCALE SQ SCH ×3 (00:06→13:21)
[2017-09-29] MEDS ORDERED: CHLORHEXIDINE GLUCONATE 2 % 1 PACK (2 CLOTHS) TOPICAL PRN (03:15)
[2017-09-29] MEDS ORDERED: POVIDONE IODINE 5% (ANTISEPSIS KIT) 4 APPLICATIONS EACH NARE PRN (03:15)
[2017-09-29] MEDS ORDERED: LACTATED RINGER'S 1000 ML IV PRN (03:15)
[2017-09-29] MEDS ORDERED: INSULIN HUMAN REGULAR 1,000 UNITS/10 ML VIAL SQ PRN (03:15)
[2017-09-29] MEDS ORDERED: SODIUM CHLORID 0.9% 500 ML IV PRN (03:15)
[2017-09-29 04:03] VITALS: BP 96/53; PULSE 75; RESP 18; TEMP 98.6; O2SAT 96
[2017-09-29 07:13] VITALS: PULSE 61
[2017-09-29 08:04] VITALS: BP 111/57; PULSE 69; RESP 16; TEMP 98.3; O2SAT 97
--- NOTE | 2017-09-29 09:27 | HHI.GIFU ---
Subjective Remarks Currently asymptomatic, procedure cancelled due to high risk from anesthesia. Objective Vitals I&O Vital Signs Date Time Temp Pulse Resp B/P (MAP) Pulse Ox O2 Delivery O2 Flow Rate FiO2 09/29/17 08:04 98.3 69 16 111/57 (75) 97 09/29/17 07:13 61 09/29/17 04:03 98.6 75 18 96/53 (67) 96 09/28/17 23:42 98.0 86 19 87/59 (68) 98 09/28/17 21:14 98.4 69 18 85/52 (63) 97 09/28/17 21:00 96 21 09/28/17 18:46 96 09/28/17 16:25 98.3 69 16 84/50 (61) 97 09/28/17 13:09 77 Physical Exam HEENT: PERRL, normocephalic, atraumatic no icterus CHEST : CTA CARDIAC: RRR GI: abd soft, nontender, BS+ EXTREMITIES: no cyanosis, edema SKIN: no rash no jaundice no bruising FEEDER OPERATOR: AOX3 Assessment and Plan Plan Atypical chest pain, improving since admission, negative GES. EGD cancelled by anesthesia (High risk with recent stenting) Plan: Continue current treatment plan Stable at the current time. Further recommendations to follow. Anna Marie Anthony MD Sep 29, 2017 09:27
[2017-09-29] MEDS: ASPIRIN 325 MG TAB PO SCH (09:49)
[2017-09-29] MEDS: PANTOPRAZOLE SOD 40 MG DELAYED RELEASE TAB PO SCH (09:50)
[2017-09-29] MEDS: ISOSORBIDE MONONITRATE 60 MG TAB PO SCH (09:50)
[2017-09-29] MEDS: METOPROLOL TARTRATE 50 MG TAB PO SCH (09:50)
[2017-09-29] MEDS: LISINOPRIL 5 MG TAB PO SCH (09:50)
[2017-09-29] MEDS: CLOPIDOGREL 75 MG TAB PO SCH (09:51)
[2017-09-29] MEDS: ATORVASTATIN 80 MG TAB PO SCH (09:51)
[2017-09-29] MEDS: SODIUM CHLORIDE 0.9% FLUSH 10 ML FLUSH IV FLUSH SCH (09:54)
[2017-09-29] MEDS: DOCUSATE SODIUM 50 MG/SENNA 8.6 MG TAB PO SCH (09:59)
[2017-09-29 12:00] VITALS: PULSE 76
[2017-09-29 12:01] VITALS: BP 99/57; PULSE 76; RESP 16; TEMP 98.1; O2SAT 98
[2017-09-29] MEDS ORDERED: PANT40TA3 PO (13:11)
--- NOTE | 2017-09-29 13:16 | HHI.DCPOC ---
Discharge Care Plan Diagnosis: (1) Gastritis (2) Abdominal pain (3) Atypical chest pain (4) CAD (coronary artery disease) Goals to Promote Your Health * To prevent worsening of your condition and complications * To maintain your health at the optimal level Directions to Meet Your Goals Take your medications as prescribed Follow your dietary instruction Follow activity as directed Keep your appointments as scheduled Take your immunizations and boosters as scheduled If your symptoms worsen call your PCP, if no PCP go to Urgent Care Center or Emergency Room Smoking is Dangerous to Your Health. Avoid second hand smoke Call the 24-hour hour crisis hotline for domestic abuse at Rossy Mckinney PA-C Sep 29, 2017 1:16 pm
--- NOTE | 2017-09-29 13:39 | HHI.DS ---
Discharge Summary Admission Date Sep 27, 2017 at 02:10 Discharge Date: Sep 29, 2017 Admitting Diagnosis ATYPICAL CP R/O NONSTEMI (1) Abdominal pain ICD Code: R10.9 - Unspecified abdominal pain Procedures none Brief History - From Admission This is a 62-year-old female with known history of CAD that presents to ED with a complaint of abdominal pain and points to the epigastric and left upper quadrant region to indicate where the discomfort is present. She states she's had this discomfort for easily a couple weeks. Has occasional nausea with it. She states she came to the hospital and it last month for the same and was told that she had some pancreatitis and at the same time had another cardiac catheterization with stents placed. She states the stents have not changed her discomfort. Voices compliance with her cardiac medications. She at times was nauseous. Sometimes the discomfort is brought on with food and sometimes she has no problems eating food. Denies blood in stool. Denies diarrhea or constipation. She's had no change in her stools. Denies chest discomfort. Denies diaphoresis. Denies shortness of breath. CBC/BMP: 09/26/17 2305 09/27/17 1200 Significant Findings Laboratory Tests Test 09/26/17 23:05 09/27/17 12:00 Creatinine 1.28 MG/DL (0.50-1.00) Random Glucose 172 MG/DL (74-106) Sodium Level 134 MEQ/L (136-145) Chloride Level 97 MEQ/L (98-107) Estimat Glomerular Filtration Rate 43 ML/MIN (>89) 78 ML/MIN (>89) B-Type Natriuretic Peptide 240 PG/ML (0-100) Alkaline Phosphatase 43 U/L (45-117) Troponin I LESS THAN 0.02 NG/ML Imaging Last Impressions Gastric Emptying Nuclear Medicine 09/28/17 0000 Signed Impressions: Service Date/Time: September 09:57 - CONCLUSION: Normal study Dawood Moyer MD Chest X-Ray 09/26/17 2245 Signed Impressions: Service Date/Time: Tuesday, September 26, 2017 23:00 - CONCLUSION: 1. Cardiomegaly. No acute pulmonary disease. Juan Luis Delacruz MD Abdomen/Pelvis CT 09/26/17 7360 Signed Impressions: Service Date/Time: Tuesday, September 26, 2017 23:40 - CONCLUSION: 1. No evidence of acute abdominal or pelvic process. No masses are identified. 2. Diverticulosis without evidence of diverticulitis. Juan Luis Delacruz MD PE at Discharge GENERAL: This is a well-nourished, well-developed patient, in no apparent distress. Patient speaks in clear complete sentences. Patient is pleasant. HEENT: Head is atraumatic and normocephalic. Neck is supple without lymphadenopathy and trachea is midline. No JVD or carotid bruits. CARDIOVASCULAR: Regular rate and rhythm without murmurs, gallops, or rubs. RESPIRATORY: Clear to auscultation. Breath sounds equal bilaterally. No wheezes , rales, or rhonchi. Chest wall is nontender. No use of accessory muscles. GASTROINTESTINAL: Abdomen is nondistended and nontender. Abdomen soft. No guarding or rebound. No obvious pulsatile mass or bruit. No CVA tenderness. Strong femoral pulses bilaterally. Normal bowel sounds in all quadrants. MUSCULOSKELETAL: Patient is moving upper and lower extremities freely. No calf tenderness or edema, no Homans sign. Strong pulses in upper and lower extremities. NEUROLOGICAL: Patient is alert and oriented. Cranial nerves 2-12 are grossly intact. No focal deficits and speech is clear. Hospital Course Abdominal pain: Resolved continue PPI. High risk for EGD with recent cardiac event. Discussed with GI cleared for discharge no need for CT angiography at this time since she has been asymptomatic for almost 2 days Hypertension: Continue current medication isosorbide, lisinopril and metoprolol Hyperlipidemia: Continue current medication Lipitor Diabetes: We'll have sliding scale insulin coverage. History of CAD: Patient's symptoms appear GI at this time. She will need follow -up with cardiology and continue her medications as above and aspirin. Chronic kidney disease stage III. Improving. Status post IV hydration. Avoid nephrotoxins DVT prophylaxis with SCD Pt Condition on Discharge: Stable Discharge Disposition: Discharge Home Discharge Time: > 30 minutes Discharge Instructions DIET: Follow Instructions for: Heart Healthy Diet Activities you can perform: Regular-No Restrictions Activities to Avoid: Driving Follow up Referrals: Gastroenterology - 1 Week @ [facility] PCP Follow-up - 1 Week New Medications: Pantoprazole (Pantoprazole) 40 Mg Tab 40 MG PO Q12HR for Manage Heartburn, #60 TAB Continued Medications: Aspirin (Aspirin Low Strength) 81 Mg Chew 162 MG PO DAILY for coronary artery disease, #60 EA 0 Refills Atorvastatin (Atorvastatin) 80 Mg Tab 80 MG PO DAILY for cad, #30 TAB 3 Refills Clopidogrel (Plavix) 75 Mg Tab 75 MG PO DAILY for cad, #30 TAB 3 Refills Glipizide (Glipizide) 5 Mg Tab 5 MG PO BIDAC for Blood Sugar Management, #60 TAB 3 Refills Take 30 minutes before a meal Hydrocodone-Acetaminophen (Hydrocodone-Acetaminophen) 5-325 mg Tab 1 TAB PO Q6H PRN for moderate to severe pain, #10 TAB 0 Refills Isosorbide Mononitrate ER (Isosorbide Mononitrate ER) 60 Mg Tab 60 MG PO DAILY@07 for Blood Pressure Management, #30 TAB Lisinopril (Lisinopril) 5 Mg Tab 5 MG PO DAILY for cad, #30 TAB 3 Refills Metoprolol Tartrate (Lopressor) 50 Mg Tab 50 MG PO Q12HR for cad, #60 TAB 3 Refills Discontinued Medications: Ranitidine (Zantac) 150 Mg Tab 150 MG PO BID for Reduce Stomach Acid, #60 TAB 0 Refills Liam Santos MD Sep 29, 2017 13:39
== END 2017-09-29 15:49 | disposition home or self-care (01) ==
LOC: NEPC 22:13 → NEDA 09-27 02:10 → NEDH 09-27 06:26 → NEPFCDU 09-27 09:51
PROVIDERS: ADMIT Internal Medicine; ATTEND Internal Medicine
DX: R10.12 Left upper quadrant pain (principal); R94.31 Abnormal electrocardiogram [ECG] [EKG]; R11.2 Nausea with vomiting, unspecified; I25.10 Atherosclerotic heart disease of native coronary artery without angina pectoris; I13.0 Hypertensive heart and chronic kidney disease with heart failure and stage 1 through stage 4 chronic kidney disease, or unspecified chronic kidney disease; I50.9 Heart failure, unspecified; E11.22 Type 2 diabetes mellitus with diabetic chronic kidney disease; N18.3 Chronic kidney disease, stage 3 (moderate); E78.00 Pure hypercholesterolemia, unspecified; E11.9 Type 2 diabetes mellitus without complications; I25.2 Old myocardial infarction; K57.90 Diverticulosis of intestine, part unspecified, without perforation or abscess without bleeding; I45.10 Unspecified right bundle-branch block; K29.70 Gastritis, unspecified, without bleeding; J44.9 Chronic obstructive pulmonary disease, unspecified; K21.9 Gastro-esophageal reflux disease without esophagitis; M19.042 Primary osteoarthritis, left hand; M19.041 Primary osteoarthritis, right hand; F17.210 Nicotine dependence, cigarettes, uncomplicated; Z95.5 Presence of coronary angioplasty implant and graft; Z86.73 Personal history of transient ischemic attack (TIA), and cerebral infarction without residual deficits; Z79.899 Other long term (current) drug therapy; Z79.82 Long term (current) use of aspirin; Z79.02 Long term (current) use of antithrombotics/antiplatelets
CPT/HCPCS: 71010; 74176; 78264; 80053; 82550; 82552; 82948; 83690; 83735; 83880; 84484; 85025; 85610; 85730; 93005; 96361; 96372; 96374; 96375; 96376; 97161; 99285; A9541; G0378; G8987; G8988; J1815; J2270; J2405; J2765; J7030

== ENCOUNTER 2018-02-04 06:46 | Inpatient (IN) | payer OTHER ==
[~2018-02-04] VITALS: Ht 162.6 cm; Wt 83.0 kg
[2018-02-04] VITALS (29 sets, daily range): BP systolic 90–140; BP diastolic 52–87; PULSE 3–112; RESP 16–20; TEMP 97.6–100.1; O2SAT 95–100
[~2018-02-04 06:46] MED LIST changes: +PANT40TA3 PO; -ZANT150T2 PO
[2018-02-04] MEDS ORDERED: NITR1SUB2 SL (07:02)
--- NOTE | 2018-02-04 07:10 | PD ---
HPI Chief Complaint: Chest Pain Time Seen by Provider: 06:58 Travel History International Travel<30 days: No Contact w/Intl Traveler<30days: No History of Present Illness HPI The patient is a [id number] female who presents to the emergency department for chest pain. The patient has chest pain on a somewhat regular basis, uses nitroglycerin episodes: Which usually alleviates her pain. The patient ran out of nitroglycerin this morning. The patient's pain is substernal , radiates to the neck, feels like "somebody hit me with a sledgehammer in the chest ", associated with diaphoresis and mild shortness of breath. The patient denies any nausea or vomiting. The patient does have a history of CAD with previous stent placement, last stent was placed over the summer [address] Pike. Patient is followed at the [facility]. She denies any accompanying abdominal pain, fever, chills, sweats, or cough. She has a history of tobacco use, no longer smokes. Symptoms are moderate, there are no current alleviating or exacerbating factors. The patient denies any history of pulmonary embolism, DVT, recent surgery, or recent travel. The patient was last hospitalized in September 2017. PFSH Past Medical History Arthritis: Yes (HANDS) Asthma: No Autoimmune Disease: No Blood Disorders: No Anxiety: No Depression: No Heart Rhythm Problems: No Cancer: No Cardiac Catheterization: Yes Cardiovascular Problems: Yes High Cholesterol: Yes Chemotherapy: No Chest Pain: Yes Congestive Heart Failure: Yes COPD: No Cerebrovascular Accident: Yes (TIA x 1) Diabetes: Yes Patient Takes Glucophage: No Diminished Hearing: No Endocrine: Yes Gastrointestinal Disorders: No GERD: Yes Genitourinary: Yes Headaches: Yes Hiatal Hernia: No Heparin Induced Thrombocytopen: No Hypertension: Yes Immune Disorder: No Implanted Vascular Access Dvce: No Kidney Stones: No Musculoskeletal: Yes Neurologic: Yes Psychiatric: No Reproductive: No Respiratory: Yes Migraines: No Myocardial Infarction: Yes Radiation Therapy: No Renal Failure: No Seizures: No Sickle Cell Disease: No Sleep Apnea: No Thyroid Disease: No Ulcer: No ?: Not Menopausal: Yes : 8 Para: 7 Miscarriage: 1 Past Surgical History Abdominal Surgery: No Cardiac Surgery: Yes (CARDIAC CATH 03/06, STENT TEN YRS AGO) Coronary Stent: Yes Ear Surgery: No Endocrine Surgery: No Eye Surgery: Yes (cataracts surgery bilat eyes) Genitourinary Surgery: No Gynecologic Surgery: No Neurologic Surgery: No Oral Surgery: Yes (T&A) Thoracic Surgery: No Tonsillectomy: Yes Other Surgery: Yes (tonsillectomy 1966) Social History Alcohol Use: Yes (rarely ) Tobacco Use: Yes (1-2 cigarettes per day) Substance Use: No Allergies-Medications (Allergen,Severity, Reaction): Coded Allergies: bee venom protein (honey bee) (Unverified Allergy, Severe, UNKNOWN, ) adhesive (Unverified Allergy, Mild, REDNESS, 09/26/17) Reported Meds & Prescriptions Reported Meds & Active Scripts Active Pantoprazole (Pantoprazole Sodium) 40 Mg Tab 40 Mg PO Q12HR Hydrocodone-Acetaminophen 5-325 mg Tab 1 Tab PO Q6H PRN Aspirin Low Strength (Aspirin) 81 Mg Chew 162 Mg PO DAILY Isosorbide Mononitrate ER (Isosorbide Mononitrate) 60 Mg Tab 60 Mg PO DAILY@07 Lisinopril 5 Mg Tab 5 Mg PO DAILY Glipizide 5 Mg Tab 5 Mg PO BIDAC Take 30 minutes before a meal Lopressor (Metoprolol Tartrate) 50 Mg Tab 50 Mg PO Q12HR Plavix (Clopidogrel Bisulfate) 75 Mg Tab 75 Mg PO DAILY Atorvastatin (Atorvastatin Calcium) 80 Mg Tab 80 Mg PO DAILY Reported Potassium Chloride ER (Potassium Chloride) 10 Meq Tab 10 Meq PO BID Metformin (Metformin HCl) 500 Mg Tab 500 Mg PO BIDPC Nitroglycerin SL (Nitroglycerin) 0.3 Mg Subl 0.3 Mg SL DIRECTED PRN ONE TABLET UNDER THE TONGUE NEEDED FOR CHEST PAIN, MAY REPEAT EVERY FIVE MINUTES FOR A TOTAL OF 3 DOSES OR CALL 911 IF NO RELIEF Review of Systems Except as stated in HPI: all other systems reviewed are Neg General / Constitutional: No: Fever, Chills Cardiovascular: Positive: Chest Pain or Discomfort, Diaphoresis Respiratory: Positive: Shortness of Breath Gastrointestinal: No: Nausea, Vomiting, Abdominal Pain Musculoskeletal: No: Edema Physical Exam Narrative GENERAL: Awake, alert, 8 year-old female who appears her stated age and is in no acute respiratory distress. SKIN: Diaphoretic across the forehead. HEAD: Atraumatic. Normocephalic. EYES: Pupils equal and round. No scleral icterus. No injection or drainage. ENT: No nasal bleeding or discharge. Poor dentition. NECK: Trachea midline. No JVD. CARDIOVASCULAR: Regular, tachycardic with a heart rate of 110. RESPIRATORY: No accessory muscle use. Clear to auscultation. Breath sounds equal bilaterally. GASTROINTESTINAL: Abdomen soft, non-tender, nondistended. No rebound tenderness , guarding, rigidity. MUSCULOSKELETAL: No obvious deformities. No clubbing. No cyanosis. No edema. Calves are soft bilaterally. NEUROLOGICAL: Awake and alert. No obvious cranial nerve deficits. Motor grossly within normal limits. Normal speech. PSYCHIATRIC: Appropriate mood and affect; insight and judgment normal. Data Data Last Documented VS Vital Signs Date Time Temp Pulse Resp B/P (MAP) Pulse Ox O2 Delivery O2 Flow Rate FiO2 02/04/18 09:16 109 131/88 02/04/18 08:29 18 97 2.00 02/04/18 08:19 Nasal Cannula 02/04/18 06:57 98.4 Orders Orders Electrocardiogram (02/04/18 07:04) Ckmb (Isoenzyme) Profile (02/04/18 07:04) Complete Blood Count With Diff (02/04/18 07:04) Comprehensive Metabolic Panel (02/04/18 07:04) Magnesium (Mg) (02/04/18 07:04) Prothrombin Time / Inr (Pt) (02/04/18 07:04) Act Partial Throm Time (Ptt) (02/04/18 07:04) Troponin I (02/04/18 07:04) Chest, Single Ap (02/04/18 07:04) Ecg Monitoring (02/04/18 07:04) Bilateral Bp Monitoring (02/04/18 07:04) Iv Access Insert/Monitor (02/04/18 07:04) Oximetry (02/04/18 07:04) Oxygen Administration (02/04/18 07:04) Aspirin Chew (Aspirin Chew) (02/04/18 07:15) Morphine Inj (Morphine Inj) (02/04/18 07:15) Nitroglycerin 2% Oint (Nitroglycerin 2% (02/04/18 07:15) Sodium Chloride 0.9% Flush (Ns Flush) (02/04/18 07:15) Nitroglycerin Sl (Nitrostat Sl) (02/04/18 07:15) Sodium Chlorid 0.9% 500 Ml Inj (Ns 500 M (02/04/18 07:15) Ondansetron Inj (Zofran Inj) (02/04/18 07:15) Ct Pulmonary Angiogram (02/04/18 ) Nitroglycerin Sl (Nitrostat Sl) (02/04/18 08:30) Morphine Inj (Morphine Inj) (02/04/18 08:30) Sodium Chlorid 0.9% 500 Ml Inj (Ns 500 M (02/04/18 08:30) Iodixanol 320 Inj (Rad Ct) (Visipaque 32 (02/04/18 08:48) Morphine Inj (Morphine Inj) (02/04/18 09:15) Nitroglycerin-D5w 50 Mg/250 Ml (Nitrogly (02/04/18 09:15) Sodium Chlor 0.9% 1000 Ml Inj (Ns 1000 M (02/04/18 09:15) Ceftriaxone Inj (Rocephin Inj) (02/04/18 09:15) Azithromycin Inj (Zithromax Inj) (02/04/18 09:15) Electrocardiogram (02/04/18 ) Admit Order (Ed Use Only) (02/04/18 09:26) Heparin Inj (Heparin Inj) (02/04/18 09:30) Heparin Inj (Heparin Inj) (02/04/18 15:30) Heparin Inj (Heparin Inj) (02/04/18 15:30) Heparin-D5w 25,000 U/250 Ml (Heparin-D5w (02/04/18 09:30) Act Partial Throm Time (Ptt) (02/04/18 09:26) Cbc No Diff, Includes Plts (02/04/18 09:26) Cbc No Diff, Includes Plts (02/07/18 06:00) Act Partial Throm Time (Ptt) (02/04/18 16:26) Occult Blood (Hemoccult) Stool (02/04/18 09:26) Consult Cardiology (02/04/18 ) Labs Laboratory Tests Test 02/04/18 07:15 White Blood Count 14.5 TH/MM3 Red Blood Count 4.44 MIL/MM3 Hemoglobin 14.1 GM/DL Hematocrit 41.8 % Mean Corpuscular Volume 94.2 FL Mean Corpuscular Hemoglobin 31.9 PG Mean Corpuscular Hemoglobin Concent 33.8 % Red Cell Distribution Width 13.8 % Platelet Count 422 TH/MM3 Mean Platelet Volume 8.8 FL Neutrophils (%) (Auto) 56.1 % Lymphocytes (%) (Auto) 35.0 % Monocytes (%) (Auto) 7.8 % Eosinophils (%) (Auto) 0.7 % Basophils (%) (Auto) 0.4 % Neutrophils # (Auto) 8.2 TH/MM3 Lymphocytes # (Auto) 5.1 TH/MM3 Monocytes # (Auto) 1.1 TH/MM3 Eosinophils # (Auto) 0.1 TH/MM3 Basophils # (Auto) 0.1 TH/MM3 CBC Comment DIFF FINAL Differential Comment Prothrombin Time 9.5 SEC Prothromb Time International Ratio 0.9 RATIO Activated Partial Thromboplast Time 26.8 SEC Blood Urea Nitrogen 22 MG/DL Creatinine 1.41 MG/DL Random Glucose 247 MG/DL Total Protein 8.3 GM/DL Albumin 3.9 GM/DL Calcium Level 9.0 MG/DL Magnesium Level 1.6 MG/DL Alkaline Phosphatase 154 U/L Aspartate Amino Transf (AST/SGOT) 32 U/L Alanine Aminotransferase (ALT/SGPT) 55 U/L Total Bilirubin 0.5 MG/DL Sodium Level 135 MEQ/L Potassium Level 3.9 MEQ/L Chloride Level 98 MEQ/L Carbon Dioxide Level 24.2 MEQ/L Anion Gap 13 MEQ/L Estimat Glomerular Filtration Rate 38 ML/MIN Total Creatine Kinase 88 U/L Troponin I LESS THAN 0.02 NG/ML MDM Medical Decision Making Medical Screen Exam Complete: Yes Emergency Medical Condition: Yes Medical Record Reviewed: Yes Interpretation(s) EKG reveals sinus tachycardia with a heart rate of 111. Incomplete right bundle branch block. Nonspecific ST changes. Laboratory Tests Test 02/04/18 07:15 White Blood Count 14.5 TH/MM3 Red Blood Count 4.44 MIL/MM3 Hemoglobin 14.1 GM/DL Hematocrit 41.8 % Mean Corpuscular Volume 94.2 FL Mean Corpuscular Hemoglobin 31.9 PG Mean Corpuscular Hemoglobin Concent 33.8 % Red Cell Distribution Width 13.8 % Platelet Count 422 TH/MM3 Mean Platelet Volume 8.8 FL Neutrophils (%) (Auto) 56.1 % Lymphocytes (%) (Auto) 35.0 % Monocytes (%) (Auto) 7.8 % Eosinophils (%) (Auto) 0.7 % Basophils (%) (Auto) 0.4 % Neutrophils # (Auto) 8.2 TH/MM3 Lymphocytes # (Auto) 5.1 TH/MM3 Monocytes # (Auto) 1.1 TH/MM3 Eosinophils # (Auto) 0.1 TH/MM3 Basophils # (Auto) 0.1 TH/MM3 CBC Comment DIFF FINAL Differential Comment Prothrombin Time 9.5 SEC Prothromb Time International Ratio 0.9 RATIO Activated Partial Thromboplast Time 26.8 SEC Blood Urea Nitrogen 22 MG/DL Creatinine 1.41 MG/DL Random Glucose 247 MG/DL Total Protein 8.3 GM/DL Albumin 3.9 GM/DL Calcium Level 9.0 MG/DL Magnesium Level 1.6 MG/DL Alkaline Phosphatase 154 U/L Aspartate Amino Transf (AST/SGOT) 32 U/L Alanine Aminotransferase (ALT/SGPT) 55 U/L Total Bilirubin 0.5 MG/DL Sodium Level 135 MEQ/L Potassium Level 3.9 MEQ/L Chloride Level 98 MEQ/L Carbon Dioxide Level 24.2 MEQ/L Anion Gap 13 MEQ/L Estimat Glomerular Filtration Rate 38 ML/MIN Total Creatine Kinase 88 U/L Troponin I LESS THAN 0.02 NG/ML Chest x-ray unremarkable CT pulmonary angiogram reveals atelectasis versus pneumonia lower lobes. No evidence of PE. No evidence of dissection. Differential Diagnosis Differential diagnosis includes STEMI, ACS, pulmonary embolism, GERD, esophageal spasm, pancreatitis, peptic ulcer disease, aortic dissection. Narrative Course IV was established, labs are drawn and sent, the patient was placed on cardiac telemetry monitoring and continuous pulse oximetry monitoring. EKG was ordered and interpreted. The patient was administered aspirin, nitroglycerin sublingual , nitro paste, placed on IV fluids. The patient also received morphine and Zofran. Stat chest x-ray was obtained. CT pulmonary angiogram was ordered to rule out underlying pulmonary embolism. The patient was evaluated by cardiology and cardiothoracic surgery over the summertime for continuing unstable angina. She is not a candidate for bypass surgery according to the notes by Dr. Singleton. They did consider TMR at that time. The patient was then seen by Dr. Mendoza, cardiology, who performed a cardiac catheterization in August 2017, placed 3 stents at that time. The patient continues to have symptoms consistent with angina, chest pain at this pressure, radiates to the neck, and alleviated with nitroglycerin. The patient's pain initially. After nitroglycerin sublingual and Nitropaste. However, returned, she was administered another nitroglycerin sublingual morphine, once again her pain improved. Chest x-ray was unremarkable. Initial troponin was negative. CT pulmonary angiogram reveals bilateral lower lobe pneumonia, white count is unremarkable. The patient was administered Rocephin and Zithromax. However, she continued to have chest pain, was placed on a nitro drip. Repeat EKG was performed. The on-call medical service was paged for admission. A call was placed to Dr. Mednoza, last rat exterminator to perform cardiac catheterization on September 15, 2017 with stent placement, at 9:14 AM. After discussion was agreed the patient will be placed on heparin drip as well. The patient will be admitted to the on-call medical service. I discussed with Dr. Rocha who agrees with admission. Repeat EKG reveals sinus tachycardia with incomplete right bundle branch block. No significant changes. Critical Care Narrative Aggregate critical care time was 40 minutes. Time to perform other separately billable procedures was not included in the critical care time. My time did not include minutes spent treating any other patients simultaneously or on activities that did not directly contribute to the patient's treatment. The services I provided to this patient were to treat and/or prevent clinically significant deterioration that could result in: Ischemia, arrhythmia, . I provided critical care services requiring my management, as noted below: Chart data review, documentation time, medication orders and management, vital sign assessments/reviewing monitor data, ordering and reviewing lab tests, ordering and interpreting/reviewing x-rays and diagnostic studies, care of the patient and discussion of the patient with the admitting physicians. Physician Communication Physician Communication The on-call medical service was paged for admission. Diagnosis Primary Impression: Unstable angina Additional Impression: Pneumonia Qualified Codes: J18.1 - Lobar pneumonia, unspecified organism Admitting Information Admitting Physician Requests: Admit Condition: Stable Azael Cordova MD Feb 04, 2018 07:10
[2018-02-04] MEDS ORDERED: MORPHINE SULFATE 4 MG/ML INJ IV PUSH ONE ×2 (07:15→09:15)
[2018-02-04] MEDS ORDERED: SODIUM CHLORIDE 0.9% FLUSH 10 ML FLUSH IVF PRN (07:15)
[2018-02-04] MEDS ORDERED: NITROGLYCERIN 2% OINT 1 GM PACKET TOP ONE (07:15)
[2018-02-04] MEDS ORDERED: ASPIRIN 81 MG CHEW TAB PO ONE (07:15)
[2018-02-04] MEDS ORDERED: SODIUM CHLORID 0.9% 500 ML INJ 500 ML IV ONE ×2 (07:15→08:30)
[2018-02-04] MEDS ORDERED: NITROGLYCERIN 0.4 MG SL 25 TABS/BTL SL ONE ×2 (07:15→08:30)
[2018-02-04] MEDS ORDERED: ONDANSETRON HCL 4 MG/2 ML VIAL IV PUSH ONE (07:15)
--- NOTE | 2018-02-04 07:22 | RADRPT ---
EXAM DATE/TIME: 02/04/2018 07:11 [facility] COMPARISON: CHEST SINGLE AP, September 26, 2017, 23:00. INDICATIONS : Chest pain. MEDICAL HISTORY : None. SURGICAL HISTORY : None. ENCOUNTER: Initial ACUITY: 1 day PAIN SCORE: 7/10 LOCATION: Bilateral chest FINDINGS: A single view of the chest demonstrates the lungs to be symmetrically aerated without evidence of mas s, infiltrate or effusion. The cardiomediastinal contours are unremarkable. Osseous structures are intact. CONCLUSION: Normal examination. Johana Maher MD on February 04, 2018 at 7:20 Board Certified Radiologist. This report was verified electronically.
[2018-02-04] MEDS ORDERED: POTA10TA2 PO (07:28)
[2018-02-04] MEDS ORDERED: METF500T PO (07:28)
[2018-02-04 07:50] LABS: AUTOMATED NEUTROPHIL # 8.2 TH/MM3 (1.8-7.7); BASOPHIL # 0.1 TH/MM3 (0-0.2); BASOPHIL % 0.4 % (0.0-2.0); EOSINOPHIL # 0.1 TH/MM3 (0-0.4); EOSINOPHIL % 0.7 % (0.0-4.0); HEMATOCRIT 41.8 % (35.0-46.0); HEMOGLOBIN 14.1 GM/DL (11.6-15.3); LYMPHOCYTE # 5.1 TH/MM3 (1.0-4.8); MEAN CELL VOLUME 94.2 FL (80.0-100.0); MEAN CORPUSCULAR HEMOGLOBIN 31.9 PG (27.0-34.0); MEAN CORPUSCULAR HGB CONC 33.8 % (32.0-36.0); MEAN PLATELET VOLUME 8.8 FL (7.0-11.0); MONO % 7.8 % (0.0-8.0); MONOCYTE # 1.1 TH/MM3 (0-0.9); NEUT % 56.1 % (16.0-70.0); PLATELET COUNT 422 TH/MM3 (150-450); RED BLOOD COUNT 4.44 MIL/MM3 (4.00-5.30); RED CELL DISTRIBUTION WIDTH 13.8 % (11.6-17.2); WHITE BLOOD COUNT 14.5 TH/MM3 (4.0-11.0)
[2018-02-04 07:58] LABS: INTERNATIONAL NORMALIZED RATIO 0.9 RATIO; PROTHROMBIN TIME - PATIENT 9.5 SEC (9.8-11.6)
[2018-02-04 08:08] LABS: ALBUMIN 3.9 GM/DL (3.4-5.0); ALT (GPT) 55 U/L (10-53); AST (GOT) 32 U/L (15-37); BICARBONATE 24.2 MEQ/L (21.0-32.0); BLOOD UREA NITROGEN 22 MG/DL (7-18); CHLORIDE 98 MEQ/L (98-107); CREATININE 1.41 MG/DL (0.50-1.00); GLOMERULAR FILTRATION RATE 38 ML/MIN (>89); GLUCOSE,RANDOM 247 MG/DL (74-106); MAGNESIUM 1.6 MG/DL (1.5-2.5); SODIUM (NA) 135 MEQ/L (136-145)
[2018-02-04 08:12] LABS: ALKALINE PHOSPHATASE 154 U/L (45-117); TOTAL BILIRUBIN ADULT 0.5 MG/DL (0.2-1.0); TOTAL PROTEIN 8.3 GM/DL (6.4-8.2); TROPONIN I LESS THAN 0.02 NG/ML (0.02-0.05)
[2018-02-04] MEDS ORDERED: MORPHINE SULFATE 2 MG/ML INJ IV PUSH ONE (08:30)
[2018-02-04] MEDS ORDERED: IODIXANOL 320 MG/ML 10 ML VIAL (for Rad CT) IVCONTRAST ONE (08:48)
--- NOTE | 2018-02-04 08:59 | RADRPT ---
EXAM DATE/TIME: 02/04/2018 08:35 [facility] COMPARISON: CHEST SINGLE AP, September 26, 2017, 23:00. CHEST SINGLE AP, February 04, 2018, 7:11. INDICATIONS : Chest pain and nausea today. IV CONTRAST: 50 cc Visipaque (iodixanol) IV RADIATION DOSE: 6.74 CTDIvol (mGy) MEDICAL HISTORY : Congestive hearrt failure. Hypertension. Gastroesophageal reflux disease. SURGICAL HISTORY : Tonsillectomy. ENCOUNTER: Initial ACUITY: 1 day PAIN SCALE: 7/10 LOCATION: Bilateral chest TECHNIQUE: Volumetric scanning of the chest was performed using a pulmonary embolism protocol MIP images were re constructed. Using automated exposure control and adjustment of the mA and/or kV according to patien t size, radiation dose was kept as low as reasonably achievable to obtain optimal diagnostic quality images. DICOM format image data is available electronically for review and comparison. Follow-up recommendations for detected pulmonary nodules are based at a minimum on nodule size and pa tient risk factors according to Fleischner Society Guidelines. FINDINGS: PULMONARY ARTERIES: No filling defects are seen in the pulmonary arteries through the segmental level. LUNGS: There is patchy areas of airspace consolidation involving the left lower lobe, right lower lobe and l ingula suggestive of pneumonia. PLEURAE: There is no pleural thickening or pleural effusion. MEDIASTINUM: The heart size is normal with moderate coronary artery disease. No evidence of pericardial effusion. MUSCULOSKELETAL: Within normal limits for patient age. MISCELLANEOUS: The imaged portion of the abdomen demonstrates fatty infiltration of the liver. The adrenal glands ar e normal. The osseous structures are unremarkable. CONCLUSION: #1. No evidence of PE. #2. Multifocal air space consolidation involving the bilateral lower lobes and lingula consistent wit h pneumonia. #3. No evidence of congestive heart failure.. Johana Maher MD on February 04, 2018 at 8:53 Board Certified Radiologist. This report was verified electronically.
[2018-02-04] MEDS ORDERED: AZITHROMYCIN INJ 500 MG in SODIUM CHLOR 0.9% 250 ML INJ 250 ML IV ONE (09:15)
[2018-02-04] MEDS ORDERED: SODIUM CHLOR 0.9% 1000 ML INJ 1,000 ML IV SCH (09:15)
[2018-02-04] MEDS ORDERED: NITROGLYCERIN-D5W 50 MG/250 ML 250 ML IV ONE (09:15)
[2018-02-04] MEDS ORDERED: cefTRIAXone INJ 1,000 MG in SODIUM CHLORIDE 0.9% INJ 100 ML IV ONE (09:15)
[2018-02-04] MEDS ORDERED: HEPARIN SODIUM - IV 10,000 UNITS/10 ML VIAL IV ONE (09:30)
[2018-02-04] MEDS ORDERED: LORazepam 2 MG/ML VIAL IV PUSH ONE (09:45)
[2018-02-04] MEDS: HEPARIN-D5W 25,000 U/250 ML 250 ML IV PRN (09:46)
--- NOTE | 2018-02-04 09:54 | HHI.HP ---
[facility] Service [facility] Primary Care Physician Unknown Admission Diagnosis unstable angina, pneumonia versus atelectasis Diagnoses: Chief Complaint: Chest pain Travel History International Travel<30 Days: No Contact w/Intl Traveler <30 Da: No History of Present Illness This is a 62-year-old female past medical history of coronary disease status post stent placement in August [address] Mendoza and multiple admissions secondary to chest pain who presented with chest pain. Patient is well-known to me in which she was seen in August for similar issues. Patient stated that she ran out her nitro last night and she started to have chest pain. She stated nitro usually relieves her chest pain. Chest pain is constant, substernal, radiating to the left arm. At the moment Nitrol seems to not help her chest pain. Patient also giving multiple doses of morphine which she said improved her chest pain more. Patient stated that she feels nauseous but denies any emesis. Positive for diaphoresis. I spoke to patient's nurse who stated that initially patient refused EKG because she wanted a more pain medication. Otherwise no other complaints. All other review of system reviewed and negative. Past Family Social History Past Medical History CAD with stenting 09/15/17. Hypertension, diabetes, hyperlipidemia. P Past Surgical History Cardiac catheterizations with stenting recently on 09/15/17. Cataracts, tonsillectomy. Reported Medications Reported Meds & Active Scripts Active Pantoprazole (Pantoprazole Sodium) 40 Mg Tab 40 Mg PO Q12HR Hydrocodone-Acetaminophen 5-325 mg Tab 1 Tab PO Q6H PRN Aspirin Low Strength (Aspirin) 81 Mg Chew 162 Mg PO DAILY Isosorbide Mononitrate ER (Isosorbide Mononitrate) 60 Mg Tab 60 Mg PO DAILY@07 Lisinopril 5 Mg Tab 5 Mg PO DAILY Glipizide 5 Mg Tab 5 Mg PO BIDAC Take 30 minutes before a meal Lopressor (Metoprolol Tartrate) 50 Mg Tab 50 Mg PO Q12HR Plavix (Clopidogrel Bisulfate) 75 Mg Tab 75 Mg PO DAILY Atorvastatin (Atorvastatin Calcium) 80 Mg Tab 80 Mg PO DAILY Reported Potassium Chloride ER (Potassium Chloride) 10 Meq Tab 10 Meq PO BID Metformin (Metformin HCl) 500 Mg Tab 500 Mg PO BIDPC Nitroglycerin SL (Nitroglycerin) 0.3 Mg Subl 0.3 Mg SL DIRECTED PRN ONE TABLET UNDER THE TONGUE NEEDED FOR CHEST PAIN, MAY REPEAT EVERY FIVE MINUTES FOR A TOTAL OF 3 DOSES OR CALL 911 IF NO RELIEF Allergies: Coded Allergies: bee venom protein (honey bee) (Unverified Allergy, Severe, UNKNOWN, ) adhesive (Unverified Allergy, Mild, REDNESS, 09/26/17) Active Ordered Medications Current Medications Aspirin (Aspirin Chew) 162 mg ONCE ONCE PO Last administered on 02/04/18 07: 20; Start 02/04/18 at 07:15; Stop 02/04/18 at 07:16; Status DC Morphine Sulfate (Morphine Inj) 2 mg ONCE ONCE IV PUSH Last administered on 07:09; Start 02/04/18 at 07:15; Stop 02/04/18 at 07:16; Status DC Nitroglycerin (Nitroglycerin 2% Oint) 1 inch ONCE ONCE TOP Last administered on 02/04/18at 07:10; Start 02/04/18 at 07:15; Stop 02/04/18 at 07:16; Status DC Sodium Chloride (NS Flush) 2 ml UNSCH PRN IVF FLUSH AFTER USING IV ACCESS; Start 02/04/18 at 07:15 Nitroglycerin (Nitrostat Sl) 0.4 mg ONCE ONCE SL Last administered on at 07:10; Start 02/04/18 at 07:15; Stop 02/04/18 at 07:16; Status DC Sodium Chloride 500 ml @ 500 mls/hr ONCE ONCE IV Last administered on at 07:20; Start 02/04/18 at 07:15; Stop 02/04/18 at 08:14; Status DC Ondansetron HCl (Zofran Inj) 4 mg ONCE ONCE IV PUSH Last administered on at 07:09; Start 02/04/18 at 07:15; Stop 02/04/18 at 07:16; Status DC Nitroglycerin (Nitrostat Sl) 0.4 mg ONCE ONCE SL Last administered on at 08:26; Start 02/04/18 at 08:30; Stop 02/04/18 at 08:31; Status DC Morphine Sulfate (Morphine Inj) 2 mg ONCE ONCE IV PUSH Last administered on at 08:26; Start 02/04/18 at 08:30; Stop 02/04/18 at 08:31; Status DC Sodium Chloride 500 ml @ 500 mls/hr BOLUS ONCE IV Last administered on at 08:24; Start 02/04/18 at 08:30; Stop 02/04/18 at 09:29; Status DC Iodixanol (VISIPAQUE 320 INJ (Rad CT)) 50 ml STK-MED ONCE IVCONTRAST Last administered on 02/04/18at 08:48; Start 02/04/18 at 08:48; Stop 02/04/18 at 08:49 ; Status DC Morphine Sulfate (Morphine Inj) 4 mg ONCE ONCE IV PUSH ; Start 02/04/18 at 09: 15; Stop 02/04/18 at 09:16; Status DC Nitroglycerin/ Dextrose 250 ml @ 0 mls/hr TITRATE ONCE IV Last administered on 02/04/18at 09:16; Start 02/04/18 at 09:15; Stop 02/04/18 at 09:16; Status DC Sodium Chloride 1,000 ml @ 100 mls/hr Q10H IV Last administered on 02/04/18at 09:29; Start 02/04/18 at 09:15; Stop 02/04/18 at 09:54; Status DC Ceftriaxone Sodium 1000 mg/ Sodium Chloride 100 ml @ 200 mls/hr ONCE ONCE IV Last administered on 02/04/18at 09:21; Start 02/04/18 at 09:15; Stop 02/04/18 at 09:44; Status DC Azithromycin 500 mg/Sodium Chloride 250 ml @ 250 mls/hr ONCE ONCE IV ; Start 02/04/18 at 09:15; Stop 02/04/18 at 10:14 Heparin Sodium (Porcine) (Heparin Inj) 4,000 units ONCE ONCE IV Last administered on 02/04/18at 09:41; Start 02/04/18 at 09:30; Stop 02/04/18 at 09:31 ; Status DC Heparin Sodium (Porcine) (Heparin Inj) 5,000 units UNSCH PRN IV APTT LESS THAN 25; Start 02/04/18 at 15:30 Heparin Sodium (Porcine) (Heparin Inj) 2,500 units UNSCH PRN IV APTT 25 TO 39; Start 02/04/18 at 15:30 Heparin Sodium/ Dextrose 250 ml @ 8 mls/hr TITRATE PRN IV Coagulation Management Last administered on 02/04/18at 09:46; Start 02/04/18 at 09:30 Lorazepam (Ativan Inj) 1 mg ONCE ONCE IV PUSH ; Start 02/04/18 at 09:45; Stop 02/04/18 at 09:46; Status DC Sodium Chloride 1,000 ml @ 75 mls/hr [id number] IV ; Start 02/04/18 at 09:49 Sodium Chloride (NS Flush) 2 ml UNSCH PRN IV FLUSH FLUSH AFTER USING IV ACCESS ; Start 02/04/18 at 10:00 Sodium Chloride (NS Flush) 2 ml BID IV FLUSH ; Start 02/04/18 at 21:00 Acetaminophen (Tylenol) 650 mg Q4H PRN PO TEMP > 100.4; Start 02/04/18 at 10:00 Ondansetron HCl (Zofran Inj) 4 mg Q6H PRN IVP NAUSEA OR VOMITING; Start at 10:00 Naloxone HCl (Narcan Inj) 0.4 mg UNSCH PRN IV PUSH SEE LABEL COMMENTS; Start at 10:00 Nitroglycerin (Nitroglycerin 2% Oint) 0.5 inch Q6HR TOPICAL ; Start 02/04/18 at 12:00; Status UNV Morphine Sulfate (Morphine Inj) 2 mg Q3H PRN IV PUSH chest pain; Start at 10:00; Status UNV Family History Family history of coronary artery disease. Social History Denies any current use of tobacco. Denies any illicit drug use. Occasionally drinks alcohol. Physical Exam Vital Signs Vital Signs Date Time Temp Pulse Resp B/P (MAP) Pulse Ox O2 Delivery O2 Flow Rate FiO2 02/04/18 09:49 99 18 101/53 (69) 97 Nasal Cannula 2.00 02/04/18 09:32 86 18 138/74 (95) 97 Nasal Cannula 2.00 02/04/18 09:16 109 131/88 02/04/18 08:29 85 18 123/71 (88) 97 2.00 02/04/18 08:19 82 18 137/68 (91) 97 Nasal Cannula 2.00 02/04/18 07:26 89 18 111/58 (75) 98 Nasal Cannula 2.00 02/04/18 07:23 99 18 97 Nasal Cannula 2.00 02/04/18 07:20 95 18 105/55 (72) 95 Nasal Cannula 2.00 97/54 (68) 02/04/18 07:18 103 18 119/58 (78) 97 Nasal Cannula 2.00 02/04/18 07:18 97 Nasal Cannula 2.00 02/04/18 07:17 97 Nasal Cannula 2.00 02/04/18 06:57 98.4 96 18 140/87 (104) Physical Exam GENERAL: This is a well-nourished, well-developed patient, in no apparent distress. SKIN: No rashes, ecchymoses or lesions. Cool and dry. HEAD: Atraumatic. Normocephalic. No temporal or scalp tenderness. EYES: Pupils equal round and reactive. Extraocular motions intact. No scleral icterus. No injection or drainage. ENT: Nose without bleeding, purulent drainage or septal hematoma. Throat without erythema, tonsillar hypertrophy or exudate. Uvula midline. Airway patent. NECK: Trachea midline. No JVD or lymphadenopathy. Supple, nontender, no meningeal signs. CARDIOVASCULAR: Regular rate and rhythm without murmurs, gallops, or rubs. RESPIRATORY: Clear to auscultation. Breath sounds equal bilaterally. No wheezes , rales, or rhonchi. GASTROINTESTINAL: Abdomen soft, non-tender, nondistended. No hepato-splenomegaly , or palpable masses. No guarding. MUSCULOSKELETAL: Extremities without clubbing, cyanosis, or edema. No joint tenderness, effusion, or edema noted. No calf tenderness. Negative Homans sign bilaterally. NEUROLOGICAL: Awake and alert. Cranial nerves II through XII intact. Motor and sensory grossly within normal limits. Five out of 5 muscle strength in all muscle groups. Normal speech. Laboratory Laboratory Tests Test 02/04/18 07:15 White Blood Count 14.5 Red Blood Count 4.44 Hemoglobin 14.1 Hematocrit 41.8 Mean Corpuscular Volume 94.2 Mean Corpuscular Hemoglobin 31.9 Mean Corpuscular Hemoglobin Concent 33.8 Red Cell Distribution Width 13.8 Platelet Count 422 Mean Platelet Volume 8.8 Neutrophils (%) (Auto) 56.1 Lymphocytes (%) (Auto) 35.0 Monocytes (%) (Auto) 7.8 Eosinophils (%) (Auto) 0.7 Basophils (%) (Auto) 0.4 Neutrophils # (Auto) 8.2 Lymphocytes # (Auto) 5.1 Monocytes # (Auto) 1.1 Eosinophils # (Auto) 0.1 Basophils # (Auto) 0.1 CBC Comment DIFF FINAL Differential Comment Prothrombin Time 9.5 Prothromb Time International Ratio 0.9 Activated Partial Thromboplast Time 26.8 Blood Urea Nitrogen 22 Creatinine 1.41 Random Glucose 247 Total Protein 8.3 Albumin 3.9 Calcium Level 9.0 Magnesium Level 1.6 Alkaline Phosphatase 154 Aspartate Amino Transf (AST/SGOT) 32 Alanine Aminotransferase (ALT/SGPT) 55 Total Bilirubin 0.5 Sodium Level 135 Potassium Level 3.9 Chloride Level 98 Carbon Dioxide Level 24.2 Anion Gap 13 Estimat Glomerular Filtration Rate 38 Total Creatine Kinase 88 Troponin I LESS THAN 0.02 Result Diagram: 02/04/18 0715 02/04/18 0715 Caprini VTE Risk Assessment Caprini VTE Risk Assessment: Mod/High Risk (score >= 2) Caprini Risk Assessment Model Point Value = 1 Point Value = 2 Point Value = 3 Point Value = 5 Age 41-60 Minor surgery BMI > 25 kg/m2 Swollen legs Varicose veins or History of unexplained or recurrent spontaneous Oral contraceptives or hormone replacement Sepsis (< 1 month) Serious lung disease, including pneumonia (< 1 month) Abnormal pulmonary function Acute myocardial infarction Congestive heart failure (< 1 month) History of inflammatory bowel disease Medical patient at bed rest Age 61-74 Arthroscopic surgery Major open surgery (> 45 min) Laparoscopic surgery (> 45 min) Malignancy Confined to bed (> 72 hours) Immobilizing plaster cast Central venous access Age >= 75 History of VTE Family history of VTE Factor V Leiden Prothrombin [id number] Lupus anticoagulant Anticardiolipin antibodies Elevated serum homocysteine Heparin-induced thrombocytopenia Other congenital or acquired thrombophilia Stroke (< 1 month) Elective arthroplasty Hip, pelvis, or leg fracture Acute spinal cord injury (< 1 month) Prophylaxis Regimen Total Risk Factor Score Risk Level Prophylaxis Regimen 0-1 Low Early ambulation 2 Moderate Order ONE of the following: *Sequential Compression Device (SCD) *Heparin 5000 units SQ BID 3-4 Higher Order ONE of the following medications: *Heparin 5000 units SQ TID *Enoxaparin/Lovenox 40 mg SQ daily (WT < 150 kg, CrCl > 30 mL/min) *Enoxaparin/Lovenox 30 mg SQ daily (WT < 150 kg, CrCl > 10-29 mL/min) *Enoxaparin/Lovenox 30 mg SQ BID (WT < 150 kg, CrCl > 30 mL/min) AND/OR *Sequential Compression Device (SCD) 5 or more Highest Order ONE of the following medications: *Heparin 5000 units SQ TID (Preferred with Epidurals) *Enoxaparin/Lovenox 40 mg SQ daily (WT < 150 kg, CrCl > 30 mL/min) *Enoxaparin/Lovenox 30 mg SQ daily (WT < 150 kg, CrCl > 10-29 mL/min) *Enoxaparin/Lovenox 30 mg SQ BID (WT < 150 kg, CrCl > 30 mL/min) AND *Sequential Compression Device (SCD) Assessment and Plan Assessment and Plan This is a 62-year-old female who has history of coronary disease status post stent placement in August 2017 Atypical chest pain -Chest pain lasted since last night. Chest pain is atypical. - EKG showed repeat EKG reveals sinus tachycardia with incomplete right bundle branch block. -She was given nitro which did not relieve the chest pain. She was given more than 6 mg of morphine and she continues to complain of chest pain. Patient does have extensive coronary artery disease. [employer] Salesperson already consulted. Patient placed on heparin drip. Will restart her home medication for coronary artery disease. Place Nitropaste and give morphine as needed. Trend troponin. Monitor over telemetry. Incidental finding multi lobar consolidation on CTA -Patient asymptomatic. She has no upper respiratory symptoms or any signs of pneumonia. -Most likely atelectasis. Monitor off antibiotics. Coronary artery disease -Restart home medication. DVT prophylaxis -On heparin drip. Discussed Condition With Patient, Dr. Cordova, and patient's nurse Agnes Rocha MD Feb 04, 2018 09:54
[2018-02-04] MEDS ORDERED: MORPHINE SULFATE 2 MG/ML INJ IV PUSH PRN (10:00)
[2018-02-04] MEDS ORDERED: SODIUM CHLORIDE 0.9% FLUSH 10 ML FLUSH IV FLUSH PRN (10:00)
[2018-02-04] MEDS ORDERED: ONDANSETRON HCL 4 MG/2 ML VIAL IVP PRN (10:00)
[2018-02-04] MEDS ORDERED: NALOXONE HCL 0.4 MG/ML AMP IV PUSH PRN (10:00)
[2018-02-04] MEDS ORDERED: ACETAMINOPHEN 325 MG TAB PO PRN (10:00)
[2018-02-04] MEDS: METOPROLOL TARTRATE 25 MG TAB PO SCH ×2 (10:15→22:30)
[2018-02-04] MEDS ORDERED: PILL SPLITTER OTHER PRN (10:15)
[2018-02-04] MEDS: SODIUM CHLOR 0.45% 1000 ML INJ 1,000 ML IV SCH ×2 (10:44→23:09)
[2018-02-04] MEDS: NITROGLYCERIN 2% OINT 1 GM PACKET TOPICAL SCH ×3 (11:52→23:20)
--- NOTE | 2018-02-04 13:36 | EKG ---
Date Performed: 02/04/2018 Time Performed: 06:57:19 PTAGE: 62 years EKG: Sinus tachycardia Right bundle branch block Diffuse ST-T wave changes Low QRS voltage in pr ecordial leads Compared to previous tracing, heart rate is faster, otherwise no significant change. A BNORMAL ECG PREVIOUS TRACING : 09/27/2017 08.53 DOCTOR: Basilio Rothman Interpretating Date/Time 02/04/2018 13:34:54
--- NOTE | 2018-02-04 13:37 | EKG ---
Date Performed: 02/04/2018 Time Performed: 09:25:39 PTAGE: 62 years EKG: Sinus tachycardia Atrial abnormality Right bundle branch block Diffuse ST-T change Since pr evious tracing, no significant change noted ABNORMAL ECG PREVIOUS TRACING : 02/04/2018 06.57 DOCTOR: Basilio Rothman Interpretating Date/Time 02/04/2018 13:35:36
[2018-02-04] MEDS ORDERED: HEPARIN SODIUM - IV 10,000 UNITS/10 ML VIAL IV PRN ×2 (15:30)
--- NOTE | 2018-02-04 16:24 | MB ---
cc: Marcus Hawthorne MD DATE OF CONSULT: HISTORY OF PRESENT ILLNESS: Ms. Haynes is a 62-year-old white female with a history of severe multivessel coronary artery disease. She ran out of her nitroglycerin after she took her last pill at 3:00 this morning. She takes nitroglycerin frequently. She was previously seen by Dr. Mendoza and underwent coronary intervention of the left circumflex and right coronary artery. The patient was seen by palliative care in the past for her severe disease with extensive blockages. She complains of a substernal chest ache. She is on IV nitroglycerin, which is being titrated, and also IV heparin. She had itching with morphine in the emergency room. She has mild shortness of breath. PAST MEDICAL HISTORY: Coronary artery disease, coronary intervention 08/2017, hypertension, diabetes mellitus, dyslipidemia, history of cataract surgery, tonsillectomy. MEDICATIONS AT HOME: Include atorvastatin 80 mg a day, Plavix, Lopressor, glipizide, lisinopril, isosorbide, aspirin, hydrocodone, acetaminophen and pantoprazole. ALLERGIES: ADHESIVES, BEE VENOM. SOCIAL HISTORY: The patient quit smoking last March. She drinks alcohol occasionally. FAMILY HISTORY: Strongly positive for coronary artery disease. REVIEW OF SYSTEMS: Otherwise negative. PHYSICAL EXAMINATION: VITAL SIGNS: Blood pressure 126/81, pulse 103 and regular. HEENT: Negative. NECK: 2+ carotid upstrokes, no bruits. LUNGS: Clear. HEART: Regular with no murmur or gallop. ABDOMEN: Soft. No bruits. EXTREMITIES: Without edema, 2+ pulses. NEUROLOGIC: Grossly, nonfocal. MUSCULOSKELETAL: Chest pain is partially reproducible with chest palpation. DIAGNOSTIC DATA: EKG was reviewed and showed sinus tachycardia, left atrial abnormality, right bundle branch block, diffuse ST-T changes. LABORATORY DATA: Hemoglobin 14.1. Potassium 3.9, creatinine 1.41, AST 32, ALT 55. CK 88, troponin less than 0.02. DIAGNOSES: 1. Unstable angina. 2. Severe end-stage multivessel coronary artery disease. 3. Ischemic cardiomyopathy. 4. Hypertension. 5. Diabetes mellitus. 6. Dyslipidemia. 7. Previous history of smoking. PLAN: Ms. Haynes has a history of multiple coronary interventions for severe end-stage multivessel coronary artery disease. She was seen by palliative care in the past for her extensive coronary disease, which is felt to be end-stage. We will proceed with cardiac catheterization to reevaluate her disease. The plan was discussed with the patient and she understands. Her last cardiac catheterization showed extensive disease and an attempt of partial revascularization was made, but I doubt that a long-term satisfactory result will be achieved. I will follow her for cardiology during her hospitalization. MD MARQUITA Auguste/ARMANDO , 03:02 PM , 04:21 PM BIANCA
[2018-02-04] MEDS ORDERED: DEXTROSE 50% IN WATER 50 ML VIAL(D50) IV PUSH PRN (16:30)
[2018-02-04] MEDS ORDERED: GLUCAGON 1 MG/ML VIAL OTHER PRN (16:30)
[2018-02-04] MEDS: LOW DOSE INSULIN NOVOLOG SUPPLEMENTAL SCALE SQ SCH ×2 (18:07→22:32)
[2018-02-04] MEDS: SODIUM CHLORIDE 0.9% FLUSH 10 ML FLUSH IV FLUSH SCH (21:00)
[2018-02-04] MEDS: PANTOPRAZOLE SOD 40 MG DELAYED RELEASE TAB PO SCH (22:29)
[2018-02-05] VITALS (24 sets, daily range): BP systolic 111–127; BP diastolic 66–77; PULSE 82–107; RESP 16–20; TEMP 98–98.3; O2SAT 95–97
[2018-02-05] MEDS: NITROGLYCERIN 2% OINT 1 GM PACKET TOPICAL SCH ×3 (06:00→17:18)
[2018-02-05] MEDS: NITROGLYCERIN/DEXTROSE 5% 250 ML for chest pain IV PRN (07:26)
[2018-02-05] MEDS: HEPARIN-D5W 25,000 U/250 ML 250 ML IV PRN (07:30)
[2018-02-05] MEDS: SODIUM CHLORIDE 0.9% FLUSH 10 ML FLUSH IV FLUSH SCH ×2 (09:00→22:27)
--- NOTE | 2018-02-05 09:49 | HHI.PR ---
Subjective Remarks Follow up Unstable angina/end state MVD 02/05/18-patient seen and examined, reports no chest pain and denies any dizziness. Objective Vitals Vital Signs Date Time Temp Pulse Resp B/P (MAP) Pulse Ox O2 Delivery O2 Flow Rate FiO2 02/05/18 07:26 92 117/68 02/05/18 06:00 88 02/05/18 05:00 84 02/05/18 04:00 94 02/05/18 03:45 107 16 117/68 (84) 95 02/05/18 03:00 82 02/05/18 02:00 96 02/05/18 01:00 86 02/05/18 00:00 90 02/04/18 23:00 98.8 91 16 90/52 (65) 97 02/04/18 23:00 94 02/04/18 22:00 94 02/04/18 21:00 94 02/04/18 20:00 104 02/04/18 19:00 99 02/04/18 19:00 100.1 112 16 112/67 (82) 96 02/04/18 18:00 100 02/04/18 17:00 100 02/04/18 16:00 92 02/04/18 15:30 98.1 98 16 108/58 (75) 98 02/04/18 15:00 98 02/04/18 15:00 111/76 02/04/18 14:42 121/80 02/04/18 14:25 123/71 02/04/18 14:08 126/81 (96) 02/04/18 14:08 126/81 02/04/18 14:03 126/81 (96) 02/04/18 14:00 113/76 (88) 02/04/18 13:56 02/04/18 13:45 97.6 103 20 113/76 (88) 100 02/04/18 13:45 103 113/76 02/04/18 13:33 75 18 123/83 (96) 97 Nasal Cannula 2.00 02/04/18 12:37 83 18 113/76 (88) 97 Nasal Cannula 2.00 02/04/18 11:17 92 18 123/74 (90) 97 Nasal Cannula 2.00 02/04/18 10:52 97 18 124/69 (87) Nasal Cannula 2.00 02/04/18 10:28 86 18 123/75 (91) 99 Nasal Cannula 2.00 02/04/18 10:10 18 02/04/18 10:09 68 18 114/62 (79) 97 Nasal Cannula 2.00 02/04/18 10:04 94 18 122/70 (87) 97 Nasal Cannula 2.00 02/04/18 09:49 99 18 101/53 (69) 97 Nasal Cannula 2.00 I/O 02/04/18 02/04/18 02/04/18 02/05/18 02/05/18 02/05/18 07:00 15:00 23:00 07:00 15:00 23:00 Intake Total 796 ml 1727.5 ml Output Total 300 ml 1850 ml Balance 496 ml -122.5 ml Intake Oral 400 ml 240 ml IV Total 396 ml 1487.5 ml Output Urine Total 300 ml 1850 ml Result Diagram: 02/04/18 0715 02/04/18 0715 Imaging Last Impressions Chest X-Ray 02/04/18 0704 Signed Impressions: Service Date/Time: Sunday, February 04, 2018 07:11 - CONCLUSION: Normal examination. Johana Maher MD CT Angiography 02/04/18 0000 Signed Impressions: Service Date/Time: Sunday, February 04, 2018 08:35 - CONCLUSION: #1. No evidence of PE. #2. Multifocal air space consolidation involving the bilateral lower lobes and lingula consistent with pneumonia. #3. No evidence of congestive heart failure.. Johana Maher MD Objective Remarks GENERAL: NAD SKIN: Warm and dry. HEAD: Normocephalic. EYES: No scleral icterus. No injection or drainage. NECK: Supple, trachea midline. No JVD or lymphadenopathy. CARDIOVASCULAR: Regular rate and rhythm without murmurs, gallops, or rubs. RESPIRATORY: Breath sounds equal bilaterally. No accessory muscle use. GASTROINTESTINAL: Abdomen soft, non-tender, nondistended. MUSCULOSKELETAL: No cyanosis, or edema. BACK: Nontender without obvious deformity. No CVA tenderness. A/P Problem List: (1) Unstable angina ICD Code: I20.0 - Unstable angina Status: Acute (2) Pneumonia ICD Code: J18.9 - Pneumonia, unspecified organism Status: Acute Assessment and Plan 62 year-old female with Unstable angina End-stage multivessel disease Atypical chest pain Appreciate input from cardiology Currently on heparin and nitroglycerin drips Continue Plavix, beta chauncey, statin Plan for possible left heart catheterization today CT angiogram negative for PE Community acquired pneumonia In The face of leukocytosis and finding of pulmonary infiltrate on CTA, Will start patient on empiric antibiotic Acute renal failure Gentle IV fluid hydration and monitor BUN and creatinine CAD On beta chauncey, Plavix Problem Qualifiers (1) Pneumonia: Qualified Codes: J18.1 - Lobar pneumonia, unspecified organism Pilo Nieto MD Feb 05, 2018 09:49
[2018-02-05] MEDS: METOPROLOL TARTRATE 25 MG TAB PO SCH ×2 (09:53→20:35)
[2018-02-05] MEDS: CLOPIDOGREL 75 MG TAB PO SCH (09:53)
[2018-02-05] MEDS: ATORVASTATIN 80 MG TAB PO SCH (09:53)
[2018-02-05] MEDS: LOW DOSE INSULIN NOVOLOG SUPPLEMENTAL SCALE SQ SCH ×4 (09:53→22:26)
[2018-02-05] MEDS: ASPIRIN 81 MG CHEW TAB PO SCH (09:54)
[2018-02-05] MEDS: PANTOPRAZOLE SOD 40 MG DELAYED RELEASE TAB PO SCH ×2 (09:54→20:35)
--- NOTE | 2018-02-05 11:46 | EKG ---
Date Performed: 02/04/2018 Time Performed: 14:21:04 PTAGE: 62 years EKG: Sinus rhythm . Right bundle branch block Possible anterolateral infarct - age undetermined Inferior ST changes are nonspecific Low QRS voltages in precordial leads Since the previous tracing, no significant change n oted Abnormal ECG PREVIOUS TRACING : 02/04/2018 09.25 DOCTOR: Freida Reyes Interpretating Date/Time 02/05/2018 11:44:14
[2018-02-05] MEDS: SODIUM CHLOR 0.45% 1000 ML INJ 1,000 ML IV SCH (12:17)
[2018-02-05] MEDS ORDERED: HEPARIN-NS/PF FLUSH BAG 2,000 ML IV FLUSH ONE (12:49)
[2018-02-05] MEDS ORDERED: NITROGLYCERIN INJ 5 ML ONE (12:50)
[2018-02-05] MEDS ORDERED: MIDAZOLAM HCL 5 MG/5 ML VIAL ONE (12:50)
[2018-02-05] MEDS ORDERED: HEPARIN SODIUM - IV 10,000 UNITS/10 ML VIAL ONE (12:50)
--- NOTE | 2018-02-05 14:20 | CATHPROC ---
[place] HIS Report Study Information Study Number Admission Scheduled Start Study Start [id number] Feb 04 2018 9:29AM 02/05/2018 Feb 05 2018 12:39PM [place] Service Cardiac Catheterization Admit Source Facility Department Emergency department [facility] - [facility] Well Logging Operator Physician and Clinical Staff Initial Marcus Turner Sql Analyst Eneida Johnson,GERMAN Recorder Barb Orr RT(R) (BS) Scrub Gianni Levy RCIS(BS) Procedures Performed Procedure Location (Site) Vessel Name Angiogram LV LV Ventricle Coronary Angiograms LCA Left Coronary Coronary Angiograms RCA Right Coronary Coronary Angiograms MAHAJAN MAHAJAN L Heart Cath Equipment Time Electrical And Electronic Assembler Description Size Mfg Part Number Used/Scraped TRANSDUCER, TRQuatRx PharmaceuticalsAVE [id number] 12:51 Biocartis * Used W/STOCKCOCK *[id number] 13:35 [employer] AR MOD CATHETER FR 5 [id number] Used [id number] 13:48 [employer] MEDICAL VASCADE, FR5 CLOSURE SYSTEM FR 5 Used *[id number] *[id number] 12:51 MEDLINE INDUSTRIES PACK, CCL CUSTOM * Used *[id number] 12:51 Paladion PACER PEN, SKIN DUAL W/ RULER * Used *[id number] PIG ANG 145 DXTERITY 13:35 LakooTRONIC FR 5 [id number] Used CATHETER [id number] 12:51 [employer]andas WIRE, 3MMJ .035 180CM 180CM Used *[id number] PROBE COVER, STERILE [id number] 12:51 MedLink MEDICAL * Used ULTRASOUND W/ GEL *[id number] 12:51 NAMIC MANIFOLD, 4 PORT * Used *[id number] 12:51 NAMIC TUBING, HIGH PRESSURE 48" 48" Used *[id number] 12:51 NYCOMED OMNIPAQUE, 350 MG, 150ML 150ML [id number] Used [id number] 12:51 HENDRIX MEDICAL BLANKET,WARM AIR CCL * Used *[id number] 12:51 COTA Track MEDICAL SHEATH, FR5 TERUMO (10CM) FR 5 Used *[id number] Equipment Model, Serial, Lot Number and Expiration Data Description Model Number Serial Number Lot Number Expiration Date AR MOD CATHETER [id number] 11-28-2019 PIG ANG 145 DXTERITY CATHETER [id number] 07-10-2019 History: Current Medications Medication Dosage/Unit Route Frequency Last Date/Time Taken LISINOPRIL Statins (any) Beta Venessa ASA PLAVIX History: Allergies Allergy Reaction Adhesives REDNESS Honey Bee UNKNOWN adhesive REDNESS bee venom protein (honey bee) UNKNOWN History: Risk Factors Family History of Hypertension Dyslipidemia Previous PA Previous Heart Failure Premature CAD Yes Yes Yes No No Prior Valve Prior PCI Prior PCIDate Prior CABG Surgery No Yes 09/14/2017 No Cerebrovascular Peripheral Artery Chronic Lung On Dialysis Diabetes Diabetes Therapy Disease Disease Disease No Yes No No Yes Oral History: Symptoms/Diagnosis Selection Items Chest pain History: CV Disease Selection Items Known CAD History: Stress Tests Stress or Imaging Studies Performed No History: Other Disease Selection Items CAD HTN History: PA/CV Data Previous Cath Date 02/28/2017 History: Other Current Smoker Method Quit Packs a Day Years Used Pack Years No Cigarettes 1 Years Ago 1 30 30 Labs Hgb (g/dl) Hct (%) WBC (l/cumm) Platelets (thousands) 11.60-17.00 35.00-51.00 4.00-11.00 150.00-450.00 14.1 41.8 14.5 422 Glucose (mg/dl) BUN (mg/dl) Creatinine (mg/dl) BUN:Creatinine (1:x) 74.00-106.00 7.00-18.00 0.50-1.30 10.00-20.00 247 22 1.1 20 Na (meq/l) K (meq/l) 136.00-145.00 3.50-5.10 135 3.9 INR (PTT:PT) 0.90-1.10 0.9 Troponin I (ng/ml) CPK (u/l) CPK-MB (ng/ML) 0.02-0.05 26.00-308.00 0.50-3.60 9.4 88 Not Drawn Medication Medication Total Dose (Bolus/Oral) Medication Total Dosage/Unit 1% XYLOCAINE 20 mL FENTANYL 75 mcg OXYGEN 3 l/min VERSED 4 mg Medications (Bolus/Oral) Medication Time Given Dosage/Unit Administered By Reason OXYGEN 02/05/2018 1:02:19 PM 3 l/min Eneida Johnson 3 l/min OXYGEN given in lab by Eneida Johnson, RN via Nasal. VERSED 02/05/2018 1:16:27 PM 2 mg Eneida Johnson 2 mg VERSED given in lab by Eneida Johnson RN via Peripheral IV. FENTANYL 02/05/2018 1:17:36 PM 25 mcg Eneida Johnson 25 mcg FENTANYL given in lab by Eneida Johnson RN via Peripheral IV. VERSED 02/05/2018 1:17:40 PM 1 mg Eneida Johnson 1 mg VERSED given in lab by Eneida Johnson RN via Peripheral IV. FENTANYL 02/05/2018 1:18:56 PM 25 mcg Eneida Johnson 25 mcg FENTANYL given in lab by Eneida Johnson RN via Peripheral IV. 1% XYLOCAINE 02/05/2018 1:34:51 PM 20 mL Marcus Hawthorne 20 mL 1% XYLOCAINE given in lab by Marcus Hawthorne in Right Groin via Subcutaneous. VERSED 02/05/2018 1:37:19 PM 1 mg Eneida Johnson 1 mg VERSED given in lab by Eneida Johnson RN via Peripheral IV. FENTANYL 02/05/2018 1:38:22 PM 25 mcg Eneida Johnson 25 mcg FENTANYL given in lab by Eneida Johnson RN via Peripheral IV. Medication (Drip) Medication Time Given Dosage/Unit Concentration/Unit Diluent (ml) Solution HEPARIN DRIP STOPPED 02/05/2018 12:27:25 PM 0 units/hr 0 Patient arrived on 0 units/hr HEPARIN DRIP STOPPED. Pump/Drip Flow = 0 ml/hr using [Solution Name]. IV Solutions 02/05/2018 12:40:21 PM 0 mL (IV) 1000 NaCl .9 Patient arrived on IV Solutions in Left Antecubital via Peripheral IV. Pump/Drip Flow = 30 ml/hr usin g NaCl .9. NITROGLYCERIN DRIP 02/05/2018 12:40:38 PM 40 mcg/min 50 mg 250 D5W Patient arrived on 40 mcg/min NITROGLYCERIN DRIP in Left Antecubital via Peripheral IV. Pump/Drip Kemal w = 12 ml/hr using D5W with a concentration of 50 mg in 250 ml. NITROGLYCERIN DRIP 02/05/2018 1:00:17 PM 30 mcg/min 50 mg 250 D5W 30 mcg/min NITROGLYCERIN DRIP given in lab by Eneida Johnson RN in Left Antecubital via Peripheral IV. Pump/Drip Flow = 9 ml/hr using D5W with a concentration of 50 mg in 250 ml. NITROGLYCERIN DRIP 02/05/2018 1:11:31 PM 20 mcg/min 50 mg 250 D5W 20 mcg/min NITROGLYCERIN DRIP given in lab by Eneida Johnson, RN in Left Antecubital via Peripheral IV. Pump/Drip Flow = 6 ml/hr using D5W with a concentration of 50 mg in 250 ml. NITROGLYCERIN DRIP 02/05/2018 1:21:58 PM 10 mcg/min 50 mg 250 D5W 10 mcg/min NITROGLYCERIN DRIP given in lab by Eneida Johnson, GERMAN in Left Antecubital via Peripheral IV. Pump/Drip Flow = 3 ml/hr using D5W with a concentration of 50 mg in 250 ml. Initial Case Assessment Cardiovascular HR Rhythm NIBP Chest Pain 90 reg 118/66 0 Edema Present Skin color Skin None Normal Warm Dry Circulatory - Right Pulses Dorsalis Pedis Femoral 1 1 Scale (0,1,2,3,4,d) Circulatory - Left Pulses Dorsalis Pedis Femoral 1 1 Scale (0,1,2,3,4,d) Circulatory - Lower Extremities Color Lower Right Color Lower Left Normal Normal Neurological State Oriented to time-place- Alert Moves all extremities person Respiration - General Respiration Rate SpO2 (%) (B/min) 20 98 Chronological Log Time Study Chronological Log 12:27:25 Patient arrived on 0 units/hr HEPARIN DRIP STOPPED. Pump/Drip Flow = 0 ml/hr using [Solutio n Name]. 12:35:55 Patient arrived via Bed. 12:35:58 Patient Name, D.O.B, / Armband Verified By R.N. 12:40:01 Consent signed by the physician and the patient and verified by the [facility] Well Logging Operator staff. 12:40:02 Pre-op and post- op instructions given; patient acknowledges understanding of instructions. 12:40:03 Verbal Stimulation=2 Physical Stimulation=2 Airway=2 Respiration=2 TOTAL=8. (0=absent, 1=li mited, 2=present) 12:40:04 Presedation assessment performed by [facility] Well Logging Operator RN. 12:40:09 Patient has been NPO for More than 6Hrs. 12:40:10 A # 20 IV was noted in the Antecubital (right). Grade = 0 12:40:12 Skin Breakdown none per pt 12:40:17 A # 20 IV was noted in the Wrist (right). Grade = 0 12:40:17 Patient Warmer Placed on the Table. 12:40:19 Yan Prominences Protected 12:40:19 A # 20 IV was noted in the Antecubital (left). Grade = 0 12:40:21 Patient arrived on IV Solutions in Left Antecubital via Peripheral IV. Pump/Drip Flow = 30 ml/hr using NaCl .9. 12:40:22 History and physical on the chart or being dictated. Assessment: Initial Case, HR=90 BPM, Rhythm=reg, SKID=633/66 mmhg, Chest Pain=0, Edema=None, Co shanita=Normal, Skin = Warm, Dry Right Pulses: Nile Ped=1, Femoral=1 Left Pulses: Nile Ped=1, Femoral=1 12:40:24 Lower Right Extremities: Color=Normal Lower Left Extremities: Color=Normal Neurological: State=Alert, Ox3, CHOWDHURY Respiration: Resp=20 B/min, SpO2=98 % Patient arrived on 40 mcg/min NITROGLYCERIN DRIP in Left Antecubital via Peripheral IV. Pump/Dr ip Flow = 12 ml/hr 12:40:38 using D5W with a concentration of 50 mg in 250 ml. Vitals capture started with the following parameters, Patient=Adult, Interval=5 min, Initial Pr mtusdt=676 mmHg, 12:45:21 Deflation Rate=5 mmHg, Cuff placed on Left Leg 12:45:58 OA=739 bpm, CGMK=094/66 mmhg, SpO2=96.0 %, Resp=12 B/min, Pain=0, Evans=10, Romero=2 12:50:57 HR=92 bpm, XOPV=432/73 mmhg, SpO2=96.0 %, Resp=7 B/min, Pain=0, Evans=10, Romero=2 12:52:52 Bilateral groins prepped with 2% chlorhexidine, and draped after a 3 minute waiting time. 12:53:16 Reference ECG taken 12:55:58 HR=85 bpm, NIBP=99/65 mmhg, SpO2=96.0 %, Resp=8 B/min, Pain=0, Evans=10, Romero=2 12:57:27 MD paged 30 mcg/min NITROGLYCERIN DRIP given in lab by Eneida Johnson, RN in Left Antecubital via Perip heral IV. Pump/Drip 13:00:17 Flow = 9 ml/hr using D5W with a concentration of 50 mg in 250 ml. 13:00:41 MD responded 13:00:57 CN=525 bpm, UIJY=002/63 mmhg, SpO2=83.0 %, Resp=15 B/min, Pain=0, Evans=10, Romero=2 13:01:50 Pressure channel 1 zeroed. 13:02:19 3 l/min OXYGEN given in lab by Eenida Johnson, GERMAN via Nasal. 13:06:01 HR=91 bpm, NIBP=91/54 mmhg, SpO2=97.0 %, Resp=16 B/min, Pain=0, Evans=10, Romero=2 13:10:58 HR=86 bpm, NIBP=87/50 mmhg, SpO2=98.0 %, Resp=15 B/min, Pain=0, Evans=10, Romero=2 20 mcg/min NITROGLYCERIN DRIP given in lab by Eneida Johnson, GERMAN in Left Antecubital via Perip heral IV. Pump/Drip 13:11:31 Flow = 6 ml/hr using D5W with a concentration of 50 mg in 250 ml. 13:15:55 HR=85 bpm, MEUA=011/67 mmhg, SpO2=97.0 %, Resp=0 B/min, Pain=0, Evans=10, Romero=2 13:16:13 MD arrived 13:16:27 2 mg VERSED given in lab by Eneida Johnson, RN via Peripheral IV. 13:17:36 25 mcg FENTANYL given in lab by Eneida Johnson, GERMAN via Peripheral IV. 13:17:40 1 mg VERSED given in lab by Eneida Johnson, GERMAN via Peripheral IV. 13:18:56 25 mcg FENTANYL given in lab by Eneida Johnson, GERMAN via Peripheral IV. 13:21:00 HR=84 bpm, NIBP=97/63 mmhg, SpO2=96.0 %, Resp=6 B/min, Pain=0, Evans=10, Romero=2 10 mcg/min NITROGLYCERIN DRIP given in lab by Eneida Johnson, GERMAN in Left Antecubital via Perip heral IV. Pump/Drip 13:21:58 Flow = 3 ml/hr using D5W with a concentration of 50 mg in 250 ml. 13:25:59 HR=82 bpm, WPQE=805/62 mmhg, SpO2=95.0 %, Resp=0 B/min, Pain=0, Evans=10, Romero=2 13:31:02 HR=77 bpm, SBGA=123/63 mmhg, SpO2=97.0 %, Resp=17 B/min, Pain=0, Evans=10, Romero=2 Time Out. Correct patient, correct procedure, correct physician, power injector loaded with con trast with surgical team 13:33:36 present. Time Out Concurred by MD and individual staff in procedure. 13:33:52 Case Start 13:34:51 20 mL 1% XYLOCAINE given in lab by Marcus Hawthorne in Right Groin via Subcutaneous. 13:36:03 HR=84 bpm, VVIY=162/62 mmhg, SpO2=97.0 %, Resp=12 B/min, Pain=0, Evans=10, Romero=2 13:36:25 Access site was Right Femoral Artery using ultrasound 13:36:40 A SHEATH, FR5 TERUMO (10CM) FR 5 was advanced into the Fem Art (right) using the Percutaneo us technique. 13:36:45 Activated Clotting Time Drawn A PIG ANG 145 DXTERITY CATHETER FR 5 was advanced over a wire. OMNIPAQUE, 350 MG, 150ML 150ML w as used 13:36:55 for injections. 13:37:19 1 mg VERSED given in lab by Eneida Johnson, RN via Peripheral IV. Recorded Pressure: LV, HR=24, Condition=Condition 1 13:37:37 (Left Ventricle) LV 98/11/27 13:38:22 25 mcg FENTANYL given in lab by Eneida Johnson RN via Peripheral IV. 13:38:25 The LV was injected at 10 cc/sec for a total of 30. OMNIPAQUE, 350 MG, 150ML 150ML used. 13:39:19 ACT (Normal Range 90-180) = 136 Recorded Pressure: LV, Ao, HR=83, Condition=Condition 1 13:39:23 (Left Ventricle) LV 91/9/16, (Aorta) Ao 89/48/66 13:39:42 Catheter was removed A JL 4.0 INFINITI CATHETER FR 5 was advanced over a wire. OMNIPAQUE, 350 MG, 150ML 150ML was us ed for 13:39:44 injections. Recorded Pressure: Ao, HR=86, Condition=Condition 1 13:40:44 (Aorta) Ao 93/54/70 13:40:58 The LCA was injected and visualized at various angles. OMNIPAQUE, 350 MG, 150ML 150ML used . 13:41:04 HR=86 bpm, NIBP=91/61 mmhg, SpO2=97.0 %, Resp=13 B/min, Pain=0, Evans=10, Romero=2 13:43:20 Catheter was removed 13:43:22 A AR MOD CATHETER FR 5 was advanced over a wire. OMNIPAQUE, 350 MG, 150ML 150ML was used fo r injections. 13:44:28 The RCA was injected and visualized at various angles. OMNIPAQUE, 350 MG, 150ML 150ML used . 13:45:07 The MAHAJAN was injected and visualized at various angles. OMNIPAQUE, 350 MG, 150ML 150ML used . 13:45:33 Catheter was removed 13:45:54 Case End 13:46:03 HR=92 bpm, NIBP=97/59 mmhg, SpO2=96.0 %, Resp=25 B/min, Pain=0, Eavns=10, Romero=2 13:46:36 Catheter(s) removed without difficulty 13:46:44 No case complications noted. 13:46:47 Bedside Report will be given. 13:46:49 Implantable Device card placed in patient's chart. 13:46:52 A Left Heart Cath was performed. 13:46:56 An injection in the Fem Art (right) was made through the SHEATH, FR5 TERUMO (10CM) FR 5. 13:50:21 VASCADE, FR5 CLOSURE SYSTEM FR 5 placement in the Fem Art (right) 13:51:02 HR=91 bpm, NIBP=99/64 mmhg, SpO2=97.0 %, Resp=24 B/min, Pain=0, Evans=10, Romero=2 13:51:17 [facility] called. Spoke to Deyanira. 13:53:23 Sterile dressing applied to site 13:58:51 Patient moved to stretcher End Study - Contrast Media Used In Study Contrast Total Opened (mL) Total Used (mL) Total Wasted (mL) Omnipaque 65 65 0 End Study - Maximum Contrast Load Max Contrast Load (mL) 361.4 End Study - Radiation Exposure Fluoro Time (minutes) 1.4 End Study - Sheaths Sheaths Pulled By Sheath Hold Time (min) Gianni Levy End Study - Patient Disposition Complications Transferred To Interventional Outcome No Telemetry Bed No attempt made
[2018-02-05] MEDS ORDERED: SODIUM CHLOR 0.9% 1000 ML INJ 500 ML IV SCH (14:22)
[2018-02-05] MEDS ORDERED: IOHEXOL 350 MG/ML 100 ML BTL (for Cath Lab) OTHER ONE (14:25)
--- NOTE | 2018-02-05 14:48 | MR ---
cc: Marcus Hawthorne MD INDICATION: Non-ST elevation myocardial infarction, severe multivessel coronary disease, history of coronary intervention. PROCEDURE PERFORMED: 1. Retrograde left heart catheterization with left ventriculography and selective coronary angiography. 2. Left internal mammary artery angiography. 3. Moderate sedation. ACCESS SITE: Right femoral artery. EQUIPMENT USED: 5 Setswana pigtail, JL4 and AR modified coronary catheters. MEDICATIONS: Versed IV, fentanyl IV, nitroglycerin IC. CONTRAST: Omnipaque 65 mL. COMPLICATIONS: None. BLOOD LOSS: Less than 10 mL. METHOD OF HEMOSTASIS: VASCADE closure. RESULTS AND HEMODYNAMICS: A. Heart rate 80 beats per minute, left ventricular end diastolic pressure 9 mmHg, left ventricle 95/9, aorta 95/54/70. B. Left ventricular ejection fraction 25%. Wall motion anteroapical and apical severe hypokinesis, no mitral regurgitation. C. Coronary angiography. Left main coronary artery has 80% stenosis in the distal portion. This was unchanged after administration of intracoronary nitroglycerin. Left anterior descending artery is totally occluded in the proximal portion distally to the first diagonal branch. Distal vessel faintly filled by jquup-sp-yruf collaterals. There was 80% stenosis of the ostium of the first diagonal branch. Left circumflex artery had 80% stenosis at its ostium. OM1 had 50% ostial stenosis and 80% in the mid portion. OM2 had 60% stenosis in its proximal portion and 30% stenosis in the mid portion. Right coronary artery is a dominant vessel with 20% in-stent restenosis in the proximal portion and 50% stenosis in the distal portion prior to the bifurcation. PDA had 80% ostial stenosis. PLV had 80% stenosis of the mid portion. Left subclavian artery and left internal mammary artery were patent. DIAGNOSES: 1. Severe diffuse multivessel coronary artery disease. 2. Severe left ventricular dysfunction consistent with ischemic cardiomyopathy. DISPOSITION: Elizabeth Haynes was found to have evidence of severe disease progression when compared to her previous cardiac catheterization and coronary intervention last year. She was found to have severe stenosis of the distal left main coronary artery. Any coronary intervention at this time would have extremely high risk. I recommend to consider coronary bypass for further management. Dr. Singleton was consulted for cardiothoracic surgery. We will start IV heparin, IV nitroglycerin, and continue to closely monitor the patient in the cardiac unit on telemetry. MD MAXIMILIAN Auguste , 02:18 PM , 02:47 PM [facility] CENTERWilberto
[2018-02-05 16:12] LABS: CHOLESTEROL/ HDL RATIO 5.16 RATIO; HDL CHOLESTEROL 27.3 MG/DL (40.0-60.0)
[2018-02-05] MEDS: AZITHROMYCIN 250 MG TAB PO SCH (18:09)
[2018-02-05] MEDS ORDERED: HEPARIN SODIUM - IV 10,000 UNITS/10 ML VIAL IV PUSH PRN (18:45)
[2018-02-05 20:02] LABS: HEMATOCRIT 33.8 % (35.0-46.0); HEMOGLOBIN 11.6 GM/DL (11.6-15.3); MEAN CELL VOLUME 92.7 FL (80.0-100.0); MEAN CORPUSCULAR HEMOGLOBIN 31.9 PG (27.0-34.0); MEAN CORPUSCULAR HGB CONC 34.4 % (32.0-36.0); MEAN PLATELET VOLUME 8.1 FL (7.0-11.0); PLATELET COUNT 300 TH/MM3 (150-450); RED BLOOD COUNT 3.65 MIL/MM3 (4.00-5.30); RED CELL DISTRIBUTION WIDTH 13.5 % (11.6-17.2); WHITE BLOOD COUNT 6.4 TH/MM3 (4.0-11.0)
[2018-02-05 20:19] LABS: PROTHROMBIN TIME - PATIENT 10.1 SEC (9.8-11.6)
[2018-02-05] MEDS: HEPARIN 25,000 UNITS-D5W 250 ML - PREMIX IV PRN (20:43)
[2018-02-06] VITALS (19 sets, daily range): BP systolic 106–139; BP diastolic 58–80; PULSE 63–102; RESP 16–20; TEMP 97.8–99.2; O2SAT 94–98
[2018-02-06] MEDS: SODIUM CHLOR 0.45% 1000 ML INJ 1,000 ML IV SCH (02:05)
[2018-02-06 02:51] LABS: BICARBONATE 25.3 MEQ/L (21.0-32.0); CALCIUM 8.8 MG/DL (8.5-10.1); CREATININE 0.95 MG/DL (0.50-1.00)
[2018-02-06] MEDS: HEPARIN SODIUM - IV 10,000 UNITS/10 ML VIAL IV PUSH PRN (05:26)
[2018-02-06] MEDS: NITROGLYCERIN 2% OINT 1 GM PACKET TOPICAL SCH ×5 (05:33→23:59)
[2018-02-06] MEDS: LOW DOSE INSULIN NOVOLOG SUPPLEMENTAL SCALE SQ SCH ×3 (09:09→17:45)
[2018-02-06] MEDS: CLOPIDOGREL 75 MG TAB PO SCH (09:10)
[2018-02-06] MEDS: METOPROLOL TARTRATE 25 MG TAB PO SCH ×2 (09:10→21:00)
[2018-02-06] MEDS: PANTOPRAZOLE SOD 40 MG DELAYED RELEASE TAB PO SCH ×2 (09:10→21:00)
[2018-02-06] MEDS: ASPIRIN 81 MG CHEW TAB PO SCH (09:10)
[2018-02-06] MEDS: AZITHROMYCIN 250 MG TAB PO SCH (09:10)
[2018-02-06] MEDS: ATORVASTATIN 80 MG TAB PO SCH (09:10)
[2018-02-06] MEDS: SODIUM CHLORIDE 0.9% FLUSH 10 ML FLUSH IV FLUSH SCH ×3 (09:15→21:00)
--- NOTE | 2018-02-06 11:47 | HHI.PR ---
Subjective Remarks Follow up Unstable angina/end state MVD 02/05/18-patient seen and examined, reports no chest pain and denies any dizziness. 02/06/18-patient seen and examined, SOB,CP or dizziness. s/p LHC 02/05/18 Objective Vitals Vital Signs Date Time Temp Pulse Resp B/P (MAP) Pulse Ox O2 Delivery O2 Flow Rate FiO2 02/06/18 10:25 68 02/06/18 08:02 63 02/06/18 07:44 88 02/06/18 07:44 98.5 88 16 121/73 (89) 96 02/06/18 05:00 80 02/06/18 04:00 78 02/06/18 04:00 98.3 77 20 106/65 (79) 96 02/06/18 03:00 86 02/06/18 02:00 86 02/06/18 01:00 86 02/06/18 00:00 99.2 95 20 122/71 (88) 94 02/06/18 00:00 80 02/05/18 23:00 82 02/05/18 22:00 82 02/05/18 21:00 86 02/05/18 20:00 103 02/05/18 20:00 98.0 106 20 127/77 (94) 95 02/05/18 19:00 102 02/05/18 18:00 105 02/05/18 17:00 82 02/05/18 16:00 84 02/05/18 15:00 98.3 86 16 116/72 (87) 95 02/05/18 15:00 98.3 86 16 116/72 (87) 95 02/05/18 15:00 86 02/05/18 14:12 89 16 111/73 (86) 96 02/05/18 12:00 84 I/O 02/05/18 02/05/18 02/05/18 02/06/18 02/06/18 02/06/18 07:00 15:00 23:00 07:00 15:00 23:00 Intake Total 1727.5 ml 600 ml 300 ml Output Total 1850 ml 1600 ml 1300 ml Balance -122.5 ml -1000 ml -1000 ml Intake Oral 240 ml 600 ml 300 ml IV Total 1487.5 ml Output Urine Total 1850 ml 1600 ml 1300 ml Result Diagram: 02/05/181926 02/06/18 0225 Imaging Last Impressions Chest X-Ray 02/04/18 0704 Signed Impressions: Service Date/Time: Sunday, February 04, 2018 07:11 - CONCLUSION: Normal examination. Johana Maher MD CT Angiography 02/04/18 0000 Signed Impressions: Service Date/Time: Sunday, February 04, 2018 08:35 - CONCLUSION: #1. No evidence of PE. #2. Multifocal air space consolidation involving the bilateral lower lobes and lingula consistent with pneumonia. #3. No evidence of congestive heart failure.. Johana Maher MD Objective Remarks GENERAL: NAD SKIN: Warm and dry. HEAD: Normocephalic. EYES: No scleral icterus. No injection or drainage. NECK: Supple, trachea midline. No JVD or lymphadenopathy. CARDIOVASCULAR: Regular rate and rhythm without murmurs, gallops, or rubs. RESPIRATORY: Breath sounds equal bilaterally. No accessory muscle use. GASTROINTESTINAL: Abdomen soft, non-tender, nondistended. MUSCULOSKELETAL: No cyanosis, or edema. BACK: Nontender without obvious deformity. No CVA tenderness. A/P Problem List: (1) Unstable angina ICD Code: I20.0 - Unstable angina Status: Acute (2) Pneumonia ICD Code: J18.9 - Pneumonia, unspecified organism Status: Acute Assessment and Plan 62 year-old female with Unstable angina End-stage multivessel disease Atypical chest pain Appreciate input from cardiology Currently on heparin and nitroglycerin drips Continue Plavix, beta chauncey, statin s/p left heart catheterization 02/05 with MVD for which CTS has been consulted CT angiogram negative for PE Community acquired pneumonia Continue empiric antibiotic Acute renal failure Resolved with Gentle IV fluid hydration and monitor BUN and creatinine CAD On beta chauncey, Plavix Problem Qualifiers (1) Pneumonia: Qualified Codes: J18.1 - Lobar pneumonia, unspecified organism Pilo Nieto MD Feb 06, 2018 11:47
--- NOTE | 2018-02-06 14:42 | PD.CAR.PN ---
CVT Progress Note Subjective/Hospital Course: pt seen and evaluated / sts data discussed with pt RISK SCORES About the STS Risk Calculator Procedure: CAB Only Risk of Mortality: 2.653% Morbidity or Mortality: 27.497% Long Length of Stay: 12.322% Short Length of Stay: 24.891% Permanent Stroke: 1.975% Prolonged Ventilation: 21.234% DSW Infection: 1.25% Renal Failure: 8.728% Reoperation: 7.1% Objective: Vital Signs Date Time Temp Pulse Resp B/P (MAP) Pulse Ox O2 Delivery O2 Flow Rate FiO2 02/06/18 12:32 80 02/06/18 12:31 98.7 86 16 107/58 (74) 94 02/06/18 10:25 68 02/06/18 08:02 63 02/06/18 07:44 88 02/06/18 07:44 98.5 88 16 121/73 (89) 96 02/06/18 05:00 80 02/06/18 04:00 78 02/06/18 04:00 98.3 77 20 106/65 (79) 96 02/06/18 03:00 86 02/06/18 02:00 86 02/06/18 01:00 86 02/06/18 00:00 99.2 95 20 122/71 (88) 94 02/06/18 00:00 80 02/05/18 23:00 82 02/05/18 22:00 82 02/05/18 21:00 86 02/05/18 20:00 103 02/05/18 20:00 98.0 106 20 127/77 (94) 95 02/05/18 19:00 102 02/05/18 18:00 105 02/05/18 17:00 82 02/05/18 16:00 84 02/05/18 15:00 98.3 86 16 116/72 (87) 95 02/05/18 15:00 98.3 86 16 116/72 (87) 95 02/05/18 15:00 86 Labs: Laboratory Tests Test 02/06/18 10:27 Activated Partial Thromboplast Time 83.5 SEC (24.3-30.1) Result Diagram: 02/05/18192602/06/18 0225 Johana Brown Feb 06, 2018 14:42
[2018-02-06] MEDS ORDERED: SODIUM CHLORIDE 0.9% FLUSH 10 ML FLUSH IV FLUSH PRN (14:45)
--- NOTE | 2018-02-06 15:11 | MB ---
cc: Anila Carroll MD DATE: 02/06/2018 HISTORY OF PRESENT ILLNESS: A 62-year-old female, patient of Dr. Hawthorne, who has been admitted multiple times with multiple coronary interventions, was seen in the past by Dr. Mendoza. She underwent coronary intervention of the left circumflex and right coronary artery. She also had been seen by Palliative Care in the past for severe disease with extensive blockages. She has been having ongoing chest pain off and on for the past year. She can only walk a short distance without having to stop and catch her breath and having chest pain. She presented again on this admission with a non-STEMI. Troponins were as high as 9.4. EKG showed sinus tachycardia with atrial abnormality, right bundle branch block, diffuse ST changes. She underwent cardiac catheterization by Dr. Hawthorne, which showed 80% left main, 100% proximal LAD with distal filling, [id number] collaterals, 80% ostial diagonal, circumflex has 80%. There was disease in the OM1, OM2. Ejection fraction approximately 30%. PAST MEDICAL HISTORY: Ischemic cardiomyopathy, severe multivessel coronary artery disease, hypertension, diabetes mellitus, dyslipidemia, history of prior tobacco abuse. PAST SURGICAL HISTORY: She has had cataract surgery, cardiac stenting, tonsillectomy. ALLERGIES: INCLUDE ADHESIVE TAPE AND BEE VENOM. HOME MEDICATIONS: Include Plavix, atorvastatin, Imdur, nitroglycerine, metoprolol, lisinopril, aspirin, potassium, Protonix, metformin, glipizide. REVIEW OF SYSTEMS: GENERAL: No night sweats, fever, heat and cold intolerance. SKIN: No psoriasis, itching, or hives. HEENT: No blurred vision, hearing loss. RESPIRATORY: No cough, shortness of breath. CARDIOVASCULAR: As above in the HPI. GASTROINTESTINAL: No diarrhea or vomiting. GENITOURINARY: No burning, frequency, urgency. CENTRAL NERVOUS SYSTEM: She has history of TIA. No CVA. ENDOCRINOLOGY: Positive for diabetes. PHYSICAL EXAMINATION: VITAL SIGNS: Blood pressure 110/60, heart rate of 86, afebrile. GENERAL: The patient is awake, alert, in no acute distress. HEENT: Head is normocephalic, atraumatic. Pupils equal and reactive. Oral mucosa pink, moist. NECK: Supple. No JVD. HEART: Sounds S1, S2. Regular rate and rhythm. No rubs, murmurs, or gallops. LUNGS: Clear to auscultation. No wheezes, rales or rhonchi. ABDOMEN: Soft, nontender. No masses or organomegaly. EXTREMITIES: No cyanosis, clubbing, or edema. LABORATORY DATA: Shows hemoglobin of 11, hematocrit of 34, white cell count of 6.4, platelet count of 300. Sodium 137, potassium 4.1, BUN of 5, creatinine 0.95, glucose 237. Troponin was 9.40. Triglycerides 265, cholesterol 141, LDL 61. INR was 1.1. Chest x-ray unremarkable. She had a CT angiography, which showed no evidence of pulmonary emboli. No evidence of overt CHF. IMPRESSION: This is a 62-year-old female with multivessel disease, ejection fraction approximately 30% secondary to ischemic cardiomyopathy. The cardiac films have been reviewed by Dr. Anila Carroll. Procedures, alternatives and risks discussed with the patient. At this time, plan will be for surgery on Monday for coronary artery bypass grafting x 3. Dictated by LANDON Mccrary MD SINDY Williamson/ARMANDO , 02:50 PM , 03:11 PM
--- NOTE | 2018-02-06 15:15 | PD.CARD.PN ---
Subjective Subjective Remarks No angina or CHF symptoms, on IV NTG and IV heparin Objective Medications Current Medications Medications (Trade) Dose Ordered Sig/Rishabh Route Start Time Stop Time Status Last Admin (NS Flush) 2 ml UNSCH PRN IV FLUSH 02/04/18 10:00 (NS Flush) 2 ml BID IV FLUSH 02/04/18 21:00 02/06/18 09:15 (Tylenol) 650 mg Q4H PRN PO 02/04/18 10:00 02/06/18 02:01 (Zofran Inj) 4 mg Q6H PRN IVP 02/04/18 10:00 (Narcan Inj) 0.4 mg UNSCH PRN IV PUSH 02/04/18 10:00 (Nitroglycerin 2% Oint) 0.5 inch Q6HR TOPICAL 02/04/18 12:00 (Morphine Inj) 2 mg Q3H PRN IV PUSH 02/04/18 10:00 (Aspirin Chew) 162 mg DAILY PO 02/05/18 09:00 02/06/18 09:10 (Lipitor) 80 mg DAILY PO 02/05/18 09:00 02/06/18 09:10 (Protonix) 40 mg Q12HR PO 02/04/18 21:00 02/06/18 09:10 (Lopressor) 12.5 mg Q12HR PO 02/04/18 10:15 02/06/18 09:10 (Pill Splitter) 1 ea UNSCH PRN OTHER 02/04/18 10:15 Nitroglycerin/ Dextrose 250 ml @ 1.5 mls/hr TITRATE PRN IV 02/04/18 16:00 02/05/18 07:26 (D50w (Vial) Inj) 50 ml UNSCH PRN IV PUSH 02/04/18 16:30 (Glucagon Inj) 1 mg UNSCH PRN OTHER 02/04/18 16:30 (NovoLOG SUPPLEMENTAL SCALE) 1 ACHS SLIDING SCALE SQ 02/04/18 17:00 02/06/18 12:44 (Zithromax) 500 mg DAILY PO 02/05/18 12:00 02/06/18 09:10 Heparin Sodium/ Dextrose 250 ml @ 10 mls/hr TITRATE PRN IV 02/05/18 18:45 02/05/18 20:43 (Heparin Inj) 5,000 units UNSCH PRN IV PUSH 02/05/18 18:45 (Heparin Inj) 2,500 units UNSCH PRN IV PUSH 02/05/18 18:45 02/06/18 05:26 (NS Flush) 2 ml BID IV FLUSH 02/06/18 21:00 UNV (NS Flush) 2 ml UNSCH PRN IV FLUSH 02/06/18 14:45 UNV Papaverine HCl 60 mg/Nitroglycerin 100 mcg/Diltiazem HCl 100 mg/Sodium Chloride 100 ml @ 0 mls/hr RESIDENT CARE MANAGER IRRIGATION 02/06/18 14:45 02/13/18 14:44 UNV Cefazolin Sodium 500 mg/Sodium Chloride 505 ml @ 0 mls/hr RESIDENT CARE MANAGER IRRIGATION 02/06/18 14:45 02/13/18 14:44 UNV Cefazolin Sodium/ Dextrose 50 ml @ 150 mls/hr RESIDENT CARE MANAGER IV 02/06/18 14:45 02/13/18 14:44 UNV (Lopressor) 12.5 mg RESIDENT CARE MANAGER PO 02/06/18 14:45 02/13/18 14:44 UNV (Hibiclens 4% Top Soln) 1 applic RESIDENT CARE MANAGER TOPICAL 02/06/18 14:45 02/13/18 14:44 UNV Insulin Human Regular 100 units/ Sodium Chloride 100 ml @ 3 mls/hr TITRATE PRN IV 02/06/18 14:45 02/13/18 14:44 UNV (D50w (Vial) Inj) 50 ml UNSCH PRN IV PUSH 02/06/18 14:45 UNV Vital Signs / I&O Vital Signs Date Time Temp Pulse Resp B/P (MAP) Pulse Ox O2 Delivery O2 Flow Rate FiO2 02/06/18 14:42 87 02/06/18 12:32 80 02/06/18 12:31 98.7 86 16 107/58 (74) 94 02/06/18 10:25 68 02/06/18 08:02 63 02/06/18 07:44 88 02/06/18 07:44 98.5 88 16 121/73 (89) 96 02/06/18 05:00 80 02/06/18 04:00 78 02/06/18 04:00 98.3 77 20 106/65 (79) 96 02/06/18 03:00 86 02/06/18 02:00 86 02/06/18 01:00 86 02/06/18 00:00 99.2 95 20 122/71 (88) 94 02/06/18 00:00 80 02/05/18 23:00 82 02/05/18 22:00 82 02/05/18 21:00 86 02/05/18 20:00 103 02/05/18 20:00 98.0 106 20 127/77 (94) 95 02/05/18 19:00 102 02/05/18 18:00 105 02/05/18 17:00 82 02/05/18 16:00 84 I/O 02/05/18 02/05/18 02/05/18 02/06/18 02/06/18 02/06/18 07:00 15:00 23:00 07:00 15:00 23:00 Intake Total 1727.5 ml 600 ml 300 ml Output Total 1850 ml 1600 ml 1300 ml Balance -122.5 ml -1000 ml -1000 ml Intake Oral 240 ml 600 ml 300 ml IV Total 1487.5 ml Output Urine Total 1850 ml 1600 ml 1300 ml Physical Exam GENERAL: IN NAD. SKIN: Warm and dry. HEAD: Normocephalic. EYES: No scleral icterus. No injection or drainage. NECK: Supple, trachea midline. No JVD or lymphadenopathy. CARDIOVASCULAR: Regular rate and rhythm without murmurs, gallops, or rubs. RESPIRATORY: Breath sounds equal bilaterally. No accessory muscle use. GASTROINTESTINAL: Abdomen soft, non-tender, nondistended. MUSCULOSKELETAL: No cyanosis, or edema. Groins stable. Laboratory Laboratory Tests Test 02/05/18 19:27 02/06/18 02:25 02/06/18 10:27 White Blood Count 6.4 TH/MM3 Red Blood Count 3.65 MIL/MM3 Hemoglobin 11.6 GM/DL Hematocrit 33.8 % Mean Corpuscular Volume 92.7 FL Mean Corpuscular Hemoglobin 31.9 PG Mean Corpuscular Hemoglobin Concent 34.4 % Red Cell Distribution Width 13.5 % Platelet Count 300 TH/MM3 Mean Platelet Volume 8.1 FL Prothrombin Time 10.1 SEC Prothromb Time International Ratio 1.0 RATIO Activated Partial Thromboplast Time 25.3 SEC 32.4 SEC 83.5 SEC Blood Urea Nitrogen 5 MG/DL Creatinine 0.95 MG/DL Random Glucose 237 MG/DL Calcium Level 8.8 MG/DL Sodium Level 137 MEQ/L Potassium Level 4.1 MEQ/L Chloride Level 102 MEQ/L Carbon Dioxide Level 25.3 MEQ/L Anion Gap 10 MEQ/L Estimat Glomerular Filtration Rate 60 ML/MIN Assessment and Plan Problem List: (1) NSTEMI (non-ST elevated myocardial infarction) ICD Codes: I21.4 - Non-ST elevation (NSTEMI) myocardial infarction Status: Acute (2) Unstable angina ICD Codes: I20.0 - Unstable angina Status: Acute (3) CAD (coronary artery disease) ICD Codes: I25.10 - Atherosclerotic heart disease of [place] coronary artery without angina pectoris Status: Acute (4) Cardiomyopathy ICD Codes: I42.9 - Cardiomyopathy, unspecified (5) DM (diabetes mellitus) ICD Codes: E11.9 - Type 2 diabetes mellitus without complications Status: Chronic (6) HTN (hypertension) ICD Codes: I10 - Essential (primary) hypertension Status: Chronic Assessment and Plan No angina on IV NTG and IV heparin. Cath with severe MV CAD including severe LM disease, and LV dysfunction c/w ischemic CM. CT surgery consulted. CABG planned. Continue aggressive risk factor modification. Marcus Hawthorne MD Feb 06, 2018 15:15
[2018-02-06] MEDS: HEPARIN 25,000 UNITS-D5W 250 ML - PREMIX IV PRN (15:45)
[2018-02-06] MEDS ORDERED: METOPROLOL TARTRATE 25 MG TAB PO SCH (16:00)
[2018-02-06] MEDS ORDERED: CEFAZOLIN INJ 500 MG in SODIUM CHLORIDE 0.9% IRR BTL 500 ML IRRIGATION SCH (16:00)
[2018-02-06] MEDS ORDERED: INSULIN REGULAR (IV INFUSION) 100 UNITS in SODIUM CHLORIDE 0.9% INJ 99 ML IV PRN (16:00)
[2018-02-06] MEDS ORDERED: ceFAZolin 2 GM PREMIX 50 ML IV SCH (16:00)
[2018-02-06] MEDS ORDERED: DEXTROSE 50% IN WATER 50 ML VIAL(D50) IV PUSH PRN (16:00)
[2018-02-06] MEDS ORDERED: PAPAVERINE INJ 60 MG, NITROGLYCERIN INJ 100 MCG, DILTIAZEM INJ 100 MG in SODIUM CHLORID... IRRIGATION SCH (16:00)
[2018-02-06] MEDS ORDERED: CHLORHEXIDINE GLUCONATE 4% SOLN 120 ML BTL TOPICAL SCH (16:00)
--- NOTE | 2018-02-06 17:54 | RADRPT ---
EXAM DATE/TIME: 02/06/2018 16:54 [facility] COMPARISON: No previous studies available for comparison. INDICATIONS : Preop cardiac surgery. MEDICAL HISTORY : Congestive hearrt failure. Hypertension. Gastroesophageal reflux disease. Myocardial infarction. Cere brovascular accident. Hypercholesterolemia. . Arthritis. Diabetes. Measles. SURGICAL HISTORY : Tonsillectomy. Coronary artery stent. Bilateral cataract removal. ENCOUNTER: Initial ACUITY: 1 day PAIN SCORE: 0/10 LOCATION: Bilateral leg. GREATER SAPHENOUS VEIN THIGH: PROXIMAL: Right 5 mm Left 6 mm MID: Right 3 mm Left 3 mm DISTAL: Right 3 mm Left 1 mm CALF: PROXIMAL: Right 2 mm Left 3 mm MID: Right 2 mm Left 3 mm DISTAL: Right 2 mm Left 2 mm FINDINGS: The venous system of the lower extremities are patent by color Doppler imaging. Measurements of the leg veins (in mm) are listed above. CONCLUSION: Venous mapping as above. Shaheed Murray MD on February 06, 2018 at 17:52 Board Certified Radiologist. This report was verified electronically.
--- NOTE | 2018-02-06 17:57 | RADRPT ---
EXAM DATE/TIME: 02/06/2018 17:16 [facility] COMPARISON: No previous studies available for comparison. INDICATIONS : Preop cardiac surgery. MEDICAL HISTORY : Congestive hearrt failure. Hypertension. Gastroesophageal reflux disease. Myocardial infarction. Cere brovascular accident. Hypercholesterolemia. . Arthritis. Diabetes. Measles. SURGICAL HISTORY : Tonsillectomy. Coronary artery stent. Bilateral cataract removal. ENCOUNTER: Initial ACUITY: 1 day PAIN SCORE: 0/10 LOCATION: Bilateral neck PEAK SYSTOLIC VELOCITIES (cm/sec): ICA/CCA RATIO: Right: 1.6 Left: 1.7 ICA: Right: 120 Left: 146 CCA: Right: 76 Left: 83 ECA: Right: 288 Left: 206 VERTEBRAL: Right: 27 antegrade Left: 65 antegrade Elevated flow velocities and ICA/CCA ratios have been found to correlate with increased degrees of vessel stenosis, calculated as percentage of diameter relative to a normal segment of distal ICA/CCA FINDINGS: RIGHT CAROTID: Moderate atherosclerotic plaquing seen at the carotid bifurcation. There is flow in the internal and external vessels. There is mild elevation of velocity in the proximal right internal carotid artery. LEFT CAROTID: Moderate atherosclerotic plaquing is seen at the carotid bifurcation. There is flow in the internal/e xternal vessels. There is mild elevated velocity in the left internal carotid artery. VERTEBRAL ARTERIES: Antegrade flow is seen in both vertebral arteries. MISCELLANEOUS: None. CONCLUSION: Moderate atherosclerotic plaquing at both carotid bifurcations. There is mild elevation of both inter nal carotid arteries, left greater than right. This suggests some mild to moderate narrowing. If clin ically indicated, recommend a CTA of the carotids for further evaluation. Shaheed Murray MD on February 06, 2018 at 17:53 Board Certified Radiologist. This report was verified electronically.
--- NOTE | 2018-02-06 18:00 | RADRPT ---
EXAM DATE/TIME: 02/06/2018 16:46 [facility] COMPARISON: No previous studies available for comparison. INDICATIONS : Preop cardiac surgery. MEDICAL HISTORY : Congestive hearrt failure. Hypertension. Gastroesophageal reflux disease. Myocardial infarction. Cere brovascular accident. Hypercholesterolemia. . Arthritis. Diabetes. Measles. SURGICAL HISTORY : Tonsillectomy.Coronary artery stent. Bilateral cataract removal. ENCOUNTER: Initial ACUITY: 1 day PAIN SCORE: 0/10 LOCATION: Bilateral leg. TECHNIQUE: Venous ultrasound of the left and right leg was performed from the inguinal ligament to the proximal calf. Real-time, color Doppler and spectral tracing, compression and augmentation techniques were us ed. FINDINGS: RIGHT LEG: There is normal compressibility of the deep venous system from the inguinal region to the proximal ca lf. No echogenic clot is seen in the lumen of the common femoral, femoral, popliteal, and posterior tibial veins. There is a normal response of the venous system to proximal and distal augmentation an d respiration. LEFT LEG: There is normal compressibility of the deep venous system from the inguinal region to the proximal ca lf. No echogenic clot is seen in the lumen of the common femoral, femoral, popliteal, and posterior tibial veins. There is a normal response of the venous system to proximal and distal augmentation an d respiration. CONCLUSION: Normal examination for a patient of this age. No DVT Shaheed Murray MD on February 06, 2018 at 17:57 Board Certified Radiologist. This report was verified electronically.
[2018-02-06 22:39] LABS: HEMOGLOBIN A1C 9.7 % (4.3-6.0)
[2018-02-07] VITALS (14 sets, daily range): BP systolic 101–151; BP diastolic 58–95; PULSE 66–103; RESP 16–18; TEMP 98–98.2; O2SAT 95–98
[2018-02-07] MEDS: LOW DOSE INSULIN NOVOLOG SUPPLEMENTAL SCALE SQ SCH ×5 (00:04→23:40)
[2018-02-07] MEDS: NITROGLYCERIN/DEXTROSE 5% 250 ML for chest pain IV PRN (04:59)
[2018-02-07] MEDS: NITROGLYCERIN 2% OINT 1 GM PACKET TOPICAL SCH ×2 (04:59→12:00)
[2018-02-07 06:40] LABS: HEMATOCRIT 34.6 % (35.0-46.0); HEMOGLOBIN 12.1 GM/DL (11.6-15.3); MEAN CELL VOLUME 93.1 FL (80.0-100.0); MEAN CORPUSCULAR HEMOGLOBIN 32.6 PG (27.0-34.0); PLATELET COUNT 304 TH/MM3 (150-450); RED BLOOD COUNT 3.72 MIL/MM3 (4.00-5.30); RED CELL DISTRIBUTION WIDTH 13.7 % (11.6-17.2); WHITE BLOOD COUNT 6.4 TH/MM3 (4.0-11.0)
[2018-02-07] MEDS: AZITHROMYCIN 250 MG TAB PO SCH (08:36)
[2018-02-07] MEDS: PANTOPRAZOLE SOD 40 MG DELAYED RELEASE TAB PO SCH ×2 (08:37→23:39)
[2018-02-07] MEDS: METOPROLOL TARTRATE 25 MG TAB PO SCH ×2 (08:37→23:39)
[2018-02-07] MEDS: ATORVASTATIN 80 MG TAB PO SCH (08:37)
[2018-02-07] MEDS: ASPIRIN 81 MG CHEW TAB PO SCH (08:37)
[2018-02-07] MEDS: SODIUM CHLORIDE 0.9% FLUSH 10 ML FLUSH IV FLUSH SCH ×4 (08:38→23:40)
--- NOTE | 2018-02-07 11:35 | HHI.PR ---
Subjective Remarks Follow up Unstable angina/end state MVD 02/05/18-patient seen and examined, reports no chest pain and denies any dizziness. 02/06/18-patient seen and examined, SOB,CP or dizziness. s/p LHC 02/05/18 02/07/18-patient seen and examined, complains of achy pain; plan for CABG this Friday 02/09 Objective Vitals Vital Signs Date Time Temp Pulse Resp B/P (MAP) Pulse Ox O2 Delivery O2 Flow Rate FiO2 02/07/18 07:00 72 16 105/66 (79) 98 02/07/18 07:00 72 02/07/18 05:51 18 02/07/18 04:59 103 151/95 02/07/18 04:56 103 18 151/95 (113) 98 02/07/18 00:00 69 16 101/65 (77) 97 02/06/18 21:00 98 02/06/18 20:00 97 16 139/80 (99) 98 02/06/18 20:00 90 02/06/18 19:00 102 02/06/18 18:17 84 02/06/18 17:12 71 02/06/18 16:11 85 02/06/18 16:10 97.8 85 16 122/79 (93) 97 02/06/18 14:42 87 02/06/18 12:32 80 02/06/18 12:31 98.7 86 16 107/58 (74) 94 I/O 02/06/18 02/06/18 02/06/18 02/07/18 02/07/18 02/07/18 07:00 15:00 23:00 07:00 15:00 23:00 Intake Total 300 ml 480 ml Output Total 1300 ml 1000 ml 1600 ml Balance -1000 ml -520 ml -1600 ml Intake Oral 300 ml 480 ml Output Urine Total 1300 ml 1000 ml 1600 ml # Voids 2 # Bowel Movements 1 Result Diagram: 02/07/1820 02/06/18 0225 Objective Remarks GENERAL: NAD SKIN: Warm and dry. HEAD: Normocephalic. EYES: No scleral icterus. No injection or drainage. NECK: Supple, trachea midline. No JVD or lymphadenopathy. CARDIOVASCULAR: Regular rate and rhythm without murmurs, gallops, or rubs. RESPIRATORY: Breath sounds equal bilaterally. No accessory muscle use. GASTROINTESTINAL: Abdomen soft, non-tender, nondistended. MUSCULOSKELETAL: No cyanosis, or edema. BACK: Nontender without obvious deformity. No CVA tenderness. A/P Problem List: (1) Unstable angina ICD Code: I20.0 - Unstable angina Status: Acute (2) Pneumonia ICD Code: J18.9 - Pneumonia, unspecified organism Status: Acute Assessment and Plan 62 year-old female with Multivessel coronary disease Plan for CABG on 02/09/18 Appreciate input from the thoracic surgery Unstable angina End-stage multivessel disease Atypical chest pain Appreciate input from cardiology Currently on heparin and nitroglycerin drips Continue beta chauncey, statin. Off Plavix pending CABG s/p left heart catheterization 02/[address] angiogram negative for PE Community acquired pneumonia Continue empiric antibiotic Acute renal failure Resolved with Gentle IV fluid hydration and monitor BUN and creatinine CAD On beta chauncey, Plavix Problem Qualifiers (1) Pneumonia: Qualified Codes: J18.1 - Lobar pneumonia, unspecified organism Pilo Nieto MD Feb 07, 2018 11:35
[2018-02-07] MEDS ORDERED: HEPARIN SODIUM - IV 2,000 UNITS/2 ML VIAL IV ONE (13:00)
[2018-02-07] MEDS: HEPARIN SODIUM - IV 10,000 UNITS/10 ML VIAL IV PUSH PRN (13:07)
[2018-02-07] MEDS ORDERED: HEPARIN SODIUM - IV 10,000 UNITS/10 ML VIAL IV ONE (13:15)
--- NOTE | 2018-02-07 17:53 | PD.CARD.PN ---
Subjective Subjective Remarks No angina or CHF symptoms, remains stable on IV NTG Objective Medications Current Medications Medications (Trade) Dose Ordered Sig/Rishabh Route Start Time Stop Time Status Last Admin (NS Flush) 2 ml UNSCH PRN IV FLUSH 02/04/18 10:00 (NS Flush) 2 ml BID IV FLUSH 02/04/18 21:00 02/06/18 21:00 (Tylenol) 650 mg Q4H PRN PO 02/04/18 10:00 02/06/18 02:01 (Zofran Inj) 4 mg Q6H PRN IVP 02/04/18 10:00 (Narcan Inj) 0.4 mg UNSCH PRN IV PUSH 02/04/18 10:00 (Nitroglycerin 2% Oint) 0.5 inch Q6HR TOPICAL 02/04/18 12:00 (Morphine Inj) 2 mg Q3H PRN IV PUSH 02/04/18 10:00 (Aspirin Chew) 162 mg DAILY PO 02/05/18 09:00 02/07/18 08:37 (Lipitor) 80 mg DAILY PO 02/05/18 09:00 02/07/18 08:37 (Protonix) 40 mg Q12HR PO 02/04/18 21:00 02/07/18 08:37 (Lopressor) 12.5 mg Q12HR PO 02/04/18 10:15 02/07/18 08:37 (Pill Splitter) 1 ea UNSCH PRN OTHER 02/04/18 10:15 Nitroglycerin/ Dextrose 250 ml @ 1.5 mls/hr TITRATE PRN IV 02/04/18 16:00 02/07/18 04:59 (D50w (Vial) Inj) 50 ml UNSCH PRN IV PUSH 02/04/18 16:30 (Glucagon Inj) 1 mg UNSCH PRN OTHER 02/04/18 16:30 (NovoLOG SUPPLEMENTAL SCALE) 1 ACHS SLIDING SCALE SQ 02/04/18 17:00 02/07/18 17:27 (Zithromax) 500 mg DAILY PO 02/05/18 12:00 02/07/18 08:36 Heparin Sodium/ Dextrose 250 ml @ 11 mls/hr TITRATE PRN IV 02/05/18 18:45 02/06/18 15:45 (Heparin Inj) 5,000 units UNSCH PRN IV PUSH 02/05/18 18:45 (Heparin Inj) 2,500 units UNSCH PRN IV PUSH 02/05/18 18:45 02/07/18 13:07 (NS Flush) 2 ml BID IV FLUSH 02/06/18 21:00 02/06/18 21:00 (NS Flush) 2 ml UNSCH PRN IV FLUSH 02/06/18 14:45 Papaverine HCl 60 mg/Nitroglycerin 100 mcg/Diltiazem HCl 100 mg/Sodium Chloride 100 ml @ 0 mls/hr SCHOOL COORDINATOR IRRIGATION 02/06/18 16:00 02/13/18 15:59 Cefazolin Sodium 500 mg/Sodium Chloride 505 ml @ 0 mls/hr SCHOOL COORDINATOR IRRIGATION 02/06/18 16:00 02/13/18 15:59 Cefazolin Sodium/ Dextrose 50 ml @ 150 mls/hr SCHOOL COORDINATOR IV 02/06/18 16:00 02/13/18 15:59 (Lopressor) 12.5 mg SCHOOL COORDINATOR PO 02/06/18 16:00 02/13/18 15:59 (Hibiclens 4% Top Soln) 1 applic SCHOOL COORDINATOR TOPICAL 02/06/18 16:00 02/13/18 15:59 Insulin Human Regular 100 units/ Sodium Chloride 100 ml @ 3 mls/hr TITRATE PRN IV 02/06/18 16:00 02/13/18 15:59 (D50w (Vial) Inj) 50 ml UNSCH PRN IV PUSH 02/06/18 16:00 Vital Signs / I&O Vital Signs Date Time Temp Pulse Resp B/P (MAP) Pulse Ox O2 Delivery O2 Flow Rate FiO2 02/07/18 15:00 98.0 93 18 118/80 (93) 96 02/07/18 13:00 70 02/07/18 12:00 74 02/07/18 11:00 92 18 139/86 (103) 95 02/07/18 11:00 82 02/07/18 10:00 82 02/07/18 07:00 72 16 105/66 (79) 98 02/07/18 07:00 72 02/07/18 05:51 18 02/07/18 04:59 103 151/95 02/07/18 04:56 103 18 151/95 (113) 98 02/07/18 00:00 69 16 101/65 (77) 97 02/06/18 21:00 98 02/06/18 20:00 97 16 139/80 (99) 98 02/06/18 20:00 90 02/06/18 19:00 102 02/06/18 18:17 84 I/O 02/06/18 02/06/18 02/06/18 02/07/18 02/07/18 02/07/18 07:00 15:00 23:00 07:00 15:00 23:00 Intake Total 300 ml 480 ml Output Total 1300 ml 1000 ml 1600 ml Balance -1000 ml -520 ml -1600 ml Intake Oral 300 ml 480 ml Output Urine Total 1300 ml 1000 ml 1600 ml # Voids 2 # Bowel Movements 1 Physical Exam GENERAL: In NAD. SKIN: Warm and dry. HEAD: Normocephalic. EYES: No scleral icterus. No injection or drainage. NECK: Supple, trachea midline. No JVD or lymphadenopathy. CARDIOVASCULAR: Regular rate and rhythm without murmurs, gallops, or rubs. RESPIRATORY: Breath sounds equal bilaterally. No accessory muscle use. GASTROINTESTINAL: Abdomen soft, non-tender, nondistended. MUSCULOSKELETAL: No cyanosis, or edema. Laboratory Laboratory Tests Test 02/06/18 18:34 02/07/18 06:20 Activated Partial Thromboplast Time 35.5 SEC 32.1 SEC White Blood Count 6.4 TH/MM3 Red Blood Count 3.72 MIL/MM3 Hemoglobin 12.1 GM/DL Hematocrit 34.6 % Mean Corpuscular Volume 93.1 FL Mean Corpuscular Hemoglobin 32.6 PG Mean Corpuscular Hemoglobin Concent 35.0 % Red Cell Distribution Width 13.7 % Platelet Count 304 TH/MM3 Mean Platelet Volume 8.0 FL Assessment and Plan Problem List: (1) NSTEMI (non-ST elevated myocardial infarction) ICD Codes: I21.4 - Non-ST elevation (NSTEMI) myocardial infarction Status: Acute (2) Unstable angina ICD Codes: I20.0 - Unstable angina Status: Acute (3) CAD (coronary artery disease) ICD Codes: I25.10 - Atherosclerotic heart disease of [place] coronary artery without angina pectoris Status: Acute (4) Cardiomyopathy ICD Codes: I42.9 - Cardiomyopathy, unspecified (5) DM (diabetes mellitus) ICD Codes: E11.9 - Type 2 diabetes mellitus without complications Status: Chronic (6) HTN (hypertension) ICD Codes: I10 - Essential (primary) hypertension Status: Chronic Assessment and Plan Remains stable, no angina on IV NTG. Cath with severe MV CAD including severe LM disease, and LV dysfunction c/w ischemic CM. CT surgery eval. CABG planned on Mon. Continue aggressive risk factor modification and therapy for angina. Marcus Hawthorne MD Feb 07, 2018 17:53
[2018-02-08] VITALS (18 sets, daily range): BP systolic 115–149; BP diastolic 69–88; PULSE 60–102; RESP 16–20; TEMP 98–98.4; O2SAT 95–98
[2018-02-08 06:54] LABS: HEMATOCRIT 32.6 % (35.0-46.0); HEMOGLOBIN 11.2 GM/DL (11.6-15.3); MEAN CELL VOLUME 93.4 FL (80.0-100.0); MEAN CORPUSCULAR HEMOGLOBIN 32.2 PG (27.0-34.0); MEAN CORPUSCULAR HGB CONC 34.4 % (32.0-36.0); MEAN PLATELET VOLUME 8.5 FL (7.0-11.0); PLATELET COUNT 291 TH/MM3 (150-450); RED BLOOD COUNT 3.49 MIL/MM3 (4.00-5.30); RED CELL DISTRIBUTION WIDTH 13.5 % (11.6-17.2); WHITE BLOOD COUNT 6.8 TH/MM3 (4.0-11.0)
[2018-02-08] MEDS: LOW DOSE INSULIN NOVOLOG SUPPLEMENTAL SCALE SQ SCH ×4 (08:00→20:28)
[2018-02-08] MEDS: SODIUM CHLORIDE 0.9% FLUSH 10 ML FLUSH IV FLUSH SCH ×4 (09:00→20:27)
[2018-02-08] MEDS: PANTOPRAZOLE SOD 40 MG DELAYED RELEASE TAB PO SCH ×2 (09:07→20:27)
[2018-02-08] MEDS: AZITHROMYCIN 250 MG TAB PO SCH (09:07)
[2018-02-08] MEDS: ASPIRIN 81 MG CHEW TAB PO SCH (09:07)
[2018-02-08] MEDS: ATORVASTATIN 80 MG TAB PO SCH (09:07)
[2018-02-08] MEDS: METOPROLOL TARTRATE 25 MG TAB PO SCH ×2 (09:07→20:27)
--- NOTE | 2018-02-08 11:10 | HHI.PR ---
Subjective Remarks Follow up Unstable angina/end state MVD 02/05/18-patient seen and examined, reports no chest pain and denies any dizziness. 02/06/18-patient seen and examined, SOB,CP or dizziness. s/p LHC 02/05/18 02/07/18-patient seen and examined, complains of achy pain; plan for CABG this Friday 02/0902/08/18-patient seen and examined, she is waiting for surgery for tomorrow. No issues and stable. States she would like to have Restoril to sleep tonight Objective Vitals Vital Signs Date Time Temp Pulse Resp B/P (MAP) Pulse Ox O2 Delivery O2 Flow Rate FiO2 02/08/18 08:45 98.3 89 18 141/83 (102) 96 02/08/18 04:00 80 02/08/18 00:00 97 16 149/88 (108) 97 02/07/18 20:00 98.2 75 16 110/58 (75) 97 02/07/18 20:00 70 02/07/18 19:00 96 02/07/18 18:00 66 02/07/18 17:00 86 02/07/18 16:00 84 02/07/18 15:00 95 02/07/18 15:00 98.0 93 18 118/80 (93) 96 02/07/18 14:00 78 02/07/18 13:00 70 02/07/18 12:00 74 I/O 02/07/18 02/07/18 02/07/18 02/08/18 02/08/18 02/08/18 07:00 15:00 23:00 07:00 15:00 23:00 Intake Total 920.4 ml 240 ml Output Total 1600 ml 900 ml 1300 ml Balance -1600 ml 20.4 ml -1060 ml Intake Oral 700 ml 240 ml IV Total 220.4 ml Output Urine Total 1600 ml 900 ml 1300 ml # Bowel Movements 1 1 Result Diagram: 02/08/18 0519 02/06/18 0225 Imaging Last Impressions Lower Extremity Ultrasound 02/06/18 0000 Signed Impressions: Service Date/Time: Tuesday, February 06, 2018 16:54 - CONCLUSION: Venous mapping as above. Shaheed Murray MD Carotid Artery Ultrasound 02/06/18 0000 Signed Impressions: Service Date/Time: Tuesday, February 06, 2018 17:16 - CONCLUSION: Moderate atherosclerotic plaquing at both carotid bifurcations. There is mild elevation of both internal carotid arteries, left greater than right. This suggests some mild to moderate narrowing. If clinically indicated, recommend a CTA of the carotids for further evaluation. Shaheed Murray MD Chest X-Ray 02/04/18 0704 Signed Impressions: Service Date/Time: Sunday, February 04, 2018 07:11 - CONCLUSION: Normal examination. Johana Maher MD CT Angiography 02/04/18 0000 Signed Impressions: Service Date/Time: Sunday, February 04, 2018 08:35 - CONCLUSION: #1. No evidence of PE. #2. Multifocal air space consolidation involving the bilateral lower lobes and lingula consistent with pneumonia. #3. No evidence of congestive heart failure.. Johana Maher MD Objective Remarks GENERAL: NAD SKIN: Warm and dry. HEAD: Normocephalic. EYES: No scleral icterus. No injection or drainage. NECK: Supple, trachea midline. No JVD or lymphadenopathy. CARDIOVASCULAR: Regular rate and rhythm without murmurs, gallops, or rubs. RESPIRATORY: Breath sounds equal bilaterally. No accessory muscle use. GASTROINTESTINAL: Abdomen soft, non-tender, nondistended. MUSCULOSKELETAL: No cyanosis, or edema. BACK: Nontender without obvious deformity. No CVA tenderness. A/P Problem List: (1) Unstable angina ICD Code: I20.0 - Unstable angina Status: Acute (2) Pneumonia ICD Code: J18.9 - Pneumonia, unspecified organism Status: Acute Assessment and Plan 62 year-old female with Multivessel coronary disease Plan for CABG tomorrow 02/09/18 Appreciate input from the thoracic surgery Unstable angina End-stage multivessel disease Atypical chest pain Appreciate input from cardiology Currently on heparin and nitroglycerin drips Continue beta chauncey, statin. Off Plavix pending CABG s/p left heart catheterization 02/[address] angiogram negative for PE Community acquired pneumonia Continue empiric antibiotic Acute renal failure Resolved CAD On beta chauncey, Plavix Diabetes type 2 Start Levemir 10 units at bedtime Insomnia Restoril when necessary Problem Qualifiers (1) Pneumonia: Qualified Codes: J18.1 - Lobar pneumonia, unspecified organism Pilo Nieto MD Feb 08, 2018 11:10
--- NOTE | 2018-02-08 13:24 | PD.CARD.PN ---
Subjective Subjective Remarks No angina or CHF symptoms Objective Medications Current Medications Medications (Trade) Dose Ordered Sig/Rishabh Route Start Time Stop Time Status Last Admin (NS Flush) 2 ml UNSCH PRN IV FLUSH 02/04/18 10:00 (NS Flush) 2 ml BID IV FLUSH 02/04/18 21:00 02/07/18 23:39 (Tylenol) 650 mg Q4H PRN PO 02/04/18 10:00 02/06/18 02:01 (Zofran Inj) 4 mg Q6H PRN IVP 02/04/18 10:00 (Narcan Inj) 0.4 mg UNSCH PRN IV PUSH 02/04/18 10:00 (Morphine Inj) 2 mg Q3H PRN IV PUSH 02/04/18 10:00 (Aspirin Chew) 162 mg DAILY PO 02/05/18 09:00 02/08/18 09:07 (Lipitor) 80 mg DAILY PO 02/05/18 09:00 02/08/18 09:07 (Protonix) 40 mg Q12HR PO 02/04/18 21:00 02/08/18 09:07 (Lopressor) 12.5 mg Q12HR PO 02/04/18 10:15 02/08/18 09:07 (Pill Splitter) 1 ea UNSCH PRN OTHER 02/04/18 10:15 Nitroglycerin/ Dextrose 250 ml @ 1.5 mls/hr TITRATE PRN IV 02/04/18 16:00 02/07/18 04:59 (D50w (Vial) Inj) 50 ml UNSCH PRN IV PUSH 02/04/18 16:30 (Glucagon Inj) 1 mg UNSCH PRN OTHER 02/04/18 16:30 (NovoLOG SUPPLEMENTAL SCALE) 1 ACHS SLIDING SCALE SQ 02/04/18 17:00 02/08/18 12:00 (Zithromax) 500 mg DAILY PO 02/05/18 12:00 02/08/18 09:07 Heparin Sodium/ Dextrose 250 ml @ 11 mls/hr TITRATE PRN IV 02/05/18 18:45 02/06/18 15:45 (Heparin Inj) 5,000 units UNSCH PRN IV PUSH 02/05/18 18:45 (Heparin Inj) 2,500 units UNSCH PRN IV PUSH 02/05/18 18:45 02/07/18 13:07 (NS Flush) 2 ml BID IV FLUSH 02/06/18 21:00 02/08/18 09:00 (NS Flush) 2 ml UNSCH PRN IV FLUSH 02/06/18 14:45 Papaverine HCl 60 mg/Nitroglycerin 100 mcg/Diltiazem HCl 100 mg/Sodium Chloride 100 ml @ 0 mls/hr PRINCIPLE SOFTWARE ENGINEER IRRIGATION 02/06/18 16:00 02/13/18 15:59 Cefazolin Sodium 500 mg/Sodium Chloride 505 ml @ 0 mls/hr PR[employer]IPLE SOFTWARE ENGINEER IRRIGATION 02/06/18 16:00 02/13/18 15:59 Cefazolin Sodium/ Dextrose 50 ml @ 150 mls/hr PRINCIPLE SOFTWARE ENGINEER IV 02/06/18 16:00 02/13/18 15:59 (Lopressor) 12.5 mg PRINCIPLE SOFTWARE ENGINEER PO 02/06/18 16:00 02/13/18 15:59 (Hibiclens 4% Top Soln) 1 applic PRINCIPLE SOFTWARE ENGINEER TOPICAL 02/06/18 16:00 02/13/18 15:59 Insulin Human Regular 100 units/ Sodium Chloride 100 ml @ 3 mls/hr TITRATE PRN IV 02/06/18 16:00 02/13/18 15:59 (D50w (Vial) Inj) 50 ml UNSCH PRN IV PUSH 02/06/18 16:00 (Restoril) 15 mg HS PRN PO 02/08/18 10:00 (Levemir Inj) 10 units HS SQ 02/08/18 21:00 Vital Signs / I&O Vital Signs Date Time Temp Pulse Resp B/P (MAP) Pulse Ox O2 Delivery O2 Flow Rate FiO2 02/08/18 11:01 98.0 69 18 128/76 (93) 95 02/08/18 08:45 98.3 89 18 141/83 (102) 96 02/08/18 04:00 80 02/08/18 00:00 97 16 149/88 (108) 97 02/07/18 20:00 98.2 75 16 110/58 (75) 97 02/07/18 20:00 70 02/07/18 19:00 96 02/07/18 18:00 66 02/07/18 17:00 86 02/07/18 16:00 84 02/07/18 15:00 95 02/07/18 15:00 98.0 93 18 118/80 (93) 96 02/07/18 14:00 78 I/O 02/07/18 02/07/18 02/07/18 02/08/18 02/08/18 02/08/18 07:00 15:00 23:00 07:00 15:00 23:00 Intake Total 920.4 ml 240 ml Output Total 1600 ml 900 ml 1300 ml Balance -1600 ml 20.4 ml -1060 ml Intake Oral 700 ml 240 ml IV Total 220.4 ml Output Urine Total 1600 ml 900 ml 1300 ml # Bowel Movements 1 1 Physical Exam GENERAL: In NAD. SKIN: Warm and dry. HEAD: Normocephalic. EYES: No scleral icterus. No injection or drainage. NECK: Supple, trachea midline. No JVD or lymphadenopathy. CARDIOVASCULAR: Regular rate and rhythm without murmurs, gallops, or rubs. RESPIRATORY: Breath sounds equal bilaterally. No accessory muscle use. GASTROINTESTINAL: Abdomen soft, non-tender, nondistended. MUSCULOSKELETAL: No cyanosis, or edema. Groin stable Laboratory Laboratory Tests Test 02/07/18 19:50 02/08/18 05:19 02/08/18 12:53 Activated Partial Thromboplast Time 34.8 SEC 34.2 SEC White Blood Count 6.8 TH/MM3 Red Blood Count 3.49 MIL/MM3 Hemoglobin 11.2 GM/DL Hematocrit 32.6 % Mean Corpuscular Volume 93.4 FL Mean Corpuscular Hemoglobin 32.2 PG Mean Corpuscular Hemoglobin Concent 34.4 % Red Cell Distribution Width 13.5 % Platelet Count 291 TH/MM3 Mean Platelet Volume 8.5 FL Platelet Function P2Y12 React Units 222 PRU Assessment and Plan Problem List: (1) NSTEMI (non-ST elevated myocardial infarction) ICD Codes: I21.4 - Non-ST elevation (NSTEMI) myocardial infarction Status: Acute (2) Unstable angina ICD Codes: I20.0 - Unstable angina Status: Acute (3) CAD (coronary artery disease) ICD Codes: I25.10 - Atherosclerotic heart disease of [place] coronary artery without angina pectoris Status: Acute (4) Cardiomyopathy ICD Codes: I42.9 - Cardiomyopathy, unspecified (5) DM (diabetes mellitus) ICD Codes: E11.9 - Type 2 diabetes mellitus without complications Status: Chronic (6) HTN (hypertension) ICD Codes: I10 - Essential (primary) hypertension Status: Chronic Assessment and Plan No new cardiac issues, no angina or CHF. Cath with severe MV CAD including severe LM disease, and LV dysfunction c/w ischemic CM. Seen by CT surgery. CABG planned tomorrow. Marcus Hawthorne MD Feb 08, 2018 13:24
--- NOTE | 2018-02-08 16:13 | PD.CAR.PN ---
CVT Progress Note Subjective/Hospital Course: A 62-year-old female, patient of Dr. Hawthorne, who has been admitted multiple times with multiple coronary interventions, was seen in the past by Dr. Mendoza. She underwent coronary intervention of the left circumflex and right coronary artery. She also had been seen by Palliative Care in the past for severe disease with extensive blockages. She has been having ongoing chest pain off and on for the and catch her breath and having chest pain. She presented again on this admission with a non-STEMI. Troponins were as high as 9.4. EKG showed sinus tachycardia with atrial abnormality, right bundle branch block, diffuse ST changes. She underwent cardiac catheterization by Dr. Hawthorne, which showed 80% left main, 100% proximal LAD with distal filling, [id number] collaterals , 80% ostial diagonal, circumflex has 80%. There was disease in the OM1, OM2. Ejection fraction approximately 30%. PAST MEDICAL HISTORY: Ischemic cardiomyopathy, severe multivessel coronary artery disease, hypertension, diabetes mellitus, dyslipidemia, history of prior tobacco abuse 02/08 no chest pain or SOB for surgery in am Objective: Vital Signs Date Time Temp Pulse Resp B/P (MAP) Pulse Ox O2 Delivery O2 Flow Rate FiO2 02/08/18 13:01 102 02/08/18 12:00 62 02/08/18 11:01 98.0 69 18 128/76 (93) 95 02/08/18 11:00 60 02/08/18 10:00 75 02/08/18 09:00 79 02/08/18 08:45 98.3 89 18 141/83 (102) 96 02/08/18 08:00 73 02/08/18 07:00 62 02/08/18 04:00 80 02/08/18 00:00 97 16 149/88 (108) 97 02/07/18 20:00 98.2 75 16 110/58 (75) 97 02/07/18 20:00 70 02/07/18 19:00 96 02/07/18 18:00 66 02/07/18 17:00 86 Labs: Laboratory Tests Test 02/08/18 05:19 02/08/18 12:53 White Blood Count 6.8 TH/MM3 (4.0-11.0) Red Blood Count 3.49 MIL/MM3 (4.00-5.30) Hemoglobin 11.2 GM/DL (11.6-15.3) Hematocrit 32.6 % (35.0-46.0) Mean Corpuscular Volume 93.4 FL (80.0-100.0) Mean Corpuscular Hemoglobin 32.2 PG (27.0-34.0) Mean Corpuscular Hemoglobin Concent 34.4 % (32.0-36.0) Red Cell Distribution Width 13.5 % (11.6-17.2) Platelet Count 291 TH/MM3 (150-450) Mean Platelet Volume 8.5 FL (7.0-11.0) Platelet Function P2Y12 React Units 222 PRU (194-418) Activated Partial Thromboplast Time 34.2 SEC (24.3-30.1) Result Diagram: 02/08/18 0519 02/06/18 0225 (1) NSTEMI (non-ST elevated myocardial infarction) (2) Unstable angina (3) CAD (coronary artery disease) (4) Cardiomyopathy (5) DM (diabetes mellitus) (6) HTN (hypertension) Johana Brown Feb 08, 2018 16:13
[2018-02-08] MEDS: HEPARIN SODIUM - IV 10,000 UNITS/10 ML VIAL IV PUSH PRN (18:04)
[2018-02-08] MEDS: HEPARIN 25,000 UNITS-D5W 250 ML - PREMIX IV PRN (18:04)
[2018-02-08] MEDS ORDERED: INSULIN DETEMIR 100 UNITS/ML VIAL SQ SCH (21:00)
[2018-02-08] MEDS: TEMAZEPAM 15 MG CAP PO PRN (23:13)
[2018-02-09] VITALS (20 sets, daily range): BP systolic 102–130; BP diastolic 57–73; PULSE 56–104; RESP 10–20; TEMP 96.5–98.2; O2SAT 94–100
[2018-02-09] MEDS: NITROGLYCERIN/DEXTROSE 5% 250 ML for chest pain IV PRN (04:48)
[2018-02-09] MEDS ORDERED: VANCOMYCIN HCL 1000 MG VIAL ONE (06:29)
[2018-02-09] MEDS ORDERED: methylPREDNISolone SOD SUCC 125 MG/2 ML VIAL ONE (06:29)
[2018-02-09] MEDS ORDERED: HEPARIN SODIUM - SQ 10,000 UNITS/ML VIAL ONE (06:29)
[2018-02-09] MEDS ORDERED: CARDIOPLEGIC IRR 2,000 ML ONE (07:18)
[2018-02-09] MEDS ORDERED: POTASSIUM CHLORIDE 20 MEQ/10 ML VIAL ONE ×2 (07:18)
[2018-02-09] MEDS ORDERED: MANNITOL INJ 100 ML ONE (07:19)
[2018-02-09] MEDS ORDERED: ALBUMIN 25% INJ 50 ML IV ONE (07:19)
[2018-02-09] MEDS ORDERED: HEPARIN SODIUM - IV 10,000 UNITS/10 ML VIAL ONE (07:19)
[2018-02-09] MEDS ORDERED: SODIUM BICARBONATE 8.4% INJ 50 ML ONE (07:19)
[2018-02-09] MEDS ORDERED: CALCIUM CHLORIDE 10% SOLN 1 GRAM/10 ML SYR ONE (07:20)
[2018-02-09] MEDS: AZITHROMYCIN 250 MG TAB PO SCH (09:00)
[2018-02-09] MEDS: ATORVASTATIN 80 MG TAB PO SCH (09:00)
[2018-02-09] MEDS ORDERED: PROTAMINE SULFATE 50 MG/5 ML VIAL ONE (11:04)
[2018-02-09] MEDS ORDERED: ceFAZolin INJ 1,000 MG VIAL ONE (11:30)
[2018-02-09] MEDS ORDERED: PHENYLEPH/NS 1000 MCG/10 ML SYR IV ONE (12:00)
[2018-02-09] MEDS ORDERED: DEXTROSE 5% IN WATER 100ML INJ 100 ML IV ONE (12:00)
[2018-02-09] MEDS ORDERED: Post-op Orders (for Pharmacy) OTHER ONE (12:00)
[2018-02-09] MEDS ORDERED: SODIUM CHLORIDE 0.9% INJ 100 ML IV ONE (12:00)
[2018-02-09] MEDS ORDERED: DEXTROSE 50% IN WATER 50 ML VIAL(D50) IV PUSH PRN (12:00)
[2018-02-09] MEDS ORDERED: GLYCOPYRROLATE 0.2 MG/ML VIAL IV ONE (12:00)
[2018-02-09] MEDS ORDERED: LIDOCAINE HCL 1% PF 5 ML SYRINGE OTHER ONE (12:00)
[2018-02-09] MEDS ORDERED: PROTAMINE SULFATE 50 MG/5 ML VIAL IV ONE (12:00)
[2018-02-09] MEDS ORDERED: DEXMEDETOMIDINE INJ 200 MCG in SODIUM CHLORIDE 0.9% INJ 50 ML IV PRN (12:00)
[2018-02-09] MEDS ORDERED: POTASSIUM CHLOR 20 MEQ PREMIX 100 ML IV PRN ×3 (12:00)
[2018-02-09] MEDS ORDERED: LACTATED RINGER'S 1000 ML INJ 2,000 ML IV ONE (12:00)
[2018-02-09] MEDS ORDERED: CLEVIDIPINE INJ 50 ML IV PRN (12:00)
[2018-02-09] MEDS ORDERED: ONDANSETRON HCL 4 MG/2 ML VIAL IV PUSH PRN (12:00)
[2018-02-09] MEDS ORDERED: POTASSIUM CHLORIDE 20 MEQ CONTROLLED RELEASE TAB PO PRN ×2 (12:00)
[2018-02-09] MEDS ORDERED: AMINOCAPROIC ACID INJ 250 MG/ML 20 ML VIAL IV ONE (12:00)
[2018-02-09] MEDS ORDERED: hydrALAZINE HCL 20 MG/ML VIAL IV PUSH PRN (12:00)
[2018-02-09] MEDS ORDERED: CALCIUM CHLORIDE 10% 1 GRAM/10 ML VIAL IV PUSH PRN (12:00)
[2018-02-09] MEDS ORDERED: RESP: RACEPINEPHRINE 2.25% 0.5 ML NEB NEB PRN (12:00)
[2018-02-09] MEDS ORDERED: DEXMEDETOMIDINE HCL 200 MCG/2 ML VIAL IV ONE (12:00)
[2018-02-09] MEDS ORDERED: MAGNESIUM SULFATE 1 GM/2 ML VIAL IV ONE (12:00)
[2018-02-09] MEDS ORDERED: CALCIUM CHLORIDE INJ 1 GM in SODIUM CHLORIDE 0.9% INJ 100 ML IV PRN (12:00)
[2018-02-09] MEDS ORDERED: SODIUM BICARBONATE 8.4% SOLN 50 MEQ/50 ML VIAL IV PUSH PRN ×2 (12:00)
[2018-02-09] MEDS ORDERED: SODIUM CHLOR 0.9% 250 ML INJ 250 ML IV ONE (12:00)
[2018-02-09] MEDS ORDERED: SODIUM BICARBONATE 8.4% INJ 50 MEQ/50 ML SYR IV ONE (12:00)
[2018-02-09] MEDS ORDERED: RESP: ALBUTEROL 2.5 MG/IPRATROPIUM 0.5 MG NEB (PRN) NEB (12:00)
[2018-02-09] MEDS ORDERED: PHENYLEPHRINE HCL 10 MG/ML VIAL IV ONE (12:00)
[2018-02-09] MEDS ORDERED: MAGNESIUM SULFATE INJ 2 GM in SODIUM CHLORIDE 0.9% INJ 100 ML IV PRN ×4 (12:00)
[2018-02-09] MEDS ORDERED: ACETAMINOPHEN 650 MG SUPP RECTAL PRN (12:00)
[2018-02-09] MEDS ORDERED: INSULIN REGULAR (IV INFUSION) 100 UNITS in SODIUM CHLORIDE 0.9% INJ 99 ML IV PRN (12:00)
[2018-02-09] MEDS ORDERED: METOPROLOL TARTRATE 5 MG/5 ML VIAL IV ONE (12:00)
[2018-02-09] MEDS ORDERED: METOPROLOL TARTRATE 5 MG/5 ML VIAL IV PUSH PRN (12:00)
[2018-02-09] MEDS ORDERED: HEPARIN SODIUM - SQ 10,000 UNITS/ML VIAL SQ ONE (12:00)
[2018-02-09] MEDS ORDERED: ALBUMIN 5% INJ 250 ML IV PRN (12:00)
[2018-02-09] MEDS ORDERED: ePHEDrine/NS 25 MG/5 ML SYRINGE IV ONE (12:00)
[2018-02-09] MEDS ORDERED: VECURONIUM BROMIDE 10 MG VIAL IV ONE (12:00)
[2018-02-09] MEDS ORDERED: SODIUM CHLORIDE 0.9% FLUSH 10 ML FLUSH IV FLUSH PRN (12:00)
--- NOTE | 2018-02-09 12:08 | PD.OP ---
cc: Anila Carroll MD; Marcus Hawthorne MD Operative Report Date of Surgery: Feb 09, 2018 Preoperative Diagnosis: (1) Systolic CHF (2) NSTEMI (non-ST elevated myocardial infarction) (3) CAD (coronary artery disease) Postoperative Diagnosis: same Procedure: CABG x 5 MAHAJAN to LAD - good SVG to PDA - fair SVG to OM4 - good SVG to OM2 - fair SVG to D1 - fair JONG EVH Anesthesia: Dr. Simpson Surgeon: Anila Carroll Paperboard Machine Operator(s): Dawood ODONNELL Operation and Findings: The risks, benefits, complications, treatment options, and expected outcomes were discussed with the patient. The possibilities of reaction to medication, pulmonary aspiration, perforation of viscus, bleeding, recurrent infection, the need for additional procedures, failure to diagnose a condition, and creating a complication requiring transfusion or operation were discussed with the patient. The patient concurred with the proposed plan, giving informed consent. The site of surgery properly noted/marked. The patient was taken to Operating Room, identified as Elizabeth Haynes and the procedure verified as CABG, EVH, JONG. A Time Out was held and the above information confirmed. Standard monitoring lines and Sawyer catheter were placed. General anesthesia was induced. The patient was prepped and draped in a sterile fashion. A median sternotomy was performed and electrocautery was used to obtain hemostasis. The left internal mammary artery was procured as a pedicle from the 7th rib to the 1st rib in the usual manner. Simultaneously left greater saphenous vein was procured from the left leg using a minimally invasive endoscopic technique. The vein was prepared for anastomosis and the leg wound was irrigated and closed in 2 layers. The pericardium was opened and a pericardial sling was created using interrupted 0 silk sutures. The patient was heparinized for cardiopulmonary bypass and the distal mammary pedicle was instrumented for anastomosis. The heart was instrumented for cardiopulmonary bypass in the usual manner. Antegrade blood cardioplegia was employed. The patient was placed on cardiopulmonary bypass. An aortic cross-clamp was applied and the heart was arrested using cold blood cardioplegia. Antegrade cardioplegia was administered after he each anastomosis. After adequate arrest, the distal right coronary circulation was investigated and the PDA was opened with a [place] blade and found to be a 1 millimeter fair target. Saphenous vein was approximated to the PDA artery using a running 7 0 Prolene suture. The graft was measured for length and orientation and the proximal anastomosis was constructed to the ascending aorta using a running 5 0 Prolene suture after creating an aortotomy with a 5 millimeter punch. The OM4 was opened with a [place] blade and found to be a 1.5 millimeter good target. Saphenous vein was approximated to the OM4 artery using a running 7 0 Prolene suture. The graft was measured for length and orientation and the proximal anastomosis was constructed to the ascending aorta using a running 5 0 Prolene suture after creating an aortotomy with a 5 millimeter punch. The OM2 was opened with a [place] blade and found to be a 1 millimeter fair target. Saphenous vein was approximated to the OM2 artery using a running 7 0 Prolene suture. The graft was measured for length and orientation and was suspended from the pericardium. The 1st diagonal artery was then opened with a [place] blade and found to be a 1 millimeter fair target. Saphenous vein was approximated to the D1 artery using a running 7 0 Prolene suture. The graft was measured for length and orientation and was suspended from the pericardium. The distal LAD was opened with a [place] blade and found to be a 1.5 millimeter good target. The left internal mammary artery was approximated to the LAD using a running 7 0 Prolene suture. The pedicle was attached to the epicardium using interrupted 5 0 silk suture. The patient was systemically rewarmed and received a hotshot dose of warm blood cardioplegia. The aorta was vented and the proximal anastomosis to the OM2 graft was accomplished using a running 5 0 Prolene suture after creating an aortotomy was a 5 millimeter punch. The D1 graft was approximated proximally to the OM4 vein graft in an end to side manner using a running 7-0 Prolene suture. The cross-clamp was removed and all proximal and distal anastomoses were examined for hemostasis. The patient was weaned from cardiopulmonary bypass. Protamine was given. There was no adverse reaction. Decannulation was carried out without incident. Wound was checked for hemostasis which was obtained using electrocautery. A 36 Lao mediastinal and 32 Lao left pleural chest tubes were placed and secured to the skin with 0 silk suture. The sternum was closed with stainless steel wire. The fascia was closed with 1. PDS. The subcutaneous tissue was closed using a running 2-0 Vicryl suture. The skin was closed with 4-0 Monocryl. Sterile dressings were placed. At the end of the operation, all sponge, instruments, and needle counts were correct. The patient was transferred to the CVICU in stable condition. Findings: LV function improved to ~45% XC: 77 min CPB: 99 min Drains: mediastinal x 1 pleural x 1 Complications: none Disposition: to CVICU in stable condition Anila Carroll MD Feb 09, 2018 12:08
[2018-02-09] MEDS ORDERED: fentaNYL CITRATE 250 MCG/5 ML AMP ONE (12:34)
[2018-02-09] MEDS ORDERED: MIDAZOLAM HCL 2 MG/2 ML VIAL ONE (12:34)
[2018-02-09] MEDS: ACETAMINOPHEN 1000 MG/100 ML 100 ML IV SCH ×2 (13:45→18:49)
--- NOTE | 2018-02-09 13:47 | RADRPT ---
EXAM DATE/TIME: 02/09/2018 12:54 [facility] COMPARISON: CHEST SINGLE AP, February 04, 2018, 7:11. INDICATIONS : pOST OP cabg. MEDICAL HISTORY : Venous insufficiency. Congestive hearrt failure. Hypertension. Gastroesophageal reflux disease SURGICAL HISTORY : Tonsillectomy. CABG. ENCOUNTER: Initial ACUITY: 1 day PAIN SCORE: Non-responsive. LOCATION: Chest FINDINGS: A single portable frontal view of the chest shows an endotracheal tube with the tip 3 cm from the car riddhi. Nasogastric tube courses off the inferior margin of the film. Right-sided central line. 2 thorac ostomy tubes on the left. No pneumothorax. Mild basilar atelectasis bilaterally. Heart is mildly enla rged. Median sternotomy wires now seen. CONCLUSION: Interval median sternotomy with life support lines as detailed above. No pneumothorax. Red Brar Jr., MD on February 09, 2018 at 13:44 Board Certified Radiologist. This report was verified electronically.
--- NOTE | 2018-02-09 14:57 | HHI.FF ---
Face to Face Verification Diagnosis: (1) NSTEMI (non-ST elevated myocardial infarction) (2) DM (diabetes mellitus) (3) HTN (hypertension) (4) Cardiomyopathy (5) S/P CABG x 5 Physical Therapy Order: Evaluate and Treat Home Health Nursing Order: Signs/symptoms of disease process Medication education-adverse effect Wound care and dressing changes Nursing assessment with vital signs Instructions: Heart and Vascular Surgery patients *Special attention to sternal dressing Mandatory frequency Assess and evaluation, 4 days in a row The next week 3X week 2 times a week for 4 weeks 1 time a week for 5 weeks Schedule Heart and Vascular patients for full 60 day certification period Initial visit Review Open Heart Surgery Discharge Instructions (Sternal precautions, Activity, Elastic hose, Incision care, Driving, Incentive spirometry, Smoking, [place], Work and other) Need Betadine to paint incision Medication reconciliation Importance of follow up care/ check on appointments Make calendar record temperature daily When to call [facility] nurse, review instructions, phone list Incentive Spirometry, demonstration Visit 1- Begin discharge instruction for patient family and/ or caregiver using teach back method- Signs and symptoms of infection Disease characteristics Medicines and side effects Foods and nutrition/ appetite Infection control/ hand washing/ hygiene Visit 2- Continue teaching Discharge instructions- include additional information on smoking cessation , sternal dressing (sternal vac) Visit 3- Continue teaching- Cough and deep breathing, incision monitoring. Choose my plate Visit 4- Continue teaching- Discuss limitations Discuss how they are feeling Discuss progress toward goals Remaining visits- continue teaching and monitoring For any questions please call : Monday 8am-5pm Heart & Vascular Surgery Office ( Dr. Singleton & Dr. Carroll), After Hours / Nights (5pm -8am) Weekends and Holidays Please call [facility] Cardiac Intermediate Care Unit (CIC) Charge Nurse PREVENA Single Use Negative Wound Therapy System Caregiver Instruction Sheet 1. A Prevena dressing system was applied to the chest incision during surgery , to promote wound healing. It works via a suction device (negative pressure wound therapy) to remove low to moderate levels of exudate (drainage) and infectious materials. We recommend that the device stay in place for up to seven days, from day of surgery. 2. Day of Surgery___02/09/18 Day of Removal ___02/16/18 3. The dressing should only be removed by a health child care director. Please arrange removal of device to coincide with Home Health visit and or with Nursing staff at Rehab 4. If skin reddening or irritation of skin occurs, or excessive drainage, please notify the Cardiovascular Surgeons office at [phone]. 5. Light showering is permissible; however the pump should be disconnected and placed in safe location, where it will not get wet. The dressing should not be exposed to direct spray or submerged in water. No bath tub / shower only. Ensure the end of the tubing attached to the dressing is facing down so that water does not enter the top of the tube. 6. To remove Prevena dressing: press purple button to turn off device / remove the suction. Then disconnect the tubing from the pump. The fixation strips should be stretched away from the skin and the dressing lifted at one corner and peeled back until it has been fully removed. 7. After removal, it is ok to shower daily using liquid dial soap and clean wash cloth, rinse and pat dry, and leave incision open to air dry. For any concerns regarding Prevena dressing, and or wounds, please contact Meagan Johnston, patient navigator at [phone] or notify the Cardiovascular Surgeons office at [phone]. Incentive spirometry Q1 hr x 10, while awake, also use acapella device hourly whole awake Sternal Breast Bone Precautions: NO pushing or pulling, ( pt must use sternal pillow to support chest with all activities and with coughing ( takes up to 3 months breast bone to heal ) All females to wear sternal bra , launder as needed Daily incision care: ok to shower daily, no tub bath. Wash all incisions with liquid dial soap, clean wash cloth to each site, rinse and pat dry. Observe for any signs of infection, such as drainage which is dark yellow, gonzalez, green or foul smelling. Immediately report to the surgeon any drainage from the chest incision, or legs, and for any abnormal drainage from the chest tube sites. Notify surgeon if any temp >101.5 degrees F. When specialty dressing removed/ or if you do not have one, continue to shower daily as above, then rinse and pat incision dry and paint with betadine daily x 5 days. Allow steri strips to fall off if you have any. Avoid lotions, creams, salves, oils, etc. for the first month Please see attached forms for additional instructions regarding post Open Heart specialty wound vacuum dressings. NICOLE or Prevena , Dressing to be removed by Nursing staff on __02/16/[address] Carroll patients , please obtain CBC, BMP, PA & Lat CXR in 2 weeks, results to Dr. Carroll ( prescription will be given) ( ) (Tele: [phone]) , F/U appointment: as per DC instructions: PCP in 2 weeks, CV surgeon 2 weeks, Green Chain Worker 3-4 weeks For any questions regarding incisions/ dressing / meds / post op care or above Symptoms, Monday 8am-5pm Heart & Vascular Surgery Office ( Dr. Singleton & Dr. Carroll), After Hours / Nights (5pm -8am) Weekends and Holidays Please call [facility] Cardiac Intermediate Care Unit (CIC) Charge Nurse I have seen patient Elizabeth Haynes on 02/09/18. My clinical findings support the need for the requested home health care services because: Patient has SOB Deconditioned w/ increased weakness I certify that my clinical findings support that this patient is homebound because: Post-op weakness Johana Brown Feb 09, 2018 14:57
--- NOTE | 2018-02-09 15:03 | PD.CAR.PN ---
CVT Progress Note Subjective/Hospital Course: A 62-year-old female, patient of Dr. Hawthorne, who has been admitted multiple times with multiple coronary interventions, was seen in the past by Dr. Mendoza. She underwent coronary intervention of the left circumflex and right coronary artery. She also had been seen by Palliative Care in the past for severe disease with extensive blockages. She has been having ongoing chest pain off and on for the and catch her breath and having chest pain. She presented again on this admission with a non-STEMI. Troponins were as high as 9.4. EKG showed sinus tachycardia with atrial abnormality, right bundle branch block, diffuse ST changes. She underwent cardiac catheterization by Dr. Hawthorne, which showed 80% left main, 100% proximal LAD with distal filling, tpzxb-[id number]-[id number] collaterals , 80% ostial diagonal, circumflex has 80%. There was disease in the OM1, OM2. Ejection fraction approximately 30%. PAST MEDICAL HISTORY: Ischemic cardiomyopathy, severe multivessel coronary artery disease, hypertension, diabetes mellitus, dyslipidemia, history of prior tobacco abuse 02/08 no chest pain or SOB for surgery in am 02/09 surgery: CABG x 5, MAHAJAN to LAD - good, SVG to PDA - fair, SVG to OM4 - good, SVG to OM2 - fair, SVG to D1 - fair, JONG, EVH Objective: Vital Signs Date Time Temp Pulse Resp B/P (MAP) Pulse Ox O2 Delivery O2 Flow Rate FiO2 02/09/18 14:29 94 Nasal Cannula 4 02/09/18 14:15 45 02/09/18 14:11 97.0 02/09/18 13:00 96.5 02/09/18 13:00 71 02/09/18 13:00 97.4 93 10 128/73 (91) 97 128/64 (85) 02/09/18 13:00 100 02/09/18 12:50 94 90 02/09/18 12:25 97 100 02/09/18 07:15 56 02/09/18 06:00 68 02/09/18 05:00 70 02/09/18 04:53 20 02/09/18 04:48 66 128/67 02/09/18 04:00 59 02/09/18 03:31 97.9 65 20 125/64 (84) 99 02/09/18 03:00 56 02/09/18 02:00 104 02/09/18 01:00 66 02/09/18 00:00 75 02/08/18 23:14 98.4 74 20 140/77 (98) 98 02/08/18 23:00 72 02/08/18 22:00 74 02/08/18 21:00 86 02/08/18 20:00 72 02/08/18 19:00 98.0 74 20 136/72 (93) 96 02/08/18 19:00 71 Result Diagram: 02/08/18 0519 02/06/18 0225 (1) NSTEMI (non-ST elevated myocardial infarction) (2) Unstable angina (3) CAD (coronary artery disease) (4) Cardiomyopathy (5) DM (diabetes mellitus) (6) HTN (hypertension) Johana Brown Feb 09, 2018 15:03
[2018-02-09] MEDS: RESP: ALBUTEROL 2.5 MG/IPRATROPIUM 0.5 MG NEB (SCH) NEB ×2 (15:31→19:30)
[2018-02-09] MEDS: oxyCODONE/ACETAMINOPHEN 5 MG/325 MG TAB PO PRN (16:31)
[2018-02-09] MEDS: AMIODARONE 200 MG TAB PO SCH (17:19)
[2018-02-09] MEDS: LACTATED RINGER'S 1000 ML INJ 500 ML IV PRN (18:24)
[2018-02-09] MEDS: SODIUM CHLORIDE 0.9% FLUSH 10 ML FLUSH IV FLUSH SCH (20:33)
[2018-02-09] MEDS: KETOROLAC TROMETHAMINE 30 MG/ML (IVP) VIAL IV PUSH PRN (22:37)
[2018-02-10] VITALS (8 sets, daily range): BP systolic 96–124; BP diastolic 55–73; PULSE 75–100; RESP 18–20; TEMP 98.2–98.8; O2SAT 94–99
[2018-02-10] MEDS: ACETAMINOPHEN 1000 MG/100 ML 100 ML IV SCH ×2 (00:28→07:58)
[2018-02-10] MEDS: AMIODARONE 200 MG TAB PO SCH ×4 (01:08→21:12)
[2018-02-10] MEDS: LACTATED RINGER'S 1000 ML INJ 500 ML IV PRN (01:08)
[2018-02-10] MEDS: oxyCODONE/ACETAMINOPHEN 5 MG/325 MG TAB PO PRN ×4 (02:14→23:27)
[2018-02-10] MEDS: RESP: ALBUTEROL 2.5 MG/IPRATROPIUM 0.5 MG NEB (SCH) NEB ×4 (02:56→19:29)
--- NOTE | 2018-02-10 04:26 | RADRPT ---
EXAM DATE/TIME: 02/10/2018 03:41 [facility] COMPARISON: CHEST SINGLE AP, February 09, 2018, 12:54. INDICATIONS : Shortness of breath, possible pneumothorax. Status post extubation. MEDICAL HISTORY : Venous insufficiency. Congestive heart failure. Hypertension. GERD SURGICAL HISTORY : Tonsillectomy. CABG. ENCOUNTER: Subsequent ACUITY: 2 days PAIN SCORE: Non-responsive. LOCATION: Bilateral chest FINDINGS: A single AP semierect view of the chest was obtained and demonstrates that the patient has been extub ated and the nasogastric tube has been removed. The right internal jugular central venous line, media stinal chest tube and left-sided chest tube remain in place with no pneumothorax. The heart size is m ildly prominent with no perihilar edema. The patient is status post median sternotomy. There is mild patchy opacity in the left lung base. CONCLUSION: 1. Interval extubation and removal of nasogastric tube. 2. Mediastinal chest tube and left-sided chest tube with no pneumothorax. 3. Mild patchy opacity at the lung base. Leo Plaza MD on February 10, 2018 at 4:22 Board Certified Radiologist. This report was verified electronically.
[2018-02-10 05:51] LABS: HEMOGLOBIN 8.5 GM/DL (11.6-15.3); MEAN CELL VOLUME 94.4 FL (80.0-100.0); MEAN CORPUSCULAR HEMOGLOBIN 32.2 PG (27.0-34.0); MEAN CORPUSCULAR HGB CONC 34.2 % (32.0-36.0); MEAN PLATELET VOLUME 8.6 FL (7.0-11.0); PLATELET COUNT 218 TH/MM3 (150-450); RED BLOOD COUNT 2.65 MIL/MM3 (4.00-5.30); RED CELL DISTRIBUTION WIDTH 13.8 % (11.6-17.2); WHITE BLOOD COUNT 14.4 TH/MM3 (4.0-11.0)
[2018-02-10] MEDS: PANTOPRAZOLE SOD 40 MG DELAYED RELEASE TAB PO SCH (05:57)
[2018-02-10 06:14] LABS: BICARBONATE 23.6 MEQ/L (21.0-32.0); CALCIUM 8.6 MG/DL (8.5-10.1); CREATININE 0.79 MG/DL (0.50-1.00); MAGNESIUM 1.9 MG/DL (1.5-2.5)
[2018-02-10] MEDS: KETOROLAC TROMETHAMINE 30 MG/ML (IVP) VIAL IV PUSH PRN ×2 (06:44→21:14)
[2018-02-10] MEDS: SODIUM CHLORIDE 0.9% FLUSH 10 ML FLUSH IV FLUSH SCH ×2 (07:58→20:42)
[2018-02-10] MEDS: AZITHROMYCIN 250 MG TAB PO SCH (08:39)
[2018-02-10] MEDS: ATORVASTATIN 80 MG TAB PO SCH (08:39)
[2018-02-10] MEDS: ASPIRIN 81 MG CHEW TAB PO SCH (08:40)
--- NOTE | 2018-02-10 10:26 | PD.CAR.PN ---
CVT Progress Note CVT: POD #: 1 Subjective/Hospital Course: A 62-year-old female, patient of Dr. Hawthorne, who has been admitted multiple times with multiple coronary interventions, was seen in the past by Dr. Mendoza. She underwent coronary intervention of the left circumflex and right coronary artery. She also had been seen by Palliative Care in the past for severe disease with extensive blockages. She has been having ongoing chest pain off and on for the and catch her breath and having chest pain. She presented again on this admission with a non-STEMI. Troponins were as high as 9.4. EKG showed sinus tachycardia with atrial abnormality, right bundle branch block, diffuse ST changes. She underwent cardiac catheterization by Dr. Hawthorne, which showed 80% left main, 100% proximal LAD with distal filling, [id number]-yx-[id number] collaterals , 80% ostial diagonal, circumflex has 80%. There was disease in the OM1, OM2. Ejection fraction approximately 30%. PAST MEDICAL HISTORY: Ischemic cardiomyopathy, severe multivessel coronary artery disease, hypertension, diabetes mellitus, dyslipidemia, history of prior tobacco abuse 02/08 no chest pain or SOB for surgery in am 02/09 surgery: CABG x 5, MAHAJAN to LAD - good, SVG to PDA - fair, SVG to OM4 - good, SVG to OM2 - fair, SVG to D1 - fair, JONG, EVH 02/10/18 c/o incisional pain, otherwise doing well Objective: Vital Signs Date Time Temp Pulse Resp B/P (MAP) Pulse Ox O2 Delivery O2 Flow Rate FiO2 02/10/18 10:07 95 Nasal Cannula 1.00 02/10/18 08:00 98.3 76 20 105/69 (81) 97 02/10/18 08:00 75 02/10/18 03:14 16 02/10/18 03:00 98.7 90 18 102/55 (71) 97 02/10/18 03:00 98 02/09/18 23:00 98.2 96 20 130/57 (81) 98 02/09/18 23:00 90 02/09/18 19:34 98 Nasal Cannula 3.00 02/09/18 19:30 95 Nasal Cannula 4.00 02/09/18 19:21 20 02/09/18 19:21 20 02/09/18 19:00 97.5 95 20 102/64 (77) 100 Arterial Line 02/09/18 19:00 95 02/09/18 16:00 96.9 82 10 106/68 (81) 95 105/57 (73) 02/09/18 16:00 82 02/09/18 14:29 94 Nasal Cannula 4 02/09/18 14:15 45 02/09/18 14:11 97.0 02/09/18 13:00 96.5 02/09/18 13:00 71 02/09/18 13:00 97.4 93 10 128/73 (91) 97 128/64 (85) 02/09/18 13:00 100 02/09/18 12:50 94 90 02/09/18 12:25 97 100 Labs: Laboratory Tests Test 02/10/18 04:40 White Blood Count 14.4 TH/MM3 (4.0-11.0) Red Blood Count 2.65 MIL/MM3 (4.00-5.30) Hemoglobin 8.5 GM/DL (11.6-15.3) Hematocrit 25.0 % (35.0-46.0) Mean Corpuscular Volume 94.4 FL (80.0-100.0) Mean Corpuscular Hemoglobin 32.2 PG (27.0-34.0) Mean Corpuscular Hemoglobin Concent 34.2 % (32.0-36.0) Red Cell Distribution Width 13.8 % (11.6-17.2) Platelet Count 218 TH/MM3 (150-450) Mean Platelet Volume 8.6 FL (7.0-11.0) Blood Urea Nitrogen 11 MG/DL (7-18) Creatinine 0.79 MG/DL (0.50-1.00) Random Glucose 103 MG/DL (74-106) Calcium Level 8.6 MG/DL (8.5-10.1) Magnesium Level 1.9 MG/DL (1.5-2.5) Sodium Level 139 MEQ/L (136-145) Potassium Level 3.9 MEQ/L (3.5-5.1) Chloride Level 106 MEQ/L (98-107) Carbon Dioxide Level 23.6 MEQ/L (21.0-32.0) Anion Gap 9 MEQ/L (5-15) Estimat Glomerular Filtration Rate 74 ML/MIN (>89) Result Diagram: 02/10/1843902/10/18439 Cardiovascular: RRR Telemetry: NSR Pulmonary: CTA GI/: NABS, NT Incision: dry and intact CT: 180ml/12hrs Plan: Diurese Remove rene Encourage ambulation D/C planning No beta chauncey due to low BP Supp K Transfer to stepdown (1) NSTEMI (non-ST elevated myocardial infarction) (2) Unstable angina (3) CAD (coronary artery disease) (4) Cardiomyopathy (5) DM (diabetes mellitus) (6) HTN (hypertension) Anila Carroll MD Feb 10, 2018 10:26
[2018-02-10] MEDS ORDERED: BISACODYL 10 MG SUPP RECTAL PRN (10:30)
[2018-02-10] MEDS ORDERED: GLUCAGON 1 MG/ML VIAL OTHER PRN (10:30)
[2018-02-10] MEDS: POTASSIUM CHLORIDE 10 MEQ CONTROLLED RELEASE TAB PO SCH ×2 (10:30→20:45)
[2018-02-10] MEDS ORDERED: DEXTROSE 50% IN WATER 50 ML VIAL(D50) IV PUSH PRN (10:30)
[2018-02-10] MEDS ORDERED: INSULIN DETEMIR 100 UNITS/ML VIAL SQ ONE (11:00)
[2018-02-10] MEDS: INSULIN ASPART SUPPLEMENTAL SCALE SQ SCH ×3 (14:09→21:13)
[2018-02-10] MEDS: FUROSEMIDE 40 MG/4 ML VIAL IV PUSH SCH (17:07)
[2018-02-10] MEDS: MAGNESIUM HYDROXIDE SUSP 30 ML CUP PO SCH (17:08)
--- NOTE | 2018-02-10 19:24 | EKG ---
Date Performed: 02/10/2018 Time Performed: 05:14:56 PTAGE: 62 years EKG: Sinus rhythm IV conduction defect Generalized low QRS voltages Abnormal ECG Since PREVIOUS TRACING , no significant change noted PREVIOUS TRACIN02/04/2018 14.21.04 DOCTOR: Jaky Young Interpretating Date/Time 02/10/2018 19:22:42
[2018-02-10] MEDS: DOCUSATE SODIUM 100 MG CAP PO SCH (20:42)
[2018-02-10] MEDS: SENNOSIDES 8.6 MG TAB PO SCH (20:42)
[2018-02-11] VITALS (20 sets, daily range): BP systolic 99–125; BP diastolic 55–68; PULSE 70–108; RESP 16–22; TEMP 98.1–99.5; O2SAT 93–97
[2018-02-11] MEDS: INSULIN ASPART SUPPLEMENTAL SCALE SQ SCH ×6 (02:00→21:58)
[2018-02-11] MEDS: RESP: ALBUTEROL 2.5 MG/IPRATROPIUM 0.5 MG NEB (SCH) NEB ×4 (02:54→20:34)
[2018-02-11] MEDS: KETOROLAC TROMETHAMINE 30 MG/ML (IVP) VIAL IV PUSH PRN ×2 (04:54→21:54)
[2018-02-11 05:03] LABS: AUTOMATED NEUTROPHIL # 9.3 TH/MM3 (1.8-7.7); BASOPHIL % 0.1 % (0.0-2.0); EOSINOPHIL % 0.2 % (0.0-4.0); HEMATOCRIT 25.5 % (35.0-46.0); HEMOGLOBIN 8.6 GM/DL (11.6-15.3); LYMPH % 15.9 % (9.0-44.0); LYMPHOCYTE # 1.9 TH/MM3 (1.0-4.8); MEAN CELL VOLUME 94.8 FL (80.0-100.0); MEAN CORPUSCULAR HEMOGLOBIN 31.9 PG (27.0-34.0); MEAN CORPUSCULAR HGB CONC 33.7 % (32.0-36.0); MEAN PLATELET VOLUME 8.8 FL (7.0-11.0); MONO % 7.6 % (0.0-8.0); MONOCYTE # 0.9 TH/MM3 (0-0.9); NEUT % 76.2 % (16.0-70.0); PLATELET COUNT 211 TH/MM3 (150-450); RED BLOOD COUNT 2.69 MIL/MM3 (4.00-5.30); RED CELL DISTRIBUTION WIDTH 13.9 % (11.6-17.2); WHITE BLOOD COUNT 12.2 TH/MM3 (4.0-11.0)
[2018-02-11 05:25] LABS: ALBUMIN 2.8 GM/DL (3.4-5.0); AST (GOT) 43 U/L (15-37); BICARBONATE 25.1 MEQ/L (21.0-32.0); BLOOD UREA NITROGEN 14 MG/DL (7-18); CALCIUM 8.4 MG/DL (8.5-10.1); CHLORIDE 101 MEQ/L (98-107); GLOMERULAR FILTRATION RATE 57 ML/MIN (>89); GLUCOSE,RANDOM 154 MG/DL (74-106); MAGNESIUM 1.8 MG/DL (1.5-2.5); SODIUM (NA) 135 MEQ/L (136-145)
[2018-02-11 05:26] LABS: ALT (GPT) 79 U/L (10-53)
[2018-02-11 05:29] LABS: ALKALINE PHOSPHATASE 89 U/L (45-117); TOTAL BILIRUBIN ADULT 0.4 MG/DL (0.2-1.0); TOTAL PROTEIN 5.8 GM/DL (6.4-8.2)
[2018-02-11] MEDS: AMIODARONE 200 MG TAB PO SCH ×3 (05:59→20:56)
[2018-02-11] MEDS: PANTOPRAZOLE SOD 40 MG DELAYED RELEASE TAB PO SCH (05:59)
[2018-02-11] MEDS: SODIUM CHLORIDE 0.9% FLUSH 10 ML FLUSH IV FLUSH SCH ×2 (09:00→20:59)
[2018-02-11] MEDS: MAGNESIUM HYDROXIDE SUSP 30 ML CUP PO SCH (09:00)
[2018-02-11] MEDS: POTASSIUM CHLORIDE 10 MEQ CONTROLLED RELEASE TAB PO SCH ×2 (09:00→20:56)
[2018-02-11] MEDS: oxyCODONE/ACETAMINOPHEN 5 MG/325 MG TAB PO PRN ×4 (10:06→23:25)
[2018-02-11] MEDS: ASPIRIN 81 MG CHEW TAB PO SCH (10:06)
[2018-02-11] MEDS: MULTIVITAMINS/MINERALS THERAPEUTIC TAB PO SCH (10:07)
[2018-02-11] MEDS: FUROSEMIDE 40 MG/4 ML VIAL IV PUSH SCH ×2 (10:07→17:16)
[2018-02-11] MEDS: AZITHROMYCIN 250 MG TAB PO SCH (10:07)
[2018-02-11] MEDS: DOCUSATE SODIUM 100 MG CAP PO SCH ×2 (10:07→21:00)
[2018-02-11] MEDS: ATORVASTATIN 80 MG TAB PO SCH (10:07)
[2018-02-11] MEDS: POLYETHYLENE GLYCOL 17 GM PKG PO SCH (10:08)
--- NOTE | 2018-02-11 11:24 | PD.CAR.PN ---
CVT Progress Note CVT: POD #: 2 Subjective/Hospital Course: A 62-year-old female, patient of Dr. Hawthorne, who has been admitted multiple times with multiple coronary interventions, was seen in the past by Dr. Mendoza. She underwent coronary intervention of the left circumflex and right coronary artery. She also had been seen by Palliative Care in the past for severe disease with extensive blockages. She has been having ongoing chest pain off and on for the and catch her breath and having chest pain. She presented again on this admission with a non-STEMI. Troponins were as high as 9.4. EKG showed sinus tachycardia with atrial abnormality, right bundle branch block, diffuse ST changes. She underwent cardiac catheterization by Dr. Hawthorne, which showed 80% left main, 100% proximal LAD with distal filling, vrxsm-oa-iwef collaterals , 80% ostial diagonal, circumflex has 80%. There was disease in the OM1, OM2. Ejection fraction approximately 30%. PAST MEDICAL HISTORY: Ischemic cardiomyopathy, severe multivessel coronary artery disease, hypertension, diabetes mellitus, dyslipidemia, history of prior tobacco abuse 02/08 no chest pain or SOB for surgery in am 02/09 surgery: CABG x 5, MAHAJAN to LAD - good, SVG to PDA - fair, SVG to OM4 - good, SVG to OM2 - fair, SVG to D1 - fair, JONG, EVH 02/10/18 c/o incisional pain, otherwise doing well 02/11/18 Doing well, no complaints Objective: Vital Signs Date Time Temp Pulse Resp B/P (MAP) Pulse Ox O2 Delivery O2 Flow Rate FiO2 02/11/18 10:00 92 02/11/18 09:10 98.5 95 20 119/62 (81) 95 02/11/18 09:10 106 02/11/18 08:25 94 Nasal Cannula 1.00 02/11/18 07:00 83 02/11/18 07:00 99.5 83 16 113/62 (79) 94 02/11/18 05:54 18 02/11/18 03:00 88 02/11/18 03:00 98.2 88 16 119/65 (83) 95 02/11/18 02:53 15 02/10/18 23:00 84 02/10/18 23:00 98.2 84 18 116/64 (81) 95 02/10/18 19:32 96 02/10/18 19:07 18 02/10/18 19:00 90 02/10/18 19:00 98.8 96 18 124/73 (90) 94 02/10/18 16:00 98.6 86 20 102/65 (77) 99 02/10/18 16:00 86 02/10/18 16:00 82 Labs: Laboratory Tests Test 02/11/18 04:15 White Blood Count 12.2 TH/MM3 (4.0-11.0) Red Blood Count 2.69 MIL/MM3 (4.00-5.30) Hemoglobin 8.6 GM/DL (11.6-15.3) Hematocrit 25.5 % (35.0-46.0) Mean Corpuscular Volume 94.8 FL (80.0-100.0) Mean Corpuscular Hemoglobin 31.9 PG (27.0-34.0) Mean Corpuscular Hemoglobin Concent 33.7 % (32.0-36.0) Red Cell Distribution Width 13.9 % (11.6-17.2) Platelet Count 211 TH/MM3 (150-450) Mean Platelet Volume 8.8 FL (7.0-11.0) Neutrophils (%) (Auto) 76.2 % (16.0-70.0) Lymphocytes (%) (Auto) 15.9 % (9.0-44.0) Monocytes (%) (Auto) 7.6 % (0.0-8.0) Eosinophils (%) (Auto) 0.2 % (0.0-4.0) Basophils (%) (Auto) 0.1 % (0.0-2.0) Neutrophils # (Auto) 9.3 TH/MM3 (1.8-7.7) Lymphocytes # (Auto) 1.9 TH/MM3 (1.0-4.8) Monocytes # (Auto) 0.9 TH/MM3 (0-0.9) Eosinophils # (Auto) 0.0 TH/MM3 (0-0.4) Basophils # (Auto) 0.0 TH/MM3 (0-0.2) CBC Comment DIFF FINAL Differential Comment Blood Urea Nitrogen 14 MG/DL (7-18) Creatinine 1.00 MG/DL (0.50-1.00) Random Glucose 154 MG/DL (74-106) Total Protein 5.8 GM/DL (6.4-8.2) Albumin 2.8 GM/DL (3.4-5.0) Calcium Level 8.4 MG/DL (8.5-10.1) Magnesium Level 1.8 MG/DL (1.5-2.5) Alkaline Phosphatase 89 U/L (45-117) Aspartate Amino Transf (AST/SGOT) 43 U/L (15-37) Alanine Aminotransferase (ALT/SGPT) 79 U/L (10-53) Total Bilirubin 0.4 MG/DL (0.2-1.0) Sodium Level 135 MEQ/L (136-145) Potassium Level 4.4 MEQ/L (3.5-5.1) Chloride Level 101 MEQ/L (98-107) Carbon Dioxide Level 25.1 MEQ/L (21.0-32.0) Anion Gap 9 MEQ/L (5-15) Estimat Glomerular Filtration Rate 57 ML/MIN (>89) Result Diagram: 02/11/18 0415 02/11/18 0415 Cardiovascular: RRR Telemetry: NSR Pulmonary: CTA GI/: NABS, NT Incision: dry and intact CT: 140ml/12 hrs Plan: Continue chest tubes to water seal Start lopressor Diurese Encourage ambulation Start plavix when chest tubes removed Discharge planning (1) NSTEMI (non-ST elevated myocardial infarction) (2) Unstable angina (3) CAD (coronary artery disease) (4) Cardiomyopathy (5) DM (diabetes mellitus) (6) HTN (hypertension) Anila Carroll MD Feb 11, 2018 11:24
[2018-02-11] MEDS: METOPROLOL TARTRATE 25 MG TAB PO SCH ×2 (11:30→20:55)
--- NOTE | 2018-02-11 13:34 | HHI.PR ---
Subjective Remarks Patient is doing well today. No complaints of lack of pain control and she has been ambulatory. Her primary complaint is pain at her right IJ site. Objective Vital Signs Date Time Temp Pulse Resp B/P (MAP) Pulse Ox O2 Delivery O2 Flow Rate FiO2 02/11/18 12:00 100 02/11/18 11:00 108 02/11/18 11:00 98.4 95 22 125/68 (87) 95 02/11/18 10:00 92 02/11/18 09:10 98.5 95 20 119/62 (81) 95 02/11/18 09:10 106 02/11/18 08:25 94 Nasal Cannula 1.00 02/11/18 07:00 83 02/11/18 07:00 99.5 83 16 113/62 (79) 94 02/11/18 05:54 18 02/11/18 03:00 88 02/11/18 03:00 98.2 88 16 119/65 (83) 95 02/11/18 02:53 15 02/10/18 23:00 84 02/10/18 23:00 98.2 84 18 116/64 (81) 95 02/10/18 19:32 96 02/10/18 19:07 18 02/10/18 19:00 90 02/10/18 19:00 98.8 96 18 124/73 (90) 94 02/10/18 16:00 98.6 86 20 102/65 (77) 99 02/10/18 16:00 86 02/10/18 16:00 82 I/O 02/10/18 02/10/18 02/10/18 02/11/18 02/11/18 02/11/18 07:00 15:00 23:00 07:00 15:00 23:00 Intake Total 1039 ml 300 ml 1100 ml 580 ml Output Total 820 ml 910 ml 940 ml Balance 219 ml 300 ml 190 ml -360 ml Intake Oral 240 ml 1000 ml 480 ml IV Total 799 ml 300 ml 100 ml 100 ml Output Urine Total 730 ml 750 ml 800 ml Chest Tube Drainage Total 90 ml 160 ml 140 ml # Bowel Movements 0 0 0 Result Diagram: 02/11/18 0415 02/11/18 0415 Objective Remarks GENERAL: NAD, A&Ox3 HEAD: Normocephalic. NECK: Supple, trachea midline. No lymphadenopathy. EYES: No scleral icterus. No injection or drainage. CARDIOVASCULAR: Regular rate and rhythm without murmurs, gallops, or rubs. RESPIRATORY: Breath sounds equal bilaterally. No accessory muscle use. GASTROINTESTINAL: Abdomen soft, non-tender, nondistended. MUSCULOSKELETAL: No cyanosis, or edema. Anterior chest wound, chest tube present, line at right neck. SKIN: Warm and dry. NEURO: No focal neurological deficitis. A/P Problem List: (1) Systolic CHF ICD Code: I50.20 - Unspecified systolic (congestive) heart failure (2) NSTEMI (non-ST elevated myocardial infarction) ICD Code: I21.4 - Non-ST elevation (NSTEMI) myocardial infarction Status: Acute (3) HTN (hypertension) ICD Code: I10 - Essential (primary) hypertension Status: Chronic (4) DM (diabetes mellitus) ICD Code: E11.9 - Type 2 diabetes mellitus without complications Status: Chronic (5) Cardiomyopathy ICD Code: I42.9 - Cardiomyopathy, unspecified (6) CAD (coronary artery disease) ICD Code: I25.10 - Atherosclerotic heart disease of [place] coronary artery without angina pectoris Status: Acute Assessment and Plan 62 year-old female admitted secondary to unstable angina, now status post CABG 5 Multivessel coronary disease Status post CABG Doing well postop Continue as needed pain control Cardiothoracic surgery following Continue postop care Unstable angina End-stage multivessel disease Atypical chest pain No further chest pain status post CABG Monitor on telemetry Plavix Community acquired pneumonia Continue antibiotics No respiratory distress Diabetes type 2 Continue Levemir Follow blood sugars Insulin sliding scale Diabetic diet DVT prophylaxis SCDs Afshin Kenyon MD Feb 11, 2018 13:34
[2018-02-11] MEDS: SENNOSIDES 8.6 MG TAB PO SCH (21:00)
[2018-02-11] MEDS: TEMAZEPAM 15 MG CAP PO PRN (21:58)
[2018-02-12] VITALS (26 sets, daily range): BP systolic 104–129; BP diastolic 58–79; PULSE 67–100; RESP 16–18; TEMP 97.6–99; O2SAT 91–96
[2018-02-12] MEDS: INSULIN ASPART SUPPLEMENTAL SCALE SQ SCH ×5 (02:00→21:00)
[2018-02-12] MEDS: oxyCODONE/ACETAMINOPHEN 5 MG/325 MG TAB PO PRN ×3 (03:23→21:42)
[2018-02-12] MEDS: RESP: ALBUTEROL 2.5 MG/IPRATROPIUM 0.5 MG NEB (SCH) NEB ×4 (03:41→19:58)
[2018-02-12 03:58] LABS: AUTOMATED NEUTROPHIL # 7.6 TH/MM3 (1.8-7.7); BASOPHIL % 0.2 % (0.0-2.0); EOSINOPHIL # 0.1 TH/MM3 (0-0.4); HEMOGLOBIN 9.4 GM/DL (11.6-15.3); LYMPH % 26.5 % (9.0-44.0); LYMPHOCYTE # 3.1 TH/MM3 (1.0-4.8); MEAN CELL VOLUME 94.4 FL (80.0-100.0); MEAN CORPUSCULAR HEMOGLOBIN 32.6 PG (27.0-34.0); MEAN CORPUSCULAR HGB CONC 34.6 % (32.0-36.0); MEAN PLATELET VOLUME 8.5 FL (7.0-11.0); MONOCYTE # 0.9 TH/MM3 (0-0.9); NEUT % 64.3 % (16.0-70.0); PLATELET COUNT 257 TH/MM3 (150-450); RED BLOOD COUNT 2.87 MIL/MM3 (4.00-5.30); WHITE BLOOD COUNT 11.8 TH/MM3 (4.0-11.0)
[2018-02-12 04:35] LABS: ALBUMIN 2.9 GM/DL (3.4-5.0); AST (GOT) 45 U/L (15-37); BICARBONATE 28.1 MEQ/L (21.0-32.0); BLOOD UREA NITROGEN 15 MG/DL (7-18); CALCIUM 8.4 MG/DL (8.5-10.1); CHLORIDE 99 MEQ/L (98-107); CREATININE 1.01 MG/DL (0.50-1.00); GLOMERULAR FILTRATION RATE 56 ML/MIN (>89); GLUCOSE,RANDOM 95 MG/DL (74-106); SODIUM (NA) 133 MEQ/L (136-145)
[2018-02-12 04:37] LABS: ALT (GPT) 72 U/L (10-53)
[2018-02-12 04:39] LABS: ALKALINE PHOSPHATASE 113 U/L (45-117); TOTAL BILIRUBIN ADULT 0.5 MG/DL (0.2-1.0); TOTAL PROTEIN 6.3 GM/DL (6.4-8.2)
[2018-02-12] MEDS: AMIODARONE 200 MG TAB PO SCH ×3 (04:47→21:34)
[2018-02-12] MEDS: PANTOPRAZOLE SOD 40 MG DELAYED RELEASE TAB PO SCH (04:47)
[2018-02-12] MEDS: MAGNESIUM HYDROXIDE SUSP 30 ML CUP PO SCH (09:00)
[2018-02-12] MEDS: POLYETHYLENE GLYCOL 17 GM PKG PO SCH (09:06)
[2018-02-12] MEDS: ASPIRIN 81 MG CHEW TAB PO SCH (09:08)
[2018-02-12] MEDS: ATORVASTATIN 80 MG TAB PO SCH (09:08)
[2018-02-12] MEDS: DOCUSATE SODIUM 100 MG CAP PO SCH ×2 (09:08→21:34)
[2018-02-12] MEDS: MULTIVITAMINS/MINERALS THERAPEUTIC TAB PO SCH (09:09)
[2018-02-12] MEDS: POTASSIUM CHLORIDE 10 MEQ CONTROLLED RELEASE TAB PO SCH (09:09)
[2018-02-12] MEDS: METOPROLOL TARTRATE 25 MG TAB PO SCH ×2 (09:10→21:34)
[2018-02-12] MEDS: FUROSEMIDE 40 MG/4 ML VIAL IV PUSH SCH (09:10)
[2018-02-12] MEDS: SODIUM CHLORIDE 0.9% FLUSH 10 ML FLUSH IV FLUSH SCH ×2 (09:11→21:34)
--- NOTE | 2018-02-12 12:21 | RSPPFT ---
DATE OF PROCEDURE: 02/07/18 COMMENTS: The forced vital capacity, FEV1, FEV1/FVC ratio and FEF 25-75 are all normal. IMPRESSION: This is a normal spirometry.
--- NOTE | 2018-02-12 12:23 | PD.CAR.PN ---
CVT Progress Note Subjective/Hospital Course: A 62-year-old female, patient of Dr. Hawthorne, who has been admitted multiple times with multiple coronary interventions, was seen in the past by Dr. Mendoza. She underwent coronary intervention of the left circumflex and right coronary artery. She also had been seen by Palliative Care in the past for severe disease with extensive blockages. She has been having ongoing chest pain off and on for the and catch her breath and having chest pain. She presented again on this admission with a non-STEMI. Troponins were as high as 9.4. EKG showed sinus tachycardia with atrial abnormality, right bundle branch block, diffuse ST changes. She underwent cardiac catheterization by Dr. Hawthorne, which showed 80% left main, 100% proximal LAD with distal filling, lcipw-fd-jsuo collaterals , 80% ostial diagonal, circumflex has 80%. There was disease in the OM1, OM2. Ejection fraction approximately 30%. PAST MEDICAL HISTORY: Ischemic cardiomyopathy, severe multivessel coronary artery disease, hypertension, diabetes mellitus, dyslipidemia, history of prior tobacco abuse 02/08 no chest pain or SOB for surgery in am 02/09 surgery: CABG x 5, MAHAJAN to LAD - good, SVG to PDA - fair, SVG to OM4 - good, SVG to OM2 - fair, SVG to D1 - fair, JONG, EVH 02/10/18 c/o incisional pain, otherwise doing well 02/11/18 Doing well, no complaints 02/12 chest tube dc without difficultly on room air EF 45% on statin , ASA, BB , amiodarone , start plavix OOB ambulate eval for dc in am back to [facility] Objective: Vital Signs Date Time Temp Pulse Resp B/P (MAP) Pulse Ox O2 Delivery O2 Flow Rate FiO2 02/12/18 11:59 96 Room Air 02/12/18 11:57 98.5 73 18 118/62 (80) 96 02/12/18 11:00 69 02/12/18 10:00 72 02/12/18 09:00 74 02/12/18 08:00 72 02/12/18 08:00 96 Room Air 02/12/18 08:00 98.2 73 18 129/61 (83) 96 02/12/18 07:00 73 02/12/18 06:41 72 02/12/18 05:24 72 02/12/18 04:04 73 02/12/18 03:35 97.6 71 17 104/58 (73) 96 02/12/18 03:35 81 02/12/18 02:16 68 02/12/18 01:14 67 02/12/18 00:18 68 02/11/18 23:33 98.3 74 16 99/55 (70) 93 02/11/18 23:31 70 02/11/18 22:15 78 02/11/18 21:00 90 02/11/18 20:34 97 21 02/11/18 20:20 80 02/11/18 19:38 99.0 80 17 116/63 (80) 93 02/11/18 19:38 79 02/11/18 18:00 76 02/11/18 17:00 74 02/11/18 16:00 70 02/11/18 15:00 70 02/11/18 15:00 98.1 96 20 118/60 (79) 96 02/11/18 14:00 96 02/11/18 13:00 84 Labs: Laboratory Tests Test 02/12/18 03:30 White Blood Count 11.8 TH/MM3 (4.0-11.0) Red Blood Count 2.87 MIL/MM3 (4.00-5.30) Hemoglobin 9.4 GM/DL (11.6-15.3) Hematocrit 27.0 % (35.0-46.0) Mean Corpuscular Volume 94.4 FL (80.0-100.0) Mean Corpuscular Hemoglobin 32.6 PG (27.0-34.0) Mean Corpuscular Hemoglobin Concent 34.6 % (32.0-36.0) Red Cell Distribution Width 14.0 % (11.6-17.2) Platelet Count 257 TH/MM3 (150-450) Mean Platelet Volume 8.5 FL (7.0-11.0) Neutrophils (%) (Auto) 64.3 % (16.0-70.0) Lymphocytes (%) (Auto) 26.5 % (9.0-44.0) Monocytes (%) (Auto) 8.0 % (0.0-8.0) Eosinophils (%) (Auto) 1.0 % (0.0-4.0) Basophils (%) (Auto) 0.2 % (0.0-2.0) Neutrophils # (Auto) 7.6 TH/MM3 (1.8-7.7) Lymphocytes # (Auto) 3.1 TH/MM3 (1.0-4.8) Monocytes # (Auto) 0.9 TH/MM3 (0-0.9) Eosinophils # (Auto) 0.1 TH/MM3 (0-0.4) Basophils # (Auto) 0.0 TH/MM3 (0-0.2) CBC Comment DIFF FINAL Differential Comment Blood Urea Nitrogen 15 MG/DL (7-18) Creatinine 1.01 MG/DL (0.50-1.00) Random Glucose 95 MG/DL (74-106) Total Protein 6.3 GM/DL (6.4-8.2) Albumin 2.9 GM/DL (3.4-5.0) Calcium Level 8.4 MG/DL (8.5-10.1) Alkaline Phosphatase 113 U/L (45-117) Aspartate Amino Transf (AST/SGOT) 45 U/L (15-37) Alanine Aminotransferase (ALT/SGPT) 72 U/L (10-53) Total Bilirubin 0.5 MG/DL (0.2-1.0) Sodium Level 133 MEQ/L (136-145) Potassium Level 4.4 MEQ/L (3.5-5.1) Chloride Level 99 MEQ/L (98-107) Carbon Dioxide Level 28.1 MEQ/L (21.0-32.0) Anion Gap 6 MEQ/L (5-15) Estimat Glomerular Filtration Rate 56 ML/MIN (>89) Result Diagram: 02/12/1832902/12/18329 Telemetry: NSR (1) NSTEMI (non-ST elevated myocardial infarction) (2) Unstable angina (3) CAD (coronary artery disease) (4) Cardiomyopathy Plan: resume low dose rohini (5) DM (diabetes mellitus) Plan: on insulin sliding scale , resume home po meds (6) HTN (hypertension) Plan: controlled (7) S/P CABG x 5 Plan: ASA, statin, BB chest tube dc without difficultly OOB, ambulate Johana Brown Feb 12, 2018 12:23
--- NOTE | 2018-02-12 15:51 | HHI.PR ---
Subjective Remarks Patient had 1 of her chest tubes removed today Denies any chest pain at this moment. Denies any shortness of breath denies any nausea vomiting Wants to go to rehab if her insurance will accept it Discussed with patient and RN Meredith labs Objective Vitals Vital Signs Date Time Temp Pulse Resp B/P (MAP) Pulse Ox O2 Delivery O2 Flow Rate FiO2 02/12/18 14:00 76 02/12/18 13:00 74 02/12/18 12:00 72 02/12/18 11:59 96 Room Air 02/12/18 11:57 98.5 73 18 118/62 (80) 96 02/12/18 11:00 69 02/12/18 10:00 72 02/12/18 09:00 74 02/12/18 08:00 72 02/12/18 08:00 96 Room Air 02/12/18 08:00 98.2 73 18 129/61 (83) 96 02/12/18 07:00 73 02/12/18 06:41 72 02/12/18 05:24 72 02/12/18 04:04 73 02/12/18 03:35 97.6 71 17 104/58 (73) 96 02/12/18 03:35 81 02/12/18 02:16 68 02/12/18 01:14 67 02/12/18 00:18 68 02/11/18 23:33 98.3 74 16 99/55 (70) 93 02/11/18 23:31 70 02/11/18 22:15 78 02/11/18 21:00 90 02/11/18 20:34 97 21 02/11/18 20:20 80 02/11/18 19:38 99.0 80 17 116/63 (80) 93 02/11/18 19:38 79 02/11/18 18:00 76 02/11/18 17:00 74 02/11/18 16:00 70 I/O 02/11/18 02/11/18 02/11/18 02/12/18 02/12/18 02/12/18 07:00 15:00 23:00 07:00 15:00 23:00 Intake Total 580 ml 960 ml 600 ml Output Total 940 ml 700 ml 670 ml Balance -360 ml 260 ml -70 ml Intake Oral 480 ml 960 ml 600 ml IV Total 100 ml Output Urine Total 800 ml 600 ml 600 ml Chest Tube Drainage Total 140 ml 100 ml 70 ml # Bowel Movements 0 0 Result Diagram: 02/12/18 0330 02/12/18 0330 Other Results Laboratory Tests Test 02/10/18 04:40 02/11/18 04:15 02/12/18 03:30 White Blood Count 14.4 TH/MM3 12.2 TH/MM3 11.8 TH/MM3 Red Blood Count 2.65 MIL/MM3 2.69 MIL/MM3 2.87 MIL/MM3 Hemoglobin 8.5 GM/DL 8.6 GM/DL 9.4 GM/DL Hematocrit 25.0 % 25.5 % 27.0 % Mean Corpuscular Volume 94.4 FL 94.8 FL 94.4 FL Mean Corpuscular Hemoglobin 32.2 PG 31.9 PG 32.6 PG Mean Corpuscular Hemoglobin Concent 34.2 % 33.7 % 34.6 % Red Cell Distribution Width 13.8 % 13.9 % 14.0 % Platelet Count 218 TH/MM3 211 TH/MM3 257 TH/MM3 Mean Platelet Volume 8.6 FL 8.8 FL 8.5 FL Blood Urea Nitrogen 11 MG/DL 14 MG/DL 15 MG/DL Creatinine 0.79 MG/DL 1.00 MG/DL 1.01 MG/DL Random Glucose 103 MG/DL 154 MG/DL 95 MG/DL Calcium Level 8.6 MG/DL 8.4 MG/DL 8.4 MG/DL Magnesium Level 1.9 MG/DL 1.8 MG/DL Sodium Level 139 MEQ/L 135 MEQ/L 133 MEQ/L Potassium Level 3.9 MEQ/L 4.4 MEQ/L 4.4 MEQ/L Chloride Level 106 MEQ/L 101 MEQ/L 99 MEQ/L Carbon Dioxide Level 23.6 MEQ/L 25.1 MEQ/L 28.1 MEQ/L Anion Gap 9 MEQ/L 9 MEQ/L 6 MEQ/L Estimat Glomerular Filtration Rate 74 ML/MIN 57 ML/MIN 56 ML/MIN Neutrophils (%) (Auto) 76.2 % 64.3 % Lymphocytes (%) (Auto) 15.9 % 26.5 % Monocytes (%) (Auto) 7.6 % 8.0 % Eosinophils (%) (Auto) 0.2 % 1.0 % Basophils (%) (Auto) 0.1 % 0.2 % Neutrophils # (Auto) 9.3 TH/MM3 7.6 TH/MM3 Lymphocytes # (Auto) 1.9 TH/MM3 3.1 TH/MM3 Monocytes # (Auto) 0.9 TH/MM3 0.9 TH/MM3 Eosinophils # (Auto) 0.0 TH/MM3 0.1 TH/MM3 Basophils # (Auto) 0.0 TH/MM3 0.0 TH/MM3 CBC Comment DIFF FINAL DIFF FINAL Differential Comment Total Protein 5.8 GM/DL 6.3 GM/DL Albumin 2.8 GM/DL 2.9 GM/DL Alkaline Phosphatase 89 U/L 113 U/L Aspartate Amino Transf (AST/SGOT) 43 U/L 45 U/L Alanine Aminotransferase (ALT/SGPT) 79 U/L 72 U/L Total Bilirubin 0.4 MG/DL 0.5 MG/DL Imaging Last Impressions Chest X-Ray 02/10/18 0500 Signed Impressions: Service Date/Time: Saturday, February 10, 2018 03:41 - CONCLUSION: 1. Interval extubation and removal of nasogastric tube. 2. Mediastinal chest tube and left-sided chest tube with no pneumothorax. 3. Mild patchy opacity at the lung base. Leo Plaza MD Lower Extremity Ultrasound 02/06/18 0000 Signed Impressions: Service Date/Time: Tuesday, February 06, 2018 16:54 - CONCLUSION: Venous mapping as above. Shaheed Murray MD Carotid Artery Ultrasound 02/06/18 0000 Signed Impressions: Service Date/Time: Tuesday, February 06, 2018 17:16 - CONCLUSION: Moderate atherosclerotic plaquing at both carotid bifurcations. There is mild elevation of both internal carotid arteries, left greater than right. This suggests some mild to moderate narrowing. If clinically indicated, recommend a CTA of the carotids for further evaluation. Shaheed Murray MD CT Angiography 02/04/18 0000 Signed Impressions: Service Date/Time: Sunday, February 04, 2018 08:35 - CONCLUSION: #1. No evidence of PE. #2. Multifocal air space consolidation involving the bilateral lower lobes and lingula consistent with pneumonia. #3. No evidence of congestive heart failure.. Johana Maher MD Objective Remarks GENERAL: Awake alert and oriented 3 talkative and cooperative SKIN: Warm and dry. HEAD: Atraumatic. Normocephalic. EYES: Pupils equal and round. No scleral icterus. No injection or drainage. Extraocular muscles intact ENT: No nasal bleeding or discharge. Mucous membranes pink and moist. Tongue is midline NECK: Trachea midline. No JVD. Supple CARDIOVASCULAR: Regular rate and rhythm. S1-S2 no S3 or S4 and no heaves no thrills no rubs no gallops anterior chest wound chest tube still in place RESPIRATORY: No accessory muscle use. Clear to auscultation. Breath sounds equal bilaterally. GASTROINTESTINAL: Abdomen soft, non-tender, nondistended. Hepatic and splenic margins not palpable. MUSCULOSKELETAL: Extremities without clubbing, cyanosis, or edema. No obvious deformities. NEUROLOGICAL: Awake and alert. No obvious cranial nerve deficits. Motor grossly within normal limits. Five out of 5 muscle strength in the arms and legs. Normal speech. PSYCHIATRIC: Appropriate mood and affect; insight and judgment normal. Procedures Cardiac catheterization on 02-05 CABG X5 02-09 INDICATION: Non-ST elevation myocardial infarction, severe multivessel coronary disease, history of coronary intervention. PROCEDURE PERFORMED: 1. Retrograde left heart catheterization with left ventriculography and selective coronary angiography. 2. Left internal mammary artery angiography. 3. Moderate sedation. ACCESS SITE: Right femoral artery. EQUIPMENT USED: 5 Prydeinig pigtail, JL4 and AR modified coronary catheters. MEDICATIONS: Versed IV, fentanyl IV, nitroglycerin IC. CONTRAST: Omnipaque 65 mL. COMPLICATIONS: None. BLOOD LOSS: Less than 10 mL. METHOD OF HEMOSTASIS: VASCADE closure. RESULTS AND HEMODYNAMICS: A. Heart rate 80 beats per minute, left ventricular end diastolic pressure 9 mmHg, left ventricle 95/9, aorta 95/54/70. B. Left ventricular ejection fraction 25%. Wall motion anteroapical and apical severe hypokinesis, no mitral regurgitation. C. Coronary angiography. Left main coronary artery has 80% stenosis in the distal portion. This was unchanged after administration of intracoronary nitroglycerin. Left anterior descending artery is totally occluded in the proximal portion distally to the first diagonal branch. Distal vessel faintly filled by [id number] collaterals. There was 80% stenosis of the ostium of the first diagonal branch. Left circumflex artery had 80% stenosis at its ostium. OM1 had 50% ostial stenosis and 80% in the mid portion. OM2 had 60% stenosis in its proximal portion and 30% stenosis in the mid portion. Right coronary artery is a dominant vessel with 20% in-stent restenosis in the proximal portion and 50% stenosis in the distal portion prior to the bifurcation. PDA had 80% ostial stenosis. PLV had 80% stenosis of the mid portion. Left subclavian artery and left internal mammary artery were patent. DIAGNOSES: 1. Severe diffuse multivessel coronary artery disease. 2. Severe left ventricular dysfunction consistent with ischemic cardiomyopathy. DISPOSITION: Elizabeth Haynes was found to have evidence of severe disease progression when compared to her previous cardiac catheterization and coronary intervention last year. She was found to have severe stenosis of the distal left main coronary artery. Any coronary intervention at this time would have extremely high risk. I recommend to consider coronary bypass for further management. Dr. Singleton was consulted for cardiothoracic surgery. We will start IV heparin, IV nitroglycerin, and continue to closely monitor the patient in the cardiac unit on telemetry. Marcus Hawthorne MD OLaila/ARMANDO , 02:18 PM Operative Report Date of Surgery: Feb 09, 2018 Preoperative Diagnosis: (1) Systolic CHF (2) NSTEMI (non-ST elevated myocardial infarction) (3) CAD (coronary artery disease) Postoperative Diagnosis: same Procedure: CABG x 5 MAHAJAN to LAD - good SVG to PDA - fair SVG to OM4 - good SVG to OM2 - fair SVG to D1 - fair JONG EVH Anesthesia: Dr. Simpson Surgeon: Anila Carroll Mold Swabber(s): Dawood ODONNELL Operation and Findings: The risks, benefits, complications, treatment options, and expected outcomes were discussed with the patient. The possibilities of reaction to medication, pulmonary aspiration, perforation of viscus, bleeding, recurrent infection, the need for additional procedures, failure to diagnose a condition, and creating a complication requiring transfusion or operation were discussed with the patient. The patient concurred with the proposed plan, giving informed consent. The site of surgery properly noted/marked. The patient was taken to Operating Room, identified as Elizabeth Haynes and the procedure verified as CABG, EVH, JONG. A Time Out was held and the above information confirmed. Standard monitoring lines and Sawyer catheter were placed. General anesthesia was induced. The patient was prepped and draped in a sterile fashion. A median sternotomy was performed and electrocautery was used to obtain hemostasis. The left internal mammary artery was procured as a pedicle from the 7th rib to the 1st rib in the usual manner. Simultaneously left greater saphenous vein was procured from the left leg using a minimally invasive endoscopic technique. The vein was prepared for anastomosis and the leg wound was irrigated and closed in 2 layers. The pericardium was opened and a pericardial sling was created using interrupted 0 silk sutures. The patient was heparinized for cardiopulmonary bypass and the distal mammary pedicle was instrumented for anastomosis. The heart was instrumented for cardiopulmonary bypass in the usual manner. Antegrade blood cardioplegia was employed. The patient was placed on cardiopulmonary bypass. An aortic cross-clamp was applied and the heart was arrested using cold blood cardioplegia. Antegrade cardioplegia was administered after he each anastomosis. After adequate arrest, the distal right coronary circulation was investigated and the PDA was opened with a [place] blade and found to be a 1 millimeter fair target. Saphenous vein was approximated to the PDA artery using a running 7 0 Prolene suture. The graft was measured for length and orientation and the proximal anastomosis was constructed to the ascending aorta using a running 5 0 Prolene suture after creating an aortotomy with a 5 millimeter punch. The OM4 was opened with a [place] blade and found to be a 1.5 millimeter good target. Saphenous vein was approximated to the OM4 artery using a running 7 0 Prolene suture. The graft was measured for length and orientation and the proximal anastomosis was constructed to the ascending aorta using a running 5 0 Prolene suture after creating an aortotomy with a 5 millimeter punch. The OM2 was opened with a [place] blade and found to be a 1 millimeter fair target. Saphenous vein was approximated to the OM2 artery using a running 7 0 Prolene suture. The graft was measured for length and orientation and was suspended from the pericardium. The 1st diagonal artery was then opened with a [place] blade and found to be a 1 millimeter fair target. Saphenous vein was approximated to the D1 artery using a running 7 0 Prolene suture. The graft was measured for length and orientation and was suspended from the pericardium. The distal LAD was opened with a [place] blade and found to be a 1.5 millimeter good target. The left internal mammary artery was approximated to the LAD using a running 7 0 Prolene suture. The pedicle was attached to the epicardium using interrupted 5 0 silk suture. The patient was systemically rewarmed and received a hotshot dose of warm blood cardioplegia. The aorta was vented and the proximal anastomosis to the OM2 graft was accomplished using a running 5 0 Prolene suture after creating an aortotomy was a 5 millimeter punch. The D1 graft was approximated proximally to the OM4 vein graft in an end to side manner using a running 7-0 Prolene suture. The cross-clamp was removed and all proximal and distal anastomoses were examined for hemostasis. The patient was weaned from cardiopulmonary bypass. Protamine was given. There was no adverse reaction. Decannulation was carried out without incident. Wound was checked for hemostasis which was obtained using electrocautery. A 36 Prydeinig mediastinal and 32 Prydeinig left pleural chest tubes were placed and secured to the skin with 0 silk suture. The sternum was closed with stainless steel wire. The fascia was closed with 1. PDS. The subcutaneous tissue was closed using a running 2-0 Vicryl suture. The skin was closed with 4-0 Monocryl. Sterile dressings were placed. At the end of the operation, all sponge, instruments, and needle counts were correct. The patient was transferred to the CVICU in stable condition. Findings: LV function improved to ~45% XC: 77 min CPB: 99 min Drains: mediastinal x 1 pleural x 1 Complications: none Disposition: to CVICU in stable condition Anila Carroll MD Medications and IVs Current Medications Aspirin (Aspirin Chew) 162 mg ONCE ONCE PO Last administered on 02/04/18at 07: 20; Start 02/04/18 at 07:15; Stop 02/04/18 at 07:16; Status DC Morphine Sulfate (Morphine Inj) 2 mg ONCE ONCE IV PUSH Last administered on at 07:09; Start 02/04/18 at 07:15; Stop 02/04/18 at 07:16; Status DC Nitroglycerin (Nitroglycerin 2% Oint) 1 inch ONCE ONCE TOP Last administered on 02/04/18at 07:10; Start 02/04/18 at 07:15; Stop 02/04/18 at 07:16; Status DC Sodium Chloride (NS Flush) 2 ml UNSCH PRN IVF FLUSH AFTER USING IV ACCESS; Start 02/04/18 at 07:15; Status Cancel Nitroglycerin (Nitrostat Sl) 0.4 mg ONCE ONCE SL Last administered on at 07:10; Start 02/04/18 at 07:15; Stop 02/04/18 at 07:16; Status DC Sodium Chloride 500 ml @ 500 mls/hr ONCE ONCE IV Last administered on at 07:20; Start 02/04/18 at 07:15; Stop 02/04/18 at 08:14; Status DC Ondansetron HCl (Zofran Inj) 4 mg ONCE ONCE IV PUSH Last administered on at 07:09; Start 02/04/18 at 07:15; Stop 02/04/18 at 07:16; Status DC Nitroglycerin (Nitrostat Sl) 0.4 mg ONCE ONCE SL Last administered on at 08:26; Start 02/04/18 at 08:30; Stop 02/04/18 at 08:31; Status DC Morphine Sulfate (Morphine Inj) 2 mg ONCE ONCE IV PUSH Last administered on at 08:26; Start 02/04/18 at 08:30; Stop 02/04/18 at 08:31; Status DC Sodium Chloride 500 ml @ 500 mls/hr BOLUS ONCE IV Last administered on at 08:24; Start 02/04/18 at 08:30; Stop 02/04/18 at 09:29; Status DC Iodixanol (VISIPAQUE 320 INJ (Rad CT)) 50 ml STK-MED ONCE IVCONTRAST Last administered on 02/04/18at 08:48; Start 02/04/18 at 08:48; Stop 02/04/18 at 08:49 ; Status DC Morphine Sulfate (Morphine Inj) 4 mg ONCE ONCE IV PUSH Last administered on at 10:29; Start 02/04/18 at 09:15; Stop 02/04/18 at 09:16; Status DC Nitroglycerin/ Dextrose 250 ml @ 0 mls/hr TITRATE ONCE IV Last administered on 02/04/18at 09:16; Start 02/04/18 at 09:15; Stop 02/04/18 at 09:16; Status DC Sodium Chloride 1,000 ml @ 100 mls/hr Q10H IV Last administered on 02/04/18at 09:29; Start 02/04/18 at 09:15; Stop 02/04/18 at 09:54; Status DC Ceftriaxone Sodium 1000 mg/ Sodium Chloride 100 ml @ 200 mls/hr ONCE ONCE IV Last administered on 02/04/18at 09:21; Start 02/04/18 at 09:15; Stop 02/04/18 at 09:44; Status DC Azithromycin 500 mg/Sodium Chloride 250 ml @ 250 mls/hr ONCE ONCE IV Last administered on 02/04/18at 10:03; Start 02/04/18 at 09:15; Stop 02/04/18 at 10:14 ; Status DC Heparin Sodium (Porcine) (Heparin Inj) 4,000 units ONCE ONCE IV Last administered on 02/04/18at 09:41; Start 02/04/18 at 09:30; Stop 02/04/18 at 09:31 ; Status DC Heparin Sodium (Porcine) (Heparin Inj) 5,000 units UNSCH PRN IV APTT LESS THAN 25; Start 02/04/18 at 15:30; Stop 02/05/18 at 18:39; Status DC Heparin Sodium (Porcine) (Heparin Inj) 2,500 units UNSCH PRN IV APTT 25 TO 39 Last administered on 02/04/18at 23:21; Start 02/04/18 at 15:30; Stop 02/05/18 at 18:39; Status DC Heparin Sodium/ Dextrose 250 ml @ 10 mls/hr TITRATE PRN IV Coagulation Management Last administered on 02/05/18at 07:30; Start 02/04/18 at 09:30; Stop 02/05/18 at 18:39; Status DC Lorazepam (Ativan Inj) 1 mg ONCE ONCE IV PUSH Last administered on 02/04/18at 10:55; Start 02/04/18 at 09:45; Stop 02/04/18 at 09:46; Status DC Sodium Chloride 1,000 ml @ 75 mls/hr [id number] IV Last administered on at 02:05; Start 02/04/18 at 09:49; Stop 02/06/18 at 11:50; Status DC Sodium Chloride (NS Flush) 2 ml UNSCH PRN IV FLUSH FLUSH AFTER USING IV ACCESS ; Start 02/04/18 at 10:00; Stop 02/09/18 at 11:59; Status DC Sodium Chloride (NS Flush) 2 ml BID IV FLUSH Last administered on 02/08/18at 20: 27; Start 02/04/18 at 21:00; Stop 02/09/18 at 11:59; Status DC Acetaminophen (Tylenol) 650 mg Q4H PRN PO TEMP > 100.4 Last administered on at 02:01; Start 02/04/18 at 10:00; Stop 02/09/18 at 12:02; Status DC Ondansetron HCl (Zofran Inj) 4 mg Q6H PRN IVP NAUSEA OR VOMITING; Start at 10:00; Stop 02/09/18 at 12:09; Status DC Naloxone HCl (Narcan Inj) 0.4 mg UNSCH PRN IV PUSH SEE LABEL COMMENTS; Start at 10:00 Nitroglycerin (Nitroglycerin 2% Oint) 0.5 inch Q6HR TOPICAL ; Start 02/04/18 at 12:00; Stop 02/07/18 at 17:59; Status DC Morphine Sulfate (Morphine Inj) 2 mg Q3H PRN IV PUSH chest pain; Start at 10:00; Stop 02/09/18 at 11:53; Status DC Aspirin (Aspirin Chew) 162 mg DAILY PO Last administered on 02/08/18at 09:07; Start 02/05/18 at 09:00; Stop 02/09/18 at 12:08; Status DC Atorvastatin Calcium (Lipitor) 80 mg DAILY PO Last administered on 02/12/18at 09 :08; Start 02/05/18 at 09:00 Clopidogrel Bisulfate (Plavix) 75 mg DAILY PO Last administered on 02/06/18at 09 :10; Start 02/05/18 at 09:00; Stop 02/06/18 at 14:52; Status DC Pantoprazole Sodium (Protonix) 40 mg Q12HR PO Last administered on 02/08/18at 20 :27; Start 02/04/18 at 21:00; Stop 02/09/18 at 11:53; Status DC Metoprolol Tartrate (Lopressor) 12.5 mg Q12HR PO Last administered on at 20:27; Start 02/04/18 at 10:15; Stop 02/09/18 at 11:53; Status DC Miscellaneous (Pill Splitter) 1 ea UNSCH PRN OTHER SEE LABEL COMMENTS; Start at 10:15 Nitroglycerin/ Dextrose 250 ml @ 1.5 mls/hr TITRATE PRN IV Chest pain Last administered on 02/09/18at 04:48; Start 02/04/18 at 16:00; Stop 02/09/18 at 11:53 ; Status DC Dextrose (D50w (Vial) Inj) 50 ml UNSCH PRN IV PUSH HYPOGLYCEMIA - SEE COMMENTS ; Start 02/04/18 at 16:30; Stop 02/09/18 at 12:08; Status DC Glucagon (Glucagon Inj) 1 mg UNSCH PRN OTHER HYPOGLYCEMIA-SEE COMMENTS; Start 02/04/18 at 16:30; Stop 02/09/18 at 12:08; Status DC Insulin Aspart (NovoLOG SUPPLEMENTAL SCALE) 1 ACHS SLIDING SCALE SQ Last administered on 02/08/18at 20:28; Start 02/04/18 at 17:00; Stop 02/09/18 at 12:08 ; Status DC Azithromycin (Zithromax) 500 mg DAILY PO Last administered on 02/11/18at 10:07; Start 02/05/18 at 12:00; Stop 02/11/18 at 11:22; Status DC Heparin Sodium/ Sodium Chloride 2,000 ml @ As Directed STK-MED ONCE IV FLUSH ; Start 02/05/18 at 12:49; Stop 02/05/18 at 12:50; Status DC Fentanyl Citrate (fentaNYL INJ) 100 mcg STK-MED ONCE .ROUTE ; Start 02/05/18 at 12:50; Stop 02/05/18 at 12:51; Status DC Midazolam HCl (Versed Inj) 5 mg STK-MED ONCE .ROUTE ; Start 02/05/18 at 12:50; Stop 02/05/18 at 12:51; Status DC Heparin Sodium (Porcine) (Heparin Inj) 10,000 units STK-MED ONCE .ROUTE ; Start 02/05/18 at 12:50; Stop 02/05/18 at 12:51; Status DC Nitroglycerin 5 ml @ As Directed STK-MED ONCE .ROUTE ; Start 02/05/18 at 12:50; Stop 02/05/18 at 12:51; Status DC Sodium Chloride 500 ml @ 100 mls/hr Q5H IV ; Start 02/05/18 at 14:22; Stop at 18:21; Status DC Iohexol (OMNIPAQUE 350 INJ (Alarm Installer)) 100 ml STK-MED ONCE OTHER ; Start at 14:25; Stop 02/05/18 at 14:26; Status DC Heparin Sodium/ Dextrose 250 ml @ 11 mls/hr TITRATE PRN IV Coagulation Management Last administered on 02/08/18at 18:04; Start 02/05/18 at 18:45; Stop 02/09/18 at 11:53; Status DC Heparin Sodium (Porcine) (Heparin Inj) 5,000 units UNSCH PRN IV PUSH aPTT less than 25; Start 02/05/18 at 18:45; Stop 02/09/18 at 11:53; Status DC Heparin Sodium (Porcine) (Heparin Inj) 2,500 units UNSCH PRN IV PUSH aPTT 25 to 39 Last administered on 02/08/18at 18:04; Start 02/05/18 at 18:45; Stop at 11:53; Status DC Sodium Chloride (NS Flush) 2 ml BID IV FLUSH Last administered on 02/08/18at 09: 00; Start 02/06/18 at 21:00; Stop 02/09/18 at 11:59; Status DC Sodium Chloride (NS Flush) 2 ml UNSCH PRN IV FLUSH FLUSH AFTER USING IV ACCESS ; Start 02/06/18 at 14:45; Stop 02/09/18 at 11:59; Status DC Papaverine HCl 60 mg/Nitroglycerin 100 mcg/Diltiazem HCl 100 mg/Sodium Chloride 100 ml @ 0 mls/hr [employer]ATION Last administered on 02/09/18at 08:37; Start 02/06/18 at 16:00; Stop 02/09/18 at 19:02; Status DC Cefazolin Sodium 500 mg/Sodium Chloride 505 ml @ 0 mls/hr [employer] Last administered on 02/09/18at 08:36; Start 02/06/18 at 16:00; Stop 02/09/18 at 19:02; Status DC Cefazolin Sodium/ Dextrose 50 ml @ 150 mls/hr [employer] IV Last administered on 02/09/18at 07:42; Start 02/06/18 at 16:00; Stop 02/09/18 at 19:02; Status DC Metoprolol Tartrate (Lopressor) 12.5 mg [employer] PO ; Start 02/06/18 at 16:00; Stop 02/09/18 at 19:02; Status DC Chlorhexidine Gluconate (Hibiclens 4% Top Soln) 1 applic [employer] TOPICAL ; Start 02/06/18 at 16:00; Stop 02/09/18 at 19:02; Status DC Insulin Human Regular 100 units/ Sodium Chloride 100 ml @ 3 mls/hr TITRATE PRN IV for blood glucose control Last administered on 02/09/18at 13:35; Start at 16:00; Stop 02/09/18 at 12:08; Status DC Dextrose (D50w (Vial) Inj) 50 ml UNSCH PRN IV PUSH HYPOGLYCEMIA-SEE COMMENTS; Start 02/06/18 at 16:00; Stop 02/09/18 at 11:53; Status DC Heparin Sodium (Porcine) (Heparin Inj) 2,500 units BOLUS ONCE IV ; Start at 13:00; Stop 02/07/18 at 13:06; Status DC Heparin Sodium (Porcine) (Heparin Inj) 2,500 units BOLUS ONCE IV ; Start at 13:15; Stop 02/07/18 at 13:16; Status DC Temazepam (Restoril) 15 mg HS PRN PO INSOMNIA Last administered on 02/11/18at 21 :58; Start 02/08/18 at 10:00 Insulin Detemir (Levemir Inj) 10 units HS SQ Last administered on 02/08/18at 20: 28; Start 02/08/18 at 21:00; Stop 02/09/18 at 19:02; Status DC Methylprednisolone Sodium Succinate (SoluMEDROL INJ) 125 mg STK-MED ONCE .ROUTE ; Start 02/09/18 at 06:29; Stop 02/09/18 at 06:30; Status DC Heparin Sodium (Porcine) (Heparin Inj) 40,000 units STK-MED ONCE .ROUTE Last administered on 02/09/18at 06:29; Start 02/09/18 at 06:29; Stop 02/09/18 at 06:30 ; Status DC Vancomycin HCl (Vancomycin Inj) 4,000 mg STK-MED ONCE .ROUTE Last administered on 02/09/18at 06:29; Start 02/09/18 at 06:29; Stop 02/09/18 at 06:30; Status DC Multi-Ingred Electrol/Mineral Irrig 2,000 ml @ As Directed STK-MED ONCE .ROUTE ; Start 02/09/18 at 07:18; Stop 02/09/18 at 07:19; Status DC Potassium Chloride (KCl Inj) 4 meq STK-MED ONCE .ROUTE ; Start 02/09/18 at 07:18 ; Stop 02/09/18 at 07:19; Status DC Potassium Chloride (KCl Inj) 4 meq STK-MED ONCE .ROUTE ; Start 02/09/18 at 07:18 ; Stop 02/09/18 at 07:19; Status DC Albumin Human 50 ml @ As Directed STK-MED ONCE IV ; Start 02/09/18 at 07:19; Stop 02/09/18 at 07:20; Status DC Sodium Bicarbonate 50 ml @ As Directed STK-MED ONCE .ROUTE ; Start 02/09/18 at 07:19; Stop 02/09/18 at 07:20; Status DC Heparin Sodium (Porcine) (Heparin Inj) 10,000 units STK-MED ONCE .ROUTE ; Start 02/09/18 at 07:19; Stop 02/09/18 at 07:20; Status DC Mannitol 100 ml @ As Directed STK-MED ONCE .ROUTE ; Start 02/09/18 at 07:19; Stop 02/09/18 at 07:20; Status DC Calcium Chloride (Calcium Chloride Inj) 1 gm STK-MED ONCE .ROUTE ; Start at 07:20; Stop 02/09/18 at 07:21; Status DC Protamine Sulfate (Protamine Sulfate Inj) 50 mg STK-MED ONCE .ROUTE ; Start at 11:04; Stop 02/09/18 at 11:05; Status DC Cefazolin Sodium (Ancef Inj) 1,000 mg STK-MED ONCE .ROUTE Last administered on 02/09/18at 11:36; Start 02/09/18 at 11:30; Stop 02/09/18 at 11:31; Status DC Sodium Chloride (NS Flush) 2 ml BID IV FLUSH Last administered on 02/12/18at 09: 11; Start 02/09/18 at 21:00 Sodium Chloride (NS Flush) 2 ml UNSCH PRN IV FLUSH FLUSH AFTER USING IV ACCESS ; Start 02/09/18 at 12:00 Dexmedetomidine HCl 200 mcg/ Sodium Chloride 52 ml @ 4.26 mls/hr TITRATE PRN IV SEDATION; Start 02/09/18 at 12:00; Stop 02/11/18 at 11:22; Status DC Clevidipine 50 ml @ 2 mls/hr TITRATE PRN IV Maintain BP < 140/90 mmHg; Start at 12:00; Stop 02/11/18 at 11:22; Status DC Albumin Human 250 ml @ 250 mls/hr UNSCH PRN IV SEE LABEL COMMENTS Last administered on 02/09/18at 21:46; Start 02/09/18 at 12:00; Stop 02/12/18 at 08:50 ; Status DC Lactated Ringer's 500 ml @ 500 mls/hr Q1H PRN IV SEE LABEL COMMENTS Last administered on 02/10/18at 01:08; Start 02/09/18 at 11:49; Stop 02/12/18 at 08:50 ; Status DC Miscellaneous Information (Post-op Orders (for Pharmacy)) STAT ONCE OTHER ; Start 02/09/18 at 12:00; Stop 02/09/18 at 12:10; Status DC Cefazolin Sodium 1000 mg/Sodium Chloride 100 ml @ 200 mls/hr Q8H IV ; Start at 16:00; Stop 02/11/18 at 00:29; Status Cancel Aspirin (Aspirin Chew) 81 mg DAILY PO Last administered on 02/12/18at 09:08; Start 02/10/18 at 09:00 Pantoprazole Sodium (Protonix) 40 mg DAILY@06 PO Last administered on at 04:47; Start 02/10/18 at 06:00 Amiodarone HCl (Cordarone) 400 mg Q8HR PO Last administered on 02/12/18at 13:34 ; Start 02/09/18 at 14:00 Acetaminophen (Tylenol) 650 mg Q4H PRN PO TEMPERATURE > 101 F; Start 02/09/18 at 12:00 Acetaminophen (Tylenol Supp) 650 mg Q4H PRN RECTAL TEMPERATURE > 101 F; Start 02/09/18 at 12:00; Stop 02/12/18 at 08:50; Status DC Acetaminophen 100 ml @ 400 mls/hr Q6H IV Last administered on 02/10/18at 07:58 ; Start 02/09/18 at 13:00; Stop 02/10/18 at 07:14; Status DC Oxycodone/ Acetaminophen (Percocet 5-325 Mg) 1 tab Q3H PRN PO PAIN SCALE 1 TO 5 Last administered on 02/12/18at 13:32; Start 02/09/18 at 12:00 Fentanyl Citrate (fentaNYL INJ) 25 mcg Q1H PRN IV PUSH BREAKTHROUGH PAIN Last administered on 02/11/18at 01:53; Start 02/09/18 at 12:00; Stop 02/11/18 at 11:22 ; Status DC Ondansetron HCl (Zofran Inj) 4 mg Q6H PRN IV PUSH NAUSEA OR VOMITING; Start at 12:00 Hydralazine HCl (Apresoline Inj) 10 mg Q4H PRN IV PUSH SEE LABEL COMMENTS; Start 02/09/18 at 12:00 Metoprolol Tartrate (Lopressor Inj) 2.5 mg Q1H PRN IV PUSH SEE LABEL COMMENTS; Start 02/09/18 at 12:00; Stop 02/12/18 at 08:50; Status DC Potassium Chloride 100 ml @ 50 mls/hr UNSCH PRN IV SEE LABEL COMMENTS Last administered on 02/09/18at 12:38; Start 02/09/18 at 12:00; Stop 02/09/18 at 12:38 ; Status DC Potassium Chloride 100 ml @ 50 mls/hr UNSCH PRN IV SEE LABEL COMMENTS; Start 02/09/18 at 12:00; Stop 02/12/18 at 08:50; Status DC Potassium Chloride 100 ml @ 50 mls/hr UNSCH PRN IV SEE LABEL COMMENTS; Start 02/09/18 at 12:00; Stop 02/12/18 at 08:50; Status DC Potassium Chloride (KCl) 20 meq UNSCH PRN PO SEE LABEL COMMENTS Last administered on 02/10/18at 08:37; Start 02/09/18 at 12:00; Stop 02/10/18 at 08:40 ; Status DC Potassium Chloride (KCl) 40 meq UNSCH PRN PO SEE LABEL COMMENTS; Start at 12:00; Stop 02/12/18 at 08:50; Status DC Magnesium Sulfate 2 gm/Sodium Chloride 104 ml @ 100 mls/hr UNSCH PRN IV SEE LABEL COMMENTS Last administered on 02/10/18at 09:10; Start 02/09/18 at 12:00; Stop 02/12/18 at 08:50; Status DC Magnesium Sulfate 2 gm/Sodium Chloride 104 ml @ 50 mls/hr UNSCH PRN IV SEE LABEL COMMENTS Last administered on 02/11/18at 06:07; Start 02/09/18 at 12:00; Stop 02/11/18 at 06:07; Status DC Calcium Chloride 1 gm/Sodium Chloride 110 ml @ 100 mls/hr UNSCH PRN IV SEE LABEL COMMENTS Last administered on 02/09/18at 12:38; Start 02/09/18 at 12:00; Stop 02/12/18 at 08:50; Status DC Calcium Chloride (Calcium Chloride Inj) 0.5 gm UNSCH PRN IV PUSH SEE LABEL COMMENTS; Start 02/09/18 at 12:00; Stop 02/12/18 at 08:50; Status DC Insulin Human Regular 100 units/ Sodium Chloride 100 ml @ 3 mls/hr TITRATE PRN IV for blood glucose control Last administered on 02/10/18at 00:30; Start at 12:00; Stop 02/10/18 at 14:00; Status DC Dextrose (D50w (Vial) Inj) 50 ml UNSCH PRN IV PUSH HYPOGLYCEMIA-SEE COMMENTS; Start 02/09/18 at 12:00; Stop 02/10/18 at 14:00; Status DC Sodium Bicarbonate (Sodium Bicarbonate 8.4% Inj) 50 meq UNSCH PRN IV PUSH SEE LABEL COMMENTS; Start 02/09/18 at 12:00; Stop 02/12/18 at 08:50; Status DC Sodium Bicarbonate (Sodium Bicarbonate 8.4% Inj) 100 meq UNSCH PRN IV PUSH SEE LABEL COMMENTS; Start 02/09/18 at 12:00; Stop 02/12/18 at 08:50; Status DC Albuterol/ Ipratropium (Duoneb Neb) 1 ampule Q6HR NEB NEB Last administered on 02/12/18at 03:41; Start 02/09/18 at 16:00 Albuterol/ Ipratropium (Duoneb Neb) 1 ampule Q2HR NEB PRN NEB WHEEZING; Start 02/09/18 at 12:00 Racepinephrine (Racepinephrine 2.25% Neb) 0.5 ml UNSCH X1 PRN NEB STRIDOR; Start 02/09/18 at 12:00; Stop 02/11/18 at 11:22; Status DC Midazolam HCl (Versed Inj) 10 mg STK-MED ONCE .ROUTE ; Start 02/09/18 at 12:34; Stop 02/09/18 at 12:35; Status DC Fentanyl Citrate (fentaNYL INJ) 1,000 mcg STK-MED ONCE .ROUTE ; Start 02/09/18 at 12:34; Stop 02/09/18 at 12:35; Status DC Cefazolin Sodium 1000 mg/Sodium Chloride 100 ml @ 200 mls/hr Q8H IV Last administered on 02/11/18at 03:52; Start 02/09/18 at 20:00; Stop 02/11/18 at 04:29 ; Status DC Ketorolac Tromethamine (Toradol Inj) 15 mg Q6H PRN IV PUSH PAIN 1-10 Last administered on 02/11/18at 21:54; Start 02/09/18 at 19:15 Furosemide (Lasix Inj) 40 mg BID@09,18 IV PUSH Last administered on 02/12/18at 09:10; Start 02/10/18 at 18:00; Stop 02/12/18 at 12:16; Status DC Potassium Chloride (KCl) 30 meq Q12HR PO Last administered on 02/12/18at 09:09; Start 02/10/18 at 10:30; Stop 02/12/18 at 12:16; Status DC Docusate Sodium (Colace) 100 mg BID PO Last administered on 02/12/18at 09:08; Start 02/10/18 at 21:00 Multivitamins/ Minerals Therapeutic (Theragran M Tab) 1 tab DAILY PO Last administered on 02/12/18at 09:09; Start 02/11/18 at 09:00 Magnesium Hydroxide (Milk Of Magnesia Liq) 30 ml DAILY PO Last administered on 02/10/18at 17:08; Start 02/10/18 at 11:00 Bisacodyl (Dulcolax Supp) 10 mg UNSCH PRN RECTAL SEE LABEL COMMENTS; Start at 10:30 Polyethylene Glycol (Miralax) 17 gm DAILY PO Last administered on 02/12/18at 09: 06; Start 02/11/18 at 09:00 Sennosides (Senokot) 8.6 mg HS PO Last administered on 02/10/18at 20:42; Start 02/10/18 at 21:00 Insulin Detemir (Levemir Inj) 10 units ONCE ONCE SQ Last administered on at 11:53; Start 02/10/18 at 11:00; Stop 02/10/18 at 11:01; Status DC Insulin Aspart (NovoLOG SUPPLEMENTAL SCALE) 1 02,06,10,14,18,22 SQ Last administered on 02/11/18at 21:58; Start 02/10/18 at 14:00; Stop 02/12/18 at 08:51 ; Status DC Dextrose (D50w (Vial) Inj) 50 ml UNSCH PRN IV PUSH HYPOGLYCEMIA-SEE COMMENTS; Start 02/10/18 at 10:30 Glucagon (Glucagon Inj) 1 mg UNSCH PRN OTHER HYPOGLYCEMIA-SEE COMMENTS; Start 02/10/18 at 10:30 Metoprolol Tartrate (Lopressor) 12.5 mg Q12HR PO Last administered on at 09:10; Start 02/11/18 at 11:30 Insulin Aspart (NovoLOG SUPPLEMENTAL SCALE) 1 ACHS SQ Last administered on 02/12at 12:34; Start 02/12/18 at 12:00 Furosemide (Lasix Inj) 40 mg DAILY IV PUSH ; Start 02/13/18 at 09:00 Potassium Chloride (KCl) 30 meq DAILY PO ; Start 02/13/18 at 09:00 Glipizide (Glucotrol) 5 mg BIDAC PO ; Start 02/12/18 at 16:00 Metformin HCl (Glucophage) 500 mg BIDPC PO ; Start 02/12/18 at 18:00 Clopidogrel Bisulfate (Plavix) 75 mg DAILY PO ; Start 02/13/18 at 09:00 A/P Problem List: (1) Unstable angina ICD Code: I20.0 - Unstable angina Status: Acute (2) Pneumonia ICD Code: J18.9 - Pneumonia, unspecified organism Status: Acute Assessment and Plan Assessment and Plan 62 year-old female admitted secondary to unstable angina, now status post CABG 5 Multivessel coronary disease Status post CABG Doing well postop Continue as needed pain control Cardiothoracic surgery following Continue postop care Unstable angina End-stage multivessel disease Atypical chest pain No further chest pain status post CABG Monitor on telemetry Plavix Community acquired pneumonia Continue antibiotics No respiratory distress Diabetes type 2 Continue Levemir Follow blood sugars Insulin sliding scale Diabetic diet DVT prophylaxis SCDs Discharge Planning Once cleared by cardiovascular surgery and accepted in a SNF Problem Qualifiers (1) Pneumonia: Qualified Codes: J18.1 - Lobar pneumonia, unspecified organism Dylan Andrade DO Feb 12, 2018 15:51
[2018-02-12] MEDS: metFORMIN HCL 500 MG TAB PO SCH (17:24)
[2018-02-12] MEDS: glipiZIDE 5 MG TAB PO SCH (17:30)
[2018-02-12] MEDS: SENNOSIDES 8.6 MG TAB PO SCH (21:34)
[2018-02-12] MEDS: ACETAMINOPHEN 325 MG TAB PO PRN (23:30)
[2018-02-13] VITALS (24 sets, daily range): BP systolic 103–131; BP diastolic 58–68; PULSE 68–94; RESP 16–20; TEMP 97.4–98.4; O2SAT 94–98
[2018-02-13] MEDS: RESP: ALBUTEROL 2.5 MG/IPRATROPIUM 0.5 MG NEB (SCH) NEB ×2 (03:40→08:18)
--- NOTE | 2018-02-13 04:36 | RADRPT ---
EXAM DATE/TIME: 02/13/2018 03:32 [facility] COMPARISON: CHEST SINGLE AP, February 10, 2018, 3:41. INDICATIONS : Short of breath. MEDICAL HISTORY : Venous insufficiency. Congestive heart failure. Hypertension. GERD SURGICAL HISTORY : Tonsillectomy. CABG. ENCOUNTER: Subsequent ACUITY: 3 days PAIN SCORE: 0/10 LOCATION: Bilateral chest FINDINGS: A single view of the chest demonstrates cardiomegaly and previous CABG. There is bibasilar subsegment al atelectasis. Osseous structures are intact. Right jugular central line has been removed. Removal of mediastinal and left-sided chest tube without pneumothorax. CONCLUSION: Bibasilar subsegmental atelectasis. Pilo Lau MD on February 13, 2018 at 4:32 Board Certified Radiologist. This report was verified electronically.
[2018-02-13] MEDS: AMIODARONE 200 MG TAB PO SCH ×3 (06:25→21:06)
[2018-02-13] MEDS: ACETAMINOPHEN 325 MG TAB PO PRN (06:25)
[2018-02-13] MEDS: PANTOPRAZOLE SOD 40 MG DELAYED RELEASE TAB PO SCH (06:25)
[2018-02-13 08:00] LABS: HEMATOCRIT 30.5 % (35.0-46.0); HEMOGLOBIN 10.3 GM/DL (11.6-15.3); MEAN CELL VOLUME 93.6 FL (80.0-100.0); MEAN CORPUSCULAR HEMOGLOBIN 31.5 PG (27.0-34.0); MEAN CORPUSCULAR HGB CONC 33.7 % (32.0-36.0); MEAN PLATELET VOLUME 8.7 FL (7.0-11.0); PLATELET COUNT 284 TH/MM3 (150-450); RED BLOOD COUNT 3.26 MIL/MM3 (4.00-5.30); RED CELL DISTRIBUTION WIDTH 14.2 % (11.6-17.2); WHITE BLOOD COUNT 10.6 TH/MM3 (4.0-11.0)
[2018-02-13] MEDS: glipiZIDE 5 MG TAB PO SCH ×2 (08:33→16:30)
[2018-02-13] MEDS: INSULIN ASPART SUPPLEMENTAL SCALE SQ SCH ×4 (08:33→21:00)
[2018-02-13] MEDS: SODIUM CHLORIDE 0.9% FLUSH 10 ML FLUSH IV FLUSH SCH ×2 (08:34→21:00)
[2018-02-13] MEDS: MULTIVITAMINS/MINERALS THERAPEUTIC TAB PO SCH (08:34)
[2018-02-13] MEDS: DOCUSATE SODIUM 100 MG CAP PO SCH ×2 (08:34→21:00)
[2018-02-13] MEDS: metFORMIN HCL 500 MG TAB PO SCH ×2 (08:34→18:45)
[2018-02-13] MEDS: METOPROLOL TARTRATE 25 MG TAB PO SCH ×2 (08:34→21:06)
[2018-02-13] MEDS: ASPIRIN 81 MG CHEW TAB PO SCH (08:34)
[2018-02-13] MEDS: POTASSIUM CHLORIDE 10 MEQ CONTROLLED RELEASE TAB PO SCH (08:35)
[2018-02-13] MEDS: CLOPIDOGREL 75 MG TAB PO SCH (08:35)
[2018-02-13] MEDS: ATORVASTATIN 80 MG TAB PO SCH (08:35)
[2018-02-13] MEDS: POLYETHYLENE GLYCOL 17 GM PKG PO SCH (08:36)
[2018-02-13] MEDS: FUROSEMIDE 40 MG/4 ML VIAL IV PUSH SCH (08:36)
[2018-02-13] MEDS: MAGNESIUM HYDROXIDE SUSP 30 ML CUP PO SCH (08:37)
[2018-02-13] MEDS: oxyCODONE/ACETAMINOPHEN 5 MG/325 MG TAB PO PRN ×2 (08:38→13:22)
[2018-02-13] MEDS ORDERED: ASPI81TA23 PO (09:56)
[2018-02-13] MEDS ORDERED: THERM PO (09:56)
[2018-02-13] MEDS ORDERED: DOCU1CAP39 PO (09:56)
[2018-02-13] MEDS ORDERED: OXYC1TAB63 PO (09:56)
[2018-02-13] MEDS ORDERED: AMIO200T PO (09:56)
[2018-02-13] MEDS ORDERED: METO25TA3 PO (09:56)
--- NOTE | 2018-02-13 10:00 | PD.CAR.PN ---
CVT Progress Note Subjective/Hospital Course: A 62-year-old female, patient of Dr. Hawthorne, who has been admitted multiple times with multiple coronary interventions, was seen in the past by Dr. Mendoza. She underwent coronary intervention of the left circumflex and right coronary artery. She also had been seen by Palliative Care in the past for severe disease with extensive blockages. She has been having ongoing chest pain off and on for the and catch her breath and having chest pain. She presented again on this admission with a non-STEMI. Troponins were as high as 9.4. EKG showed sinus tachycardia with atrial abnormality, right bundle branch block, diffuse ST changes. She underwent cardiac catheterization by Dr. Hawthorne, which showed 80% left main, 100% proximal LAD with distal filling, [id number] collaterals , 80% ostial diagonal, circumflex has 80%. There was disease in the OM1, OM2. Ejection fraction approximately 30%. PAST MEDICAL HISTORY: Ischemic cardiomyopathy, severe multivessel coronary artery disease, hypertension, diabetes mellitus, dyslipidemia, history of prior tobacco abuse 02/08 no chest pain or SOB for surgery in am 02/09 surgery: CABG x 5, MAHAJAN to LAD - good, SVG to PDA - fair, SVG to OM4 - good, SVG to OM2 - fair, SVG to D1 - fair, JONG, EVH 02/10/18 c/o incisional pain, otherwise doing well 02/11/18 Doing well, no complaints 02/12 chest tube dc without difficultly on room air EF 45% on statin , ASA, BB , amiodarone , start plavix OOB ambulate eval for dc in am back to [facility] 02/13 on room air stable for dc from CVS standpoint continue BB rohini Objective: GENERAL: A&O x 3 SKIN: Warm and dry. prevena to chest , incision intact to evh composite bond technician: Normocephalic. EYES: No scleral icterus. No injection or drainage. NECK: Supple, trachea midline. No JVD or lymphadenopathy. CARDIOVASCULAR: Regular rate and rhythm without murmurs, gallops, or rubs. RESPIRATORY: Breath sounds equal bilaterally. No accessory muscle use. diminished inthe bases GASTROINTESTINAL: Abdomen soft, non-tender, nondistended. MUSCULOSKELETAL: No cyanosis, or edema. BACK: Nontender without obvious deformity. No CVA tenderness. Vital Signs Date Time Temp Pulse Resp B/P (MAP) Pulse Ox O2 Delivery O2 Flow Rate FiO2 02/13/18 08:20 96 21 02/13/18 07:35 98.0 77 18 107/64 (78) 94 02/13/18 07:35 94 Room Air 02/13/18 06:03 14 02/13/18 06:00 78 02/13/18 05:00 80 02/13/18 04:00 74 02/13/18 03:00 98 Room Air 02/13/18 03:00 74 02/13/18 03:00 97.9 78 16 103/58 (73) 98 02/13/18 02:00 72 02/13/18 01:00 76 02/13/18 00:00 70 02/12/18 23:00 77 02/12/18 23:00 91 Room Air 02/12/18 23:00 98.8 81 16 118/66 (83) 91 02/12/18 22:00 84 02/12/18 21:00 100 02/12/18 20:00 86 02/12/18 19:00 99.0 85 16 117/59 (78) 95 02/12/18 19:00 95 Room Air 02/12/18 19:00 73 02/12/18 18:00 74 02/12/18 17:35 96 Room Air 02/12/18 17:00 74 02/12/18 16:00 98.2 73 18 119/79 (92) 96 02/12/18 16:00 76 02/12/18 15:49 94 21 02/12/18 15:00 73 02/12/18 14:32 20 02/12/18 14:00 76 02/12/18 13:00 74 02/12/18 12:00 72 02/12/18 11:59 96 Room Air 02/12/18 11:57 98.5 73 18 118/62 (80) 96 02/12/18 11:00 69 02/12/18 10:00 72 Labs: Laboratory Tests Test 02/13/18 07:22 White Blood Count 10.6 TH/MM3 (4.0-11.0) Red Blood Count 3.26 MIL/MM3 (4.00-5.30) Hemoglobin 10.3 GM/DL (11.6-15.3) Hematocrit 30.5 % (35.0-46.0) Mean Corpuscular Volume 93.6 FL (80.0-100.0) Mean Corpuscular Hemoglobin 31.5 PG (27.0-34.0) Mean Corpuscular Hemoglobin Concent 33.7 % (32.0-36.0) Red Cell Distribution Width 14.2 % (11.6-17.2) Platelet Count 284 TH/MM3 (150-450) Mean Platelet Volume 8.7 FL (7.0-11.0) Result Diagram: 02/13/18 0722 02/12/18 0330 Telemetry: NSR (1) NSTEMI (non-ST elevated myocardial infarction) (2) Unstable angina (3) CAD (coronary artery disease) (4) Cardiomyopathy Plan: resume low dose rohini (5) DM (diabetes mellitus) Plan: on insulin sliding scale , resume home po meds (6) HTN (hypertension) Plan: controlled (7) S/P CABG x 5 Plan: ASA, statin, BB CXR no PTX stable for dc home today with [facility] OOB, ambulate Johana Brown Feb 13, 2018 10:00
--- NOTE | 2018-02-13 11:50 | HHI.DS ---
Discharge Summary Admission Date Feb 05, 2018 at 13:08 Discharge Date: Feb 13, 2018 Admitting Diagnosis unstable angina, pneumonia versus atelectasis (1) Unstable angina ICD Code: I20.0 - Unstable angina Status: Acute (2) Pneumonia ICD Code: J18.9 - Pneumonia, unspecified organism Status: Acute Procedures Cardiac catheterization on 02-05 CABG X5 02-09 INDICATION: Non-ST elevation myocardial infarction, severe multivessel coronary disease, history of coronary intervention. PROCEDURE PERFORMED: 1. Retrograde left heart catheterization with left ventriculography and selective coronary angiography. 2. Left internal mammary artery angiography. 3. Moderate sedation. ACCESS SITE: Right femoral artery. EQUIPMENT USED: 5 [place] pigtail, JL4 and AR modified coronary catheters. MEDICATIONS: Versed IV, fentanyl IV, nitroglycerin IC. CONTRAST: Omnipaque 65 mL. COMPLICATIONS: None. BLOOD LOSS: Less than 10 mL. METHOD OF HEMOSTASIS: VASCADE closure. RESULTS AND HEMODYNAMICS: A. Heart rate 80 beats per minute, left ventricular end diastolic pressure 9 mmHg, left ventricle 95/9, aorta 95/54/70. B. Left ventricular ejection fraction 25%. Wall motion anteroapical and apical severe hypokinesis, no mitral regurgitation. C. Coronary angiography. Left main coronary artery has 80% stenosis in the distal portion. This was unchanged after administration of intracoronary nitroglycerin. Left anterior descending artery is totally occluded in the proximal portion distally to the first diagonal branch. Distal vessel faintly filled by [id number] collaterals. There was 80% stenosis of the ostium of the first diagonal branch. Left circumflex artery had 80% stenosis at its ostium. OM1 had 50% ostial stenosis and 80% in the mid portion. OM2 had 60% stenosis in its proximal portion and 30% stenosis in the mid portion. Right coronary artery is a dominant vessel with 20% in-stent restenosis in the proximal portion and 50% stenosis in the distal portion prior to the bifurcation. PDA had 80% ostial stenosis. PLV had 80% stenosis of the mid portion. Left subclavian artery and left internal mammary artery were patent. DIAGNOSES: 1. Severe diffuse multivessel coronary artery disease. 2. Severe left ventricular dysfunction consistent with ischemic cardiomyopathy. DISPOSITION: Elizabeth Haynes was found to have evidence of severe disease progression when compared to her previous cardiac catheterization and coronary intervention last year. She was found to have severe stenosis of the distal left main coronary artery. Any coronary intervention at this time would have extremely high risk. I recommend to consider coronary bypass for further management. Dr. Singleton was consulted for cardiothoracic surgery. We will start IV heparin, IV nitroglycerin, and continue to closely monitor the patient in the cardiac unit on telemetry. MD MARQUITA Auguste/ARMANDO , 02:18 PM Operative Report Date of Surgery: Feb 09, 2018 Preoperative Diagnosis: (1) Systolic CHF (2) NSTEMI (non-ST elevated myocardial infarction) (3) CAD (coronary artery disease) Postoperative Diagnosis: same Procedure: CABG x 5 MAHAJAN to LAD - good SVG to PDA - fair SVG to OM4 - good SVG to OM2 - fair SVG to D1 - fair JONG EVH Anesthesia: Dr. Simpson Surgeon: Anila Carroll Pediatric Physical Therapist(s): Dawood ODONNELL Operation and Findings: The risks, benefits, complications, treatment options, and expected outcomes were discussed with the patient. The possibilities of reaction to medication, pulmonary aspiration, perforation of viscus, bleeding, recurrent infection, the need for additional procedures, failure to diagnose a condition, and creating a complication requiring transfusion or operation were discussed with the patient. The patient concurred with the proposed plan, giving informed consent. The site of surgery properly noted/marked. The patient was taken to Operating Room, identified as Elizabeth Haynes and the procedure verified as CABG, EVH, JONG. A Time Out was held and the above information confirmed. Standard monitoring lines and Sawyer catheter were placed. General anesthesia was induced. The patient was prepped and draped in a sterile fashion. A median sternotomy was performed and electrocautery was used to obtain hemostasis. The left internal mammary artery was procured as a pedicle from the 7th rib to the 1st rib in the usual manner. Simultaneously left greater saphenous vein was procured from the left leg using a minimally invasive endoscopic technique. The vein was prepared for anastomosis and the leg wound was irrigated and closed in 2 layers. The pericardium was opened and a pericardial sling was created using interrupted 0 silk sutures. The patient was heparinized for cardiopulmonary bypass and the distal mammary pedicle was instrumented for anastomosis. The heart was instrumented for cardiopulmonary bypass in the usual manner. Antegrade blood cardioplegia was employed. The patient was placed on cardiopulmonary bypass. An aortic cross-clamp was applied and the heart was arrested using cold blood cardioplegia. Antegrade cardioplegia was administered after he each anastomosis. After adequate arrest, the distal right coronary circulation was investigated and the PDA was opened with a [place] blade and found to be a 1 millimeter fair target. Saphenous vein was approximated to the PDA artery using a running 7 0 Prolene suture. The graft was measured for length and orientation and the proximal anastomosis was constructed to the ascending aorta using a running 5 0 Prolene suture after creating an aortotomy with a 5 millimeter punch. The OM4 was opened with a [place] blade and found to be a 1.5 millimeter good target. Saphenous vein was approximated to the OM4 artery using a running 7 0 Prolene suture. The graft was measured for length and orientation and the proximal anastomosis was constructed to the ascending aorta using a running 5 0 Prolene suture after creating an aortotomy with a 5 millimeter punch. The OM2 was opened with a [place] blade and found to be a 1 millimeter fair target. Saphenous vein was approximated to the OM2 artery using a running 7 0 Prolene suture. The graft was measured for length and orientation and was suspended from the pericardium. The 1st diagonal artery was then opened with a [place] blade and found to be a 1 millimeter fair target. Saphenous vein was approximated to the D1 artery using a running 7 0 Prolene suture. The graft was measured for length and orientation and was suspended from the pericardium. The distal LAD was opened with a [place] blade and found to be a 1.5 millimeter good target. The left internal mammary artery was approximated to the LAD using a running 7 0 Prolene suture. The pedicle was attached to the epicardium using interrupted 5 0 silk suture. The patient was systemically rewarmed and received a hotshot dose of warm blood cardioplegia. The aorta was vented and the proximal anastomosis to the OM2 graft was accomplished using a running 5 0 Prolene suture after creating an aortotomy was a 5 millimeter punch. The D1 graft was approximated proximally to the OM4 vein graft in an end to side manner using a running 7-0 Prolene suture. The cross-clamp was removed and all proximal and distal anastomoses were examined for hemostasis. The patient was weaned from cardiopulmonary bypass. Protamine was given. There was no adverse reaction. Decannulation was carried out without incident. Wound was checked for hemostasis which was obtained using electrocautery. A 36 [place] mediastinal and 32 [place] left pleural chest tubes were placed and secured to the skin with 0 silk suture. The sternum was closed with stainless steel wire. The fascia was closed with 1. PDS. The subcutaneous tissue was closed using a running 2-0 Vicryl suture. The skin was closed with 4-0 Monocryl. Sterile dressings were placed. At the end of the operation, all sponge, instruments, and needle counts were correct. The patient was transferred to the CVICU in stable condition. Findings: LV function improved to ~45% XC: 77 min CPB: 99 min Drains: mediastinal x 1 pleural x 1 Complications: none Disposition: to CVICU in stable condition Anila Carroll MD Brief History - From Admission This is a 62-year-old female past medical history of coronary disease status post stent placement in August [address] Mendoza and multiple admissions secondary to chest pain who presented with chest pain. Patient is well-known to me in which she was seen in August for similar issues. Patient stated that she ran out her nitro last night and she started to have chest pain. She stated nitro usually relieves her chest pain. Chest pain is constant, substernal, radiating to the left arm. At the moment Nitrol seems to not help her chest pain. Patient also giving multiple doses of morphine which she said improved her chest pain more. Patient stated that she feels nauseous but denies any emesis. Positive for diaphoresis. I spoke to patient's nurse who stated that initially patient refused EKG because she wanted a more pain medication. Otherwise no other complaints. All other review of system reviewed and negative. CBC/BMP: 02/13/18 0722 02/12/18 0330 Significant Findings Laboratory Tests Test 02/11/18 04:15 02/12/18 03:30 02/13/18 07:22 White Blood Count 12.2 TH/MM3 (4.0-11.0) 11.8 TH/MM3 (4.0-11.0) Red Blood Count 2.69 MIL/MM3 (4.00-5.30) 2.87 MIL/MM3 (4.00-5.30) 3.26 MIL/MM3 (4.00-5.30) Hemoglobin 8.6 GM/DL (11.6-15.3) 9.4 GM/DL (11.6-15.3) 10.3 GM/DL (11.6-15.3) Hematocrit 25.5 % (35.0-46.0) 27.0 % (35.0-46.0) 30.5 % (35.0-46.0) Neutrophils (%) (Auto) 76.2 % (16.0-70.0) Neutrophils # (Auto) 9.3 TH/MM3 (1.8-7.7) Random Glucose 154 MG/DL (74-106) Total Protein 5.8 GM/DL (6.4-8.2) 6.3 GM/DL (6.4-8.2) Albumin 2.8 GM/DL (3.4-5.0) 2.9 GM/DL (3.4-5.0) Calcium Level 8.4 MG/DL (8.5-10.1) 8.4 MG/DL (8.5-10.1) Aspartate Amino Transf (AST/SGOT) 43 U/L (15-37) 45 U/L (15-37) Alanine Aminotransferase (ALT/SGPT) 79 U/L (10-53) 72 U/L (10-53) Sodium Level 135 MEQ/L (136-145) 133 MEQ/L (136-145) Estimat Glomerular Filtration Rate 57 ML/MIN (>89) 56 ML/MIN (>89) Creatinine 1.01 MG/DL (0.50-1.00) Imaging Last Impressions Chest X-Ray 02/13/18 0600 Signed Impressions: Service Date/Time: Tuesday, February 13, 2018 03:32 - CONCLUSION: Bibasilar subsegmental atelectasis. Pilo Lau MD Lower Extremity Ultrasound 02/06/18 0000 Signed Impressions: Service Date/Time: Tuesday, February 06, 2018 16:54 - CONCLUSION: Venous mapping as above. Shaheed Murray MD Carotid Artery Ultrasound 02/06/18 Signed Impressions: Service Date/Time: Tuesday, February 06, 2018 17:16 - CONCLUSION: Moderate atherosclerotic plaquing at both carotid bifurcations. There is mild elevation of both internal carotid arteries, left greater than right. This suggests some mild to moderate narrowing. If clinically indicated, recommend a CTA of the carotids for further evaluation. Shaheed Murray MD CT Angiography 02/04/18 Signed Impressions: Service Date/Time: Sunday, February 04, 2018 08:35 - CONCLUSION: #1. No evidence of PE. #2. Multifocal air space consolidation involving the bilateral lower lobes and lingula consistent with pneumonia. #3. No evidence of congestive heart failure.. Johana Maher MD PE at Discharge GENERAL: Awake alert and oriented 3 talkative and cooperative SKIN: Warm and dry. HEAD: Atraumatic. Normocephalic. EYES: Pupils equal and round. No scleral icterus. No injection or drainage. Extraocular muscles intact ENT: No nasal bleeding or discharge. Mucous membranes pink and moist. Tongue is midline NECK: Trachea midline. No JVD. Supple CARDIOVASCULAR: Regular rate and rhythm. S1-S2 no S3 or S4 and no heaves no thrills no rubs no gallops anterior chest wound chest tube still in place RESPIRATORY: No accessory muscle use. Clear to auscultation. Breath sounds equal bilaterally. GASTROINTESTINAL: Abdomen soft, non-tender, nondistended. Hepatic and splenic margins not palpable. MUSCULOSKELETAL: Extremities without clubbing, cyanosis, or edema. No obvious deformities. NEUROLOGICAL: Awake and alert. No obvious cranial nerve deficits. Motor grossly within normal limits. Five out of 5 muscle strength in the arms and legs. Normal speech. PSYCHIATRIC: Appropriate mood and affect; insight and judgment normal. Hospital Course 62 year-old female admitted secondary to unstable angina, now status post CABG 5. Patient feels a little bit weak however she wants to go home. Cleared by surgeon. Patient to follow-up as outpatient with PCP and consultants. No events during the stay of the hospitalization. She improved. Multivessel coronary disease Status post CABG Doing well postop Continue as needed pain control Cardiothoracic surgery following Continue postop care Unstable angina End-stage multivessel disease Atypical chest pain No further chest pain status post CABG Monitor on telemetry Plavix Community acquired pneumonia Continue antibiotics No respiratory distress Diabetes type 2 Continue Levemir Follow blood sugars Insulin sliding scale Diabetic diet Pt Condition on Discharge: Stable Discharge Disposition: Disch w/ Home Health Serv Discharge Time: > 30 minutes Discharge Instructions DIET: Follow Instructions for: Heart Healthy Diet, Diabetic Diet Activities you can perform: Regular-No Restrictions Follow up Referrals: PCP Follow-up - 3-5 Days Surgical - 2 Weeks New Orders: BASIC METABOLIC PROF - 2 Weeks CBC NO DIFF - 2 Weeks X-RAY CHEST PA & LAT - 2 Weeks New Medications: Aspirin DR (Aspirin EC) 81 Mg Tabdr 81 MG PO DAILY for Blood Clot Prevention, #30 TAB 2 Refills Amiodarone (Amiodarone) 200 Mg Tab 200 MG PO Q12HR for heart rhythm, #28 TAB 0 Refills Docusate Sodium (Dok) 100 Mg Cap 100 MG PO BID for Constipation, #60 CAP 0 Refills Metoprolol Tartrate (Metoprolol Tartrate) 25 Mg Tab 25 MG PO Q12HR for Blood Pressure Management, #60 TAB 2 Refills Multiple Vitamins W/ Minerals (Thera M Plus) 1 Tab 1 TAB PO DAILY for multi vitamin, #30 TAB 2 Refills Oxycodone HCl/Acetaminophen (Oxycodone-Acetaminophen 5-325) 5 Mg-325 Mg Tablet 1 TAB PO Q4H PRN for PAIN SCALE 1 TO 5, #40 TAB 0 Refills Continued Medications: Atorvastatin (Atorvastatin) 80 Mg Tab 80 MG PO DAILY for cad, #30 TAB 3 Refills Clopidogrel (Plavix) 75 Mg Tab 75 MG PO DAILY for cad, #30 TAB 3 Refills Glipizide (Glipizide) 5 Mg Tab 5 MG PO BIDAC for Blood Sugar Management, #60 TAB 3 Refills Take 30 minutes before a meal Lisinopril (Lisinopril) 5 Mg Tab 5 MG PO DAILY for cad, #30 TAB 3 Refills Metformin (Metformin) 500 Mg Tab 500 MG PO BIDPC for Blood Sugar Management, #60 TAB 0 Refills Pantoprazole (Pantoprazole) 40 Mg Tab 40 MG PO Q12HR for Manage Heartburn, #60 TAB Discontinued Medications: Aspirin (Aspirin Low Strength) 81 Mg Chew 162 MG PO DAILY for coronary artery disease, #60 EA 0 Refills Hydrocodone-Acetaminophen (Hydrocodone-Acetaminophen) 5-325 mg Tab 1 TAB PO Q6H PRN for moderate to severe pain, #10 TAB 0 Refills Isosorbide Mononitrate ER (Isosorbide Mononitrate ER) 60 Mg Tab 60 MG PO DAILY@07 for Blood Pressure Management, #30 TAB Metoprolol Tartrate (Lopressor) 50 Mg Tab 50 MG PO Q12HR for cad, #60 TAB 3 Refills Nitroglycerin SL (Nitroglycerin SL) 0.3 Mg Subl 0.3 MG SL DIRECTED PRN for CHEST PAIN, #100 TAB.SL 0 Refills ONE TABLET UNDER THE TONGUE NEEDED FOR CHEST PAIN, MAY REPEAT EVERY FIVE MINUTES FOR A TOTAL OF 3 DOSES OR CALL 911 IF NO RELIEF Potassium Chloride ER (Potassium Chloride ER) 10 Meq Tab 10 MEQ PO BID for Electrolyte Replacement, #60 TAB 0 Refills Julita Alfaro MD Feb 13, 2018 11:50
[2018-02-13] MEDS: SENNOSIDES 8.6 MG TAB PO SCH (21:00)
[2018-02-13] MEDS: KETOROLAC TROMETHAMINE 30 MG/ML (IVP) VIAL IV PUSH PRN (23:03)
[2018-02-14] VITALS (16 sets, daily range): BP systolic 118–142; BP diastolic 58–67; PULSE 64–90; RESP 16–20; TEMP 98.2–98.4; O2SAT 95–100
[2018-02-14] MEDS: oxyCODONE/ACETAMINOPHEN 5 MG/325 MG TAB PO PRN ×3 (00:18→12:58)
[2018-02-14 04:47] LABS: HEMATOCRIT 28.9 % (35.0-46.0); HEMOGLOBIN 9.9 GM/DL (11.6-15.3); MEAN CELL VOLUME 94.1 FL (80.0-100.0); MEAN CORPUSCULAR HEMOGLOBIN 32.3 PG (27.0-34.0); MEAN CORPUSCULAR HGB CONC 34.3 % (32.0-36.0); MEAN PLATELET VOLUME 8.7 FL (7.0-11.0); PLATELET COUNT 297 TH/MM3 (150-450); RED BLOOD COUNT 3.07 MIL/MM3 (4.00-5.30); WHITE BLOOD COUNT 8.5 TH/MM3 (4.0-11.0)
[2018-02-14] MEDS: PANTOPRAZOLE SOD 40 MG DELAYED RELEASE TAB PO SCH (06:14)
[2018-02-14] MEDS: AMIODARONE 200 MG TAB PO SCH ×2 (06:14→15:08)
[2018-02-14] MEDS: glipiZIDE 5 MG TAB PO SCH (07:32)
[2018-02-14] MEDS: INSULIN ASPART SUPPLEMENTAL SCALE SQ SCH ×2 (07:33→12:58)
--- NOTE | 2018-02-14 08:21 | HHI.PR ---
Subjective Remarks Late entry. The patient was seen earlier morning 02/13/18 In the chair. No pain in her chest . No cough. No n/v/d/c. No palpitations. No fever ro chills. Feels a little tired after she ambulated. Cleared for Dc by CTS Objective Vitals Vital Signs Date Time Temp Pulse Resp B/P (MAP) Pulse Ox O2 Delivery O2 Flow Rate FiO2 02/14/18 07:20 100 Room Air 02/14/18 07:20 98.2 78 16 118/63 (81) 100 02/14/18 03:00 97 Room Air 02/14/18 03:00 98.4 75 20 123/67 (85) 96 02/14/18 03:00 75 02/14/18 01:20 18 02/14/18 00:05 18 02/13/18 23:00 97 Room Air 02/13/18 23:00 68 02/13/18 23:00 98.4 75 20 115/67 (83) 96 02/13/18 21:04 95 21 02/13/18 19:00 98.2 80 20 131/68 (89) 98 02/13/18 19:00 80 02/13/18 19:00 98 Room Air 02/13/18 18:00 68 02/13/18 17:08 74 02/13/18 16:22 96 Room Air 02/13/18 16:22 97.8 84 18 131/62 (85) 98 02/13/18 14:00 76 02/13/18 13:00 78 02/13/18 12:00 74 02/13/18 11:06 97.4 79 18 104/61 (75) 96 02/13/18 11:06 96 Room Air 02/13/18 11:00 75 02/13/18 10:00 76 02/13/18 09:00 94 02/13/18 08:20 96 21 I/O 02/13/18 02/13/18 02/13/18 02/14/18 02/14/18 02/14/18 07:00 15:00 23:00 07:00 15:00 23:00 Intake Total 480 ml 100 ml 620 ml Output Total 400 ml 960 ml 900 ml Balance 80 ml -860 ml -280 ml Intake Oral 480 ml 100 ml 620 ml Output Urine Total 400 ml 960 ml 900 ml # Voids 2 # Bowel Movements 1 0 Result Diagram: 02/14/18 0345 02/12/18 0330 Imaging Last Impressions Chest X-Ray 02/13/18 0600 Signed Impressions: Service Date/Time: Tuesday, February 13, 2018 03:32 - CONCLUSION: Bibasilar subsegmental atelectasis. Pilo Lau MD Lower Extremity Ultrasound 02/06/18 0000 Signed Impressions: Service Date/Time: Tuesday, February 06, 2018 16:54 - CONCLUSION: Venous mapping as above. Shaheed Murray MD Carotid Artery Ultrasound 02/06/18 0000 Signed Impressions: Service Date/Time: Tuesday, February 06, 2018 17:16 - CONCLUSION: Moderate atherosclerotic plaquing at both carotid bifurcations. There is mild elevation of both internal carotid arteries, left greater than right. This suggests some mild to moderate narrowing. If clinically indicated, recommend a CTA of the carotids for further evaluation. Shaheed Murray MD CT Angiography 02/04/18 0000 Signed Impressions: Service Date/Time: Sunday, February 04, 2018 08:35 - CONCLUSION: #1. No evidence of PE. #2. Multifocal air space consolidation involving the bilateral lower lobes and lingula consistent with pneumonia. #3. No evidence of congestive heart failure.. Johana Maher MD Objective Remarks GENERAL: Awake alert and oriented 3 talkative and cooperative CARDIOVASCULAR: Regular rate and rhythm. S1-S2 no S3 or S4 and no heaves no thrills no rubs no gallops anterior chest wound chest tube still in place RESPIRATORY: No accessory muscle use. Clear to auscultation. Breath sounds equal bilaterally. GASTROINTESTINAL: Abdomen soft, non-tender, nondistended. Hepatic and splenic margins not palpable. MUSCULOSKELETAL: Extremities without clubbing, cyanosis, or edema. No obvious deformities. NEUROLOGICAL: Awake and alert. No obvious cranial nerve deficits. Motor grossly within normal limits. Five out of 5 muscle strength in the arms and legs. Normal speech. PSYCHIATRIC: Appropriate mood and affect; insight and judgment normal. Procedures Cardiac catheterization on 02-05 CABG X5 02-09 INDICATION: Non-ST elevation myocardial infarction, severe multivessel coronary disease, history of coronary intervention. PROCEDURE PERFORMED: 1. Retrograde left heart catheterization with left ventriculography and selective coronary angiography. 2. Left internal mammary artery angiography. 3. Moderate sedation. ACCESS SITE: Right femoral artery. EQUIPMENT USED: 5 Haitian pigtail, JL4 and AR modified coronary catheters. MEDICATIONS: Versed IV, fentanyl IV, nitroglycerin IC. CONTRAST: Omnipaque 65 mL. COMPLICATIONS: None. BLOOD LOSS: Less than 10 mL. METHOD OF HEMOSTASIS: VASCADE closure. RESULTS AND HEMODYNAMICS: A. Heart rate 80 beats per minute, left ventricular end diastolic pressure 9 mmHg, left ventricle 95/9, aorta 95/54/70. B. Left ventricular ejection fraction 25%. Wall motion anteroapical and apical severe hypokinesis, no mitral regurgitation. C. Coronary angiography. Left main coronary artery has 80% stenosis in the distal portion. This was unchanged after administration of intracoronary nitroglycerin. Left anterior descending artery is totally occluded in the proximal portion distally to the first diagonal branch. Distal vessel faintly filled by [id number] collaterals. There was 80% stenosis of the ostium of the first diagonal branch. Left circumflex artery had 80% stenosis at its ostium. OM1 had 50% ostial stenosis and 80% in the mid portion. OM2 had 60% stenosis in its proximal portion and 30% stenosis in the mid portion. Right coronary artery is a dominant vessel with 20% in-stent restenosis in the proximal portion and 50% stenosis in the distal portion prior to the bifurcation. PDA had 80% ostial stenosis. PLV had 80% stenosis of the mid portion. Left subclavian artery and left internal mammary artery were patent. DIAGNOSES: 1. Severe diffuse multivessel coronary artery disease. 2. Severe left ventricular dysfunction consistent with ischemic cardiomyopathy. DISPOSITION: Elizabeth Haynes was found to have evidence of severe disease progression when compared to her previous cardiac catheterization and coronary intervention last year. She was found to have severe stenosis of the distal left main coronary artery. Any coronary intervention at this time would have extremely high risk. I recommend to consider coronary bypass for further management. Dr. Singleton was consulted for cardiothoracic surgery. We will start IV heparin, IV nitroglycerin, and continue to closely monitor the patient in the cardiac unit on telemetry. Marcus Hawthorne MD OQ/SB , 02:18 PM Operative Report Date of Surgery: Feb 09, 2018 Preoperative Diagnosis: (1) Systolic CHF (2) NSTEMI (non-ST elevated myocardial infarction) (3) CAD (coronary artery disease) Postoperative Diagnosis: same Procedure: CABG x 5 MAHAJAN to LAD - good SVG to PDA - fair SVG to OM4 - good SVG to OM2 - fair SVG to D1 - fair JONG EVH Anesthesia: Dr. Simpson Surgeon: Anila Carroll Clinical Data Management Manager(s): Dawood ODONNELL Operation and Findings: The risks, benefits, complications, treatment options, and expected outcomes were discussed with the patient. The possibilities of reaction to medication, pulmonary aspiration, perforation of viscus, bleeding, recurrent infection, the need for additional procedures, failure to diagnose a condition, and creating a complication requiring transfusion or operation were discussed with the patient. The patient concurred with the proposed plan, giving informed consent. The site of surgery properly noted/marked. The patient was taken to Operating Room, identified as Elizabeth Ivy and the procedure verified as CABG, EVH, JONG. A Time Out was held and the above information confirmed. Standard monitoring lines and Sawyer catheter were placed. General anesthesia was induced. The patient was prepped and draped in a sterile fashion. A median sternotomy was performed and electrocautery was used to obtain hemostasis. The left internal mammary artery was procured as a pedicle from the 7th rib to the 1st rib in the usual manner. Simultaneously left greater saphenous vein was procured from the left leg using a minimally invasive endoscopic technique. The vein was prepared for anastomosis and the leg wound was irrigated and closed in 2 layers. The pericardium was opened and a pericardial sling was created using interrupted 0 silk sutures. The patient was heparinized for cardiopulmonary bypass and the distal mammary pedicle was instrumented for anastomosis. The heart was instrumented for cardiopulmonary bypass in the usual manner. Antegrade blood cardioplegia was employed. The patient was placed on cardiopulmonary bypass. An aortic cross-clamp was applied and the heart was arrested using cold blood cardioplegia. Antegrade cardioplegia was administered after he each anastomosis. After adequate arrest, the distal right coronary circulation was investigated and the PDA was opened with a [place] blade and found to be a 1 millimeter fair target. Saphenous vein was approximated to the PDA artery using a running 7 0 Prolene suture. The graft was measured for length and orientation and the proximal anastomosis was constructed to the ascending aorta using a running 5 0 Prolene suture after creating an aortotomy with a 5 millimeter punch. The OM4 was opened with a [place] blade and found to be a 1.5 millimeter good target. Saphenous vein was approximated to the OM4 artery using a running 7 0 Prolene suture. The graft was measured for length and orientation and the proximal anastomosis was constructed to the ascending aorta using a running 5 0 Prolene suture after creating an aortotomy with a 5 millimeter punch. The OM2 was opened with a [place] blade and found to be a 1 millimeter fair target. Saphenous vein was approximated to the OM2 artery using a running 7 0 Prolene suture. The graft was measured for length and orientation and was suspended from the pericardium. The 1st diagonal artery was then opened with a [place] blade and found to be a 1 millimeter fair target. Saphenous vein was approximated to the D1 artery using a running 7 0 Prolene suture. The graft was measured for length and orientation and was suspended from the pericardium. The distal LAD was opened with a [place] blade and found to be a 1.5 millimeter good target. The left internal mammary artery was approximated to the LAD using a running 7 0 Prolene suture. The pedicle was attached to the epicardium using interrupted 5 0 silk suture. The patient was systemically rewarmed and received a hotshot dose of warm blood cardioplegia. The aorta was vented and the proximal anastomosis to the OM2 graft was accomplished using a running 5 0 Prolene suture after creating an aortotomy was a 5 millimeter punch. The D1 graft was approximated proximally to the OM4 vein graft in an end to side manner using a running 7-0 Prolene suture. The cross-clamp was removed and all proximal and distal anastomoses were examined for hemostasis. The patient was weaned from cardiopulmonary bypass. Protamine was given. There was no adverse reaction. Decannulation was carried out without incident. Wound was checked for hemostasis which was obtained using electrocautery. A 36 [place] mediastinal and 32 [place] left pleural chest tubes were placed and secured to the skin with 0 silk suture. The sternum was closed with stainless steel wire. The fascia was closed with 1. PDS. The subcutaneous tissue was closed using a running 2-0 Vicryl suture. The skin was closed with 4-0 Monocryl. Sterile dressings were placed. At the end of the operation, all sponge, instruments, and needle counts were correct. The patient was transferred to the CVICU in stable condition. Findings: LV function improved to ~45% XC: 77 min CPB: 99 min Drains: mediastinal x 1 pleural x 1 Complications: none Disposition: to CVICU in stable condition Anila Carroll MD A/P Problem List: (1) Unstable angina ICD Code: I20.0 - Unstable angina Status: Acute (2) Pneumonia ICD Code: J18.9 - Pneumonia, unspecified organism Status: Acute Assessment and Plan 62 year-old female admitted secondary to unstable angina, now status post CABG 5. Patient feels a little bit weak however she wants to go home. Cleared by surgeon. Patient to follow-up as outpatient with PCP and consultants. No events during the stay of the hospitalization. She improved. Multivessel coronary disease Status post CABG Doing well postop Continue as needed pain control Cardiothoracic surgery cleared patient for DC Continue postop care Unstable angina End-stage multivessel disease Atypical chest pain No further chest pain status post CABG Monitor on telemetry Plavix Community acquired pneumonia Treated with antibiotics No respiratory distress No sepsis Encourage IS Diabetes type 2 Continue Levemir Follow blood sugars Insulin sliding scale Diabetic diet Improved. Cleared by CTS for DC Discussed with the patient, nurse Plan to DC home with home health Problem Qualifiers (1) Pneumonia: Qualified Codes: J18.1 - Lobar pneumonia, unspecified organism Julita Alfaro MD Feb 14, 2018 08:21
--- NOTE | 2018-02-14 08:28 | HHI.PR ---
Subjective Remarks At the margin of the bed, eating breakfast. No chest pain. No cough, fever o chills. No n/v/d/c. Denies sob, palpitations, nausea. Home health not able to be arranged and patient is in the hospital until home health is arranged. Objective Vitals Vital Signs Date Time Temp Pulse Resp B/P (MAP) Pulse Ox O2 Delivery O2 Flow Rate FiO2 02/14/18 07:20 100 Room Air 02/14/18 07:20 98.2 78 16 118/63 (81) 100 02/14/18 03:00 97 Room Air 02/14/18 03:00 98.4 75 20 123/67 (85) 96 02/14/18 03:00 75 02/14/18 01:20 18 02/14/18 00:05 18 02/13/18 23:00 97 Room Air 02/13/18 23:00 68 02/13/18 23:00 98.4 75 20 115/67 (83) 96 02/13/18 21:04 95 21 02/13/18 19:00 98.2 80 20 131/68 (89) 98 02/13/18 19:00 80 02/13/18 19:00 98 Room Air 02/13/18 18:00 68 02/13/18 17:08 74 02/13/18 16:22 96 Room Air 02/13/18 16:22 97.8 84 18 131/62 (85) 98 02/13/18 14:00 76 02/13/18 13:00 78 02/13/18 12:00 74 02/13/18 11:06 97.4 79 18 104/61 (75) 96 02/13/18 11:06 96 Room Air 02/13/18 11:00 75 02/13/18 10:00 76 02/13/18 09:00 94 I/O 02/13/18 02/13/18 02/13/18 02/14/18 02/14/18 02/14/18 07:00 15:00 23:00 07:00 15:00 23:00 Intake Total 480 ml 100 ml 620 ml Output Total 400 ml 960 ml 900 ml Balance 80 ml -860 ml -280 ml Intake Oral 480 ml 100 ml 620 ml Output Urine Total 400 ml 960 ml 900 ml # Voids 2 # Bowel Movements 1 0 Result Diagram: 3/28/18 0345 02/12/18 0330 Imaging Last Impressions Chest X-Ray 02/13/18 0600 Signed Impressions: Service Date/Time: Tuesday, February 13, 2018 03:32 - CONCLUSION: Bibasilar subsegmental atelectasis. Pilo Lau MD Lower Extremity Ultrasound 02/06/18 0000 Signed Impressions: Service Date/Time: Tuesday, February 06, 2018 16:54 - CONCLUSION: Venous mapping as above. Shaheed Murray MD Carotid Artery Ultrasound 02/06/18 0000 Signed Impressions: Service Date/Time: Tuesday, February 06, 2018 17:16 - CONCLUSION: Moderate atherosclerotic plaquing at both carotid bifurcations. There is mild elevation of both internal carotid arteries, left greater than right. This suggests some mild to moderate narrowing. If clinically indicated, recommend a CTA of the carotids for further evaluation. Shaheed Murray MD CT Angiography 02/04/18 0000 Signed Impressions: Service Date/Time: Sunday, February 04, 2018 08:35 - CONCLUSION: #1. No evidence of PE. #2. Multifocal air space consolidation involving the bilateral lower lobes and lingula consistent with pneumonia. #3. No evidence of congestive heart failure.. Johana Maher MD Objective Remarks GENERAL: Awake alert and oriented 3 talkative and cooperative CARDIOVASCULAR: Regular rate and rhythm. S1-S2 no S3 or S4 and no heaves no thrills no rubs no gallops. RESPIRATORY: No accessory muscle use. Clear to auscultation. Breath sounds equal bilaterally. GASTROINTESTINAL: Abdomen soft, non-tender, nondistended. Hepatic and splenic margins not palpable. MUSCULOSKELETAL: Extremities without clubbing, cyanosis, or edema. No obvious deformities. NEUROLOGICAL: Awake and alert. No obvious cranial nerve deficits. Motor grossly within normal limits. Five out of 5 muscle strength in the arms and legs. Normal speech. PSYCHIATRIC: Appropriate mood and affect; insight and judgment normal. Procedures Cardiac catheterization on 02-05 CABG X5 02-09 INDICATION: Non-ST elevation myocardial infarction, severe multivessel coronary disease, history of coronary intervention. PROCEDURE PERFORMED: 1. Retrograde left heart catheterization with left ventriculography and selective coronary angiography. 2. Left internal mammary artery angiography. 3. Moderate sedation. ACCESS SITE: Right femoral artery. EQUIPMENT USED: 5 Emirati pigtail, JL4 and AR modified coronary catheters. MEDICATIONS: Versed IV, fentanyl IV, nitroglycerin IC. CONTRAST: Omnipaque 65 mL. COMPLICATIONS: None. BLOOD LOSS: Less than 10 mL. METHOD OF HEMOSTASIS: VASCADE closure. RESULTS AND HEMODYNAMICS: A. Heart rate 80 beats per minute, left ventricular end diastolic pressure 9 mmHg, left ventricle 95/9, aorta 95/54/70. B. Left ventricular ejection fraction 25%. Wall motion anteroapical and apical severe hypokinesis, no mitral regurgitation. C. Coronary angiography. Left main coronary artery has 80% stenosis in the distal portion. This was unchanged after administration of intracoronary nitroglycerin. Left anterior descending artery is totally occluded in the proximal portion distally to the first diagonal branch. Distal vessel faintly filled by janoa-rk-gyey collaterals. There was 80% stenosis of the ostium of the first diagonal branch. Left circumflex artery had 80% stenosis at its ostium. OM1 had 50% ostial stenosis and 80% in the mid portion. OM2 had 60% stenosis in its proximal portion and 30% stenosis in the mid portion. Right coronary artery is a dominant vessel with 20% in-stent restenosis in the proximal portion and 50% stenosis in the distal portion prior to the bifurcation. PDA had 80% ostial stenosis. PLV had 80% stenosis of the mid portion. Left subclavian artery and left internal mammary artery were patent. DIAGNOSES: 1. Severe diffuse multivessel coronary artery disease. 2. Severe left ventricular dysfunction consistent with ischemic cardiomyopathy. DISPOSITION: Elizabeth Haynes was found to have evidence of severe disease progression when compared to her previous cardiac catheterization and coronary intervention last year. She was found to have severe stenosis of the distal left main coronary artery. Any coronary intervention at this time would have extremely high risk. I recommend to consider coronary bypass for further management. Dr. Singleton was consulted for cardiothoracic surgery. We will start IV heparin, IV nitroglycerin, and continue to closely monitor the patient in the cardiac unit on telemetry. MD MARQUITA Auguste/ARMANDO , 02:18 PM Operative Report Date of Surgery: Feb 09, 2018 Preoperative Diagnosis: (1) Systolic CHF (2) NSTEMI (non-ST elevated myocardial infarction) (3) CAD (coronary artery disease) Postoperative Diagnosis: same Procedure: CABG x 5 MAHAJAN to LAD - good SVG to PDA - fair SVG to OM4 - good SVG to OM2 - fair SVG to D1 - fair JONG EVH Anesthesia: Dr. Simpson Surgeon: Anila Carroll Cabin Crew(s): Dawood ODONNELL Operation and Findings: The risks, benefits, complications, treatment options, and expected outcomes were discussed with the patient. The possibilities of reaction to medication, pulmonary aspiration, perforation of viscus, bleeding, recurrent infection, the need for additional procedures, failure to diagnose a condition, and creating a complication requiring transfusion or operation were discussed with the patient. The patient concurred with the proposed plan, giving informed consent. The site of surgery properly noted/marked. The patient was taken to Operating Room, identified as Elizabeth Haynes and the procedure verified as CABG, EVH, JONG. A Time Out was held and the above information confirmed. Standard monitoring lines and Sawyer catheter were placed. General anesthesia was induced. The patient was prepped and draped in a sterile fashion. A median sternotomy was performed and electrocautery was used to obtain hemostasis. The left internal mammary artery was procured as a pedicle from the 7th rib to the 1st rib in the usual manner. Simultaneously left greater saphenous vein was procured from the left leg using a minimally invasive endoscopic technique. The vein was prepared for anastomosis and the leg wound was irrigated and closed in 2 layers. The pericardium was opened and a pericardial sling was created using interrupted 0 silk sutures. The patient was heparinized for cardiopulmonary bypass and the distal mammary pedicle was instrumented for anastomosis. The heart was instrumented for cardiopulmonary bypass in the usual manner. Antegrade blood cardioplegia was employed. The patient was placed on cardiopulmonary bypass. An aortic cross-clamp was applied and the heart was arrested using cold blood cardioplegia. Antegrade cardioplegia was administered after he each anastomosis. After adequate arrest, the distal right coronary circulation was investigated and the PDA was opened with a Kenaitze blade and found to be a 1 millimeter fair target. Saphenous vein was approximated to the PDA artery using a running 7 0 Prolene suture. The graft was measured for length and orientation and the proximal anastomosis was constructed to the ascending aorta using a running 5 0 Prolene suture after creating an aortotomy with a 5 millimeter punch. The OM4 was opened with a Kenaitze blade and found to be a 1.5 millimeter good target. Saphenous vein was approximated to the OM4 artery using a running 7 0 Prolene suture. The graft was measured for length and orientation and the proximal anastomosis was constructed to the ascending aorta using a running 5 0 Prolene suture after creating an aortotomy with a 5 millimeter punch. The OM2 was opened with a Kenaitze blade and found to be a 1 millimeter fair target. Saphenous vein was approximated to the OM2 artery using a running 7 0 Prolene suture. The graft was measured for length and orientation and was suspended from the pericardium. The 1st diagonal artery was then opened with a Kenaitze blade and found to be a 1 millimeter fair target. Saphenous vein was approximated to the D1 artery using a running 7 0 Prolene suture. The graft was measured for length and orientation and was suspended from the pericardium. The distal LAD was opened with a Kenaitze blade and found to be a 1.5 millimeter good target. The left internal mammary artery was approximated to the LAD using a running 7 0 Prolene suture. The pedicle was attached to the epicardium using interrupted 5 0 silk suture. The patient was systemically rewarmed and received a hotshot dose of warm blood cardioplegia. The aorta was vented and the proximal anastomosis to the OM2 graft was accomplished using a running 5 0 Prolene suture after creating an aortotomy was a 5 millimeter punch. The D1 graft was approximated proximally to the OM4 vein graft in an end to side manner using a running 7-0 Prolene suture. The cross-clamp was removed and all proximal and distal anastomoses were examined for hemostasis. The patient was weaned from cardiopulmonary bypass. Protamine was given. There was no adverse reaction. Decannulation was carried out without incident. Wound was checked for hemostasis which was obtained using electrocautery. A 36 Emirati mediastinal and 32 Emirati left pleural chest tubes were placed and secured to the skin with 0 silk suture. The sternum was closed with stainless steel wire. The fascia was closed with 1. PDS. The subcutaneous tissue was closed using a running 2-0 Vicryl suture. The skin was closed with 4-0 Monocryl. Sterile dressings were placed. At the end of the operation, all sponge, instruments, and needle counts were correct. The patient was transferred to the CVICU in stable condition. Findings: LV function improved to ~45% XC: 77 min CPB: 99 min Drains: mediastinal x 1 pleural x 1 Complications: none Disposition: to CVICU in stable condition Anila Carroll MD A/P Problem List: (1) Unstable angina ICD Code: I20.0 - Unstable angina Status: Acute (2) Pneumonia ICD Code: J18.9 - Pneumonia, unspecified organism Status: Acute Assessment and Plan 62 year-old female admitted secondary to unstable angina, now status post CABG 5. She underwent cardiac catheterization by Dr. Hawthorne, which showed 80% left main , 100% proximal LAD with distal filling, uvawv-hq-cvmd collaterals, 80% ostial diagonal, circumflex has 80%. There was disease in the OM1, OM2. Ejection fraction approximately 30%. 02/09 s/p surgery: CABG x 5, MAHAJAN to LAD - good, SVG to PDA - fair, SVG to OM4 - good, SVG to OM2 - fair, SVG to D1 - fair, JONG, EVH Patient feels a little bit weak however she wants to go home. Cleared by surgeon. Patient to follow-up as outpatient with PCP and consultants. Multivessel coronary disease Status post CABG Doing well postop Continue as needed pain control Cardiothoracic surgery cleared patient for DC Continue postop care Unstable angina End-stage multivessel disease Atypical chest pain No further chest pain status post CABG Monitor on telemetry Plavix Community acquired pneumonia Treated with antibiotics No respiratory distress No sepsis Encourage IS Diabetes type 2 Continue Levemir Follow blood sugars Insulin sliding scale Diabetic diet Improved. Cleared by CTS for DC Discussed with the patient, nurse Plan to DC home with home health. Home health was not able to be arranged and patient is in the hospital until home health is arranged. Case management is following for DC plan. Problem Qualifiers (1) Pneumonia: Qualified Codes: J18.1 - Lobar pneumonia, unspecified organism Julita Alfaro MD Feb 14, 2018 08:28
[2018-02-14] MEDS: metFORMIN HCL 500 MG TAB PO SCH (09:52)
[2018-02-14] MEDS: ATORVASTATIN 80 MG TAB PO SCH (09:52)
[2018-02-14] MEDS: POLYETHYLENE GLYCOL 17 GM PKG PO SCH (09:52)
[2018-02-14] MEDS: MULTIVITAMINS/MINERALS THERAPEUTIC TAB PO SCH (09:52)
[2018-02-14] MEDS: MAGNESIUM HYDROXIDE SUSP 30 ML CUP PO SCH (09:52)
[2018-02-14] MEDS: CLOPIDOGREL 75 MG TAB PO SCH (09:52)
[2018-02-14] MEDS: DOCUSATE SODIUM 100 MG CAP PO SCH (09:53)
[2018-02-14] MEDS: METOPROLOL TARTRATE 25 MG TAB PO SCH (09:53)
[2018-02-14] MEDS: POTASSIUM CHLORIDE 10 MEQ CONTROLLED RELEASE TAB PO SCH (09:53)
[2018-02-14] MEDS: ASPIRIN 81 MG CHEW TAB PO SCH (09:53)
[2018-02-14] MEDS: FUROSEMIDE 40 MG/4 ML VIAL IV PUSH SCH (09:53)
[2018-02-14] MEDS: SODIUM CHLORIDE 0.9% FLUSH 10 ML FLUSH IV FLUSH SCH (09:54)
--- NOTE | 2018-02-14 10:40 | PD.CAR.PN ---
CVT Progress Note Subjective/Hospital Course: A 62-year-old female, patient of Dr. Hawthorne, who has been admitted multiple times with multiple coronary interventions, was seen in the past by Dr. Mendoza. She underwent coronary intervention of the left circumflex and right coronary artery. She also had been seen by Palliative Care in the past for severe disease with extensive blockages. She has been having ongoing chest pain off and on for the and catch her breath and having chest pain. She presented again on this admission with a non-STEMI. Troponins were as high as 9.4. EKG showed sinus tachycardia with atrial abnormality, right bundle branch block, diffuse ST changes. She underwent cardiac catheterization by Dr. Hawthonre, which showed 80% left main, 100% proximal LAD with distal filling, [id number] collaterals , 80% ostial diagonal, circumflex has 80%. There was disease in the OM1, OM2. Ejection fraction approximately 30%. PAST MEDICAL HISTORY: Ischemic cardiomyopathy, severe multivessel coronary artery disease, hypertension, diabetes mellitus, dyslipidemia, history of prior tobacco abuse 02/08 no chest pain or SOB for surgery in am 02/09 surgery: CABG x 5, MAHAJAN to LAD - good, SVG to PDA - fair, SVG to OM4 - good, SVG to OM2 - fair, SVG to D1 - fair, JONG, EVH 02/10/18 c/o incisional pain, otherwise doing well 02/11/18 Doing well, no complaints 02/12 chest tube dc without difficultly on room air EF 45% on statin , ASA, BB , amiodarone , start plavix OOB ambulate eval for dc in am back to [facility] with HHC 02/13 on room air stable for dc from [facility] standpoint continue BB rohini 02/14 dc home today after [facility] arranged, spoke with case management on room air Objective: GENERAL: A&O x 3 SKIN: Warm and dry. prevena to chest , incision intact to EVH on site coordinator: Normocephalic. EYES: No scleral icterus. No injection or drainage. NECK: Supple, trachea midline. No JVD or lymphadenopathy. CARDIOVASCULAR: Regular rate and rhythm without murmurs, gallops, or rubs. RESPIRATORY: Breath sounds equal bilaterally. No accessory muscle use. GASTROINTESTINAL: Abdomen soft, non-tender, nondistended. MUSCULOSKELETAL: No cyanosis, or edema. BACK: Nontender without obvious deformity. No CVA tenderness. Vital Signs Date Time Temp Pulse Resp B/P (MAP) Pulse Ox O2 Delivery O2 Flow Rate FiO2 02/14/18 10:05 80 02/14/18 10:00 78 02/14/18 09:00 79 02/14/18 09:00 78 02/14/18 08:00 80 02/14/18 08:00 78 02/14/18 07:20 100 Room Air 02/14/18 07:20 98.2 78 16 118/63 (81) 100 02/14/18 07:00 66 02/14/18 07:00 68 02/14/18 03:00 97 Room Air 02/14/18 03:00 98.4 75 20 123/67 (85) 96 02/14/18 03:00 75 02/14/18 01:20 18 02/14/18 00:05 18 02/13/18 23:00 97 Room Air 02/13/18 23:00 68 02/13/18 23:00 98.4 75 20 115/67 (83) 96 02/13/18 21:04 95 21 02/13/18 19:00 98.2 80 20 131/68 (89) 98 02/13/18 19:00 80 02/13/18 19:00 98 Room Air 02/13/18 18:00 68 02/13/18 17:08 74 02/13/18 16:22 96 Room Air 02/13/18 16:22 97.8 84 18 131/62 (85) 98 02/13/18 14:00 76 02/13/18 13:00 78 02/13/18 12:00 74 02/13/18 11:06 97.4 79 18 104/61 (75) 96 02/13/18 11:06 96 Room Air 02/13/18 11:00 75 Labs: Laboratory Tests Test 02/14/18 03:45 White Blood Count 8.5 TH/MM3 (4.0-11.0) Red Blood Count 3.07 MIL/MM3 (4.00-5.30) Hemoglobin 9.9 GM/DL (11.6-15.3) Hematocrit 28.9 % (35.0-46.0) Mean Corpuscular Volume 94.1 FL (80.0-100.0) Mean Corpuscular Hemoglobin 32.3 PG (27.0-34.0) Mean Corpuscular Hemoglobin Concent 34.3 % (32.0-36.0) Red Cell Distribution Width 14.0 % (11.6-17.2) Platelet Count 297 TH/MM3 (150-450) Mean Platelet Volume 8.7 FL (7.0-11.0) Result Diagram: 02/14/18 0345 02/12/18 0330 (1) NSTEMI (non-ST elevated myocardial infarction) (2) Unstable angina (3) CAD (coronary artery disease) (4) Cardiomyopathy Plan: resume low dose rohini (5) DM (diabetes mellitus) Plan: on insulin sliding scale , resume home po meds (6) HTN (hypertension) Plan: controlled (7) S/P CABG x 5 Plan: ASA, statin, BB CXR no PTX stable for dc home today after C arranged OOB, ambulate Johana Brown Feb 14, 2018 10:40
== END 2018-02-14 16:37 | disposition home health service (06) | DRG 233 ==
LOC: NEPC 06:46 → INTOOBSV 09:29 → NEDA 09:29 → HCIS 14:08 → OBSVTOIN 02-05 13:08 → HCPC 02-08 18:50 → HCIS 02-09 07:30 → HCVI 02-09 12:22 → HCPC 02-11 09:55
PROVIDERS: ADMIT Hospitalist; ATTEND Hospitalist
PROC: 4A023N7 Measurement of Cardiac Sampling and Pressure, Left Heart, Percutaneous Approach (ICD-10-PCS; 2018-02-05)
PROC: B2111ZZ Fluoroscopy of Multiple Coronary Arteries using Low Osmolar Contrast (ICD-10-PCS; 2018-02-05)
PROC: B2151ZZ Fluoroscopy of Left Heart using Low Osmolar Contrast (ICD-10-PCS; 2018-02-05)
PROC: 021309W Bypass Coronary Artery, Four or More Arteries from Aorta with Autologous Venous Tissue, Open Approach (ICD-10-PCS; 2018-02-09)
PROC: 06BQ4ZZ Excision of Left Saphenous Vein, Percutaneous Endoscopic Approach (ICD-10-PCS; 2018-02-09)
PROC: B31N1ZZ Fluoroscopy of Other Upper Arteries using Low Osmolar Contrast (ICD-10-PCS; 2018-02-09)
PROC: B246ZZ4 Ultrasonography of Right and Left Heart, Transesophageal (ICD-10-PCS; 2018-02-09)
PROC: 5A1221Z Performance of Cardiac Output, Continuous (ICD-10-PCS; 2018-02-09)
PROC: 02100Z9 Bypass Coronary Artery, One Artery from Left Internal Mammary, Open Approach (ICD-10-PCS; principal; 2018-02-09 07:16)
DX: I21.4 Non-ST elevation (NSTEMI) myocardial infarction (principal); J18.1 Lobar pneumonia, unspecified organism; N17.9 Acute kidney failure, unspecified; I11.0 Hypertensive heart disease with heart failure; I50.20 Unspecified systolic (congestive) heart failure; T82.855A Stenosis of coronary artery stent, initial encounter; E11.9 Type 2 diabetes mellitus without complications; I45.10 Unspecified right bundle-branch block; I25.110 Atherosclerotic heart disease of native coronary artery with unstable angina pectoris; E78.5 Hyperlipidemia, unspecified; R00.0 Tachycardia, unspecified; M19.042 Primary osteoarthritis, left hand; M19.041 Primary osteoarthritis, right hand; E78.00 Pure hypercholesterolemia, unspecified; K21.9 Gastro-esophageal reflux disease without esophagitis; F17.210 Nicotine dependence, cigarettes, uncomplicated; I25.5 Ischemic cardiomyopathy; G47.00 Insomnia, unspecified; I25.2 Old myocardial infarction; Z86.73 Personal history of transient ischemic attack (TIA), and cerebral infarction without residual deficits; Z82.49 Family history of ischemic heart disease and other diseases of the circulatory system; Z79.82 Long term (current) use of aspirin; Z79.84 Long term (current) use of oral hypoglycemic drugs; Z79.899 Other long term (current) drug therapy; Y83.1 Surgical operation with implant of artificial internal device as the cause of abnormal reaction of the patient, or of later complication, without mention of misadventure at the time of the procedure
CPT/HCPCS: 71045; 71275; 76937; 80048; 80053; 80061; 82272; 82550; 82948; 83036; 83735; 84484; 85002; 85025; 85027; 85576; 85610; 85730; 86850; 86900; 86901; 86920; 93005; 93318; 93458; 93880; 93970; 93998; 94002; 94010; 94150; 94640; 94667; 94668; 96361; 96374; 96375; 96376; 99152; 99153; C1760; C1769; C1893; J0131; J0456; J0690; J0696; J1644; J1815; J1817; J1885; J1940; J2060; J2150; J2250; J2270; J2370; J2405; J2440; J2720; J2930; J3010; J3370; J3475; J3480; J7030; J7040; J7050; J7120; P9045; P9047; Q9967